=== PATIENT | female | born 1935 | race Caucasian/White ===

== ENCOUNTER → 2016-05-03 | Outpatient (CLI) | payer OTHER ==
[~2016-05-03] MED LIST: ACET-1138 PO; ACET-1256 PO; ALBU18002 INH; ALBU1AER9 INH; ANSHCCR/ TOP; ASPEC325 PO; ATV5 PO; ATV5X PO; BISA1TAB15 PO; BXN500 PO; CHOL1TAB2 PO; CLC100 PO; CLON0.1T12 PO; CLS1 PO; CYAN3INJ IM; CYCL0.052 OPB; CYNI1000 INJ; DLC5 PO; DOCU100C31 PO; FLUT0.15 NAE; FRRG PO; HYDR-5688 PO; HYDR12.56 PO; LEVO-217 PO; LEVO50TA6 PO; LIDO2SOL19 TOP; LISI10TA PO; LISI20TA3 PO; LOSA1TAB PO; LOSA50TA6 PO; LPR25 PO; LSX20 PO; METO25TA56 PO; MOML PO; MULT-190 PO; MULTCAP7 PO; NITR1CAP32 PO; OXYC-643 PO; PANT40TA PO; POLY335019 PO; POTA-327 PO; POTA-74 PO; POTA10CA28 PO; TELM40TA11 PO; TRAM-10 PO; TRIA0.1C20 TOP; TRMCR130WC TOP; VTMD1000 PO
[2016-05-03 17:24] LABS: AST/SGOT 16 U/L (15-37); BLOOD UREA NITROGEN 14 mg/dl (7-18); BUN/CREATININE RATIO 10.9 (10-20); CALCIUM 9.7 mg/dl (8.5-10.1); CARBON DIOXIDE 20 mmol/L (21-32); CHLORIDE 112 mmol/L (98-107); GLUCOSE 143 mg/dl (70-99); POTASSIUM 3.5 mmol/L (3.5-5.1); SODIUM 144 mmol/L (136-145)
[2016-05-03 17:45] LABS: ALB/GLOB RATIO 1.1 (0.9-2); ALKALINE PHOSPHATASE 88 U/L (45-117); ALT/SGPT 19 U/L (12-78)
--- NOTE | 2016-05-08 13:20 | CODING QUERY MEDICAL NECESSITY ---
SUPPORTING DIAGNOSIS NEEDED A supporting diagnosis is required for the test/procedure performed on this patient in order for us to be reimbursed by the patient's insurance. Please provide a supporting diagnosis for the following test/procedure listed below next to the test name along with your signature. *If there is no additional diagnosis for this patient that would support the following test/procedure please document that below next to the test/procedure. Test(s)/Procedure(s) that require a supporting diagnosis: * VIT D 25 DIHYDROXY DIAGNOSIS: * DOS: 05/03/16 Provider Signature: Date: Thank you Rita [facility] Information Management Once completed, please kindly fax back to [phone] For questions please call [phone]
== END | disposition home or self-care (01) ==
LOC: C.LABBFT 10:49
PROVIDERS: ATTEND Internal Medicine
DX: G47.62 Sleep related leg cramps (principal); E55.9 Vitamin D deficiency, unspecified

== ENCOUNTER → 2016-05-09 | Outpatient (CLI) | payer OTHER ==
[2016-05-09 12:37] LABS: CHOLESTEROL/HDL RATIO 3.3
== END | disposition home or self-care (01) ==
LOC: C.LABBFT 09:16
PROVIDERS: ATTEND Internal Medicine
DX: R73.01 Impaired fasting glucose (principal); E78.1 Pure hyperglyceridemia

== ENCOUNTER → 2016-05-14 | Outpatient (CLI) | payer OTHER ==
[2016-05-14 12:32] LABS: BLOOD UREA NITROGEN 15 mg/dl (7-18); BUN/CREATININE RATIO 12.7 (10-20); CALCIUM 9.5 mg/dl (8.5-10.1); CARBON DIOXIDE 22 mmol/L (21-32); CHLORIDE 111 mmol/L (98-107); GLUCOSE 115 mg/dl (70-99); POTASSIUM 3.8 mmol/L (3.5-5.1); SODIUM 143 mmol/L (136-145)
== END | disposition home or self-care (01) ==
LOC: C.LABBFT 10:48
PROVIDERS: ATTEND Internal Medicine
DX: N13.30 Unspecified hydronephrosis (principal)

== ENCOUNTER → 2016-06-20 | Outpatient (CLI) | payer OTHER ==
[2016-06-20 12:41] LABS: URINE APPEARANCE CLEAR (CLEAR); URINE BILIRUBIN NEG (NEG); URINE COLOR YELLOW; URINE NITRITE NEG (NEG); URINE SPECIFIC GRAVITY 1.005 (1.000-1.030); UROBILINOGEN NEG (NEG)
[2016-06-20 12:46] LABS: MANUAL MICROSCOPIC REQUIRED? NO; REVIEW REQ? NO
== END | disposition home or self-care (01) ==
LOC: C.LABBFT 10:21
PROVIDERS: ATTEND Internal Medicine
DX: R30.0 Dysuria (principal)

== ENCOUNTER 2016-06-27 10:52 | Emergency (ER) | payer OTHER ==
[~2016-06-27] VITALS: Ht 154.9 cm; Wt 48.0 kg
[~2016-06-27 10:52] MED LIST changes: -ACET-1138 PO; -ACET-1256 PO; -ALBU18002 INH; -ANSHCCR/ TOP; -ASPEC325 PO; -ATV5X PO; -BISA1TAB15 PO; -BXN500 PO; -CLC100 PO; -CYCL0.052 OPB; -CYNI1000 INJ; -DLC5 PO; -DOCU100C31 PO; -FRRG PO; -LEVO50TA6 PO; -LIDO2SOL19 TOP; -LOSA1TAB PO; -LOSA50TA6 PO; -LPR25 PO; -LSX20 PO; -MOML PO; -MULT-190 PO; -NITR1CAP32 PO; -OXYC-643 PO; -POLY335019 PO; -POTA-74 PO; -POTA10CA28 PO; -TELM40TA11 PO; -TRAM-10 PO; -TRMCR130WC TOP; -VTMD1000 PO
[2016-06-27 10:58] VITALS: TEMP 36.3; Ht 154.9 cm; Wt 48.0 kg
[2016-06-27] MEDS ORDERED: MULT-190 PO (11:16)
[2016-06-27] MEDS ORDERED: LSX20 PO (11:16)
[2016-06-27] MEDS ORDERED: LEVO50TA6 PO (11:16)
[2016-06-27] MEDS ORDERED: TELM40TA11 PO ×2 (11:16)
[2016-06-27] MEDS ORDERED: POTA-74 PO (11:16)
[2016-06-27] MEDS ORDERED: LPR25 PO (11:16)
[2016-06-27] MEDS ORDERED: ATV5X PO (11:18)
[2016-06-27] MEDS ORDERED: BXN500 PO (11:18)
[2016-06-27] MEDS ORDERED: FLUT0.15 NAE (11:55)
[2016-06-27] MEDS ORDERED: TRMCR130WC TOP (11:55)
[2016-06-27] MEDS ORDERED: CHOL1TAB2 PO (11:55)
[2016-06-27] MEDS ORDERED: ALBU18002 INH (11:56)
[2016-06-27] MEDS ORDERED: CYCL0.052 OPB (11:56)
[2016-06-27] MEDS ORDERED: CYNI1000 INJ (11:56)
[2016-06-27 12:01] VITALS: BP 119/66; PULSE 60; O2SAT 97
[2016-06-27] MEDS ORDERED: TRAM-10 PO (12:16)
--- NOTE | 2016-06-27 12:17 | EMERGENCY ROOM VISIT NOTE ---
ED Visit Note First contact with patient: 11:24 CHIEF COMPLAINT: Bilateral ear pain since last night HPI: Patient is a 80-year-old white female who has been sick with upper respiratory symptoms for about a month, who presents to emergency department complaining of worsening ear pain. She states the pain woke her up last evening. She had upper respiratory symptoms that developed into a sinus infection and an ear infection. She was seen at her primary care providers office last week. She was placed on clarithromycin 500 mg twice a day, but she was only able to take 250 mg twice a day due to side effects. She states that her symptoms were not improving after being on the antibiotic for a couple of days so she went to a [facility] walk-in clinic where she was prescribed prednisone, but she did not take it because it causes her blood pressure to become elevated. She has been taking Tylenol and ibuprofen and has been using a nasal steroid and a netti teapot. She denies any fevers, no posterior neck pain or stiffness. She is not diabetic. She does have an appointment scheduled with ENT next week. REVIEW OF SYSTEMS:Review of systems as per HPI. All other systems reviewed were negative. At least 6 systems reviewed. PMH: Electronic medical records are reviewed and summarized as above/below. See Problem List.. SOCIAL HISTORY: Patient lives at home with her . Retired. Nonsmoker. PHYSICAL EXAM: Vital Signs: Reviewed Nurse's notes. MENTAL STATUS: Alert and cooperative. Nontoxic appearing. HEAD: Atraumatic, without temporal or scalp tenderness. EYES: PERRL, EOMI, no discharge or injection. EARS: Tympanic membranes intact with clear effusion is noted bilaterally. No erythema or bulging of the TMs. External canals clear. No pain, erythema or swelling over the mastoids. NOSE: Nares patent, turbinates dry without rhinorrhea. MOUTH: Mucous membranes moist, no lesions, tongue and gums appear normal. THROAT: No pharyngeal injection, exudates, or tonsillar hypertrophy. Airway is patent. NECK: Supple, nontender, no lymphadenopathy. HEART: Regular rate and rhythm without murmurs, ectopy, gallops, or rubs. LUNGS: Clear to auscultation and breath sounds equal, no wheezes, rales, or rhonchi. SKIN: Normal. NEUROLOGICAL: Sensory and motor functions grossly intact. Normal gait. ED course: The patient was seen and evaluated as above. She is presently being treated for a sinusitis/suspected otitis media with clarithromycin. She has been unable to tolerate the full dosage due to side effects. On exam however her TMs are intact, there is no erythema, purulent effusion or bulging. I suspect the patient's symptoms are likely related to her eustachian tube dysfunction. She was prescribed prednisone, but has been unwilling to take it as she states that it causes her blood pressure to become elevated. She also reports that she does not tolerate antibiotics well due to her Crohn's disease. She is already on a nasal steroid spray. She also is reluctant to use any decongestants due to her hypertension. She has appointment with ENT next week. I recommended continued supportive care with her as she is already on appropriate medications or has are deep prescribed additional medications which she is unwilling to use. She was agreeable to something for pain and was given a small prescription for Ultram. She was otherwise advised to continue all of her regular medications and keep her appointment with ENT as she has scheduled next week. Differential diagnoses included sinusitis, otitis media, otitis externa, TM perforation, mastoiditis, among others. Problem List Medical Problems: (1) Abdominal pain Status: Resolved (2) Chest pain Status: Resolved (3) Chronic Obstructive Pulmonary Disease, Unspecified Status: Chronic (4) COPD exacerbation Status: Resolved (5) COPD exacerbation Status: Resolved (6) COPD exacerbation Status: Resolved (7) Crohn disease Status: Chronic (8) Headache Status: Resolved (9) Headache Status: Resolved (10) Hip fracture Status: Resolved (11) HYPERTENSION NOS Status: Chronic (12) Hypothyroidism Status: Chronic (13) Hypoxia Status: Resolved (14) Hypoxia Status: Resolved (15) Left Femoral Neck Fracture Status: Resolved (16) PURE HYPERGLYCERIDEMIA Status: Chronic (17) Reflux Esophagitis Status: Chronic (18) Sinusitis Status: Resolved (19) Small bowel obstruction Status: Resolved Current/Historical Medications Scheduled Cholecalciferol (Vitamin D-3), 1,000 UNITS PO QAM Clarithromycin (Clarithromycin), 250 MG PO BID Colestipol HCl (Colestid), 2 GM PO BID Cyanocobalamin (Cyanocobalamin), 1,000 MCG INJ MONTHLY Cyclosporine (Ophth) (Restasis), 1 DROP OPB BID Furosemide (Furosemide), 10 MG PO QAM Levothyroxine Sodium (Levothyroxine Sodium), 50 MCG PO QAM Lorazepam (Lorazepam), 0.5 MG PO BID Metoprolol Tartrate (Lopressor), 25 MG PO BID Ocuvite Preservision (Ocuvite Preservision), 2 TAB PO BID Pantoprazole (Protonix), 40 MG PO BID Potassium Chloride (Potassium Chloride Er), 30 MEQ PO QAM Telmisartan (Micardis), 40 MG PO HS Telmisartan (Micardis), 20 MG PO QAM Triamcinolone Acet (Aristocort 0.1%), 1 APPLN TOP BID Scheduled PRN Albuterol Sulfate (Proair Respiclick), 2 PUFFS INH Q4 PRN for SOB/Wheezing Clonidine Hcl (Catapres), 0.1 MG PO DAILY PRN for pressure over 180/114 Fluticasone Propionate (Nasal) (Flonase Allergy Relief), 50 MCG YANA DAILY PRN for PRN Tramadol (Ultram), 1-2 TAB PO Q4H PRN for Pain Allergies Coded Allergies: Ciprofloxacin (Verified Allergy, Intermediate, RASH, ITCHING, 06/27/16) Latex (Verified Allergy, Unknown, REDNESS, 06/27/16) Shellfish (Verified Allergy, Unknown, HIVES, 06/27/16) Sulfa Drugs (Verified Allergy, Unknown, RASH, 06/27/16) ITCHING Levofloxacin (Verified Adverse Reaction, Severe, DIZZINESS, MYALGIA, ) Doxycycline (Verified Adverse Reaction, Unknown, HEADACHE, 06/27/16) Vital Signs Date Time Temp Pulse Resp B/P Pulse Ox O2 Delivery O2 Flow Rate FiO2 06/27/16 12:01 60 16 119/66 97 Room Air 06/27/16 10:58 36.3 60 16 141/71 98 Departure Information Impression Primary Impression: Eustachian tube dysfunction Additional Impression: Acute serous otitis media of both ears without rupture Prescriptions Tramadol (Ultram) 50 Mg Tab 1-2 TAB PO Q4H Y for Pain, #20 TAB For Initial Treatment Prov: Rochelle Velasco PA 06/27/16 Referrals Yolande Kingsley M.D. (PCP) Patient Instructions [facility] Additional Instructions Finish clarithromycin as previously prescribed. Continue nasal spray. Ibuprofen(Motrin, Advil) may be used for fever or pain. Use 600mg every six hours as needed. Take with food. Avoid using more than 2400mg in a 24 hour period. Do not use 2400mg per day for more than three consecutive days without physician direction. Prolonged inappropriate use can lead to stomach upset or ulcers. (AND/OR) Acetaminophen(Tylenol) may be used for fever or pain. Use 1000mg every six hours as needed. Avoid using more than 3000mg in a 24 hour period. Tramadol (Ultram) 50mg: Take 1-2 pills every four hours for breakthrough pain. Avoid alcohol, operating machinery or dangerous equipment, working on ladders or roofs, DRIVING, or situations where being under the influence may be dangerous. It is recommended to use an [id number] stool softener such as Colace, 100mg twice daily while taking this medication to avoid constipation. Continue current medications. Follow-up with your primary care physician this week and ENT surgery as you have scheduled next week for further care and management of your symptoms. Problem Qualifiers Primary Impression: Eustachian tube dysfunction Laterality: bilateral Qualified Codes: H69.83 - Other specified disorders of eustachian tube, bilateral
[2016-09-26] MEDS ORDERED: CHOL1TAB2 PO (12:17)
[2016-09-26] MEDS ORDERED: CLC100 PO (12:17)
[2016-09-26] MEDS ORDERED: ASPEC325 PO (12:17)
[2016-09-26] MEDS ORDERED: DLC5 PO (12:17)
[2016-09-26] MEDS ORDERED: POTA-74 PO (12:17)
[2016-09-26] MEDS ORDERED: FRRG PO (12:17)
== END 2016-06-27 12:28 | disposition home or self-care (01) ==
LOC: C.EDB 10:53 → C.EDD 12:28
DX: H69.93 Unspecified Eustachian tube disorder, bilateral (principal); H66.93 Otitis media, unspecified, bilateral; I10 Essential (primary) hypertension; E03.9 Hypothyroidism, unspecified; E78.1 Pure hyperglyceridemia; J44.9 Chronic obstructive pulmonary disease, unspecified; K50.90 Crohn's disease, unspecified, without complications; K21.0 Gastro-esophageal reflux disease with esophagitis; K58.9 Irritable bowel syndrome, unspecified; Z87.81 Personal history of (healed) traumatic fracture; Z79.899 Other long term (current) drug therapy; Z88.2 Allergy status to sulfonamides; Z88.8 Allergy status to other drugs, medicaments and biological substances; Z91.018 Allergy to other foods; Z91.040 Latex allergy status; C34.90 Malignant neoplasm of unspecified part of unspecified bronchus or lung; R91.8 Other nonspecific abnormal finding of lung field; J43.9 Emphysema, unspecified

== ENCOUNTER → 2016-06-27 | Outpatient (CLI) | payer OTHER ==
--- NOTE | 2016-06-27 10:56 | DIAGNOSTIC IMAGING REPORT ---
CHEST CT WITHOUT CONTRAST CT DOSE: 194.27 mGycm HISTORY: Follow-up MULTIPLE LUNG NODULES TECHNIQUE: Multiaxial CT images of the chest were performed without contrast. COMPARISON: Chest CT 06/22/2015. Chest CT 04/29/2013. FINDINGS: There are postoperative changes consistent with a left lower lobectomy. Otherwise, the central airways are patent. There is emphysema. No pleural effusions. No pneumothorax. There again noted multiple subcentimeter bilateral pulmonary nodules. The largest within the right lung is seen on image 184 and measures 6 mm. These remain stable compared to the prior studies. No new focal lung consolidations. No pleural effusions or pneumothorax. Left rib deformities are consistent with post thoracotomy changes. This remains unchanged. No mediastinal or hilar lymphadenopathy. Mild calcified plaque within the normal caliber thoracic aorta. The heart is normal in size. Trace pericardial effusion, unchanged. Limited views of the upper abdomen demonstrate a normal liver and spleen. There is an atrophic left kidney. Stable left adrenal gland thickening. IMPRESSION: 1. Overall, no significant change compared to the prior study. 2. Multiple stable bilateral subcentimeter pulmonary nodules compared to the 04/29/2013 CT scan. Therefore, these are likely benign. 3. Emphysema. 4. Post surgical changes consistent with a left lower lobectomy. Electronically signed by: David Nielson M.D. 06/27/2016 10:55 AM Dictated Date/Time: 06/27/2016 10:48 AM
== END | disposition home or self-care (01) ==
LOC: C.CTS 10:32
PROVIDERS: ATTEND Internal Medicine Pulmonary Disease
DX: C34.90 Malignant neoplasm of unspecified part of unspecified bronchus or lung (principal); R91.8 Other nonspecific abnormal finding of lung field; J43.9 Emphysema, unspecified

== ENCOUNTER → 2016-09-12 | Outpatient (CLI) | payer OTHER ==
[~2016-09-12] MED LIST changes: +ACET-1138 PO; +ACET-1256 PO; +ALBU18002 INH; -ALBU1AER9 INH; +ANSHCCR/ TOP; +ASPEC325 PO; -ATV5 PO; +ATV5X PO; +BISA1TAB15 PO; +BXN500 PO; +CLC100 PO; -CYAN3INJ IM; +CYCL0.052 OPB; +CYNI1000 INJ; +DLC5 PO; +DOCU100C31 PO; +FRRG PO; -HYDR-5688 PO; -HYDR12.56 PO; -LEVO-217 PO; +LEVO50TA6 PO; +LIDO2SOL19 TOP; -LISI10TA PO; -LISI20TA3 PO; +LOSA1TAB PO; +LOSA50TA6 PO; +LPR25 PO; +LSX20 PO; +MOML PO; +MULT-190 PO; -MULTCAP7 PO; +NITR1CAP32 PO; +OXYC-643 PO; +POLY335019 PO; -POTA-327 PO; +POTA-74 PO; +POTA10CA28 PO; +TELM40TA11 PO; +TRAM-10 PO; -TRIA0.1C20 TOP; +TRMCR130WC TOP; +VTMD1000 PO
[2016-09-12 17:43] LABS: BASO % 0.4 %; BASO ABS # 0.02 K/uL (0-0.2); COMPLETE YES; EOS % 1.4 %; IG% 0.2 %; LYMPH ABS # 0.95 K/uL (1.2-3.4); MEAN CORPUSCULAR HGB CONC 32.6 g/dl (32-36); MEAN PLATELET VOLUME 9.9 fL (7.4-10.4); MONO % 6.2 %; NEUT % 72.8 %; PLATELET COUNT 172 K/uL (130-400); WHITE BLOOD COUNT 4.99 K/uL (4.8-10.8)
[2016-09-12 18:04] LABS: ALKALINE PHOSPHATASE 85 U/L (45-117); ALT/SGPT 19 U/L (12-78); AST/SGOT 15 U/L (15-37); BLOOD UREA NITROGEN 15 mg/dl (7-18); BUN/CREATININE RATIO 13.4 (10-20); CALCIUM 9.7 mg/dl (8.5-10.1); CARBON DIOXIDE 26 mmol/L (21-32); CHLORIDE 111 mmol/L (98-107); GLUCOSE 85 mg/dl (70-99); POTASSIUM 4.1 mmol/L (3.5-5.1); SODIUM 143 mmol/L (136-145)
[2016-09-13 06:05] LABS: ESTIMATED AVERAGE GLUCOSE 105 mg/dl; HA1C FLAG Normal (Normal)
== END | disposition home or self-care (01) ==
LOC: C.LABBFT 11:26
PROVIDERS: ATTEND Internal Medicine
DX: E03.9 Hypothyroidism, unspecified (principal); J44.9 Chronic obstructive pulmonary disease, unspecified; I10 Essential (primary) hypertension; D64.9 Anemia, unspecified; R73.01 Impaired fasting glucose; E83.52 Hypercalcemia

== ENCOUNTER 2016-09-23 00:43 | Inpatient (IN) | payer OTHER ==
[~2016-09-23] VITALS: Ht 157.5 cm; Wt 50.0 kg
[~2016-09-23 00:43] MED LIST changes: -ACET-1138 PO; -ACET-1256 PO; -ANSHCCR/ TOP; -ASPEC325 PO; -BISA1TAB15 PO; -CLC100 PO; -DLC5 PO; -DOCU100C31 PO; -FRRG PO; -LIDO2SOL19 TOP; -LOSA1TAB PO; -LOSA50TA6 PO; -METO25TA56 PO; -MOML PO; -NITR1CAP32 PO; -OXYC-643 PO; -POLY335019 PO; -POTA10CA28 PO; -VTMD1000 PO
[2016-09-23] MEDS ORDERED: ONDANSETRON INJ 2 MG/ML 2 ML VIAL IV STA (01:03)
[2016-09-23] MEDS ORDERED: MoRPHine SULFATE 4 MG/ML 1 ML CARP\\VIAL IV ONE (01:15)
[2016-09-23 01:52] LABS: BUN/CREATININE RATIO 15.3 (10-20); CALCIUM 8.8 mg/dl (8.5-10.1); CREATININE 1.2 mg/dl (0.60-1.20); POTASSIUM 3.6 mmol/L (3.5-5.1)
[2016-09-23 01:54] LABS: PARTIAL THROMBOPLASTIN RATIO 0.9; PROTHROMBIN TIME (PATIENT) 10.4 SECONDS (9.0-12.0)
[2016-09-23 01:59] LABS: BASO % 0.2 %; BASO ABS # 0.02 K/uL (0-0.2); COMPLETE YES; EOS % 0.5 %; HEMATOCRIT 34.9 % (37-47); IG% 0.3 %; LYMPH % 8.8 %; LYMPH ABS # 0.96 K/uL (1.2-3.4); MEAN CELL VOLUME 94.1 fL (80-100); MEAN CORPUSCULAR HEMOGLOBIN 32.1 pg (25-34); MEAN CORPUSCULAR HGB CONC 34.1 g/dl (32-36); MEAN PLATELET VOLUME 9.4 fL (7.4-10.4); MONO % 4.1 %; NEUT % 86.1 %; PLATELET COUNT 171 K/uL (130-400); RED BLOOD COUNT 3.71 M/uL (4.2-5.4); WHITE BLOOD COUNT 10.93 K/uL (4.8-10.8)
[2016-09-23] MEDS ORDERED: MoRPHine SULFATE 4 MG/ML 1 ML CARP\\VIAL IV PRN (03:00)
[2016-09-23] MEDS ORDERED: ALBUT/IPRATROP 3MG/0.5MG NEB 3 ML VIAL INH PRN (03:45)
[2016-09-23] MEDS ORDERED: ONDANSETRON INJ 2 MG/ML 2 ML VIAL IV PRN (03:45)
[2016-09-23] MEDS ORDERED: FLUTICASONE PROPIONATE NA SPR 16 GM BTL NAE PRN (03:45)
--- NOTE | 2016-09-23 04:12 | History and Physical ---
History & Physical Date & Time of Service: Sep 23, 2016 at 03:58 Chief Complaint: Fall, Left Leg And Elbow Injury Primary Care Physician: Yolande Kingsley M.D. History of Present Illness Source: patient The patient reports that about 10:00 this evening, she was standing on her bed to adjust a curtain on the window, she then fell and developed immediate pain in her left lower leg. EMS was called, and she was given an injection on-site for pain relief, and she was brought to the emergency department for assessment. Patient denies injury to any other areas. This was a purely mechanical fall. She denies any preceding symptoms such as headaches, lightheadedness, dizziness, palpitations, shortness of breath. She does have a history of previous left hip ORIF. Past Medical/Surgical History Medical Problems: (1) Abdominal pain Status: Resolved (2) Chest pain Status: Resolved (3) Chronic Obstructive Pulmonary Disease, Unspecified Status: Chronic (4) COPD exacerbation Status: Resolved (5) COPD exacerbation Status: Resolved (6) COPD exacerbation Status: Resolved (7) Crohn disease Status: Chronic (8) Headache Status: Resolved (9) Headache Status: Resolved (10) Hip fracture Status: Resolved (11) HYPERTENSION NOS Status: Chronic (12) Hypothyroidism Status: Chronic (13) Hypoxia Status: Resolved (14) Hypoxia Status: Resolved (15) Left Femoral Neck Fracture Status: Resolved (16) PURE HYPERGLYCERIDEMIA Status: Chronic (17) Reflux Esophagitis Status: Chronic (18) Sinusitis Status: Resolved (19) Small bowel obstruction Status: Resolved Family History Other cardiovascular diseases Social History Smoking Status: Former Smoker Smokeless Tobacco Use: No Alcohol Use: none Drug Use: none Marital Status: Housing status: lives with family Occupational Status: retired Immunizations History of Influenza Vaccine: Unknown History of Tetanus Vaccine?: Unknown Tetanus Immunization Date: Oct 10, 2006 History of Pneumococcal: Unknown Pneumococcal Date: Oct 10, 2006 History of Hepatitis B Vaccine: Unknown Multi-Drug Resistant Organisms History of MDRO: No Allergies Coded Allergies: Ciprofloxacin (Verified Allergy, Intermediate, RASH, ITCHING, 09/23/16) Latex (Verified Allergy, Unknown, REDNESS, 09/23/16) Shellfish (Verified Allergy, Unknown, HIVES, 09/23/16) Sulfa Drugs (Verified Allergy, Unknown, RASH, 09/23/16) ITCHING Levofloxacin (Verified Adverse Reaction, Severe, DIZZINESS, MYALGIA, ) Doxycycline (Verified Adverse Reaction, Unknown, HEADACHE, 09/23/16) Home Medications Scheduled Cholecalciferol (Vitamin D-3), 1,000 UNITS PO QAM Colestipol HCl (Colestid), 2 GM PO BID Cyanocobalamin (Cyanocobalamin), 1,000 MCG INJ MONTHLY Cyclosporine (Ophth) (Restasis), 1 DROP OPB BID Furosemide (Furosemide), 10 MG PO QAM Levothyroxine Sodium (Levothyroxine Sodium), 50 MCG PO QAM Lorazepam (Lorazepam), 0.5 MG PO BID Metoprolol Tartrate (Lopressor), 25 MG PO BID Ocuvite Preservision (Ocuvite Preservision), 2 TAB PO BID Pantoprazole (Protonix), 40 MG PO BID Potassium Chloride (Potassium Chloride Er), 30 MEQ PO QAM Telmisartan (Micardis), 40 MG PO HS Telmisartan (Micardis), 20 MG PO QAM Triamcinolone Acet (Aristocort 0.1%), 1 APPLN TOP BID Scheduled PRN Albuterol Sulfate (Proair Respiclick), 2 PUFFS INH Q4 PRN for SOB/Wheezing Clonidine Hcl (Catapres), 0.1 MG PO DAILY PRN for pressure over 180/114 Fluticasone Propionate (Nasal) (Flonase Allergy Relief), 50 MCG YANA DAILY PRN for PRN Review of Systems The patient denies chest pain, palpitations, shortness of breath, cough, vision change, hearing change, sore throat, fevers, chills, sweats, weight change, fatigue, nausea, vomiting, abdominal pain, pelvic pain, blood in urine or stool, dysuria, urinary frequency or urgency, lightheadedness, dizziness, headache, memory loss, rash, abnormal bruising or bleeding, generalized weakness , numbness or tingling in arms, generalized arthralgias or myalgias, back or neck pain, night sweats, or allergy symptoms. The review of systems is otherwise negative other than for that already noted above, and at least 10 systems have been reviewed. Physical Exam Vital Signs Date Time Temp Pulse Resp B/P (MAP) Pulse Ox O2 Delivery O2 Flow Rate FiO2 09/23/16 02:23 76 16 166/80 97 Room Air 09/23/16 00:53 66 09/23/16 00:51 36.6 63 16 166/80 96 Room Air The patient is awake, well-developed and adequately nourished, alert and oriented 3, normocephalic and atraumatic, lying in bed and in mild distress secondary to left leg pain. HEENT--PERRL, EOMI, mucous membranes and oropharynx dry. Neck--supple, no JVD or bruits, thyroid normal, trachea midline, no adenopathy. Heart--normal S1 and S2, no extra beats, no murmurs, rubs or gallops. Lungs--clear bilaterally with good air movement, no respiratory distress, no accessory muscle use. Abdomen--normal bowel sounds and soft, nontender and nondistended, no hernias or masses, no organomegaly. Extremities--no cyanosis, clubbing or edema. There are good distal pulses b/l. Dermatologic--normal skin turgor, normal color, warm and dry, no abnormal lymph nodes, no rash. Neurologic--cranial nerves II through XII grossly intact. Rheumatologic--pain and palpable abnormality over left tibial plateau and fibula head area. Psychiatric--normal affect. Diagnostics Laboratory Results Results Past 24 Hours Test 09/23/16 01:00 09/23/16 01:10 Range/Units Prothrombin Time 10.4 9.0-12.0 SECONDS Prothromb Time International Ratio 1.0 0.9-1.1 Activated Partial Thromboplast Time 22.9 21.0-31.0 SECONDS Partial Thromboplastin Ratio 0.9 White Blood Count 10.93 4.8-10.8 K/uL Red Blood Count 3.71 4.2-5.4 M/uL Hemoglobin 11.9 12.0-16.0 g/dL Hematocrit 34.9 37-47 % Mean Corpuscular Volume 94.1 80-100 fL Mean Corpuscular Hemoglobin 32.1 25-34 pg Mean Corpuscular Hemoglobin Concent 34.1 32-36 g/dl Platelet Count 171 130-400 K/uL Mean Platelet Volume 9.4 7.4-10.4 fL Neutrophils (%) (Auto) 86.1 % Lymphocytes (%) (Auto) 8.8 % Monocytes (%) (Auto) 4.1 % Eosinophils (%) (Auto) 0.5 % Basophils (%) (Auto) 0.2 % Neutrophils # (Auto) 9.41 1.4-6.5 K/uL Lymphocytes # (Auto) 0.96 1.2-3.4 K/uL Monocytes # (Auto) 0.45 0.11-0.59 K/uL Eosinophils # (Auto) 0.06 0-0.5 K/uL Basophils # (Auto) 0.02 0-0.2 K/uL RDW Standard Deviation 46.1 36.4-46.3 fL RDW Coefficient of Variation 13.3 11.5-14.5 % Immature Granulocyte % (Auto) 0.3 % Immature Granulocyte # (Auto) 0.03 0.00-0.02 K/uL Sodium Level 144 136-145 mmol/L Potassium Level 3.6 3.5-5.1 mmol/L Chloride Level 111 98-107 mmol/L Carbon Dioxide Level 26 21-32 mmol/L Anion Gap 7.0 3-11 mmol/L Blood Urea Nitrogen 18 7-18 mg/dl Creatinine 1.20 0.60-1.20 mg/dl Est Creatinine Clear Calc Drug Dose 29.5 ml/min Estimated GFR () 49.4 Estimated GFR (Non- 42.7 BUN/Creatinine Ratio 15.3 10-20 Random Glucose 150 70-99 mg/dl Calcium Level 8.8 8.5-10.1 mg/dl Total Bilirubin 0.3 0.2-1 mg/dl Aspartate Amino Transf (AST/SGOT) 17 15-37 U/L Alanine Aminotransferase (ALT/SGPT) 19 12-78 U/L Alkaline Phosphatase 92 45-117 U/L Total Protein 6.3 6.4-8.2 gm/dl Albumin 3.1 3.4-5.0 gm/dl Globulin 3.2 2.5-4.0 gm/dl Albumin/Globulin Ratio 1.0 0.9-2 Chemistry Specimen Hemolysis Impression Assessment and Plan Left tib-fib fracture--patient will be admitted to the medical surgical floor, with consult to Dr. Roni Doyle, her orthopedic surgeon for her left hip. She' ll be placed on morphine sulfate 2-4 mg IV every 2 hours when necessary, Zofran 4 mg IV every 6 hours when necessary, and NS with KCl 20 mEq at 100 mils per hour. We'll order an EKG and chest x-ray to further assess preoperative risk. Hypertension--continue metoprolol tartrate 25 mg by mouth twice a day, telmisartan 20 mg by mouth every morning and 40 mg by mouth at bedtime. Hold furosemide 10 mg by mouth every morning and potassium chloride 30 mEq by mouth every morning. GERD--continue pantoprazole 40 mg by mouth twice a day. Hypothyroidism--continue levothyroxine sodium 50 g by mouth every morning. Seasonal allergy--continue Flonase nasal spray 1 spray each nostril daily when necessary. Anxiety--continue lorazepam 0.5 mg by mouth twice a day. Dry eye--continue Restasis 1 drop OPB twice a day. Level of Care Med/Surg Advanced Directives Existing Advance Directive: No Existing Living Will: No Existing Power of Pipe And Test Supervisor: No Resuscitation Status FULL RESUSCITATION VTE Prophylaxis VTE Risk Assessment Done? Y/N: Yes Risk Level: Moderate Given or contraindicated: SCD's
--- NOTE | 2016-09-23 04:31 | EMERGENCY ROOM VISIT NOTE ---
History First contact with patient: 00:52 Chief Complaint: FALL Stated Complaint: FALL, LEFT LEG AND ELBOW INJURY History of Present Illness The patient is a 80 year old female who presents to the Emergency Room with complaints of fall from her bed with subsequent injury to her left elbow and left leg. The injury occurred approximately 2-3 hours ago, the patient reports that she landed onto a rug. She was not able to stand or ambulate after the injury. She has a history of left hip replacement by Dr. Doyle several years ago. She did not strike her head or lose consciousness. No lightheadedness, dizziness, or palpitations before or after the event. The patient is not on blood thinners. She did contact EMS and has been given fentanyl prehospital which seems to have improved her symptoms. The patient does not have other complaints. No bleeding. She rates her current pain a 4/10. Review of Systems More than 10 systems were reviewed and otherwise negative with the exception of history of present illness. Past Medical/Surgical History Medical Problems: (1) Abdominal pain (2) Chest pain (3) Chronic Obstructive Pulmonary Disease, Unspecified (4) COPD exacerbation (5) COPD exacerbation (6) COPD exacerbation (7) Crohn disease (8) Headache (9) Headache (10) Hip fracture (11) HYPERTENSION NOS (12) Hypothyroidism (13) Hypoxia (14) Hypoxia (15) Left Femoral Neck Fracture (16) PURE HYPERGLYCERIDEMIA (17) Reflux Esophagitis (18) Sinusitis (19) Small bowel obstruction Family History Other cardiovascular diseases Social History Smoking Status: Former Smoker Smokeless Tobacco Use: No Alcohol Use: none Drug Use: none Marital Status: Housing Status: lives with significant other Occupation Status: retired Current/Historical Medications Scheduled Cholecalciferol (Vitamin D-3), 1,000 UNITS PO QAM Colestipol HCl (Colestid), 2 GM PO BID Cyanocobalamin (Cyanocobalamin), 1,000 MCG INJ MONTHLY Cyclosporine (Ophth) (Restasis), 1 DROP OPB BID Furosemide (Furosemide), 10 MG PO QAM Levothyroxine Sodium (Levothyroxine Sodium), 50 MCG PO QAM Lorazepam (Lorazepam), 0.5 MG PO BID Metoprolol Tartrate (Lopressor), 25 MG PO BID Ocuvite Preservision (Ocuvite Preservision), 2 TAB PO BID Pantoprazole (Protonix), 40 MG PO BID Potassium Chloride (Potassium Chloride Er), 30 MEQ PO QAM Telmisartan (Micardis), 40 MG PO HS Telmisartan (Micardis), 20 MG PO QAM Triamcinolone Acet (Aristocort 0.1%), 1 APPLN TOP BID Scheduled PRN Albuterol Sulfate (Proair Respiclick), 2 PUFFS INH Q4 PRN for SOB/Wheezing Clonidine Hcl (Catapres), 0.1 MG PO DAILY PRN for pressure over 180/114 Fluticasone Propionate (Nasal) (Flonase Allergy Relief), 50 MCG YANA DAILY PRN for PRN Allergies Coded Allergies: Ciprofloxacin (Verified Allergy, Intermediate, RASH, ITCHING, 09/23/16) Latex (Verified Allergy, Unknown, REDNESS, 09/23/16) Shellfish (Verified Allergy, Unknown, HIVES, 09/23/16) Sulfa Drugs (Verified Allergy, Unknown, RASH, 09/23/16) ITCHING Levofloxacin (Verified Adverse Reaction, Severe, DIZZINESS, MYALGIA, ) Doxycycline (Verified Adverse Reaction, Unknown, HEADACHE, 09/23/16) Physical Exam Vital Signs Date Time Temp Pulse Resp B/P (MAP) Pulse Ox O2 Delivery O2 Flow Rate FiO2 09/23/16 04:13 67 09/23/16 02:23 76 16 166/80 97 Room Air 09/23/16 00:53 66 09/23/16 00:51 36.6 63 16 166/80 96 Room Air Pain Rating (0-10): 4.0 Physical Exam VITALS: Vitals are noted on the nurse's note and reviewed by myself. Vital signs stable. GENERAL: Well-developed, well-nourished, elderly female who is mildly uncomfortable but very pleasant. HEAD: Normocephalic atraumatic. EARS: External ear normal. External auditory canals clear, tympanic membranes pearly macdonald without erythema or effusion bilaterally. EYES: Pupils equal round and reactive to light and accommodation. Conjunctivae without injection, sclerae without icterus. Extraocular movements intact. NOSE: Patent, turbinates without inflammation or discharge. MOUTH: Mucous membranes moist. Tonsils are not enlarged. Pharynx without erythema, blood, or exudate. Uvula midline. Airway patent. NECK: Supple without nuchal rigidity. No lymphadenopathy. No thyromegaly. Cervical spine is nontender. HEART: Regular rate and rhythm without murmurs gallops or rubs. LUNGS: Clear to auscultation bilaterally without wheezes, rales or rhonchi. No retractions or accessory muscle use. ABDOMEN: Positive normal bowel sounds x 4. Soft, nontender, without masses or organomegaly. No guarding or rebound tenderness. No tenderness with pelvic rock MUSCULOSKELETAL: Mild tenderness appreciated over the olecranon of the left elbow. The patient is able to flex and extend without difficulty. The left leg is tender primarily over the distal femur and proximal tibia. Neurovascular status is intact. There is no rotation or shortening.. NEURO: Patient was alert and oriented to person place and time. CN II through XII grossly intact. Medical Decision & Procedures Laboratory Results 09/23/16 01:10 Red Blood Count 3.71, Mean Corpuscular Volume 94.1, Mean Corpuscular Hemoglobin 32.1, Mean Corpuscular Hemoglobin Concent 34.1, Mean Platelet Volume 9.4, Neutrophils (%) (Auto) 86.1, Lymphocytes (%) (Auto) 8.8, Monocytes (%) (Auto) 4.1, Eosinophils (%) (Auto) 0.5, Basophils (%) (Auto) 0.2, Neutrophils # (Auto) 9.41, Lymphocytes # (Auto) 0.96, Monocytes # (Auto) 0.45, Eosinophils # (Auto) 0.06, Basophils # (Auto) 0.02 09/23/16 01:10 Test 09/23/16 01:00 09/23/16 01:10 Prothrombin Time 10.4 SECONDS (9.0-12.0) Prothromb Time International Ratio 1.0 (0.9-1.1) Activated Partial Thromboplast Time 22.9 SECONDS (21.0-31.0) Partial Thromboplastin Ratio 0.9 White Blood Count 10.93 K/uL (4.8-10.8) Red Blood Count 3.71 M/uL (4.2-5.4) Hemoglobin 11.9 g/dL (12.0-16.0) Hematocrit 34.9 % (37-47) Mean Corpuscular Volume 94.1 fL (80-100) Mean Corpuscular Hemoglobin 32.1 pg (25-34) Mean Corpuscular Hemoglobin Concent 34.1 g/dl (32-36) Platelet Count 171 K/uL (130-400) Mean Platelet Volume 9.4 fL (7.4-10.4) Neutrophils (%) (Auto) 86.1 % Lymphocytes (%) (Auto) 8.8 % Monocytes (%) (Auto) 4.1 % Eosinophils (%) (Auto) 0.5 % Basophils (%) (Auto) 0.2 % Neutrophils # (Auto) 9.41 K/uL (1.4-6.5) Lymphocytes # (Auto) 0.96 K/uL (1.2-3.4) Monocytes # (Auto) 0.45 K/uL (0.11-0.59) Eosinophils # (Auto) 0.06 K/uL (0-0.5) Basophils # (Auto) 0.02 K/uL (0-0.2) RDW Standard Deviation 46.1 fL (36.4-46.3) RDW Coefficient of Variation 13.3 % (11.5-14.5) Immature Granulocyte % (Auto) 0.3 % Immature Granulocyte # (Auto) 0.03 K/uL (0.00-0.02) Anion Gap 7.0 mmol/L (3-11) Est Creatinine Clear Calc Drug Dose 29.5 ml/min Estimated GFR () 49.4 Estimated GFR (Non- 42.7 BUN/Creatinine Ratio 15.3 (10-20) Calcium Level 8.8 mg/dl (8.5-10.1) Total Bilirubin 0.3 mg/dl (0.2-1) Aspartate Amino Transf (AST/SGOT) 17 U/L (15-37) Alanine Aminotransferase (ALT/SGPT) 19 U/L (12-78) Alkaline Phosphatase 92 U/L (45-117) Total Protein 6.3 gm/dl (6.4-8.2) Albumin 3.1 gm/dl (3.4-5.0) Globulin 3.2 gm/dl (2.5-4.0) Albumin/Globulin Ratio 1.0 (0.9-2) Chemistry Specimen Hemolysis Medications Administered Medications (Trade) Dose Ordered Sig/Arnie Route Start Time Stop Time Status Last Admin Dose Admin Morphine Sulfate (MoRPHine SULFATE INJ) 4 mg NOW ONCE IV 09/23/16 01:15 09/23/16 01:16 DC 09/23/16 01:19 4 MG Ondansetron HCl (Zofran Inj) 4 mg NOW STAT IV 09/23/16 01:03 09/23/16 01:05 DC 09/23/16 01:19 4 MG Morphine Sulfate (MoRPHine SULFATE INJ) 4 mg Q1H PRN IV 09/23/16 03:00 10/07/16 02:59 09/23/16 03:24 4 MG ED Course Physical exam and history were performed. Nursing notes and EMR were reviewed. Patient appears to have fallen and suffered injury to her left elbow and left leg. IV access was established and labs were obtained. The patient was hydrated gently and given IV morphine for comfort. X-rays were performed. The patient's blood work is as above and was reviewed. She does not have a significantly elevated white blood cell count or gross anemia. Her x-rays were reviewed by myself and my attending physician, and or concerning for a minimum of a left tib-fib fracture proximally. Official radiology report is pending at the time of this dictation. The patient did require additional doses of pain medication here in the department. She has followed with Dr. Doyle in the past. She does not appear able to ambulate secondary to her age and injury. The patient case was discussed with the on-call hospitalist who agreed to evaluate the patient here in the emergency department. Please see their dictation for further patient course, plan, disposition. The chart was completed utilizing [employer] Speech Voice Recognition Software. Grammatical errors, random word insertions, pronoun errors, and incomplete sentences are an occasional consequence of this system due to software limitations, ambient noise, and hardware issues. Any formal questions or concerns about the content, text, or information contained within the body of this dictation should be directly addressed to the provider for clarification. . Medical Decision Differential diagnosis includes, but is not limited to: Sprain, strain, fracture , dislocation, subluxation, contusion, and others Impression Primary Impression: Fall Additional Impression: Leg fracture, left Departure Information Referrals Yolande Kingsley M.D. (PCP) Patient Instructions My [facility] Problem Qualifiers
--- NOTE | 2016-09-23 04:41 | EMERGENCY ROOM VISIT NOTE ---
ED Visit Note First contact with patient: 00:52 I saw this patient in conjunction with Roni Garcia PA-C. I agree with his decision-making and treatment plan.
[2016-09-23 04:45] VITALS: Ht 157.5 cm; Wt 50.0 kg
[2016-09-23 04:59] VITALS: BP 168/84; PULSE 72; TEMP 36.5; O2SAT 97
[2016-09-23] MEDS: NSS + 20MEQ KCL 1000ML 1,000 ML IV SCH ×3 (05:04→23:17)
[2016-09-23] MEDS: LEVOTHYROXINE 50 MCG TAB PO SCH (05:31)
[2016-09-23] MEDS: MoRPHine SULFATE 4 MG/ML 1 ML CARP\\VIAL IV PRN ×2 (05:42→22:43)
[2016-09-23 07:13] VITALS: BP 117/73; PULSE 73; TEMP 36.5; O2SAT 95
--- NOTE | 2016-09-23 07:25 | DIAGNOSTIC IMAGING REPORT ---
LEFT ELBOW 3 VIEWS CLINICAL HISTORY: Fall with left elbow injury. FINDINGS: 3 views of the left elbow are obtained. No prior studies are available for comparison at the time of dictation. The skeletal structures are osteopenic. There is cortical irregularity with lucency seen involving the lateral aspect of the supracondylar humerus. Mild overlying soft tissue edema is suggested and a nondistracted fracture is on excluded. No additional findings concerning for acute fracture. No joint effusion is seen. There is no elbow dislocation. Atherosclerotic calcification is noted in the arteries of the forearm. Mild spurring is seen along the medial joint space. IMPRESSION: 1. There is cortical irregularity with indeterminate lucency seen involving the lateral aspect of the supracondylar humerus. Mild overlying soft tissue edema is suggested and a nondistracted fracture is not excluded. Correlate for point tenderness at this site. 2. No additional findings are concerning for fracture. 3. No elbow joint effusion is seen. Electronically signed by: Roly Storey M.D. 09/23/2016 7:23 AM Dictated Date/Time: 09/23/2016 7:20 AM
--- NOTE | 2016-09-23 07:26 | DIAGNOSTIC IMAGING REPORT ---
SINGLE VIEW PELVIS CLINICAL HISTORY: Fall with left leg pain. FINDINGS: An AP pelvic radiograph is compared to study dated 03/22/2015. The skeletal structures are osteopenic. No acute fracture is seen in the hips or bony pelvis. There is chronic posttraumatic deformity and postoperative change in the left femur with 2 intertrochanteric lag screws in place. Moderate arthritic change is present in the hips. The overlying soft tissues are within normal limits. There is atherosclerotic calcification of the femoral arteries. A nonobstructed abdominal bowel gas pattern is observed. IMPRESSION: 1. There is no radiographic evidence of fracture in the hips or bony pelvis. 2. Osteopenia with chronic posttraumatic deformity and postoperative change in the left femur as above. Electronically signed by: Roly Storey M.D. 09/23/2016 7:25 AM Dictated Date/Time: 09/23/2016 7:23 AM
--- NOTE | 2016-09-23 07:29 | DIAGNOSTIC IMAGING REPORT ---
LEFT TIBIA AND FIBULA 2 VIEWS CLINICAL HISTORY: Fall with left leg pain. FINDINGS: AP and crosstable lateral views of the left tibia and fibula are obtained. No prior studies are available for comparison at the time of dictation. The skeletal structures are osteopenic. There is a comminuted fracture of the fibular head with minimally distracted fragments. There is also a comminuted fracture of the proximal tibial metaphysis with a depressed fracture of the lateral tibial plateau. This is depressed by at least 5 mm as seen on the lateral view. Significant overlying soft tissue edema is observed. The distal tibia and fibula appear intact. There is advanced atherosclerotic calcification of the regional arteries. The distal femur is intact as visualized. IMPRESSION: 1. There is a comminuted fracture of the proximal tibial metaphysis as well as a depressed fracture of the lateral tibial plateau. 2. There is a comminuted fracture of the fibular head. 3. Overlying soft tissue edema is noted and there is advanced atherosclerotic calcification of the regional arteries. Electronically signed by: Roly Storey M.D. 09/23/2016 7:28 AM Dictated Date/Time: 09/23/2016 7:25 AM
--- NOTE | 2016-09-23 07:32 | DIAGNOSTIC IMAGING REPORT ---
LEFT FEMUR 3 VIEWS CLINICAL HISTORY: Fall with left leg pain. FINDINGS: AP and crosstable lateral views of the left femur are correlated with pelvic and left hip radiographs dated 03/22/2015. The skeletal structures are osteopenic. No acute left femoral fracture is seen. The visualized left hemipelvis appears intact. There is chronic posttraumatic deformity in the left humeral neck with 3 intertrochanteric lag screws in place. The orthopedic hardware appears intact. Comminuted fractures of the proximal tibia and fibula are partially visualized with overlying soft tissue edema. Lipohemarthrosis is suggested at the knee. There is advanced atherosclerotic calcification of the left femoral artery. IMPRESSION: 1. There is no radiographic evidence of acute left femoral fracture. 2. There are acute comminuted fractures of the proximal tibia and fibula which are partially visualized. 3. Chronic posttraumatic deformity and postoperative change is identified in the left proximal femur. This is similar to previous. Electronically signed by: Roly Storey M.D. 09/23/2016 7:31 AM Dictated Date/Time: 09/23/2016 7:28 AM
[2016-09-23] MEDS: RESTASIS~ORDER AWAITING ACTION SCH ×3 (07:59→23:42)
--- NOTE | 2016-09-23 08:13 | DIAGNOSTIC IMAGING REPORT ---
SINGLE VIEW CHEST CLINICAL HISTORY: Preoperative examination. FINDINGS: An AP, portable, upright chest radiograph is compared to study dated 10/21/2015 and correlated with chest CT dated 06/27/2016. The examination is degraded by portable technique and patient rotation. The heart is mildly enlarged and there is atherosclerotic calcification of the thoracic aorta. Enlargement of the main pulmonary arteries suggests pulmonary artery hypertension. There is no radiographic evidence of congestive failure. Emphysema and chronic interstitial thickening are similar to previous. No airspace consolidation is seen typical for pneumonia and there is no pleural effusion. Blunting of the left costophrenic sulcus is similar to prior studies and consistent with subpleural fat/scarring. No pneumothorax is seen. The skeletal structures are osteopenic. There are healed left-sided rib fractures. IMPRESSION: Cardiomegaly and mild emphysema. No acute cardiopulmonary abnormality is seen. Electronically signed by: Roly Storey M.D. 09/23/2016 8:12 AM Dictated Date/Time: 09/23/2016 8:10 AM
[2016-09-23] MEDS: ACETAMINOPHEN 325 MG TAB PO PRN ×2 (08:29→21:28)
--- NOTE | 2016-09-23 08:36 | ORTHOPEDIC CONSULTATION ---
DATE OF CONSULTATION: 09/23/2016 CHIEF COMPLAINT: 1. Left leg pain. 2. Left elbow pain. HISTORY OF PRESENT ILLNESS: The patient is an 80-year-old female, fairly independent ambulator who sustained a fall last evening. She was apparently standing on her bed to adjust the curtain when she fell. She was brought to the Emergency Room. X-rays revealed a left tibial plateau fracture and a questionable left elbow fracture. She was admitted by the medicine service and we were consulted this morning. Describes the left knee pain primarily. Some elbow pain and that?s it. No head injury, no loss of consciousness, no neck pain. PAST MEDICAL HISTORY: 1. Significant for COPD. 2. History of a left hip fracture, fixated with cannulated screws back in 2013. 3. Hypertension. 4. Hypothyroidism. 5. Hypoxia. 6. Elevated cholesterol. 7. Elevated blood glucose. 8. Chronic esophagitis. 9. History of small-bowel obstruction. The remainder of the past medical history is per the admission H&P. PHYSICAL EXAMINATION: GENERAL: Very thin elderly female who lies in bed. She looks reasonably comfortable. MUSCULOSKELETAL: Exam reveals painless range of motion of her cervical, thoracic and lumbar spines. She has got painless motion of her right upper extremity and right lower extremity. Examination of her upper extremity reveals some bruising on the lateral elbow. She has got pain with any type of motion. She can flex and extend her fingers appropriately. No pain with shoulder or hand motion. Examination of the left knee reveals slight valgus deformity to the knee. She has got a fairly large knee joint effusion. There are no significant abrasions. She can dorsiflex and plantarflex her foot appropriately. Compartments are relatively supple. X-RAYS: X-rays of the left tib-fib reveal a displaced bicondylar tibial plateau fracture. It is in some slight valgus. X-rays of the pelvis and femur reveal healed valgus impacted femoral neck fracture with [address] X-rays of the elbow reveal a nondisplaced lateral condyle fracture. ASSESSMENT: An 80-year-old female with pretty significant osteoporosis with 1. Left displaced bicondylar tibial plateau fracture. 2. Left nondisplaced lateral condyle fracture of the elbow. PLAN: We are going to put her in a posterior splint on her elbow and get her on a sling. I do not think this needs surgical intervention. With respect to the knee, we are going to get imaging studies directed at the knee itself including just some plain x-rays and a CT scan to assess displacement and stability. Definitive treatment plans will be based on that. In the meantime, we will continue DVT prophylaxis including thigh-high TEDs, SCDs. Hold on any anticoagulation until the decision of surgery. She is non-weightbearing. Any orthopedic questions can be directed to me at [phone].
--- NOTE | 2016-09-23 09:34 | DIAGNOSTIC IMAGING REPORT ---
CT SCAN OF THE LEFT KNEE WITHOUT IV CONTRAST CLINICAL HISTORY: Tibial plateau fracture. COMPARISON STUDY: Radiographs of the left tibia and fibula dated 09/23/2016. TECHNIQUE: CT scan of the left knee is performed from the distal femur to the proximal tibia and fibula. Images are reviewed in the axial, sagittal, coronal planes. IV contrast was not administered for this examination. 3-D reformats are created and assessed. CT DOSE: 200.52 mGy.cm Findings: The skeletal structures are osteopenic. There is a comminuted fracture of the fibular head with minimally distracted fragments. There is offset of the largest fragments by approximately 8 mm. There is an impacted and comminuted fracture of the proximal tibial metaphysis with numerous small fragments. There is a depressed lateral tibial plateau fracture which extends from the intercondylar notch to the lateral cortex. There is lateral distraction of the largest fragments by approximately 7 mm. There is depression of the posterior tibial plateau by approximately 6 mm. The distal femur and patella are intact. There is lipohemarthrosis. There is a small volume of hemorrhage identified in the popliteal fossa and around the tibial plateau fracture. No large/organized hematoma is seen. Advanced atherosclerotic calcification is noted in the popliteal artery. Soft tissue edema is present around the knee. IMPRESSION: 1. There is an impacted and comminuted fracture of the proximal tibial metaphysis with a depressed lateral tibial plateau fracture as above. 2. There is a comminuted fracture of the fibular head with distracted fragments. 3. Lipohemarthrosis. 4. There is hemorrhage around the tibial plateau fracture and in the popliteal fossa as well as overlying soft tissue edema. Electronically signed by: Roly Storey M.D. 09/23/2016 9:32 AM Dictated Date/Time: 09/23/2016 9:26 AM
--- NOTE | 2016-09-23 09:46 | DIAGNOSTIC IMAGING REPORT ---
LEFT KNEE 2 VIEWS CLINICAL HISTORY: Knee fractures. FINDINGS: AP and crosstable lateral views of the left knee are compared to CT scan of left knee performed the same day 09/23/2016 and correlated with radiograph of the left tibia and fibula performed the same day. The skeletal structures are osteopenic. Again seen is a comminuted fracture of the fibular head with distracted fragments. There is unchanged appearance of a comminuted fracture of the proximal tibial metaphysis with a depressed fracture of the lateral tibial plateau. This is depressed by at least 5 mm. There is approximately 8 mm lateral distraction of the largest tibial plateau fragments. There is likely hemarthrosis. Overlying soft tissue edema is observed. The distal femur and the patella appear intact. There is advanced atherosclerotic calcification of the popliteal artery. IMPRESSION: 1. Unchanged appearance of comminuted fractures of the proximal tibia and fibula as compared to today's earlier studies. 2. Lipohemarthrosis. 3. The distal femur and the patella appear intact. Electronically signed by: Roly Storey M.D. 09/23/2016 9:44 AM Dictated Date/Time: 09/23/2016 9:42 AM
[2016-09-23] MEDS ORDERED: PROMETHAZINE HCL INJ 12.5 MG in SODIUM CHLORIDE 0.9% 50ML 50 ML IV PRN (10:15)
--- NOTE | 2016-09-23 10:30 | Anesthesiology Progress Note ---
Anesthesia Progress Note Date of Service Sep 23, 2016. Progress Notes Pt is scheduled for L tibial plateau ORIF on 09/24/16. Pt is 80F h/o COPD, HTN, GERD, h/o bowel obstruction, arthritis, hypothyroid, lung ca, former smoker, anxiety, dry eyes. Pt presents s/p fall with L elbow and LLE pain. Pt had good functional status prior to her fall. Pt's labwork and studies were reviewed. Consent was obtained from the patient. Pt is an acceptable candidate for general vs. spinal anesthesia.
[2016-09-23] MEDS: ONDANSETRON INJ 2 MG/ML 2 ML VIAL IV PRN ×2 (10:38→19:58)
[2016-09-23 10:41] VITALS: BP 109/70; PULSE 76
[2016-09-23] MEDS: METOPROLOL TARTRATE 25 MG TAB PO SCH ×2 (10:43→20:05)
[2016-09-23] MEDS: PANTOprazole SOD 40 MG TAB PO SCH ×2 (10:44→20:06)
[2016-09-23] MEDS: LORAZEPAM 0.5 MG TAB PO SCH ×2 (10:48→19:58)
[2016-09-23] MEDS: TELMISARTAN 40 MG TAB PO SCH ×2 (10:48→20:05)
--- NOTE | 2016-09-23 11:29 | Orthopedic Progress Note ---
Orthopedic Progress Note Date of Service Sep 23, 2016. Subjective Post OP Day: HD #1 Additional Notes: Asked to splint Left elbow by Dr. Doyle. Mild Left elbow pain. Objective N/V intact LUE: Sensation to light touch intact. BCR less than 2 sec. Motor to M/U/R/AIN/ PIN intact. mild discomfort with ROM of elbow. ++ bruising lateral aspect of elbow & TTP in that location. Date Time Temp Pulse Resp B/P (MAP) Pulse Ox O2 Delivery O2 Flow Rate FiO2 09/23/16 10:41 76 109/70 (83) 09/23/16 07:13 36.5 73 17 117/73 (88) 95 Room Air 09/23/16 05:36 Room Air 09/23/16 04:59 36.5 72 16 168/84 (112) 97 Room Air 09/23/16 04:45 Room Air 09/23/16 04:13 67 09/23/16 02:23 76 16 166/80 97 Room Air 09/23/16 00:53 66 09/23/16 00:51 36.6 63 16 166/80 96 Room Air Laboratory Results 24 Hours: Test 09/23/16 01:00 09/23/16 01:10 Prothromb Time International Ratio 1.0 Prothrombin Time 10.4 SECONDS White Blood Count 10.93 K/uL Red Blood Count 3.71 M/uL Hemoglobin 11.9 g/dL Hematocrit 34.9 % Mean Corpuscular Volume 94.1 fL Mean Corpuscular Hemoglobin 32.1 pg Mean Corpuscular Hemoglobin Concent 34.1 g/dl Platelet Count 171 K/uL Mean Platelet Volume 9.4 fL Neutrophils (%) (Auto) 86.1 % Lymphocytes (%) (Auto) 8.8 % Monocytes (%) (Auto) 4.1 % Eosinophils (%) (Auto) 0.5 % Basophils (%) (Auto) 0.2 % Neutrophils # (Auto) 9.41 K/uL Lymphocytes # (Auto) 0.96 K/uL Monocytes # (Auto) 0.45 K/uL Eosinophils # (Auto) 0.06 K/uL Basophils # (Auto) 0.02 K/uL Assessment & Plan Assessment: Left lateral condyle fracture humerus, non-displaced. Plan: Ice, elevation, sling when oob. Placed in posterior splint. Continue pain control. Resume care per Dr. Doyle.
--- NOTE | 2016-09-23 14:17 | Progress Note ---
Subjective Date of Service: Sep 23, 2016. Subjective Pt evaluation today including: conversation w/ patient, physical exam, lab review, review of studies, conversation w/ employee relations consultant, review of inpatient medication list Pain: controlled PO Intake: nausea, narcotics induced Voiding: barger catheter in place patient's pain controlled but c/o nausea, dry heaves will increase frequency of Zofran, add low dose Phenergan no other complaints, on board for surgery tomorrow Problem List Medical Problems: (1) Acute serous otitis media of both ears without rupture Status: Acute (2) Chronic Obstructive Pulmonary Disease, Unspecified Status: Chronic (3) Crohn disease Status: Chronic (4) Eustachian tube dysfunction Status: Acute (5) Fall Status: Acute (6) HYPERTENSION NOS Status: Chronic (7) Hypothyroidism Status: Chronic (8) Leg fracture, left Status: Acute (9) PURE HYPERGLYCERIDEMIA Status: Chronic (10) Reflux Esophagitis Status: Chronic Review of Systems Abdomen: + nausea, + vomiting Musculoskeletal: + joint pain (left elbow and left knee/patten) All Other Systems: Reviewed and Negative Medications Current Inpatient Medications Medications (Trade) Dose Ordered Sig/Arnie Route Start Time Stop Time Status Last Admin Dose Admin Acetaminophen (Tylenol Tab) 650 mg Q4H PRN PO 09/23/16 03:45 10/23/16 03:44 09/23/16 08:29 650 MG Potassium Chloride/Sodium Chloride 1,000 ml @ 100 mls/hr Q10H IV 09/23/16 05:00 10/23/16 04:59 09/23/16 05:04 100 MLS/HR Morphine Sulfate (MoRPHine SULFATE INJ) 2 mg Q2H PRN IV 09/23/16 03:45 10/07/16 03:44 Morphine Sulfate (MoRPHine SULFATE INJ) 4 mg Q2H PRN IV 09/23/16 03:45 10/07/16 03:44 09/23/16 05:42 4 MG Albuterol/ Ipratropium (Duoneb) 3 ml Q4 PRN INH 09/23/16 03:45 10/23/16 03:44 Fluticasone Propionate (Flonase Nasal [place]) 1 sprays DAILY PRN YANA 09/23/16 03:45 10/23/16 03:44 Levothyroxine Sodium (Synthroid Tab) 50 mcg DAILYBB PO 09/23/16 06:00 7/4/17 05:59 09/23/16 05:31 50 MCG Lorazepam (Ativan Tab) 0.5 mg BID PO 09/23/16 09:00 10/23/16 08:59 09/23/16 10:48 0.5 MG Metoprolol Tartrate (Lopressor Tab) 25 mg BID PO 09/23/16 09:00 10/23/16 08:59 Pantoprazole Sodium (Protonix Tab) 40 mg BID PO 09/23/16 09:00 10/23/16 08:59 09/23/16 10:44 40 MG Telmisartan (Micardis Tab) 20 mg QAM PO 09/23/16 09:00 10/23/16 08:59 09/23/16 10:48 20 MG Telmisartan (Micardis Tab) 40 mg HS PO 09/23/16 21:00 10/23/16 20:59 Miscellaneous Information (Order Awaiting Action) 1 ea QS N/A 09/23/16 08:00 10/23/16 07:59 Ondansetron HCl (Zofran Inj) 4 mg Q4H PRN IV 09/23/16 10:15 10/23/16 03:44 09/23/16 10:38 4 MG Promethazine HCl 12.5 mg/Sodium Chloride 50.5 ml @ 204 mls/hr Q6H PRN IV 09/23/16 10:15 10/23/16 10:14 09/23/16 13:34 204 MLS/HR Objective Vital Signs Date Time Temp Pulse Resp B/P (MAP) Pulse Ox O2 Delivery O2 Flow Rate FiO2 09/23/16 10:41 76 109/70 (83) 09/23/16 07:45 Room Air 09/23/16 07:13 36.5 73 17 117/73 (88) 95 Room Air 09/23/16 05:36 Room Air 09/23/16 04:59 36.5 72 16 168/84 (112) 97 Room Air 09/23/16 04:45 Room Air 09/23/16 04:13 67 09/23/16 02:23 76 16 166/80 97 Room Air 09/23/16 00:53 66 09/23/16 00:51 36.6 63 16 166/80 96 Room Air Physical Exam General Appearance: WD/WN, no apparent distress Eyes: normal inspection, EOMI, sclerae normal ENT: normal ENT inspection, hearing grossly normal, pharynx normal Neck: supple, no adenopathy, no JVD, trachea midline Respiratory/Chest: chest non-tender, lungs clear, normal breath sounds, no respiratory distress, no accessory muscle use Cardiovascular: regular rate, rhythm, no edema, no gallop, no JVD, no murmur Abdomen: normal bowel sounds, non tender, soft, no organomegaly Extremities: no pedal edema, no calf tenderness, normal capillary refill, pelvis stable, + pertinent finding (left elbow in sling, left knee wrapped) Neurologic/Psychiatric: performance improvement specialist II-XII nml as tested, no motor/sensory deficits, alert, normal mood/affect, oriented x 3 Skin: normal color, warm/dry, no rash Laboratory Results Last 24 Hours Test 09/23/16 01:00 09/23/16 01:10 Prothrombin Time 10.4 SECONDS Prothromb Time International Ratio 1.0 Activated Partial Thromboplast Time 22.9 SECONDS Partial Thromboplastin Ratio 0.9 White Blood Count 10.93 K/uL Red Blood Count 3.71 M/uL Hemoglobin 11.9 g/dL Hematocrit 34.9 % Mean Corpuscular Volume 94.1 fL Mean Corpuscular Hemoglobin 32.1 pg Mean Corpuscular Hemoglobin Concent 34.1 g/dl Platelet Count 171 K/uL Mean Platelet Volume 9.4 fL Neutrophils (%) (Auto) 86.1 % Lymphocytes (%) (Auto) 8.8 % Monocytes (%) (Auto) 4.1 % Eosinophils (%) (Auto) 0.5 % Basophils (%) (Auto) 0.2 % Neutrophils # (Auto) 9.41 K/uL Lymphocytes # (Auto) 0.96 K/uL Monocytes # (Auto) 0.45 K/uL Eosinophils # (Auto) 0.06 K/uL Basophils # (Auto) 0.02 K/uL RDW Standard Deviation 46.1 fL RDW Coefficient of Variation 13.3 % Immature Granulocyte % (Auto) 0.3 % Immature Granulocyte # (Auto) 0.03 K/uL Sodium Level 144 mmol/L Potassium Level 3.6 mmol/L Chloride Level 111 mmol/L Carbon Dioxide Level 26 mmol/L Anion Gap 7.0 mmol/L Blood Urea Nitrogen 18 mg/dl Creatinine 1.20 mg/dl Est Creatinine Clear Calc Drug Dose 29.5 ml/min Estimated GFR () 49.4 Estimated GFR (Non- 42.7 BUN/Creatinine Ratio 15.3 Random Glucose 150 mg/dl Calcium Level 8.8 mg/dl Total Bilirubin 0.3 mg/dl Aspartate Amino Transf (AST/SGOT) 17 U/L Alanine Aminotransferase (ALT/SGPT) 19 U/L Alkaline Phosphatase 92 U/L Total Protein 6.3 gm/dl Albumin 3.1 gm/dl Globulin 3.2 gm/dl Albumin/Globulin Ratio 1.0 Chemistry Specimen Hemolysis Assessment and Plan 80 yo female with h/o HTN, GERD, hypothyroidism who fell at home, suffered left tib/fib fracture and left olecranon fracture Left tib-fib fracture and left olecranon fracture evaluated by ortho, left olecranon with non-operative management plan for ORIF left tib/fib tomorrow, medically optimized for OR, cleared by anesthesiology issues with nausea due to narcotics, Zofran and Phenergan PRN anticipated needing rehab once medically stable continue IV fluids Hypertension--continue metoprolol tartrate 25 mg by mouth twice a day, telmisartan 20 mg by mouth every morning and 40 mg by mouth at bedtime BP stable GERD--continue pantoprazole 40 mg by mouth twice a day. Hypothyroidism--continue levothyroxine sodium 50 g by mouth every morning. Seasonal allergy--continue Flonase nasal spray 1 spray each nostril daily when necessary. Anxiety--continue lorazepam 0.5 mg by mouth twice a day. Dry eye--continue Restasis 1 drop OPB twice a day.
[2016-09-23 15:00] VITALS: BP 105/65; PULSE 79; TEMP 36.6; O2SAT 95
[2016-09-23] MEDS: MoRPHine SULFATE 2 MG/ML CARP IV PRN ×2 (18:55→19:58)
[2016-09-23 20:08] VITALS: BP 142/81; PULSE 92
[2016-09-23] MEDS ORDERED: NURSING VERBAL MED ORDER ONE ×2 (21:15→22:30)
[2016-09-23] MEDS ORDERED: MoRPHine SULFATE 2 MG/ML CARP IV STA (21:22)
[2016-09-23] MEDS ORDERED: MoRPHine SULFATE 4 MG/ML 1 ML CARP\\VIAL IV SCH (22:40)
[2016-09-23 23:05] VITALS: BP 121/74; PULSE 90; TEMP 37; O2SAT 93
[2016-09-24] VITALS (10 sets, daily range): BP systolic 114–143; BP diastolic 69–80; PULSE 19–96; TEMP 36.5–37.1; O2SAT 79–100
[2016-09-24] MEDS: LEVOTHYROXINE 50 MCG TAB PO SCH (05:31)
[2016-09-24 05:57] LABS: HEMATOCRIT 30.4 % (37-47); MEAN CELL VOLUME 93.5 fL (80-100); MEAN CORPUSCULAR HEMOGLOBIN 31.1 pg (25-34); MEAN CORPUSCULAR HGB CONC 33.2 g/dl (32-36); PLATELET COUNT 120 K/uL (130-400); RED BLOOD COUNT 3.25 M/uL (4.2-5.4); WHITE BLOOD COUNT 9.49 K/uL (4.8-10.8)
[2016-09-24 06:04] LABS: BASO % 0.2 %; BASO ABS # 0.02 K/uL (0-0.2); COMPLETE YES; EOS % 0.4 %; IG% 0.4 %; LYMPH % 10.9 %; LYMPH ABS # 1.05 K/uL (1.2-3.4); NEUT % 80.1 %
[2016-09-24 06:11] LABS: BUN/CREATININE RATIO 15.1 (10-20); CALCIUM 8.3 mg/dl (8.5-10.1); CREATININE 0.98 mg/dl (0.60-1.20); MAGNESIUM 1.6 mg/dl (1.8-2.4); POTASSIUM 4.3 mmol/L (3.5-5.1)
[2016-09-24] MEDS: MoRPHine SULFATE 4 MG/ML 1 ML CARP\\VIAL IV PRN ×2 (07:13→09:43)
[2016-09-24] MEDS: RESTASIS~ORDER AWAITING ACTION SCH ×3 (07:47→23:54)
--- NOTE | 2016-09-24 07:50 | PROGRESS NOTE ---
DATE: 09/24/2016 SUBJECTIVE: An 80-year-old female admitted with a left bicondylar tibial plateau fracture and left lateral condyle fracture of the elbow. She is doing okay. Elbow is now on a splint and pain is controlled. Knee is pretty sore. No new complaints. No chest pain or shortness of breath. OBJECTIVE: VITAL SIGNS: Temperature is 36.9. Vital signs stable. GENERAL: Reveals a pleasant elderly female. She is sitting up in bed and looks reasonably comfortable. She is awake, alert and oriented. EXTREMITIES: Examination of the left elbow reveals the posterior splint to be in place. Some mild finger swelling. She can flex and extend the fingers appropriately. Examination of the left leg reveals valgus alignment to her knee. She has got pain with any type of motion. She has got a moderate sized knee effusion. Some moderate swelling. Compartments are swollen but not tense. She can dorsiflex and plantarflex her foot appropriately. She is neurologically intact. LABORATORY DATA: Hemoglobin 10.1. Hematocrit 30.4. Electrolytes are stable. IMAGING DATA: I did review her knee x-rays as well as her CT scan of her left knee. She has got a bicondylar comminuted tibial plateau fracture with significant displacement. I do not think this is going to do very well with conservative care and I think it is going to be extremely painful. PLAN: We talked about treatment. We are going to plan to take her to the operating room and do ORIF of left bicondylar tibial plateau fracture today. I think we can treat her elbow nonoperatively. The risks of the procedure were explained to the patient in depth. she understands and desires to proceed and informed consent was obtained. Risks include but not limited to DVT, PE, , infection, neurological injury, vascular injury, bleeding problem, pain, limited range of motion, nonunion, malunion, persistent pain, etc. The patient understands and desires to proceed. Informed consent was obtained. IRMA
[2016-09-24] MEDS ORDERED: MAGNESIUM SULFATE 1GM / D5W 1 GM in PREMIXED IN D5W 100 ML IV ONE (08:30)
[2016-09-24] MEDS: PANTOprazole SOD 40 MG TAB PO SCH ×2 (08:34→21:15)
[2016-09-24] MEDS: TELMISARTAN 40 MG TAB PO SCH ×2 (08:34→21:16)
[2016-09-24] MEDS: METOPROLOL TARTRATE 25 MG TAB PO SCH ×2 (08:35→21:16)
[2016-09-24] MEDS: LORAZEPAM 0.5 MG TAB PO SCH ×2 (08:37→19:50)
[2016-09-24] MEDS: NSS + 20MEQ KCL 1000ML 1,000 ML IV SCH ×2 (09:06→21:24)
[2016-09-24] MEDS ORDERED: MIDAZOLAM HCL 1 MG/ML 2ML VIAL ONE ×2 (13:08→13:09)
[2016-09-24] MEDS ORDERED: PROPOFOL IV EMULSION 10 MG/ML 20 ML VIAL IV ONE ×2 (13:08→16:40)
[2016-09-24] MEDS ORDERED: LIDOCAINE HCL 2% 2 ML VIAL (20MG/ML) ONE (13:08)
[2016-09-24] MEDS ORDERED: FENTANYL CITRATE INJ 50 MCG/1 ML 2 ML VIAL ONE (13:09)
[2016-09-24] MEDS ORDERED: FENTANYL CITRATE INJ 50 MCG/1 ML 2 ML VIAL IV PRN (13:30)
[2016-09-24] MEDS ORDERED: EpHEDrine SULFATE INJ 50 MG/ML AMP IV PRN (13:30)
[2016-09-24] MEDS ORDERED: ONDANSETRON INJ 2 MG/ML 2 ML VIAL IV PRN ×2 (13:30→17:15)
[2016-09-24] MEDS ORDERED: ATROPINE SULFATE 0.1 MG/ML 5ML SYR IV PRN (13:30)
[2016-09-24] MEDS ORDERED: HYDROmorphone INJ 1 MG/ML SYR IV PRN (13:30)
[2016-09-24] MEDS ORDERED: BUPIVACAINE 0.5 % 5 MG/1 ML PF 10ML VIAL ONE (13:48)
[2016-09-24] MEDS ORDERED: CEFAZOLIN SOD 1000MG/55 ML D5W IV ONE (13:48)
[2016-09-24] MEDS ORDERED: BISACODYL 10 MG SUPP PR PRN ×2 (14:00→17:15)
[2016-09-24] MEDS ORDERED: NURSING VERBAL MED ORDER ONE (14:00)
--- NOTE | 2016-09-24 14:11 | Hospitalist Progress Note ---
Hospitalist Progress Note Date of Service Sep 24, 2016. (Camila Ansari PA-C) Subjective Pt evaluation today including: conversation w/ patient, physical exam, chart review, lab review, review of studies Pain: 7/10 left hip PO Intake: NPO Voiding: barger catheter in place The patient was seen and examined in [facility]-2 prior to planned surgical fixation of the left hip by Dr. Doyle. When asked how she's doing she replies "Lets get it over with!" in a humorous manner. She reports feeling nauseous but that it has improved since getting antiemetic, she denies any abdominal pain or feeling distended. Her pain is moderate in the left leg, rated 7/10, and seems to be constant. She denies any numbness or tingling into her feet and that she can feel the blanket over her feet. Her left shoulder is wrapped in PRIYA and is mildly painful compared to the leg. Additional Comments: Constitutional: No fever, chills, sweats, fatigue or weakness Eyes: No diplopia, no changes in vision ENT: No sore throat, tinnitus, or trouble swallowing Respiratory: No shortness of breath, No dyspnea at rest or on exertion, no cough or sputum Cardiovascular: No chest pain, palpitations, or flutter Abdomen: No pain, No constipation, No diarrhea, + nausea, No vomiting Musculoskeletal: See HPI, no calf pain or swelling Genitourinary : No dysuria or urinary frequency, No hematuria Neurologic: No numbness/tingling, no sensory or motor deficits Psychiatric: No depression or anxiety symptoms Endocrine: No fatigue, No weight changes Integumentary: No itch, No rash (Camila Ansari PA-C) Objective Vital Signs Date Time Temp Pulse Resp B/P (MAP) Pulse Ox O2 Delivery O2 Flow Rate FiO2 09/24/16 08:33 89 124/75 (91) 09/24/16 07:11 36.9 87 16 139/79 (99) 98 Nasal Cannula 3.0 09/24/16 07:10 Nasal Cannula 3.0 09/24/16 05:51 92 Nasal Cannula 3.0 09/24/16 05:50 79 Room Air 09/23/16 23:15 Nasal Cannula 2.0 09/23/16 23:05 37.0 90 16 121/74 (90) 93 Nasal Cannula 2.0 09/23/16 20:08 92 142/81 (101) 09/23/16 15:45 Room Air 09/23/16 15:00 36.6 79 16 105/65 (78) 95 Room Air (Camila Ansari PA-C) Physical Exam Notes: General: awake, alert, no apparent distress Head: Normocephalic, atraumatic ENT: PERRL, EOMI, no pharyngeal exudate, mucous membranes moist Chest: Clear to auscultation, on room air, no adventitious breath sounds Cardiac: Regular rate and rhythm, no murmur, no JVD, normal peripheral pulses, good capillary refill Abdominal: Tympanic bowel sound in the right upper and lower quadrant, slightly distended, soft, nontender to palpation, no rebound, guarding or tenderness Extremities: Left leg is shortened and internally rotated, ice packs applied, in a immobilizer, no peripheral edema or erythema, right calf nontender to palpation, left not assessed due to being in an immobilizer Psych: Normal mood and affect Neuro: AAO x 3, speech is clear, no peripheral sensory deficits (Camila Ansari, TIERAC) Laboratory Results Last 24 Hours Test 09/24/16 05:23 White Blood Count 9.49 K/uL Red Blood Count 3.25 M/uL Hemoglobin 10.1 g/dL Hematocrit 30.4 % Mean Corpuscular Volume 93.5 fL Mean Corpuscular Hemoglobin 31.1 pg Mean Corpuscular Hemoglobin Concent 33.2 g/dl Platelet Count 120 K/uL Mean Platelet Volume 10.0 fL Neutrophils (%) (Auto) 80.1 % Lymphocytes (%) (Auto) 10.9 % Monocytes (%) (Auto) 8.0 % Eosinophils (%) (Auto) 0.4 % Basophils (%) (Auto) 0.2 % Neutrophils # (Auto) 7.70 K/uL Lymphocytes # (Auto) 1.05 K/uL Monocytes # (Auto) 0.77 K/uL Eosinophils # (Auto) 0.04 K/uL Basophils # (Auto) 0.02 K/uL RDW Standard Deviation 46.6 fL RDW Coefficient of Variation 13.6 % Immature Granulocyte % (Auto) 0.4 % Immature Granulocyte # (Auto) 0.04 K/uL Sodium Level 143 mmol/L Potassium Level 4.3 mmol/L Chloride Level 113 mmol/L Carbon Dioxide Level 22 mmol/L Anion Gap 8.0 mmol/L Blood Urea Nitrogen 15 mg/dl Creatinine 0.98 mg/dl Est Creatinine Clear Calc Drug Dose 36.1 ml/min Estimated GFR () 63.1 Estimated GFR (Non- 54.5 BUN/Creatinine Ratio 15.1 Random Glucose 124 mg/dl Calcium Level 8.3 mg/dl Magnesium Level 1.6 mg/dl Chemistry Specimen Hemolysis (Camila Ansari, BIRGIT) Assessment and Plan 80 yo female with h/o HTN, GERD, hypothyroidism who fell at home, suffered left tib/fib fracture and left olecranon fracture Left tib-fib fracture and left olecranon fracture - evaluated by ortho, left olecranon with non-operative management - plan for ORIF left tib/fib today by Dr. Doyle, medically optimized for OR, cleared by anesthesiology - issues with nausea due to narcotics--> Zofran and Phenergan PRN - Tinkling bowel sounds on exam today; monitor for bowel obstruction, last BM was 09/22, Bowel regimen ordered with dulcolax tabs 5 mg BID and miralax daily, dulcolax supp prn for after surgery. Pain regimen with morphine, dilaudid and tylenol on board for pain. - Will check vit D level with am labs, start Vit D 2000 U daily in meantime - Pt will need a dexa bone scan within 6 months - PT/OT consulted, will need rehab once medically stable, is previously from home, and lives with her . - continue IV fluids while NPO, will order diet postsurgically Hypertension - continue metoprolol tartrate 25 mg PO BID, telmisartan 20 mg PO QAM and 40 mg PO QHS - BP stable GERD -continue pantoprazole 40 mg PO BID Hypothyroidism -continue levothyroxine 50 g PO QAM - Last TSH was 09/12 = 1.120 Seasonal allergy - continue Flonase nasal spray 1 spray each nostril daily prn Anxiety - continue lorazepam 0.5 mg by PO BID Dry eye - continue Restasis 1 drop OPB twice a day. CODE STATUS: Full code Disposition: Patient from home, will need rehabilitation upon discharge, plan for OR today. (Camila Ansari, BIRGIT) Reviewed: Pt Seen/Exam by Me (Rachele Oliva MD) History Physician Shipping Specialist Supervision Note: I interviewed and examined the patient. Discussed with ADAMS Ansari and agree with findings and plan as documented in the note. Any exceptions or clarifications are listed here: Pt feeling a little "confused" after anesthesia, but is completely oriented. States her abdomen is chronically distended and she is not constipated, has no abd pain. Vitals reviewed NAD, AAOx3 RRR no mgr CTBA no wcr Abd +high pitched BS, softly distended, large midline scar and RUQ open rachel scars present, nontender no HSM Ext no edema, left leg in immobilizer not removed, right calf no tenderness or edema 80 yo female with mechanical fall with fractures of left tib/fib and left lateral condyle fracture elbow which are likely secondary to osteoporosis as had fall from standing height. Also with h/o Crohn's and 2 bowel perforations requiring bowel excision, HTN. hypothryoidism, and other issues as above. -continue pain control -decrease bisacodyl to 5mg once daily, has daily Miralax, docusate bid as well -could dc to home or rehab tomorrow if hgb and property assistant are ok ASA bid for DVT prophylaxis Documented By: Rachele Oliva (Rachele Oliva MD)
[2016-09-24] MEDS ORDERED: BUPIVACAINE/EPINEPHRINE 0.5% MPF 1:200,000 30 ML VIAL ONE (14:29)
--- NOTE | 2016-09-24 16:21 | DIAGNOSTIC IMAGING REPORT ---
LEFT TIBIA/FIBULA 2 VIEWS ROUTINE CLINICAL HISTORY: ORIF LT TIBIAL PLATEAU FX fracture COMPARISON: Same date DISCUSSION: Findings consistent with open reduction internal fixation of the comminuted fracture of the proximal tibia. Alignment is improved. Pre-existing fracture proximal fibula unchanged. There is no evidence for soft tissue swelling. IMPRESSION: Open reduction internal fixation of the fracture of the proximal tibia. Electronically signed by: Ruben Quiroz M.D. 09/24/2016 4:19 PM Dictated Date/Time: 09/24/2016 4:18 PM
--- NOTE | 2016-09-24 17:02 | [facility] Post Operative Brief Note ---
Immediate Operative Summary Operative Date Sep 24, 2016. Pre-Operative Diagnosis Left Bicondylar Tibial Plateau Fracture Post-Operative Diagnosis same as preop Procedure(s) Performed Left Tibial Open Reduction Internal Fixation Surgeon Dr. Roni Doyle Daytime Babysitter Surgeon(s) Martell Harrison PA-C Estimated Blood Loss 0mL Findings Bicondylar tibial plateau fracture Fluids (cc crystalloids) 1600 cc Specimens none, Per Surgeon Drains None Anesthesia Spinal Complication(s) None Disposition Recovery Room / PACU
[2016-09-24] MEDS ORDERED: ALUMINUM/MAGNESIUM/SIMETH (MAALOX MAX) 30 ML UDC PO PRN (17:15)
[2016-09-24] MEDS ORDERED: ZOLPIDEM TARTRATE 5 MG TAB PO PRN (17:15)
[2016-09-24] MEDS ORDERED: METOCLOPRAMIDE HCL INJ 5 MG/ML 2 ML VIAL IV PRN (17:15)
[2016-09-24] MEDS ORDERED: MAGNESIUM HYDROXIDE SUSP 30 ML UDC PO PRN (17:15)
--- NOTE | 2016-09-24 17:48 | Anesthesiology Progress Note ---
Anesthesia Post Op Note Date & Time Sep 24, 2016 at 17:46 Vital Signs Pain Intensity: 0 Vital Signs Past 12 Hours Date Time Temp Pulse Resp B/P (MAP) Pulse Ox O2 Delivery O2 Flow Rate FiO2 09/24/16 17:30 36.5 89 16 131/72 97 Nasal Cannula 3 09/24/16 17:20 93 16 148/63 97 Nasal Cannula 3 09/24/16 17:10 91 16 118/65 95 Nasal Cannula 3 09/24/16 17:02 36.5 91 16 94/57 97 Nasal Cannula 3 09/24/16 08:33 89 124/75 (91) 09/24/16 07:11 36.9 87 16 139/79 (99) 98 Nasal Cannula 3.0 09/24/16 07:10 Nasal Cannula 3.0 09/24/16 05:51 92 Nasal Cannula 3.0 09/24/16 05:50 79 Room Air Notes Mental Status: alert / awake / arousable, participated in evaluation Pt Amnestic to Procedure: Yes Nausea / Vomiting: adequately controlled Pain: adequately controlled Airway Patency, RR, SpO2: stable & adequate BP & HR: stable & adequate Hydration State: stable & adequate Anesthetic Complications: no major complications apparent Patient calm and conversant. She is oriented to person and place but was confused as to what surgery she had done today. Vitals are stable and her pain is adequately controlled. Mild confusion likely 2/2 versed and fentanyl given for sedation when SAB was done in OR (patient very uncomfortable when transitioned to her side for the spinal). Otherwise she is doing well with and is ok for transfer back to the floor. An anesthesia store team leader should round on her tomorrow for continued follow up.
[2016-09-24] MEDS ORDERED: D5W AND 1/2NSS + 20MEQ KCL 1,000 ML IV SCH (18:15)
[2016-09-24] MEDS: KETOROLAC TROMETHAMINE 15 MG/ML VIAL IV. SCH ×2 (19:47→23:55)
[2016-09-24] MEDS ORDERED: BISACODYL 5 MG TABEC PO SCH (21:00)
[2016-09-24] MEDS: ACETAMINOPHEN 500 MG TAB PO SCH (21:13)
[2016-09-24] MEDS: DOCUSATE SODIUM 100 MG CAP PO SCH (21:14)
[2016-09-24] MEDS: ASPIRIN 325 MG ECTAB PO SCH (21:17)
[2016-09-24] MEDS: CEFAZOLIN IV 1,000 MG in DEXTROSE 5% 50ML 50 ML IV SCH (21:25)
--- NOTE | 2016-09-24 23:01 | OPERATIVE REPORT ---
DATE OF OPERATION: 09/23/2016 SURGEON: Roni Doyle MD QUALITY CONTROL HEAD: ADAMS Frausto PREOPERATIVE DIAGNOSIS: Right displaced bicondylar tibial plateau fracture. POSTOPERATIVE DIAGNOSIS: Same. PROCEDURE: Open reduction and internal fixation of right bicondylar tibial plateau fracture. COMPLICATIONS: None. ESTIMATED BLOOD LOSS: 20 mL. FLUID REPLACEMENT: 1600 mL crystalloid fluid replacement. TOURNIQUET TIME: 91 minutes at 300 mmHg. ANESTHESIA: Spinal. DRAINS: None. SPECIMENS: None. OPERATIVE INDICATIONS: The patient is an 80-year-old female who sustained a fall over the weekend. She was trying to work on some curtains, when she is standing up on a bed, lost her balance and fell. She had a markedly displaced, comminuted bicondylar tibial plateau fracture. She also had the left lateral condyle nondisplaced condyle fracture of her elbow. Treatment options were discussed. She had a markedly unstable fracture with quite a bit of pain. The patient is indicated for surgical fixation/stabilization of her tibial plateau fracture. Of note, the patient was very osteopenic and osteoporotic. OPERATIVE IMPLANTS: Medial side implants consisted of, 1. A Synthes 3.5-mm 2-hole posteromedial proximal tibial plateau locking plate. 2. A 3.5-mm fully threaded cortical screws x3. 3. A 3.5 cortical locking screw x1. Lateral side implants consisted of: 1. A Synthes 3.5 left lateral proximal tibial 6-hole locking plate. 2. A 4.0 fully threaded cancellous screw x3. 3. A 3.5 cortical screws x4. 4. A 3.5 locking screw x1. OPERATIVE PROCEDURE: The patient was taken to the operating room, identified and placed on the operating table in the supine position. All contact areas were appropriately padded. IV antibiotics were provided by anesthesia team. A spinal anesthetic had been implemented in the holding area. A bump was placed underneath the right hip. A left thigh tourniquet was then placed. The left leg was scrubbed with Hibiclens and then prepped with ChloraPrep. Left leg was then prepped and draped in the usual sterile fashion. Left leg was elevated and exsanguinated with an Esmarch and tourniquet was placed at 300 mmHg. A posterior medial approach to the proximal tibia was then performed through a curvilinear incision. This was performed about 2 cm posterior to the posteromedial border of the tibia. Sharp dissection was carried through the subcutaneous tissue down to the fascia. The fascia was incised longitudinally. I did transect the hamstring tendons to allow better visualization. The popliteus and soleus muscles were stripped off the posterior medial aspect of the tibia. I did leave the semimembranosus intact. I then elevated the proximal piece and then placed a Synthes 3.5 posteromedial locking plate to the posterior aspect of the tibia. It was fixed distally with three 3.5 fully threaded cortical screws and then a single 3.5 locking screw. This was essentially a buttress plate. I did not place any proximal screws. I did not think it was necessary and would only hinder placement of screws from the lateral side. Attention was then drawn laterally. An anterolateral approach to the proximal tibia was then performed through a longitudinal incision about 2 cm lateral to the anterior crest of the tibia. This was extended over the lateral border just lateral to the patella and straight superior in case she was in need of a knee replacement in the future. Sharp dissection was carried out through the subcutaneous tissues down to the fascia. The anterior compartment fascia was incised just off the anterior crest of the tibia. The anterior compartment musculature was then stripped off the lateral crest of the tibia. I then reduced the proximal tibial plateau fragment. I did not open the joint. My main goal was to stabilize her knee and provide a reasonable surface to articulate. I took a 6-hole Synthes plate. I used large reduction clamps to compress the fracture and then fixed it distally with three 3.5 cortical screws. I then fixed it proximally with a single 3.5 cortical screw and three 4.0 cancellous screws. We did not place locking screws as I want to really compress this as much as possible. I did place 1 additional 3.5 locking screw at the end to provide with some additional support and stability. X-ray was brought in. There was still slight articular step off laterally, but I felt it was acceptable. The knee joint and the tibia stability was nicely restored. Some final x-rays were obtained. Attention was then drawn toward closing. The wound was irrigated with copious amounts of normal saline. I injected locally with 30 mL of 0.5% Marcaine with epinephrine. I did make a small arthrotomy laterally to decompress the knee joint of blood and washed it out. The tourniquet was then let down for a tourniquet time 91 minutes. The posterior compartment fascia was closed with 0 Vicryl suture in a [id number] fashion. The subcutaneous tissues were then closed with 2-0 Dexon suture in a buried interrupted fashion. Skin was closed with 3-0 nylon suture in a horizontal mattress fashion. The anterior wound was also irrigated. The anterior compartment fascia was closed loosely with #1 Vicryl suture in a [id number] fashion. Subcutaneous tissues were then closed with a 2-0 Dexon suture in a buried interrupted fashion. Skin was closed with 3-0 nylon suture in a simple fashion. Leg was then cleaned and dried and a sterile dressing with Xeroform, 4 x 4, sterile cast padding, cold pack and knee immobilizer were applied. The patient was then transferred to the recovery room in stable condition. The patient tolerated the procedure well with no complications. All needle and sponge counts were correct at the end of the operation. I attest to the content of the Intraoperative Record and any orders documented therein. Any exceptions are noted below. IRMA
[2016-09-24] MEDS: D5W AND 1/2NSS + 20MEQ KCL 1,000 ML IV SCH (23:02)
[2016-09-25] VITALS (8 sets, daily range): BP systolic 113–156; BP diastolic 68–86; PULSE 76–91; TEMP 36.4–37; O2SAT 97–100
[2016-09-25] MEDS: MoRPHine SULFATE 4 MG/ML 1 ML CARP\\VIAL IV PRN ×2 (04:01→05:52)
[2016-09-25] MEDS: CEFAZOLIN IV 1,000 MG in DEXTROSE 5% 50ML 50 ML IV SCH (05:52)
[2016-09-25] MEDS: KETOROLAC TROMETHAMINE 15 MG/ML VIAL IV. SCH ×3 (05:57→17:56)
[2016-09-25] MEDS: ACETAMINOPHEN 500 MG TAB PO SCH ×3 (05:58→22:42)
[2016-09-25] MEDS: LEVOTHYROXINE 50 MCG TAB PO SCH (05:59)
[2016-09-25 07:35] LABS: HEMATOCRIT 26.5 % (37-47); MEAN CORPUSCULAR HEMOGLOBIN 31.9 pg (25-34); MEAN CORPUSCULAR HGB CONC 33.2 g/dl (32-36); MEAN PLATELET VOLUME 9.3 fL (7.4-10.4); PLATELET COUNT 119 K/uL (130-400); RED BLOOD COUNT 2.76 M/uL (4.2-5.4); WHITE BLOOD COUNT 9.25 K/uL (4.8-10.8)
--- NOTE | 2016-09-25 07:42 | Hospitalist Progress Note ---
Hospitalist Progress Note Date of Service Sep 25, 2016. (Camila Ansari PA-C) Subjective Pt evaluation today including: conversation w/ patient, physical exam, chart review, lab review, review of studies Pain: Mild left leg pain PO Intake: Good Voiding: no voiding problems The patient was seen and examined this morning. Pt reports doing well today. She lives seen by physical therapy but reported that she was unable to work with him and she has tired and didn't feel like it. Patient ate lunch today. She is having bowel movements and passing gas. Denies any acute pain. She has feeling in her low left lower extremity and is able to move the foot or ankle without much difficulty. She denies any fevers, sweats or chills. She denies any lightheadedness or dizziness. Additional Comments: Constitutional: No fever, sweats or chills Eyes: No diplopia, no worsening or blurred vision ENT: normal hearing, no trouble swallowing Respiratory: No cough, sputum, dyspnea at rest or on exertion Cardiovascular: No chest pain, tightness or palpitations Abdomen: No pain, nausea, vomiting, diarrhea or constipation Musculoskeletal: See history of present illness Neurologic: No weakness, numbness/tingling, or balance problems Psychiatric: No anxiety or depression Skin: No rash or itch (Camila Ansari PA-C) Objective Vital Signs Date Time Temp Pulse Resp B/P (MAP) Pulse Ox O2 Delivery O2 Flow Rate FiO2 09/25/16 03:30 36.8 87 16 151/86 (107) 98 Nasal Cannula 3.0 09/24/16 23:45 Nasal Cannula 3.0 09/24/16 22:47 37.0 72 16 114/69 (84) 100 Nasal Cannula 3.0 09/24/16 21:05 37.1 91 19 136/74 (94) 100 Nasal Cannula 3.0 09/24/16 20:05 36.8 91 19 116/75 (89) 99 Nasal Cannula 3.0 09/24/16 19:05 36.8 91 21 116/75 (89) 99 Room Air 3.0 09/24/16 18:35 36.5 90 19 143/80 (101) 99 Nasal Cannula 3.0 09/24/16 18:24 Nasal Cannula 2.0 09/24/16 18:05 36.8 96 14 137/79 (98) 93 Nasal Cannula 2.0 09/24/16 18:05 93 Nasal Cannula 2.0 09/24/16 17:45 36.5 81 16 121/57 97 Nasal Cannula 3 09/24/16 17:30 36.5 89 16 131/72 97 Nasal Cannula 3 09/24/16 17:20 93 16 148/63 97 Nasal Cannula 3 09/24/16 17:10 91 16 118/65 95 Nasal Cannula 3 09/24/16 17:02 36.5 91 16 94/57 97 Nasal Cannula 3 09/24/16 08:33 89 124/75 (91) (Camila Ansari PA-C) Physical Exam General Appearance: WD/WN, no apparent distress Eyes: PERRL, EOMI ENT: hearing grossly normal, pharynx normal Neck: supple, no JVD Respiratory/Chest: chest non-tender, lungs clear, no respiratory distress, no accessory muscle use Cardiovascular: regular rate, rhythm, + systolic murmur (holosystolic murmur, grade II/ ) Abdomen: normal bowel sounds, non tender, soft Extremities: + pertinent finding (left leg in an immobilizer, left elbow wrapped with Elías and elevated with sling) Neurologic/Psychiatric: alert, normal mood/affect, oriented x 3 Skin: normal color, warm/dry (Camila Ansari, ADAMS-C) Laboratory Results Last 24 Hours Test 09/25/16 04:44 09/25/16 06:57 09/25/16 06:59 (Camila Ansari PA-C) Assessment and Plan 80 yo female with h/o HTN, GERD, hypothyroidism who fell at home, suffered left tib/fib fracture and left olecranon fracture Left tib-fib fracture and left olecranon fracture POD #1 - s/p ORIF left tib/fib on 09/[address] Doyle - Hgb dropped to 8.8, BP is stable, will trend h&h with am labs, no transfusion until <7. - Left olecranon with non-operative management - issues with nausea due to narcotics--> Zofran and Phenergan PRN - Bowel sounds are improved today, last bowel movement this morning, Will back off bowel regimen to prn with dulcolax 5 mg BID and miralax daily, dulcolax supp prn for after surgery. Pain regimen with morphine, dilaudid and tylenol on board for pain. - vit D was low, continue Vit D 2000 U daily - Pt will need a dexa bone scan within 6 months - PT/OT consulted, will need rehab once medically stable, is previously from home, and lives with her . Hypertension - continue metoprolol tartrate 25 mg PO BID, telmisartan 20 mg PO QAM and 40 mg PO QHS - BP stable GERD -continue pantoprazole 40 mg PO BID Hypothyroidism -continue levothyroxine 50 g PO QAM - Last TSH was 09/12 = 1.120 Seasonal allergy - continue Flonase nasal spray 1 spray each nostril daily prn Anxiety - continue lorazepam 0.5 mg by PO BID Dry eye - continue Restasis 1 drop OPB twice a day. CODE STATUS: Full code Disposition: Patient from home, will need rehabilitation upon discharge, accepted to [facility], d/c likely tomorrow (Camila Ansari, BIRGIT) Reviewed: Pt Seen/Exam by Me (Rachele Oliva MD) History Physician Entrepreneur Supervision Note: I interviewed and examined the patient. Discussed with ADAMS Ansari and agree with findings and plan as documented in the note. Any exceptions or clarifications are listed here: DOing much better today. Fatigue is improving as was able to sleep for a couple of hours today. Vitals reviewed NAD, AAOx3 RRR no mgr CTBA no wcr Abd +BS, ND, large midline scar and RUQ open rachel scars present, nontender no HSM Ext no edema, left leg in immobilizer not removed, right calf no tenderness or edema 80 yo female with mechanical fall with fractures of left tib/fib and left lateral condyle fracture elbow which are likely secondary to osteoporosis as had fall from standing height. Also with h/o Crohn's and 2 bowel perforations requiring bowel excision, HTN. hypothryoidism, and other issues as above. -continue pain control -bowel regimen -could dc to rehab tomorrow if hgb ok ASA bid for DVT prophylaxis Documented By: Rachele Oliva (Rachele Oliva MD)
[2016-09-25] MEDS: RESTASIS~ORDER AWAITING ACTION SCH ×3 (07:57→23:21)
[2016-09-25 08:06] LABS: BUN/CREATININE RATIO 9.7 (10-20); CREATININE 1.1 mg/dl (0.60-1.20); MAGNESIUM 1.8 mg/dl (1.8-2.4); POTASSIUM 3.8 mmol/L (3.5-5.1)
[2016-09-25 08:20] LABS: CALCIUM 8.4 mg/dl (8.5-10.1)
--- NOTE | 2016-09-25 08:32 | Clinical Documentation Query ---
ANDRÉS Pickett : CLINICAL DOCUMENTATION QUERY Operative record noted a preoperative diagnosis of "Right displaced bicondylar tibial plateau fracture" and a procedure of "Open reduction and internal fixation of right bicondylar tibial plateau fracture." This is assumed by the reader to be an accidental misdocumentation of laterality as the record in all other locations defines the fractures/procedures performed to have been on the left. Consider amendment of notes to represent the intended sites. Thank you. In your clinical opinion is this patient being managed for: ( ) Left tibial ORIF ( ) Other explanation of clinical findings (Please Explain) ( ) Unable to determine (Please Define) ( ) Need to Discuss ( ) Not Agree The medical record reflects the following clinical findings, treatment, and risk factors. Please clarify and document your clinical opinion in the progress notes and discharge summary. Terms such as "probable", "suspected", "likely", "questionable", "possible", or "still to be ruled out" are acceptable. IF IN AGREEMENT, YOU MUST DOCUMENT ABOVE DIAGNOSTIC STATEMENT IN DAILY PROGRESS NOTES AND DISCHARGE SUMMARY. This document is not part of the patient's record. Thank You, David Fox, NNAMDI [phone]
[2016-09-25] MEDS: D5W AND 1/2NSS + 20MEQ KCL 1,000 ML IV SCH ×2 (08:47→17:56)
[2016-09-25] MEDS: LORAZEPAM 0.5 MG TAB PO SCH ×2 (08:48→21:06)
[2016-09-25] MEDS: MULTIVITAMIN TAB PO SCH (08:48)
[2016-09-25] MEDS: METOPROLOL TARTRATE 25 MG TAB PO SCH ×2 (08:49→21:04)
[2016-09-25] MEDS: FERROUS GLUCONATE 324 MG TAB PO SCH ×3 (08:49→17:56)
[2016-09-25] MEDS: CHOLECALCIFEROL 1000 INTER.UNIT TAB PO SCH (08:52)
[2016-09-25] MEDS: DOCUSATE SODIUM 100 MG CAP PO SCH ×2 (08:52→21:00)
[2016-09-25] MEDS: ASPIRIN 325 MG ECTAB PO SCH ×2 (08:53→21:04)
[2016-09-25] MEDS: TELMISARTAN 40 MG TAB PO SCH ×2 (08:53→21:05)
[2016-09-25] MEDS: PANTOprazole SOD 40 MG TAB PO SCH ×2 (08:54→21:05)
[2016-09-25] MEDS ORDERED: PANTOprazole SOD 40 MG TAB PO SCH (09:00)
[2016-09-25] MEDS ORDERED: POLYETHYLENE (MIRALAX) 17 GM PACK PO SCH (09:00)
[2016-09-25 09:27] LABS: BASO % 0.2 %; BASO ABS # 0.02 K/uL (0-0.2); COMPLETE YES; EOS % 0.9 %; IG% 0.3 %; LYMPH % 7.6 %; MONO % 7.4 %; NEUT % 83.6 %
--- NOTE | 2016-09-25 09:36 | Anesthesiology Progress Note ---
Anesthesia Post Op Note Date & Time Sep 25, 2016 at 09:36 Vital Signs Pain Intensity: 8.0 Vital Signs Past 12 Hours Date Time Temp Pulse Resp B/P (MAP) Pulse Ox O2 Delivery O2 Flow Rate FiO2 09/25/16 08:13 100 Nasal Cannula 3.0 09/25/16 07:38 36.6 78 18 124/68 (86) 100 Nasal Cannula 3.0 09/25/16 03:30 36.8 87 16 151/86 (107) 98 Nasal Cannula 3.0 09/24/16 23:45 Nasal Cannula 3.0 09/24/16 22:47 37.0 72 16 114/69 (84) 100 Nasal Cannula 3.0 Notes Mental Status: alert / awake / arousable, participated in evaluation Pt Amnestic to Procedure: Yes Nausea / Vomiting: adequately controlled Pain: adequately controlled Airway Patency, RR, SpO2: stable & adequate BP & HR: stable & adequate Hydration State: stable & adequate Neuraxial Anesthesia: sensory block resolved Anesthetic Complications: no major complications apparent
--- NOTE | 2016-09-25 16:13 | PROGRESS NOTE ---
DATE: 09/25/2016 DATE: 09/25/2016. SUBJECTIVE: An 80-year-old female postop day 1 from ORIF left bicondylar tibial plateau fracture. She is doing pretty well. Pain seems to be manageable and improved. Denies any chest pain or shortness of breath. No new complaints. OBJECTIVE: VITAL SIGNS: Temperature is 37.0. Vital signs stable. PHYSICAL EXAMINATION: GENERAL: A pleasant elderly female. She is sitting up in bed, looks pretty comfortable. EXTREMITIES: Examination of left arm reveals posterior splint to be in place. Some mild finger swelling. She can flex and extend her fingers appropriately. She is neurologically intact. Examination of the left leg reveals the immobilizer and dressing to be in place. Some mild toe swelling. She can dorsiflex and plantarflex her foot and toes appropriately. She is neurologically intact. Dressing is clean, dry and in place. LABORATORY DATA: Hemoglobin is 8.8. Hematocrit 26.5. Electrolytes are stable. ASSESSMENT: An 80-year-old white female postop day 1 from ORIF of left bicondylar tibial plateau fracture and conservative care of a left nondisplaced lateral condyle fracture of the elbow. She is doing pretty well. Pain seems to be manageable. She is neurologically intact. PLAN: 1. DVT prophylaxis including thigh-high TEDs, SCDs, and aspirin twice a day. 2. PT/OT. She is strictly nonweightbearing on the left leg. We are just going to let the wound heal for the first 2 weeks and then start therapy. She is nonweightbearing on this side and in a knee immobilizer. 3. Left elbow fracture. We are going to convert her to a long arm cast. It is acceptable for him to weightbear on this with a platform crutch. 4. Medical management as per the medicine service. 5. Disposition. I think she would benefit from a rehab stay. She is interested in going to [facility].
[2016-09-25] MEDS ORDERED: BISACODYL 5 MG TABEC PO SCH (21:00)
[2016-09-26] MEDS: KETOROLAC TROMETHAMINE 15 MG/ML VIAL IV. SCH ×3 (00:14→12:19)
[2016-09-26] MEDS: D5W AND 1/2NSS + 20MEQ KCL 1,000 ML IV SCH ×2 (03:53→13:09)
[2016-09-26] MEDS: ACETAMINOPHEN 500 MG TAB PO SCH ×2 (05:01→13:11)
[2016-09-26] MEDS: LEVOTHYROXINE 50 MCG TAB PO SCH (05:01)
[2016-09-26] MEDS: RESTASIS~ORDER AWAITING ACTION SCH (07:08)
[2016-09-26 07:38] VITALS: BP 128/76; PULSE 82; TEMP 36.5; O2SAT 95
[2016-09-26 08:20] VITALS: O2SAT 95
[2016-09-26] MEDS ORDERED: POLYETHYLENE (MIRALAX) 17 GM PACK PO PRN (09:00)
[2016-09-26] MEDS: TELMISARTAN 40 MG TAB PO SCH (09:19)
[2016-09-26] MEDS: CHOLECALCIFEROL 1000 INTER.UNIT TAB PO SCH (09:19)
[2016-09-26] MEDS: METOPROLOL TARTRATE 25 MG TAB PO SCH (09:20)
[2016-09-26] MEDS: ASPIRIN 325 MG ECTAB PO SCH (09:20)
[2016-09-26] MEDS: FERROUS GLUCONATE 324 MG TAB PO SCH ×2 (09:20→12:19)
[2016-09-26] MEDS: MULTIVITAMIN TAB PO SCH (09:20)
[2016-09-26] MEDS: DOCUSATE SODIUM 100 MG CAP PO SCH (09:20)
[2016-09-26] MEDS: PANTOprazole SOD 40 MG TAB PO SCH (09:20)
[2016-09-26] MEDS: LORAZEPAM 0.5 MG TAB PO SCH (09:23)
[2016-09-26] MEDS ORDERED: ACET-1138 PO (09:43)
--- NOTE | 2016-09-26 10:00 | Discharge Instructions ---
Discharge Instructions Date of Service Sep 26, 2016. Admission Reason for Admission: Left Tib / Fib Fracture Discharge Discharge Diagnosis / Problem: Left tib/fib fracture; left olecranon fracture Discharge Goals Goal(s): Decrease discomfort, Improve function, Increase independence, Diagnostic testing, Therapeutic intervention Activity Recommendations Activity Level: Assistance Required Therapies: Physical Therapy, Weight Bearing Status (Per orthopedic recommendations ), Occupational Therapy Weightbearing Status: Left non-weightbearing (left leg ) . Additional Information Patient informed of condition: Yes Advance Directives: Yes DNR: No Level of Care: Acute Rehab Communicable Disease: No Prognosis: Improving Lu Catheter: No Instructions / Follow-Up Instructions / Follow-Up Left tib-fib fracture and left olecranon fracture, s/p ORIF left tib/fib on 09/[address] Doyle: - H&H followed- STABLE - Left olecranon with non-operative management - Issues with nausea due to narcotics--> Zofran and Phenergan PRN - Bowel sounds are improved today, last bowel movement this morning, Will back off bowel regimen to prn with dulcolax 5 mg BID and miralax daily, dulcolax supp prn for after surgery. - Pain regimen with Morphine, Dilaudid, Toradol, and Tylenol PRN for pain -- Pain well controlled w/ Tylenol 1000 q8 hr PRN and NSAIDs PRN - Vit D was low- continue Vit D 2000 U daily - Recommend Dexa bone scan within 6 months - PT/OT consulted- recommended rehab- from home and lives with her Hypertension- STABLE: Metoprolol tartrate 25 mg PO BID, Telmisartan 20 mg PO QAM and 40 mg PO QHS GERD: Pantoprazole 40 mg PO BID Hypothyroidism: Levothyroxine 50 g PO QAM - Last TSH was 09/12 = 1.120 Seasonal allergy: Continue Flonase nasal spray 1 spray each nostril daily PRN Anxiety: Continue Lorazepam 0.5 mg by PO BID Dry eye: Continue Restasis 1 drop OPB BID CODE STATUS: LEVEL I, FULL Please follow-up with [facility] provider within 24-48 hrs Follow-up with PCP within 5-7 days after discharge from [facility] Orthopedics f/u per their recommendations Please follow-up/keep all of your subspecialty appointments Current Hospital Diet Patient's current hospital diet: Regular Diet Discharge Diet Recommended Diet: Regular Diet Procedures Procedures Performed: Left Tibial Open Reduction Internal Fixation Pending Studies Studies pending at discharge: no Physician Orders On Transfer Special Precautions: Fall precautions Dressing Changes: LEFT HEEL AND ELBOW COVERED WITH SPLINT DRESSING. SACRAL DRESSING IN PLACE WITH BLANCHABLE REDNESS- ON OFF LOADING PRESSURE. IV Therapy: None Vital Signs: Routine Additional Orders: Labs: Recommend checking H&H on 09/27 Laboratory Results Test 09/23/16 01:00 09/23/16 01:10 09/24/16 05:23 09/25/16 06:57 Range/Units Prothrombin Time 10.4 9.0-12.0 SECONDS Prothromb Time International Ratio 1.0 0.9-1.1 Activated Partial Thromboplast Time 22.9 21.0-31.0 SECONDS Partial Thromboplastin Ratio 0.9 Total Bilirubin 0.3 0.2-1 mg/dl Aspartate Amino Transf (AST/SGOT) 17 15-37 U/L Alanine Aminotransferase (ALT/SGPT) 19 12-78 U/L Alkaline Phosphatase 92 45-117 U/L Total Protein 6.3 6.4-8.2 gm/dl Albumin 3.1 3.4-5.0 gm/dl Globulin 3.2 2.5-4.0 gm/dl Albumin/Globulin Ratio 1.0 0.9-2 Chemistry Specimen Hemolysis White Blood Count 9.25 4.8-10.8 K/uL Red Blood Count 2.76 4.2-5.4 M/uL Hemoglobin 8.8 12.0-16.0 g/dL Hematocrit 26.5 37-47 % Mean Corpuscular Volume 96.0 80-100 fL Mean Corpuscular Hemoglobin 31.9 25-34 pg Mean Corpuscular Hemoglobin Concent 33.2 32-36 g/dl Platelet Count 119 130-400 K/uL Mean Platelet Volume 9.3 7.4-10.4 fL Neutrophils (%) (Auto) 83.6 % Lymphocytes (%) (Auto) 7.6 % Monocytes (%) (Auto) 7.4 % Eosinophils (%) (Auto) 0.9 % Basophils (%) (Auto) 0.2 % Neutrophils # (Auto) 7.74 1.4-6.5 K/uL Lymphocytes # (Auto) 0.70 1.2-3.4 K/uL Monocytes # (Auto) 0.68 0.11-0.59 K/uL Eosinophils # (Auto) 0.08 0-0.5 K/uL Basophils # (Auto) 0.02 0-0.2 K/uL RDW Standard Deviation 47.9 36.4-46.3 fL RDW Coefficient of Variation 13.8 11.5-14.5 % Immature Granulocyte % (Auto) 0.3 % Immature Granulocyte # (Auto) 0.03 0.00-0.02 K/uL Red Blood Cell Morphology Unremarkable 25-Hydroxy Vitamin D Total 26.9 30-100 ng/ml Test 09/25/16 06:59 Range/Units Sodium Level 144 136-145 mmol/L Potassium Level 3.8 3.5-5.1 mmol/L Chloride Level 112 98-107 mmol/L Carbon Dioxide Level 20 21-32 mmol/L Anion Gap 12.0 3-11 mmol/L Blood Urea Nitrogen 11 7-18 mg/dl Creatinine 1.10 0.60-1.20 mg/dl Est Creatinine Clear Calc Drug Dose 32.2 ml/min Estimated GFR () 54.9 Estimated GFR (Non- 47.4 BUN/Creatinine Ratio 9.7 10-20 Random Glucose 158 70-99 mg/dl Calcium Level 8.4 8.5-10.1 mg/dl Magnesium Level 1.8 1.8-2.4 mg/dl Hemoglobin A1c Test 09/12/16 11:31 Range/Units Estimated Average Glucose 105 mg/dl Hemoglobin A1c 5.3 4.5-5.6 % Medical Emergencies . Who to Call and When: Medical Emergencies: If at any time you feel your situation is an emergency, please call 911 immediately. . Non-Emergent Contact Non-Emergency issues call your: Primary Care Provider . . "Provider Documentation" section prepared by Medina Mena. . Precision Layout Worker Recommendations Precision Layout Worker Recommendations: Orthopedics: 2. PT/OT. She is strictly nonweightbearing on the left leg. We are just going to let the wound heal for the first 2 weeks and then start therapy. She is nonweightbearing on this side and in a knee immobilizer. 3. Left elbow fracture. We are going to convert her to a long arm cast. It is acceptable for her to weightbear on this with a platform crutch. Core Measure Problem Core Measures: None
--- NOTE | 2016-09-26 10:13 | Discharge Summary ---
Discharge Summary Date of Service Sep 26, 2016. (Medina Mena, BIRGIT) Discharge Summary Admission Date: Sep 23, 2016 at 04:48 Discharge Date: Sep 26, 2016 Discharge Disposition: Rehab Principal Diagnosis: Left tib-fib fracture and left olecranon fracture Problems/Secondary Diagnoses: Left tib-fib fracture and left olecranon fracture, s/p ORIF left tib/fib on 09/[address] Doyle Hypertension GERD Hypothyroidism Seasonal allergy Anxiety Dry eye Immunizations: Have You Had Influenza Vaccine: Unknown History of Tetanus Vaccine?: Unknown Tetanus Immunization Date: Oct 10, 2006 History of Pneumococcal: Unknown Pneumococcal Date: Oct 10, 2006 History of Hepatitis B Vaccine: Unknown Procedures: LEFT TIBIA AND FIBULA 2 VIEWS CLINICAL HISTORY: Fall with left leg pain. FINDINGS: AP and crosstable lateral views of the left tibia and fibula are obtained. No prior studies are available for comparison at the time of dictation. The skeletal structures are osteopenic. There is a comminuted fracture of the fibular head with minimally distracted fragments. There is also a comminuted fracture of the proximal tibial metaphysis with a depressed fracture of the lateral tibial plateau. This is depressed by at least 5 mm as seen on the lateral view. Significant overlying soft tissue edema is observed. The distal tibia and fibula appear intact. There is advanced atherosclerotic calcification of the regional arteries. The distal femur is intact as visualized. IMPRESSION: 1. There is a comminuted fracture of the proximal tibial metaphysis as well as a depressed fracture of the lateral tibial plateau. 2. There is a comminuted fracture of the fibular head. 3. Overlying soft tissue edema is noted and there is advanced atherosclerotic calcification of the regional arteries. Electronically signed by: Roly Storey M.D. 09/23/2016 7:28 AM Dictated Date/Time: 09/23/2016 7:25 AM The status of this report is Signed. Draft = Not yet reviewed or approved by Radiologist. Signed = Reviewed and approved by Radiologist. SINGLE VIEW PELVIS CLINICAL HISTORY: Fall with left leg pain. FINDINGS: An AP pelvic radiograph is compared to study dated 03/22/2015. The skeletal structures are osteopenic. No acute fracture is seen in the hips or bony pelvis. There is chronic posttraumatic deformity and postoperative change in the left femur with 2 intertrochanteric lag screws in place. Moderate arthritic change is present in the hips. The overlying soft tissues are within normal limits. There is atherosclerotic calcification of the femoral arteries. A nonobstructed abdominal bowel gas pattern is observed. IMPRESSION: 1. There is no radiographic evidence of fracture in the hips or bony pelvis. 2. Osteopenia with chronic posttraumatic deformity and postoperative change in the left femur as above. Electronically signed by: Roly Storey M.D. 09/23/2016 7:25 AM Dictated Date/Time: 09/23/2016 7:23 AM The status of this report is Signed. Draft = Not yet reviewed or approved by Radiologist. Signed = Reviewed and approved by Radiologist. LEFT FEMUR 3 VIEWS CLINICAL HISTORY: Fall with left leg pain. FINDINGS: AP and crosstable lateral views of the left femur are correlated with pelvic and left hip radiographs dated 03/22/2015. The skeletal structures are osteopenic. No acute left femoral fracture is seen. The visualized left hemipelvis appears intact. There is chronic posttraumatic deformity in the left humeral neck with 3 intertrochanteric lag screws in place. The orthopedic hardware appears intact. Comminuted fractures of the proximal tibia and fibula are partially visualized with overlying soft tissue edema. Lipohemarthrosis is suggested at the knee. There is advanced atherosclerotic calcification of the left femoral artery. IMPRESSION: 1. There is no radiographic evidence of acute left femoral fracture. 2. There are acute comminuted fractures of the proximal tibia and fibula which are partially visualized. 3. Chronic posttraumatic deformity and postoperative change is identified in the left proximal femur. This is similar to previous. Electronically signed by: Roly Storey M.D. 09/23/2016 7:31 AM Dictated Date/Time: 09/23/2016 7:28 AM The status of this report is Signed. Draft = Not yet reviewed or approved by Radiologist. Signed = Reviewed and approved by Radiologist. LEFT ELBOW 3 VIEWS CLINICAL HISTORY: Fall with left elbow injury. FINDINGS: 3 views of the left elbow are obtained. No prior studies are available for comparison at the time of dictation. The skeletal structures are osteopenic. There is cortical irregularity with lucency seen involving the lateral aspect of the supracondylar humerus. Mild overlying soft tissue edema is suggested and a nondistracted fracture is on excluded. No additional findings concerning for acute fracture. No joint effusion is seen. There is no elbow dislocation. Atherosclerotic calcification is noted in the arteries of the forearm. Mild spurring is seen along the medial joint space. IMPRESSION: 1. There is cortical irregularity with indeterminate lucency seen involving the lateral aspect of the supracondylar humerus. Mild overlying soft tissue edema is suggested and a nondistracted fracture is not excluded. Correlate for point tenderness at this site. 2. No additional findings are concerning for fracture. 3. No elbow joint effusion is seen. Electronically signed by: Roly Storey M.D. 09/23/2016 7:23 AM Dictated Date/Time: 09/23/2016 7:20 AM The status of this report is Signed. Draft = Not yet reviewed or approved by Radiologist. Signed = Reviewed and approved by Radiologist. SINGLE VIEW CHEST CLINICAL HISTORY: Preoperative examination. FINDINGS: An AP, portable, upright chest radiograph is compared to study dated 10/21/2015 and correlated with chest CT dated 06/27/2016. The examination is degraded by portable technique and patient rotation. The heart is mildly enlarged and there is atherosclerotic calcification of the thoracic aorta. Enlargement of the main pulmonary arteries suggests pulmonary artery hypertension. There is no radiographic evidence of congestive failure. Emphysema and chronic interstitial thickening are similar to previous. No airspace consolidation is seen typical for pneumonia and there is no pleural effusion. Blunting of the left costophrenic sulcus is similar to prior studies and consistent with subpleural fat/scarring. No pneumothorax is seen. The skeletal structures are osteopenic. There are healed left-sided rib fractures. IMPRESSION: Cardiomegaly and mild emphysema. No acute cardiopulmonary abnormality is seen. Electronically signed by: Roly Storey M.D. 09/23/2016 8:12 AM Dictated Date/Time: 09/23/2016 8:10 AM The status of this report is Signed. Draft = Not yet reviewed or approved by Radiologist. Signed = Reviewed and approved by Radiologist. <AttendingPhy>Crow Carrasco M.D.</AttendingPhy> <FamilyPhy>Yolande Kingsley M.D.</FamilyPhy> <PrimaryPhy>Yolande Kingsley M.D.</PrimaryPhy > <UnitNumber>[id number]</UnitNumber LEFT KNEE 2 VIEWS CLINICAL HISTORY: Knee fractures. FINDINGS: AP and crosstable lateral views of the left knee are compared to CT scan of left knee performed the same day 09/23/2016 and correlated with radiograph of the left tibia and fibula performed the same day. The skeletal structures are osteopenic. Again seen is a comminuted fracture of the fibular head with distracted fragments. There is unchanged appearance of a comminuted fracture of the proximal tibial metaphysis with a depressed fracture of the lateral tibial plateau. This is depressed by at least 5 mm. There is approximately 8 mm lateral distraction of the largest tibial plateau fragments. There is likely hemarthrosis. Overlying soft tissue edema is observed. The distal femur and the patella appear intact. There is advanced atherosclerotic calcification of the popliteal artery. IMPRESSION: 1. Unchanged appearance of comminuted fractures of the proximal tibia and fibula as compared to today's earlier studies. 2. Lipohemarthrosis. 3. The distal femur and the patella appear intact. Electronically signed by: Roly Storey M.D. 09/23/2016 9:44 AM Dictated Date/Time: 09/23/2016 9:42 AM The status of this report is Signed. Draft = Not yet reviewed or approved by Radiologist. Signed = Reviewed and approved by Radiologist. CT SCAN OF THE LEFT KNEE WITHOUT IV CONTRAST CLINICAL HISTORY: Tibial plateau fracture. COMPARISON STUDY: Radiographs of the left tibia and fibula dated 09/23/2016. TECHNIQUE: CT scan of the left knee is performed from the distal femur to the proximal tibia and fibula. Images are reviewed in the axial, sagittal, coronal planes. IV contrast was not administered for this examination. 3-D reformats are created and assessed. CT DOSE: 200.52 mGy.cm Findings: The skeletal structures are osteopenic. There is a comminuted fracture of the fibular head with minimally distracted fragments. There is offset of the largest fragments by approximately 8 mm. There is an impacted and comminuted fracture of the proximal tibial metaphysis with numerous small fragments. There is a depressed lateral tibial plateau fracture which extends from the intercondylar notch to the lateral cortex. There is lateral distraction of the largest fragments by approximately 7 mm. There is depression of the posterior tibial plateau by approximately 6 mm. The distal femur and patella are intact. There is lipohemarthrosis. There is a small volume of hemorrhage identified in the popliteal fossa and around the tibial plateau fracture. No large/organized hematoma is seen. Advanced atherosclerotic calcification is noted in the popliteal artery. Soft tissue edema is present around the knee. IMPRESSION: 1. There is an impacted and comminuted fracture of the proximal tibial metaphysis with a depressed lateral tibial plateau fracture as above. 2. There is a comminuted fracture of the fibular head with distracted fragments. 3. Lipohemarthrosis. 4. There is hemorrhage around the tibial plateau fracture and in the popliteal fossa as well as overlying soft tissue edema. Electronically signed by: Roly Storey M.D. 09/23/2016 9:32 AM Dictated Date/Time: 09/23/2016 9:26 AM The status of this report is Signed. Draft = Not yet reviewed or approved by Radiologist. Signed = Reviewed and approved by Radiologist. LEFT TIBIA/FIBULA 2 VIEWS ROUTINE CLINICAL HISTORY: ORIF LT TIBIAL PLATEAU FX fracture COMPARISON: Same date DISCUSSION: Findings consistent with open reduction internal fixation of the comminuted fracture of the proximal tibia. Alignment is improved. Pre-existing fracture proximal fibula unchanged. There is no evidence for soft tissue swelling. IMPRESSION: Open reduction internal fixation of the fracture of the proximal tibia. Electronically signed by: Ruben Quiroz M.D. 09/24/2016 4:19 PM Dictated Date/Time: 09/24/2016 4:18 PM The status of this report is Signed. Draft = Not yet reviewed or approved by Radiologist. Signed = Reviewed and approved by Radiologist. DICTATED BY: Roni Doyle M.D. DATE OF OPERATION: 09/23/2016 SURGEON: Roni Doyle MD BULKING MACHINE OPERATOR: ADAMS Frausto PREOPERATIVE DIAGNOSIS: Right displaced bicondylar tibial plateau fracture. POSTOPERATIVE DIAGNOSIS: Same. PROCEDURE: Open reduction and internal fixation of right bicondylar tibial plateau fracture. COMPLICATIONS: None. ESTIMATED BLOOD LOSS: 20 mL. FLUID REPLACEMENT: 1600 mL crystalloid fluid replacement. TOURNIQUET TIME: 91 minutes at 300 mmHg. ANESTHESIA: Spinal. DRAINS: None. SPECIMENS: None. Consultations: Orthopedics (Medina Mena, TIERAC) Medication Reconciliation New Medications: Acetaminophen (Tylenol Extra Strength) 500 Mg Tab 1000 MG PO Q8 for 30 Days, #180 TAB Continued Medications: Albuterol Sulfate (Proair Respiclick) 108 Mcg/Act Aer 2 PUFFS INH Q4 PRN for SOB/Wheezing Cholecalciferol (Vitamin D-3) 1,000 Unit Tab 1000 UNITS PO QAM Clonidine Hcl (Catapres) 0.1 Mg Tab 0.1 MG PO DAILY PRN for pressure over 180/114 for 90 Days, #90 TAB 1 Refill Colestipol HCl (Colestid) 1 Gm Tab 2 GM PO BID Cyanocobalamin (Cyanocobalamin) 1,000 Mcg/Ml Inj 1000 MCG INJ MONTHLY Cyclosporine (Ophth) (Restasis) 0.05 % Emu 1 DROP OPB BID, #60 Fluticasone Propionate (Nasal) (Flonase Allergy Relief) 50 Mcg/Act Spr 50 MCG YANA DAILY PRN for PRN Furosemide (Furosemide) 20 Mg Tab 10 MG PO QAM, #30 Levothyroxine Sodium (Levothyroxine Sodium) 50 Mcg Tab 50 MCG PO QAM, #30 Lorazepam (Lorazepam) 0.5 Mg Tab 0.5 MG PO BID, #60 Metoprolol Tartrate (Lopressor) 25 Mg Tab 25 MG PO BID, #60 MAY TAKE UPTO 3 TIMES A DAY -PATIENT Ocuvite Preservision (Ocuvite Preservision) 1 Tab Tab 2 TAB PO BID, TAB Pantoprazole (Protonix) 40 Mg Tab 40 MG PO BID, #30 TAB Potassium Chloride (Potassium Chloride Er) 10 Meq Tab 30 MEQ PO QAM, #90 Telmisartan (Micardis) 40 Mg Tab 40 MG PO HS, TAB Telmisartan (Micardis) 40 Mg Tab 20 MG PO QAM, TAB Triamcinolone Acet (Aristocort 0.1%) 90 Appln/30 Gm Cr 1 APPLN TOP BID Discharge Exam Review of Systems: Constitutional: No fever, No chills, No sweats, No weakness, No fatigue Respiratory: No cough, No shortness of breath, No hemoptysis Cardiovascular: No chest pain, No edema Abdomen: No pain, No nausea, No vomiting, No diarrhea, No constipation Musculoskeletal: + joint pain, + muscle pain, No swelling, No calf pain Genitourinary - Female: No dysuria, No hematuria Neurologic: No weakness, No numbness/tingling Psychiatric: No depression symptoms, No anxiety Hematologic / Lymphatic: No abnormal bleeding/bruising Integumentary: No rash, No itch, No new/changing skin lesions Physical Exam: General Appearance: no apparent distress Eyes: normal inspection, PERRL ENT: hearing grossly normal Neck: supple Respiratory/Chest: lungs clear, no respiratory distress, no accessory muscle use Cardiovascular: regular rate, rhythm Abdomen / GI: normal bowel sounds, non tender, soft Extremities: no calf tenderness, no pedal edema, + pertinent finding (left leg in an immobilizer, left elbow long arm case) Neurologic/Psychiatric: alert, normal mood/affect, oriented x 3 Skin: normal color, warm/dry, no rash (Medina Mena, PA-C) Hospital Course HPI on admission: The patient reports that about 10:00 this evening, she was standing on her bed to adjust a curtain on the window, she then fell and developed immediate pain in her left lower leg. EMS was called, and she was given an injection on-site for pain relief, and she was brought to the emergency department for assessment. Patient denies injury to any other areas. This was a purely mechanical fall. She denies any preceding symptoms such as headaches, lightheadedness, dizziness, palpitations, shortness of breath. She does have a history of previous left hip ORIF. Left tib-fib fracture and left olecranon fracture, s/p ORIF left tib/fib on 09/[address] Doyle: - H&H followed- STABLE - Left olecranon with non-operative management - Issues with nausea due to narcotics--> Zofran and Phenergan PRN - Bowel sounds are improved today, last bowel movement this morning, Will back off bowel regimen to prn with dulcolax 5 mg BID and miralax daily, dulcolax supp prn for after surgery. - Pain regimen with Morphine, Dilaudid, Toradol, and Tylenol PRN for pain -- Pain well controlled w/ Tylenol 1000 q8 hr PRN and NSAIDs PRN - Vit D was low- continue Vit D 2000 U daily - Recommend Dexa bone scan within 6 months - PT/OT consulted- recommended rehab- from home and lives with her Hypertension- STABLE: Metoprolol tartrate 25 mg PO BID, Telmisartan 20 mg PO QAM and 40 mg PO QHS GERD: Pantoprazole 40 mg PO BID Hypothyroidism: Levothyroxine 50 g PO QAM - Last TSH was 09/12 = 1.120 Seasonal allergy: Continue Flonase nasal spray 1 spray each nostril daily PRN Anxiety: Continue Lorazepam 0.5 mg by PO BID Dry eye: Continue Restasis 1 drop OPB BID GI Prophylaxis: Maalox PRN, IV Zofran PRN, Colace and/or Milk of Mag PRN DVT prophylaxis: ASA CODE STATUS: LEVEL I, FULL Dispo: Discharge to [facility] Total Time Spent: Greater than 30 minutes This includes examination of the patient, discharge planning, medication reconciliation, and communication with other providers. (Medina Mena PA-C) Discharge Instructions Please refer to the electronic Patient Visit Report (Discharge Instructions) for additional information. (Medina Mena PA-C) Follow-Up Follow-up w/ [facility] provider within 24-48 hrs Follow-up with PCP 5-7 days after discharge from [facility] Follow-up w/ orthopedics per their recommendations Please follow-up/keep all of your subspecialty appointments (Medina Mena PA-C) [facility] Reviewed: Pt Seen/Exam by Me (Rachele Oliva MD) History Physician Vp Hr Diversity Supervision Note: I interviewed and examined the patient. Discussed with ADAMS Mena and agree with findings and plan as documented in the note. Any exceptions or clarifications are listed here: Pain controlled, feeling "down" due to her circumstances. Is stable for discharge to home. No CP or SOB Vitals reviewed NAD, AAOx3 RRR no mgr CTBA no wcr Abd +BS, ND, large midline scar and RUQ open rachel scars present, nontender no HSM Ext no edema, left knee with 2 large incisional scars with sutures in place without surrounding erythema, able to dorsiflex and plantarflex left foot 80 yo female with mechanical fall with fractures of left tib/fib and left lateral condyle fracture elbow which are likely secondary to osteoporosis as had fall from standing height. Also with h/o Crohn's and 2 bowel perforations requiring bowel excision, HTN. hypothryoidism, and other issues as above. -continue pain control -bowel regimen -dc to rehab ASA bid for DVT prophylaxis Documented By: Rachele Oliva (Rachele Oliva MD)
[2016-09-26] MEDS ORDERED: CHOL1TAB2 PO (12:17)
[2016-09-26] MEDS ORDERED: CLC100 PO (12:17)
[2016-09-26] MEDS ORDERED: ASPEC325 PO (12:17)
[2016-09-26] MEDS ORDERED: FRRG PO (12:17)
[2016-09-26] MEDS ORDERED: POTA-74 PO (12:17)
[2016-09-26] MEDS ORDERED: DLC5 PO (12:17)
--- NOTE | 2016-09-26 12:21 | Discharge Instructions ---
Discharge Instructions Date of Service Sep 26, 2016. Admission Reason for Admission: Left Tib / Fib Fracture Discharge Discharge Diagnosis / Problem: Left Tibia and Fibula Fracture and Left Elbow Fracture Discharge Goals Goal(s): Decrease discomfort, Improve function, Improve disease control, Therapeutic intervention Activity Recommendations Activity Level: Assistance Required Therapies: Physical Therapy, Occupational Therapy Weightbearing Status: Left non-weightbearing No WEight-bearing Left Leg No Knee ROM for 2 weeks May do quad sets and Straight leg raised to get quad functioning. Knee Immobilizer when ambulating . Additional Information Patient informed of condition: Yes Advance Directives: Yes DNR: No Level of Care: Acute Rehab Communicable Disease: No Prognosis: Improving Instructions / Follow-Up Instructions / Follow-Up Follow-up with Orthopedics in 2 weeks. Current Hospital Diet Patient's current hospital diet: Regular Diet Discharge Diet Recommended Diet: Regular Diet Procedures Procedures Performed: Left Tibial Open Reduction Internal Fixation Pending Studies Studies pending at discharge: no Laboratory Results Hemoglobin A1c Test 09/12/16 11:31 Range/Units Estimated Average Glucose 105 mg/dl Hemoglobin A1c 5.3 4.5-5.6 % Medical Emergencies . Who to Call and When: Medical Emergencies: If at any time you feel your situation is an emergency, please call 911 immediately. . Non-Emergent Contact Non-Emergency issues call your: Surgeon . . "Provider Documentation" section prepared by Roni Doyle. . Negative Developer Recommendations Negative Developer Recommendations: Orthopedics: 2. PT/OT. She is strictly nonweightbearing on the left leg. We are just going to let the wound heal for the first 2 weeks and then start therapy. She is nonweightbearing on this side and in a knee immobilizer. 3. Left elbow fracture. We are going to convert her to a long arm cast. It is acceptable for her to weightbear on this with a platform crutch. Core Measure Problem Core Measures: None
--- NOTE | 2016-09-26 12:34 | PROGRESS NOTE ---
DATE: 09/26/2016 DATE: 09/26/2016. SUBJECTIVE: An 80-year-old white female postop day 2 from ORIF of left bicondylar tibial plateau fracture. She is doing pretty well. Pain is controlled. She did apparently have a stumble earlier today. Not sure of the severity of that but does not seem more painful. OBJECTIVE: VITAL SIGNS: Temperature 36.5. Vital signs stable. PHYSICAL EXAMINATION: GENERAL: Reveals a pleasant elderly female. She is sitting up in a wheelchair, looks pretty comfortable. EXTREMITIES: Examination of left arm reveals a long arm cast to be in place. Some mild finger swelling. She can flex and extend her fingers appropriately. She is neurologically intact. Examination of the left knee with the dressing removed reveals it to be well aligned. Incisions are well approximated. There is a bit of bloody drainage. Some moderate swelling. She can dorsiflex and plantarflex her foot appropriately. No particular pain with foot motion. LABORATORY DATA: No new labs. ASSESSMENT: An 80-year-old white female postop day 2 from ORIF of left bicondylar tibial plateau fracture and conservative care of left lateral condyle fracture of the elbow. She is doing pretty well. Pain is controlled. PLAN: 1. DVT prophylaxis including thigh-high TEDs, SCDs, and aspirin twice a day. 2. PT/OT. She is strictly nonweightbearing on the left leg. Knee immobilizer at all times. She can do quad sets and straight leg raises, but no knee motion at this time. 3. Medical management as per the medicine service. 4. Disposition. She is orthopedically stable and acceptable for discharge. I need to see her back in 2 weeks. Any orthopedic questions can be directed to me at [phone].
[2016-09-26 12:38] VITALS: BP 128/76; PULSE 82; TEMP 36.5; O2SAT 95
== END 2016-09-26 14:42 | DRG 493 ==
LOC: EDBD 00:43 → C.EDB 00:46 → ENRESERV 04:13 → C.3E 04:48
PROVIDERS: ADMIT Hospitalist; ATTEND Family Medicine
PROC: 0QSG04Z Reposition Right Tibia with Internal Fixation Device, Open Approach (ICD-10-PCS; principal; 2016-09-24 07:15)
DX: S82.201A Unspecified fracture of shaft of right tibia, initial encounter for closed fracture (principal); K50.90 Crohn's disease, unspecified, without complications; S82.402A Unspecified fracture of shaft of left fibula, initial encounter for closed fracture; S52.022A Displaced fracture of olecranon process without intraarticular extension of left ulna, initial encounter for closed fracture; W06.XXXA Fall from bed, initial encounter; J44.9 Chronic obstructive pulmonary disease, unspecified; I10 Essential (primary) hypertension; J30.2 Other seasonal allergic rhinitis; E78.00 Pure hypercholesterolemia, unspecified; K21.9 Gastro-esophageal reflux disease without esophagitis; E03.9 Hypothyroidism, unspecified; Z79.899 Other long term (current) drug therapy; Z87.891 Personal history of nicotine dependence; Z82.49 Family history of ischemic heart disease and other diseases of the circulatory system; Z88.1 Allergy status to other antibiotic agents; Z91.040 Latex allergy status; Z88.2 Allergy status to sulfonamides; Z91.013 Allergy to seafood; Z88.3 Allergy status to other anti-infective agents

== ENCOUNTER 2016-10-05 18:58 | Emergency (ER) | payer OTHER ==
[~2016-10-05] VITALS: Ht 157.5 cm; Wt 51.9 kg
[~2016-10-05 18:58] MED LIST changes: +ACET-1138 PO; +ASPEC325 PO; -BXN500 PO; +CLC100 PO; +DLC5 PO; +FRRG PO; -TRAM-10 PO
[2016-10-05 19:05] VITALS: TEMP 36.9; Ht 157.5 cm; Wt 51.9 kg
[2016-10-05] MEDS ORDERED: LOSA1TAB PO (19:56)
[2016-10-05] MEDS ORDERED: MOML PO (19:56)
[2016-10-05] MEDS ORDERED: ANSHCCR/ TOP (19:56)
[2016-10-05] MEDS ORDERED: LOSA50TA6 PO (19:56)
[2016-10-05] MEDS ORDERED: OXYC-643 PO (19:56)
[2016-10-05] MEDS ORDERED: BISA1TAB15 PO (19:56)
[2016-10-05] MEDS ORDERED: NITR1CAP32 PO (19:56)
[2016-10-05] MEDS ORDERED: LIDO2SOL19 TOP (19:56)
[2016-10-05] MEDS ORDERED: METO25TA56 PO (19:56)
[2016-10-05] MEDS ORDERED: POLY335019 PO (19:56)
[2016-10-05] MEDS ORDERED: VTMD1000 PO (19:56)
[2016-10-05] MEDS ORDERED: ACET-1256 PO (19:56)
[2016-10-05] MEDS ORDERED: DOCU100C31 PO (19:56)
[2016-10-05] MEDS ORDERED: POTA10CA28 PO (19:56)
[2016-10-05 20:02] VITALS: BP 170/98; PULSE 91; O2SAT 97
--- NOTE | 2016-10-05 20:22 | EMERGENCY ROOM VISIT NOTE ---
History Report prepared by Vinicio: Yolis Ordoñez Under the Supervision of: Dr. Lucien Romero D.O. First contact with patient: 19:02 Chief Complaint: OTHER COMPLAINT Stated Complaint: ARM CAST /TOO TIGHT/ [facility] History of Present Illness The patient is an 80 year old female who presents to the Emergency Room with complaints of left arm cast tightness. The patient comes from [facility] where she is currently undergoing rehab. She fell when she was standing on her bed closing her curtains and she lost her balance. She had surgery on her left leg and left arm was placed in a cast about 1 week ago. The cast felt tight when it was first placed, but is has gotten worse since the weather has warmed up. She denies any arm numbness, chest pain, or SOB. Rehab is going well for her. She is not having any problems with her leg. She has an appointment with her orthopedic doctor in 3 days. Source of History: patient Onset: 1 week ago Position: arm (left) Quality: other (cast too tight) Timing: worsening Associated Symptoms: No chest pain, No SOB, No numbness Review of Systems See HPI for pertinent positives & negatives. A total of 6 systems reviewed and were otherwise negative. 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 (18) Reflux Esophagitis (19) Sinusitis (20) Small bowel obstruction Family History Other cardiovascular diseases Social History Smoking Status: Never Smoker Alcohol Use: none Drug Use: none Marital Status: Housing Status: lives with significant other Occupation Status: retired Current/Historical Medications Scheduled Acetaminophen (Tylenol), 500 MG PO Q8 Cholecalciferol (Vitamin D3), 1,000 UNITS PO QAM Colestipol HCl (Colestid), 2 GM PO BID Cyanocobalamin (Cyanocobalamin), 1,000 MCG INJ MONTHLY Cyclosporine (Ophth) (Restasis), 1 DROP OPB BID Docusate Sodium (Docusate Sodium), 1 CAP PO BID Furosemide (Furosemide), 10 MG PO QAM Levothyroxine Sodium (Levothyroxine Sodium), 50 MCG PO QAM Lorazepam (Lorazepam), 0.5 MG PO BID Losartan Potassium (Cozaar), 25 MG PO QAM Losartan Potassium (Cozaar), 50 MG PO QPM Metoprolol Tartrate (Lopressor), 25 MG PO BID Nitrofurantoin Macrocrystals (Macrodantin), 100 MG PO Q12 Ocuvite Preservision (Ocuvite Preservision), 2 TAB PO BID Pantoprazole (Protonix), 40 MG PO BID Potassium Chloride (Micro-K Ext Rel), 10 MEQ PO DAILY Scheduled PRN Albuterol Sulfate (Proair Respiclick), 2 PUFFS INH Q4 PRN for SOB/Wheezing Bisacodyl (Bisacodyl), 5 MG PO HS PRN for Constipation Clonidine Hcl (Catapres), 0.1 MG PO DAILY PRN for pressure over 180/114 Fluticasone Propionate (Nasal) (Flonase Allergy Relief), 50 MCG YANA DAILY PRN for PRN Hydrocortisone (Hydrocortisone 2.5%), 1 APPLN TOP DIRECTED PRN for RECTAL AREA AFTER BM'S Lidocaine Hcl (Mouth-Throat) (Lidocaine Viscous), 2 % TOP DIRECTED PRN for CATHER INSERT ONLY Magnesium Hydroxide (Milk Of Magnesia), 30 ML PO DAILY PRN for Constipation Metoprolol Tartrate (Lopressor) (Lopressor), 12.5 MG PO DAILY PRN for PALPITATIONS Oxycodone/Acetaminophen 5MG/325MG (Oxycodone/Acetaminophen 5MG/325MG), 1 TABLET PO Q4H PRN for Pain Polyethylene Glycol 3350 (Miralax), 17 GM PO DAILY PRN for Constipation Allergies Coded Allergies: Ciprofloxacin (Verified Allergy, Intermediate, RASH, ITCHING, 10/05/16) Latex (Verified Allergy, Unknown, REDNESS, 10/05/16) Shellfish (Verified Allergy, Unknown, HIVES, 10/05/16) Sulfa Drugs (Verified Allergy, Unknown, RASH, 10/05/16) ITCHING Levofloxacin (Verified Adverse Reaction, Severe, DIZZINESS, MYALGIA, ) Doxycycline (Verified Adverse Reaction, Unknown, HEADACHE, 10/05/16) Physical Exam Vital Signs Date Time Temp Pulse Resp B/P (MAP) Pulse Ox O2 Delivery O2 Flow Rate FiO2 10/05/16 20:02 91 19 170/98 97 10/05/16 19:05 36.9 95 18 154/97 96 Room Air Physical Exam GENERAL: Patient is awake, alert, and in no acute distress. Patient is resting comfortably and showing no signs of anxiety EYES: The conjunctivae are clear. The pupils are round and reactive. EARS, NOSE, MOUTH AND THROAT: The nose is without any evidence of any deformity. Mucous membranes are moist tongue is midline NECK: The neck is nontender and supple. RESPIRATORY: Normal respiratory effort is noted there is no evidence of wheezing rhonchi or rales CARDIOVASCULAR: Regular rate and rhythm noted there no murmurs rubs or gallops normal S1 normal S2 GASTROINTESTINAL: The abdomen is soft. Bowel sounds are present in all quadrants. Abdomen is nontender MUSCULOSKELETAL/EXTREMITIES: Left lower extremity was held in knee immobilizer, left upper extremity was in a long arm cast. Patient was able to wiggle fingers in left hand, capillary refill was symmetric, no swelling in the left hand compared to the right. SKIN: There is no obvious evidence of any rash. There are no petechiae, pallor or cyanosis noted. Pulses symmetric on both lower extremities. NEUROLOGIC: Patient is awake alert and oriented x3 Medical Decision & Procedures ED Course 1904: The patient was evaluated in room A11B. A complete history and physical examination were performed. 1914: I discussed the patient's case with Vivek Contreras and [facility] - orthopedic surgery. He requests that nothing be done to the cast. 1924: Upon reevaluation, the patient is resting comfortably. I discussed the results and treatment plan with her. She verbalized agreement of the treatment plan. She was discharged home. Medical Decision Prior records reviewed and summarized above. Triage Nursing notes reviewed and agree them. Differential diagnosis: Etiologies such as fracture, dislocation, neurovascular compromise, compartment syndrome, soft tissue injury, as well as others were entertained. Medication Reconciliation: I attest that I have personally reviewed the patient' s current medications list. Patient was found to have a slightly elevated blood pressure due to circumstances. I do not believe that the patient requires hypertension monitoring. The patient is an 80-year-old female who presented to the emergency department from inpatient rehabilitation for left upper extremity pain. The patient had a recent fall to beginning of the month and was treated for a fracture of her left elbow as well as a fracture of her left tibia. The patient was complaining about her cast hurting on the inside of her upper arm. The patient had room in the upper extremity where the cast was on the upper arm as well as around her hand. Capillary refill is symmetric. She had no numbness and did not wish to have any pain medicine at this time. She states that she did not wish to come to the hospital at this time but the nursing staff at rehabilitation encouraged her to come to the emergency department. I discussed her presentation with the on-call orthopedic physician who did her surgery. At this time the patient does have a follow-up appointment on Saturday. She was encouraged to keep this appointment. She was also encouraged to keep the arm elevated and use a sling. She was also encouraged to return to the emergency department immediately if symptoms change worsen or the need arises. I also encouraged them to call the orthopedic physician through the weekend if the symptoms worsen prior to sending the patient back to the emergency department in case they do not wish the cast to be bivalved. Consults Time Called: 1909 Consulting Physician: Vivek Contreras and [facility] - orthopedic surgery Returned Call: 1914 I discussed the patient's case with him. He requests that nothing be done to the cast. Impression Primary Impression: Cast discomfort Scribe Attestation The scribe's documentation has been prepared under my direction and personally reviewed by me in its entirety. I confirm that the note above accurately reflects all work, treatment, procedures, and medical decision making performed by me. Departure Information Dispostion Home / Self-Care Referrals Yolande Kingsley M.D. (PCP) Forms HOME CARE DOCUMENTATION FORM, IMPORTANT VISIT INFORMATION, WORK / SCHOOL INSTRUCTIONS Patient Instructions My [facility] Additional Instructions Follow-up with the orthopedic physician Saturday as scheduled. Call the orthopedic physician this weekend if symptoms worsen or if need arises. Return to emergency department immediately if any other worrisome symptoms develop.
== END 2016-10-05 20:02 | disposition home or self-care (01) ==
LOC: EDBD 18:58 → C.EDA 19:01
DX: Z46.89 Encounter for fitting and adjustment of other specified devices (principal); J44.9 Chronic obstructive pulmonary disease, unspecified; K50.90 Crohn's disease, unspecified, without complications; I10 Essential (primary) hypertension; E03.9 Hypothyroidism, unspecified; R09.02 Hypoxemia; E78.1 Pure hyperglyceridemia

== ENCOUNTER → 2016-10-15 | Outpatient (CLI) | payer OTHER ==
[~2016-10-15] MED LIST changes: -ACET-1138 PO; +ACET-1256 PO; +ANSHCCR/ TOP; -ASPEC325 PO; +BISA1TAB15 PO; -CHOL1TAB2 PO; -CLC100 PO; -DLC5 PO; +DOCU100C31 PO; -FRRG PO; +LIDO2SOL19 TOP; +LOSA1TAB PO; +LOSA50TA6 PO; +METO25TA56 PO; +MOML PO; +NITR1CAP32 PO; +OXYC-643 PO; +POLY335019 PO; -POTA-74 PO; +POTA10CA28 PO; -TELM40TA11 PO; -TRMCR130WC TOP; +VTMD1000 PO
[2016-10-15 17:32] LABS: URINE APPEARANCE CLOUDY (CLEAR); URINE BILIRUBIN NEG (NEG); URINE COLOR YELLOW; URINE EPITHELIAL CELL AUTO 20-30 /lpf (0-5); URINE NITRITE POS (NEG); URINE SPECIFIC GRAVITY 1.015 (1.000-1.030); UROBILINOGEN NEG (NEG)
[2016-10-15 17:37] LABS: MANUAL MICROSCOPIC REQUIRED? NO; REVIEW REQ? NO
== END | disposition home or self-care (01) ==
LOC: C.LABBFT 11:59
PROVIDERS: ATTEND Physician Assistant Medical
DX: R39.9 Unspecified symptoms and signs involving the genitourinary system (principal)

== ENCOUNTER 2016-10-28 07:11 | Emergency (ER) | payer OTHER ==
[~2016-10-28] VITALS: Ht 157.5 cm; Wt 50.0 kg
[2016-10-28 07:16] VITALS: TEMP 36.6; Ht 157.5 cm; Wt 50.0 kg
--- NOTE | 2016-10-28 08:20 | EMERGENCY ROOM VISIT NOTE ---
History Report prepared by Vinicio: Yasmine Santacruz Under the Supervision of: Dr. Jeff Mix D.O. First contact with patient: 08:07 Chief Complaint: IRREGULAR HEARTBEAT Stated Complaint: IRREGULAR HEARTBEAT Nursing Triage Summary: pt reports hx of irreg heart rate , states last night " I could feel it , it felt heavy" pt reports taking an extra metoprolol 25mg last night . Normal dose is 25mg BID . reports increased sob with exertion denies cp , or NV History of Present Illness The patient is a 80 year old female who presents to the Emergency Room with complaints of persistent palpitations that started last night. She states that her heart is "fluttering." The patient has a history of an irregular heartbeat. She states that last night she could feel her heart rate become abnormal. She states that "it felt heavy." The patient reports that she took an extra 25 mg of Metoprolol on top of the 25 mg that she normally takes BID. The patient is also experiencing increased shortness of breath with exertion. She denies nausea and vomiting. The patient states that she was in the ED 2 weeks ago for a broken leg and broken arm then she was at [facility] for 2 weeks where they did blood work and monitored her. She states that because of that she does not want any tests done other than an EKG. Source of History: patient Onset: last night Position: chest Quality: other (fluttering) Timing: other (persistent) Associated Symptoms: + SOB, No nausea, No vomiting Review of Systems See HPI for pertinent positives & negatives. A total of 10 systems reviewed and were otherwise negative. 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 (18) Reflux Esophagitis (19) Sinusitis (20) Small bowel obstruction Family History Other cardiovascular diseases Social History Smoking Status: Former Smoker Alcohol Use: none Drug Use: none Marital Status: Housing Status: lives with significant other Occupation Status: retired Current/Historical Medications Scheduled Acetaminophen (Tylenol), 500 MG PO Q8 Cholecalciferol (Vitamin D3), 1,000 UNITS PO QAM Colestipol HCl (Colestid), 2 GM PO BID Cyanocobalamin (Cyanocobalamin), 1,000 MCG INJ MONTHLY Cyclosporine (Ophth) (Restasis), 1 DROP OPB BID Docusate Sodium (Docusate Sodium), 1 CAP PO BID Furosemide (Furosemide), 10 MG PO QAM Levothyroxine Sodium (Levothyroxine Sodium), 50 MCG PO QAM Lorazepam (Lorazepam), 0.5 MG PO BID Losartan Potassium (Cozaar), 25 MG PO QAM Losartan Potassium (Cozaar), 50 MG PO QPM Metoprolol Tartrate (Lopressor), 25 MG PO BID Potassium Chloride (Micro-K Ext Rel), 10 MEQ PO DAILY Scheduled PRN Albuterol Sulfate (Proair Respiclick), 2 PUFFS INH Q4 PRN for SOB/Wheezing Bisacodyl (Bisacodyl), 5 MG PO HS PRN for Constipation Clonidine Hcl (Catapres), 0.1 MG PO DAILY PRN for pressure over 180/114 Fluticasone Propionate (Nasal) (Flonase Allergy Relief), 2 SPRAYS YANA DAILY PRN for PRN Hydrocortisone (Hydrocortisone 2.5%), 1 APPLN TOP DIRECTED PRN for RECTAL AREA AFTER BM'S Metoprolol Tartrate (Lopressor) (Lopressor), 12.5 MG PO DAILY PRN for PALPITATIONS Polyethylene Glycol 3350 (Miralax), 17 GM PO DAILY PRN for Constipation Allergies Coded Allergies: Ciprofloxacin (Verified Allergy, Intermediate, RASH, ITCHING, 10/28/16) Latex (Verified Allergy, Unknown, REDNESS, 10/28/16) Shellfish (Verified Allergy, Unknown, HIVES, 10/28/16) Sulfa Drugs (Verified Allergy, Unknown, RASH, 10/28/16) ITCHING Levofloxacin (Verified Adverse Reaction, Severe, DIZZINESS, MYALGIA, ) Doxycycline (Verified Adverse Reaction, Unknown, HEADACHE, 10/28/16) Physical Exam Vital Signs Date Time Temp Pulse Resp B/P (MAP) Pulse Ox O2 Delivery O2 Flow Rate FiO2 10/28/16 08:24 88 18 100/74 98 10/28/16 07:34 82 10/28/16 07:30 Room Air 10/28/16 07:16 36.6 76 20 126/69 95 Room Air Physical Exam CONSTITUTIONAL/VITAL SIGNS: Reviewed / noted above. GENERAL: Non-toxic in appearance. INTEGUMENTARY: Warm, dry, and [place]. HEAD: Normocephalic. EYES: without scleral icterus or trauma. ENT/OROPHARYNX: clear and moist. LYMPHADENOPATHY/NECK: Is supple without lymphadenopathy or meningismus. RESPIRATORY: Lungs clear and equal. CARDIOVASCULAR: Regular rate and rhythm. GI/ABDOMEN: Soft and nontender. No organomegaly or pulsatile mass. No rebound or guarding. Normal bowel sounds. EXTREMITIES: Warm and well perfused. BACK: No CVA tenderness. NEUROLOGICAL: Intact without focal deficits. PSYCHIATRIC: normal affect. MUSCULOSKELETAL: Normally developed with good muscle tone. Medical Decision & Procedures Laboratory Results Test 10/28/16 08:08 Creatine Kinase MB Ratio (0-3.0) ECG Indication: palpitations Rate (beats per minute): 85 Rhythm: normal sinus Findings: no acute ischemic change, no ectopy ED Course 0810: Previous medical records were reviewed. The patient was evaluated in room A10. A complete history and physical examination was performed. 0815: After examination and talking to the patient, she expressed that she only wants to have an EKG done and nothing else because she was recently at [facility] where blood work was done and she was monitored. I reviewed the patient's EKG with her. She verbalized agreement of the treatment plan. The patient was discharged home. Medical Decision Differentials considered include acute myocardial infarction, acute coronary syndrome, myocarditis, pericarditis, pericardial effusions /tamponade, esophageal perforation, thoracic aortic dissection, pulmonary embolism, pneumonia, pneumothorax, pancreatitis, shingles, acute cholecystitis, and perforated abdominal viscus. Medication Reconciliation: I attest that I have personally reviewed the patient' s current medication list. Blood pressure Screening: Patient was found to have normal blood pressure on screening and does not require follow-up. This is an 80-year-old female who presents to the ED with a chief complaint of palpitations. The patient states that she came into the hospital just to make sure that her heart was beating correctly. Twelve-lead EKG was performed prior to me seeing the patient. This shows a normal sinus rhythm. The patient's exam was unremarkable. She states that she did not want any further workup at this time. She just wanted to make sure that her heart was beating normally. There is no ischemic changes on her EKG. She is in no distress and is otherwise comfortable. She is felt to be stable for discharge. Impression Primary Impression: Heart palpitations Scribe Attestation The scribe's documentation has been prepared under my direction and personally reviewed by me in its entirety. I confirm that the note above accurately reflects all work, treatment, procedures, and medical decision making performed by me. Departure Information Dispostion Home / Self-Care Referrals Yolande Kingsley M.D. (PCP) Forms HOME CARE DOCUMENTATION FORM, IMPORTANT VISIT INFORMATION Patient Instructions My [facility] Additional Instructions Follow-up with your doctor for further care and evaluation in 1-2 days as needed. Return to the emergency department for worsening or new symptoms or any concerns. You have been examined and treated today on an emergency basis only. This is not a substitute for, or an effort to provide, complete comprehensive medical care. It is impossible to recognize and treat all injuries or illnesses in a single emergency department visit. It is therefore important that you follow up closely with your doctor. Call as soon as possible for an appointment.
[2016-10-28 08:24] VITALS: BP 100/74; PULSE 88; O2SAT 98
== END 2016-10-28 08:25 | disposition home or self-care (01) ==
LOC: C.EDB 07:13 → C.EDA 08:25
DX: R00.2 Palpitations (principal); J44.9 Chronic obstructive pulmonary disease, unspecified; K50.90 Crohn's disease, unspecified, without complications; I10 Essential (primary) hypertension; E03.9 Hypothyroidism, unspecified; K21.0 Gastro-esophageal reflux disease with esophagitis; Z87.891 Personal history of nicotine dependence; Z79.899 Other long term (current) drug therapy

== ENCOUNTER → 2016-10-31 | Outpatient (CLI) | payer OTHER ==
[~2016-10-31] MED LIST changes: -LIDO2SOL19 TOP; -MOML PO; -MULT-190 PO; -NITR1CAP32 PO; -OXYC-643 PO; -PANT40TA PO
== END | disposition home or self-care (01) ==
LOC: C.LABBFT 10:54
PROVIDERS: ATTEND Internal Medicine
DX: R39.9 Unspecified symptoms and signs involving the genitourinary system (principal)

== ENCOUNTER → 2016-11-30 | Outpatient (CLI) | payer OTHER ==
[2016-11-30 12:55] LABS: BLOOD UREA NITROGEN 17 mg/dl (7-18); BUN/CREATININE RATIO 15.8 (10-20); CALCIUM 10.3 mg/dl (8.5-10.1); CARBON DIOXIDE 24 mmol/L (21-32); CHLORIDE 110 mmol/L (98-107); GLUCOSE 102 mg/dl (70-99); SODIUM 141 mmol/L (136-145)
== END | disposition home or self-care (01) ==
LOC: C.LABBFT 11:08
PROVIDERS: ATTEND Internal Medicine
DX: I10 Essential (primary) hypertension (principal); E87.6 Hypokalemia

== ENCOUNTER → 2016-12-26 | Outpatient (CLI) | payer OTHER ==
[2016-12-26 12:55] LABS: URINE APPEARANCE CLOUDY (CLEAR); URINE BILIRUBIN NEG (NEG); URINE COLOR YELLOW; URINE NITRITE NEG (NEG); URINE PH 5.5 (4.5-7.5); URINE SPECIFIC GRAVITY 1.019 (1.000-1.030); UROBILINOGEN NEG (NEG)
[2016-12-26 12:58] LABS: MANUAL MICROSCOPIC REQUIRED? NO; REVIEW REQ? NO
== END | disposition home or self-care (01) ==
LOC: C.LABSPEC 08:53
PROVIDERS: ATTEND Internal Medicine
DX: R39.9 Unspecified symptoms and signs involving the genitourinary system (principal)

== ENCOUNTER → 2017-02-01 | Outpatient (CLI) | payer OTHER ==
[2017-02-01 12:27] LABS: URINE APPEARANCE CLEAR (CLEAR); URINE BILIRUBIN NEG (NEG); URINE COLOR YELLOW; URINE NITRITE NEG (NEG); URINE PH 5.5 (4.5-7.5); URINE SPECIFIC GRAVITY 1.017 (1.000-1.030); UROBILINOGEN NEG (NEG)
[2017-02-01 12:32] LABS: MANUAL MICROSCOPIC REQUIRED? NO; REVIEW REQ? NO
== END | disposition home or self-care (01) ==
LOC: C.LABBFT 10:03
PROVIDERS: ATTEND Internal Medicine
DX: R39.9 Unspecified symptoms and signs involving the genitourinary system (principal)

== ENCOUNTER → 2017-04-18 | Outpatient (CLI) | payer OTHER ==
[~2017-04-18] MED LIST changes: +GABA-112 PO; -LSX20 PO; +OXYC-57 PO; -POLY335019 PO
[2017-04-18 17:55] LABS: URINE APPEARANCE CLEAR (CLEAR); URINE BILIRUBIN NEG (NEG); URINE COLOR YELLOW; URINE NITRITE NEG (NEG); URINE SPECIFIC GRAVITY 1.019 (1.000-1.030); UROBILINOGEN NEG (NEG)
[2017-04-18 17:58] LABS: MANUAL MICROSCOPIC REQUIRED? NO; REVIEW REQ? NO
== END | disposition home or self-care (01) ==
LOC: C.LABSPEC 11:36
PROVIDERS: ATTEND Internal Medicine
DX: R39.9 Unspecified symptoms and signs involving the genitourinary system (principal)

== ENCOUNTER → 2017-08-08 | Outpatient (CLI) | payer OTHER ==
--- NOTE | 2017-08-08 12:48 | DIAGNOSTIC IMAGING REPORT ---
CHEST 2 VIEWS ROUTINE CLINICAL HISTORY: R05 Cough COMPARISON STUDY: 09/23/2016 FINDINGS: The heart is normal in size. There is no failure. There is no focal pulmonary consolidation. There are old left-sided rib deformities. There is chronic blunting of the left lateral costophrenic angle.[ IMPRESSION: No change from the preceding study. No acute findings. Electronically signed by: Jimmie Jason M.D. 08/08/2017 12:47 PM Dictated Date/Time: 08/08/2017 12:46 PM
== END | disposition home or self-care (01) ==
LOC: C.RAD 12:10
PROVIDERS: ATTEND Physician Assistant Medical
DX: R05 Cough (principal)

== ENCOUNTER 2017-09-03 06:50 | Emergency (ER) | payer OTHER ==
[2017-09-03 06:52] VITALS: TEMP 36.6; Ht 152.4 cm
--- NOTE | 2017-09-03 07:10 | EMERGENCY ROOM VISIT NOTE ---
History Report prepared by Vinicio: Jagdeep Mg Under the Supervision of: Dr. Jeff Licona M.D. First contact with patient: 06:56 Chief Complaint: ANKLE PAIN Stated Complaint: SPRAIN-SORE LEFT ANKLE History of Present Illness The patient is an 81 year old female who presents to the Emergency Room with complaints of intermittent pain in the left ankle that began roughly 1 week ago. The patient states that she injured her ankle in the yard about a week ago , when she was attempting to take down a bird feeder. She notes that the ankle did not start to swell until yesterday. She currently has pain that is worsened with walking, but is pain-free when at rest. Source of History: patient, parent Onset: 1 week ago Position: ankle (left) Timing: intermittent Modifying Factors (Worsening): other (walking) Modifying Factors (Relieving): rest Review of Systems See HPI for pertinent positives & negatives. A total of 10 systems reviewed and were otherwise negative. 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 (18) Reflux Esophagitis (19) Sinusitis (20) Small bowel obstruction Family History Other cardiovascular diseases Social History Smoking Status: Never Smoker Alcohol Use: none Drug Use: none Marital Status: Housing Status: lives with significant other Occupation Status: retired Current/Historical Medications Scheduled Acetaminophen (Tylenol), 500 MG PO Q8 Cholecalciferol (Vitamin D3), 1,000 UNITS PO QAM Colestipol HCl (Colestid), 2 GM PO BID Cyanocobalamin (Cyanocobalamin), 1,000 MCG INJ MONTHLY Cyclosporine (Ophth) (Restasis), 1 DROP OPB BID Gabapentin (Neurontin), 100 MG PO HS Levothyroxine Sodium (Levothyroxine Sodium), 50 MCG PO QAM Lorazepam (Lorazepam), 0.5 MG PO BID Losartan Potassium (Cozaar), 25 MG PO QAM Losartan Potassium (Cozaar), 50 MG PO QPM Metoprolol Tartrate (Lopressor), 25 MG PO BID Potassium Chloride (Micro-K Ext Rel), 10 MEQ PO DAILY Scheduled PRN Albuterol Sulfate (Proair Respiclick), 2 PUFFS INH Q4 PRN for SOB/Wheezing Bisacodyl (Bisacodyl), 5 MG PO HS PRN for Constipation Clonidine Hcl (Catapres), 0.1 MG PO DAILY PRN for pressure over 180/114 Metoprolol Tartrate (Lopressor) (Lopressor), 12.5 MG PO DAILY PRN for PALPITATIONS Oxycodone/Acetaminophen 5MG/325MG (Percocet 5MG/325MG), 1 TAB PO TID PRN for prn Allergies Coded Allergies: Ciprofloxacin (Verified Allergy, Intermediate, RASH, ITCHING, 09/03/17) Latex (Verified Allergy, Unknown, REDNESS, 09/03/17) Shellfish (Verified Allergy, Unknown, HIVES, 09/03/17) Sulfa Drugs (Verified Allergy, Unknown, RASH, 09/03/17) ITCHING Levofloxacin (Verified Adverse Reaction, Severe, DIZZINESS, MYALGIA, ) Doxycycline (Verified Adverse Reaction, Unknown, HEADACHE, 09/03/17) Physical Exam Vital Signs Date Time Temp Pulse Resp B/P (MAP) Pulse Ox O2 Delivery O2 Flow Rate FiO2 09/03/17 08:26 54 20 112/55 96 09/03/17 06:52 36.6 66 20 182/91 95 Room Air Physical Exam GENERAL: Awake, alert, well-appearing, in no acute distress HENT: Normocephalic, atraumatic. Oropharynx unremarkable. EYES: Normal conjunctiva. Sclera non-icteric. NECK: Supple. No nuchal rigidity. FROM. No JVD. RESPIRATORY: Clear to auscultation. CARDIAC: Regular rate, normal rhythm. Extremities warm and well perfused. Pulses equal. ABDOMEN: Soft, non-distended. No tenderness to palpation. No rebound or guarding. No masses. RECTAL: Deferred. MUSCULOSKELETAL: Chest examination reveals no tenderness. The back is symmetrical on inspection without obvious abnormality. There is no CVA tenderness to palpation. No joint edema. LOWER EXTREMITIES: Calves are equal size bilaterally and non-tender. There is bruising to the left foot and the distal metatarsals of the left foot. NEURO: Normal sensorium. No sensory or motor deficits noted. SKIN: No rash or jaundice noted. Medical Decision & Procedures ER Provider Diagnostic Interpretation: Radiology results as stated below per my review and radiologist interpretation: L TIBIA/FIBULA 2 VIEWS ROUTINE CLINICAL HISTORY: Left lower leg pain. Trauma. COMPARISON: 09/23/2016 DISCUSSION: There is an internally fixated proximal tibial fracture. There is an old proximal fibular fracture. The bones are osteopenic. No acute fractures are visualized. Note is made of vascular calcifications. IMPRESSION: Old postsurgical and posttraumatic change. No acute fractures Electronically signed by: Jimmie Jason M.D. 09/03/2017 7:36 AM Dictated Date/Time: 09/03/2017 7:34 AM LEFT FOOT 3 VIEWS CLINICAL HISTORY: Left foot pain. FINDINGS: 3 views of the left foot are obtained. No prior studies are available for comparison at the time of dictation. The skeletal structures are osteopenic. There is mild contour deformity and sclerotic change involving the third and fourth metatarsal necks suggesting subacute/healing fractures. A nondistracted fracture is also seen through the proximal shaft of the second proximal phalanx. There is age indeterminant posttraumatic deformity involving the distal fourth proximal phalanx. Moderate arthritic change is seen at the first metatarsophalangeal joint. There is a tiny plantar calcaneal enthesophyte. Soft tissue edema is noted in the forefoot. There is atherosclerotic calcification of the regional arteries. IMPRESSION: 1. Suspect subacute/healing fractures involving the neck of the third and fourth metatarsals. 2. There is a nondistracted fracture through the base of the second proximal phalanx. 3. There is age indeterminant posttraumatic deformity involving the distal fourth proximal phalanx. 4. Soft tissue edema is noted in the forefoot. Electronically signed by: Roly Storey M.D. 09/03/2017 7:40 AM Dictated Date/Time: 09/03/2017 7:35 AM ED Course 0705: Past medical records reviewed. The patient was evaluated in room B9. A complete history and physical examination was performed. 0805: Upon reexamination the patient is seated in her wheelchair . I discussed results and treatment plan with the patient. She verbalizes agreement and understanding. The patient is ready for discharge. Medical Decision Triage Nursing noes, as well as ancillary records, past medical history, and medication list were reviewed. Differential diagnosis: Etiologies such as fracture, dislocation, neurovascular compromise, compartment syndrome, soft tissue injury, as well as others were entertained. This is an 81-year-old female who presents the emergency department unsure of what she did to her foot approximately 1 week ago when she was changing a bird feeder. The patient has been walking on the foot ever since and is complaining of pain. She was sent for x-rays of her foot as well as her tibia. She appears to have broken multiple metatarsals in her foot. The patient was placed in a walking boot here in the emergency department. I strongly recommended the use of a walker to the patient as well as close follow-up with orthopedics. Case management was contacted to get the patient a appointment with her orthopedic surgeon. Patient and were in agreement with the treatment plan. Medication Reconcilliation Current Medication List: was personally reviewed by me Blood Pressure Screening Patient's blood pressure: Elevated blood pressure Impression Primary Impression: Metatarsal bone fracture Scribe Attestation The scribe's documentation has been prepared under my direction and personally reviewed by me in its entirety. I confirm that the note above accurately reflects all work, treatment, procedures, and medical decision making performed by me. Departure Information Dispostion Home / Self-Care Referrals Yolande Kingsley M.D. (PCP) Forms HOME CARE DOCUMENTATION FORM, IMPORTANT VISIT INFORMATION Patient Instructions My [facility] Additional Instructions Need follow up with DR Doyle's office You have been examined and treated today on an emergency basis only. This is not a substitute for, or an effort to provide, complete comprehensive medical care. It is impossible to recognize and treat all injuries or illnesses in a single emergency department visit. It is therefore important that you follow up closely with Dr Kingsley. Call as soon as possible for an appointment. Thank you for your time and consideration. I look forward to speaking with you again soon. Please don't hesitate to call us if you have any questions. Problem Qualifiers Primary Impression: Metatarsal bone fracture Encounter type: initial encounter Metatarsal bone: unspecified metatarsal Fracture type: closed Fracture alignment: nondisplaced Laterality: left Qualified Codes: S92.302A - Fracture of unspecified metatarsal bone(s), left foot, initial encounter for closed fracture
--- NOTE | 2017-09-03 07:37 | DIAGNOSTIC IMAGING REPORT ---
L TIBIA/FIBULA 2 VIEWS ROUTINE CLINICAL HISTORY: Left lower leg pain. Trauma. COMPARISON: 09/23/2016 DISCUSSION: There is an internally fixated proximal tibial fracture. There is an old proximal fibular fracture. The bones are osteopenic. No acute fractures are visualized. Note is made of vascular calcifications. IMPRESSION: Old postsurgical and posttraumatic change. No acute fractures Electronically signed by: Jimmie Jason M.D. 09/03/2017 7:36 AM Dictated Date/Time: 09/03/2017 7:34 AM
--- NOTE | 2017-09-03 07:41 | DIAGNOSTIC IMAGING REPORT ---
LEFT FOOT 3 VIEWS CLINICAL HISTORY: Left foot pain. FINDINGS: 3 views of the left foot are obtained. No prior studies are available for comparison at the time of dictation. The skeletal structures are osteopenic. There is mild contour deformity and sclerotic change involving the third and fourth metatarsal necks suggesting subacute/healing fractures. A nondistracted fracture is also seen through the proximal shaft of the second proximal phalanx. There is age indeterminant posttraumatic deformity involving the distal fourth proximal phalanx. Moderate arthritic change is seen at the first metatarsophalangeal joint. There is a tiny plantar calcaneal enthesophyte. Soft tissue edema is noted in the forefoot. There is atherosclerotic calcification of the regional arteries. IMPRESSION: 1. Suspect subacute/healing fractures involving the neck of the third and fourth metatarsals. 2. There is a nondistracted fracture through the base of the second proximal phalanx. 3. There is age indeterminant posttraumatic deformity involving the distal fourth proximal phalanx. 4. Soft tissue edema is noted in the forefoot. Electronically signed by: Roly Storey M.D. 09/03/2017 7:40 AM Dictated Date/Time: 09/03/2017 7:35 AM
[2017-09-03 08:26] VITALS: BP 112/55; PULSE 54; O2SAT 96
== END 2017-09-03 08:27 | disposition home or self-care (01) ==
LOC: C.EDB 06:51
DX: S92.322A Displaced fracture of second metatarsal bone, left foot, initial encounter for closed fracture (principal); X58.XXXA Exposure to other specified factors, initial encounter; Y93.89 Activity, other specified; J44.9 Chronic obstructive pulmonary disease, unspecified; K50.90 Crohn's disease, unspecified, without complications; I10 Essential (primary) hypertension; E03.9 Hypothyroidism, unspecified; K21.9 Gastro-esophageal reflux disease without esophagitis; Z79.899 Other long term (current) drug therapy; Z88.1 Allergy status to other antibiotic agents; Z88.2 Allergy status to sulfonamides; Z91.040 Latex allergy status; Z91.013 Allergy to seafood

== ENCOUNTER → 2017-12-02 | Outpatient (CLI) | payer OTHER ==
[~2017-12-02] MED LIST changes: -ANSHCCR/ TOP; -DOCU100C31 PO; -FLUT0.15 NAE
[2017-12-02 17:44] LABS: ALBUMIN 3.4 gm/dl (3.4-5.0); ALKALINE PHOSPHATASE 92 U/L (45-117); ALT/SGPT 20 U/L (12-78); AST/SGOT 17 U/L (15-37); BLOOD UREA NITROGEN 20 mg/dl (7-18); CALCIUM 9.6 mg/dl (8.5-10.1); CARBON DIOXIDE 23 mmol/L (21-32); CREATININE 1.29 mg/dl (0.60-1.20); GLUCOSE 132 mg/dl (70-99); POTASSIUM 4.1 mmol/L (3.5-5.1); SODIUM 142 mmol/L (136-145); TOTAL PROTEIN 6.7 gm/dl (6.4-8.2)
[2017-12-02 18:22] LABS: BASO % 0.4 %; BASO ABS # 0.02 K/uL (0-0.2); EOS % 1.5 %; EOS ABS # 0.08 K/uL (0-0.5); HEMATOCRIT 39.1 % (37-47); HEMOGLOBIN 12.9 g/dL (12.0-16.0); IG# 0.01 K/uL (0.00-0.02); LYMPH % 24.5 %; MEAN CELL VOLUME 90.9 fL (80-100); MEAN PLATELET VOLUME 10.1 fL (7.4-10.4); MONO % 6.6 %; MONO ABS # 0.35 K/uL (0.11-0.59); NEUT % 66.8 %; NEUT ABS # 3.55 K/uL (1.4-6.5); PLATELET COUNT 152 K/uL (130-400); WHITE BLOOD COUNT 5.31 K/uL (4.8-10.8)
== END | disposition home or self-care (01) ==
LOC: C.LABBFT 14:24
PROVIDERS: ATTEND Registered Nurse
DX: R19.7 Diarrhea, unspecified (principal)

== ENCOUNTER → 2017-12-03 | Outpatient (CLI) | payer OTHER | END | disposition home or self-care (01) | LOC: C.LABBFT 09:16 | PROVIDERS: ATTEND Registered Nurse | DX: R19.7 Diarrhea, unspecified (principal) ==

== ENCOUNTER 2018-04-16 11:08 | Inpatient (IN) ==
[2018-04-16] MEDS ORDERED: SODIUM CHLORIDE 0.9% 1000ML 1,000 ML IV SCH (12:15)
[2018-04-16 12:19] LABS: Basophils # (auto) 0.02 K/uL (0-0.2); Basophils % (auto) 0.2 %; Eosinophils # (auto) 0.05 K/uL (0-0.5); Eosinophils % (auto) 0.6 %; Hematocrit (blood only) 42.5 % (37-47); Hemoglobin 14.4 g/dL (12.0-16.0); Immature Granulocytes # (auto) 0.02 K/uL (0.00-0.02); Immature Granulocytes % (auto) 0.2 %; Lymphocytes # (auto) 1.07 K/uL (1.2-3.4); Lymphocytes % (auto) 12.3 %; Mean Corpuscular Hgb Conc 33.9 g/dL (32-36); Mean Corpuscular Volume 88.5 fL (80-100); Monocytes # (auto) 0.57 K/uL (0.11-0.59); Monocytes % (auto) 6.6 %; Neutrophils # (auto) 6.95 K/uL (1.4-6.5); Neutrophils % (auto) 80.1 %; Platelet Count 139 K/uL (130-400); RDW Coefficient of Variation 13.9 % (11.5-14.5); RDW Standard Deviation 45.5 fL (36.4-46.3); White Blood Count 8.68 K/uL (4.8-10.8)
[2018-04-16 12:26] LABS: Albumin Level 3.6 gm/dl (3.4-5.0); BUN Creatinine Ratio 20.5 (10-20); Calcium 9.5 mg/dl (8.5-10.1); Creatinine Clr Calc Pharmacy 24.3 ml/min; Est GFR (African American) 45.1; Est GFR (Non-African American) 38.9; Potassium 3.4 mmol/L (3.5-5.1)
[2018-04-16 12:32] LABS: Bilirubin,Total 0.9 mg/dl (0.1-1); Globulin 3.7 gm/dl (2.5-4.0); Total Protein 7.3 gm/dl (6.4-8.2)
[2018-04-16 13:29] LABS: Appearance Urine Cloudy (Clear); Bacteria Urine Automated Negative (Negative); Bilirubin Urine Negative (Negative); Color Urine Yellow; Epithelial Cell Urine Auto >30 /lpf (0-5); Glucose Urine UA Negative (Negative); Ketones Urine Negative (Negative); Leukocyte Esterase Urine Trace (Negative); Nitrite Urine Negative (Negative); Protein Urine Trace (Negative); Specific Gravity Urine 1.015 (1.000-1.030); Urobilinogen Urine Negative (Negative); pH Urine 5.5 (4.5-7.5)
[2018-04-16] MEDS ORDERED: IOVERSOL 100ml IV PRN (13:32)
--- NOTE | 2018-04-16 13:48 | CT Scan Report ---
ABDOMEN AND PELVIS CT WITH IV CONTRAST CT DOSE: 223.68 mGy.cm HISTORY: Acute generalized abdominal pain with vomiting and diarrhea. 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 abd pain, vomiting/diarrhea TECHNIQUE: Multiaxial CT images of the abdomen and pelvis were performed following the use of intrave nous contrast. A dose lowering technique was utilized adhering to the principles of ALARA. COMPARISON STUDY: CT abdomen and pelvis 12/26/2017 FINDINGS: The lung bases are generally clear. Study is mildly motion degraded. No pneumatosis or pneu moperitoneum identified. Imaged inferior cardiac chambers are mildly enlarged. Coronary arterial calc ifications are noted. Trace pericardial effusion. Prior cholecystectomy. Mild intrahepatic and extrahepatic biliary ductal dilation is likely on a post surgical basis. Liver is otherwise unremarkable. Patency of the hepatic and portal veins. Spleen and right adrenal gland are unremarkable. Mild thickening of the left adrenal gland. Mild generalized enriquez creatic atrophy. Mild stranding about the pancreatic head, uncinate process and pancreaticoduodenal g roove. Severe atrophy with cortical thinning and scarring about the left kidney. Right kidney is unremarkabl e. Exophytic cyst of the inferior pole right kidney, 1.5 cm. Urinary bladder, uterus and adnexa are u nremarkable. Thrombus formation noted about the left gonadal vein, (for example see images 222 throug h 247 of series 3) which expands the lumen. Indeterminate 1.4 x 0.9 cm cystic structure of the left a dnexum and 1.3 x 1.1 cm cystic structure of the left adnexum. Extensive mixed plaque formation of the abdominal aorta with tortuosity. 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 Mild ectasia of the infrarenal abdominal aorta, 2.4 cm. IVC appears unremarkable. Mildly prominent pericaval and periportal lymph nodes, likel y physiologic. Trace free pelvic fluid. No bowel obstruction. Air-fluid levels noted throughout the l arge bowel. Postoperative changes about the right hemicolon suggest prior ileocecectomy with enteroco lic anastomosis. Stool-filled loops of small bowel noted about the lower abdomen and pelvis. Mild wal l thickening noted within portions of the sigmoid colon. Soft tissues are within normal limits. Bones appear to be intact. Demineralized appearance of the bon es. There are 3 generated screws noted about the left femoral neck. Anterolisthesis L3 on L4 and L4 o n L5, likely secondary to long-standing advanced facet arthropathy. Remote appearing compression defo rmity of the L1 vertebral body without retropulsion, unchanged from comparison. IMPRESSION: 1. Mild edema about the pancreatic head, uncinate process and pancreaticoduodenal groove is suspiciou s for mild acute pancreatitis. Correlate with lipase level. 2. Multiple air-fluid levels throughout the large bowel suggest diarrheal illness. Additionally, wall thickening noted within the distribution of the mid sigmoid colon suggests sequela of partial disten tion with a mild nonspecific colitis thought to be less likely. 3. Thrombus of the left gonadal vein. 4. No small bowel obstruction. 5. Additional findings as above. Electronically signed by: Andrea Jim M.D. 04/16/2018 1:47 PM
--- NOTE | 2018-04-16 14:59 | Emergency Department Note ---
ED Provider Note CHIEF COMPLAINT: Abdominal pain, dehydration HISTORY OF PRESENTING ILLNESS: This is an 82-year-old female who presents to the emergency department by private vehicle with her with complaints of stomach pain and dizziness today. Patient states that she had an illness with nausea, vomiting, and diarrhea 3 days ago, states that this has resolved. She saw her PCP today and they felt that she was dehydrated, sent her here for further evaluation. She states that she has had decreased urine output today, but denies any dysuria, urinary frequency, hematuria or dark urine. She states that her abdominal pain is across the top of the abdomen, feels sharp and comes and goes, currently rates this as 5/10. She has been taking Tylenol for her symptoms, her last dose was last night, she states this does help. She denies any symptoms of headaches, vision changes, neck pain or stiffness, chest pain, shortness of breath, palpitations, syncope, back pain, bloody or black stools, or unusual rash. REVIEW OF SYSTEMS: A complete 10 point review of systems was reviewed with the patient with pertinent positives and negatives as per history of present illness. All else were negative. PAST MEDICAL HISTORY: COPD, hypertension, Crohn's, cholecystectomy SOCIAL HISTORY: Lives at home with her , denies tobacco use ALLERGIES: Reviewed in the chart PHYSICAL EXAM: CONSTITUTIONAL: Pleasant and cooperative. Nontoxic appearing and in no acute distress. Moderately dehydrated, but otherwise well appearing and well nourished. HEENT: Normocephalic, atraumatic. PERRL, EOMI. TMs normal. Pharynx normal. Dry mucous membranes. NECK: Supple, full active range of motion without discomfort. RESPIRATORY: Clear to auscultation bilaterally with no wheezing, crackles, rhonchi or stridor. Equal expansion bilaterally. CARDIOVASCULAR: Regular rate and rhythm with no murmurs, rubs or gallops. Normal peripheral perfusion. No edema. GASTROINTESTINAL: Soft, mild tender in the epigastric and left upper quadrant, no rebound tenderness or guarding, nondistended. No palpable masses or HSM. Bowel sounds present in all quadrants. No CVA tenderness bilaterally. MUSCULOSKELETAL: Full range of motion of all joints without discomfort. INTEGUMENTARY: No rash or other significant dermatologic conditions noted. NEUROLOGIC: Alert and oriented X 4 with normal affect. Normal strength and sensation in all 4 extremities. Normal speech. Normal gait observed. ED COURSE AND MEDICAL DECISION MAKING: CC: Patient presenting with complaint of abdominal pain, dehydration DIFFERENTIAL DIAGNOSIS: Includes, but not limited to dehydration, electrolyte abnormality, gastroenteritis, gastritis, peptic ulcer disease, choledocholithiasis, pancreatitis, colitis, diverticulitis, Crohn's disease, among others. INTERPRETATION OF LABS: No leukocytosis, no anemia, normal platelets, mild hyperkalemia, no other significant electrolyte abnormalities, slightly elevated BUN and creatinine consistent with dehydration, normal liver enzymes, significantly elevated lipase. UA negative. IMAGING: ABDOMEN AND PELVIS CT WITH IV CONTRAST CT DOSE: 223.68 mGy.cm HISTORY: Acute generalized abdominal pain with vomiting and diarrhea. History of reported inflammatory bowel disease and adenocarcinoma of the lung. abd pain , vomiting/diarrhea TECHNIQUE: Multiaxial CT images of the abdomen and pelvis were performed following the use of intravenous contrast. A dose lowering technique was utilized adhering to the principles of ALARA. COMPARISON STUDY: CT abdomen and pelvis 12/26/2017 FINDINGS: The lung bases are generally clear. Study is mildly motion degraded. No pneumatosis or pneumoperitoneum identified. Imaged inferior cardiac chambers are mildly enlarged. Coronary arterial calcifications are noted. Trace pericardial effusion. Prior cholecystectomy. Mild intrahepatic and extrahepatic biliary ductal dilation is likely on a postsurgical basis. Liver is otherwise unremarkable. Patency of the hepatic and portal veins. Spleen and right adrenal gland are unremarkable. Mild thickening of the left adrenal gland. Mild generalized pancreatic atrophy. Mild stranding about the pancreatic head, uncinate process and pancreaticoduodenal groove. Severe atrophy with cortical thinning and scarring about the left kidney. Right kidney is unremarkable. Exophytic cyst of the inferior pole right kidney, 1.5 cm. Urinary bladder, uterus and adnexa are unremarkable. Thrombus formation noted about the left gonadal vein, (for example see images 222 through 247 of series 3) which expands the lumen. Indeterminate 1.4 x 0.9 cm cystic structure of the left adnexum and 1.3 x 1.1 cm cystic structure of the left adnexum. Extensive mixed plaque formation of the abdominal aorta with tortuosity. 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 Mild ectasia of the infrarenal abdominal aorta, 2.4 cm. IVC appears unremarkable. Mildly prominent pericaval and periportal lymph nodes, likely physiologic. Trace free pelvic fluid. No bowel obstruction. Air-fluid levels noted throughout the large bowel. Postoperative changes about the right hemicolon suggest prior ileocecectomy with enterocolic anastomosis. Stool- filled loops of small bowel noted about the lower abdomen and pelvis. Mild wall thickening noted within portions of the sigmoid colon. Soft tissues are within normal limits. Bones appear to be intact. Demineralized appearance of the bones. There are 3 generated screws noted about the left femoral neck. Anterolisthesis L3 on L4 and L4 on L5, likely secondary to long- standing advanced facet arthropathy. Remote appearing compression deformity of the L1 vertebral body without retropulsion, unchanged from comparison. IMPRESSION: 1. Mild edema about the pancreatic head, uncinate process and pancreaticoduodenal groove is suspicious for mild acute pancreatitis. Correlate with lipase level. 2. Multiple air-fluid levels throughout the large bowel suggest diarrheal illness. Additionally, wall thickening noted within the distribution of the mid sigmoid colon suggests sequela of partial distention with a mild nonspecific colitis thought to be less likely. 3. Thrombus of the left gonadal vein. 4. No small bowel obstruction. 5. Additional findings as above. EKG: Shows sinus bradycardia with a rate of 53 bpm, normal axis, normal intervals, left ventricular hypertrophy with repolarization abnormality, no acute ST or T wave changes, appears improved when compared to previous EKG from 12/16/2017 by my interpretation. MEDICATION RECONCILIATION: I attest that I have personally reviewed the patient 's current medication list. INITIAL VITAL SIGNS REVIEW: I reviewed the patient's initial vital signs and interpret them as follows: T: Afebrile; BP: Normotensive; HR: Tachycardic; RR : Within normal limits; Pulse Ox: Within normal limits on room air. Blood pressure screening: The patient was found to have normal blood pressure on screening and does not require follow-up for repeat blood pressure check. MDM SUMMARY: Patient was evaluated at bedside, history and physical exam performed. Patient is alert and oriented, no acute distress, resting calmly in stretcher. There is mild tenderness of the upper abdomen to palpation, but no acute abdomen. The patient does appear moderately dehydrated and mildly tachycardic. EKG reviewed at bedside, sinus bradycardia with no acute ischemic changes. Orders were placed at bedside for labs, UA, IV fluid bolus for hydration, CT abdomen/pelvis to evaluate for abdominal pain. Patient discussed with Dr. Krishna, who agrees with my assessment, plan, and disposition. Labs and imaging reviewed as above, findings consistent with acute pancreatitis. Mild hypokalemia also noted, this was replaced with [address] also shows air-fluid levels throughout the large bowel suggestive of a diarrheal illness and possible colitis. There is note made of a thrombus in the left gonadal vein of unknown chronicity. Patient reassessed multiple times throughout ED stay, she has remained hemodynamically stable, tachycardia is downtrending with IV fluids, and her pain is currently well controlled. She does still appear moderately dehydrated, and given the acute pancreatitis and her age, I feel that she would benefit from inpatient management. I spoke with Dr. Oliva, [facility] Hospitalist, who agrees to evaluate the patient for admission. Will defer decision regarding anticoagulation treatment for the gonadal vein thrombus to the medicine team. The patient was updated on all results and plan for admission, she verbalized understanding and was agreeable to this plan. The patient was stable at time of admission. The chart was completed utilizing [employer] Speech voice recognition software. Grammatical errors, random word insertions, pronoun errors, and incomplete sentences are an occasional consequence of this system due to software limitations, ambient noise, and hardware issues. Any formal questions or concerns about the content, text, or information contained within the body of this dictation should be directly addressed to the nurse practitioner for clarification. Impression & Plan Acute pancreatitis, Thrombosis of ovarian vein Past Med/Surg History Social History Current Living Situation: Spouse Other Information That Helps Us Care for You: No Feels Safe at Home: Yes Smoking Status: Former smoker Do You Dip or Chew Tobacco: No Second Hand Exposure: No Tobacco Cessation Education Requested by Patient: No Hx Alcohol Use: No Hx Substance Use: No Beliefs That Will Affect Care: None Preferred Language: Thai Communication Ability Comment: pt has bilateral hearing aids does not have them with her Administrative Executive Required: No Results & Data Vital Signs Vital Signs - 24 hr 04/16/18 11:11 04/16/18 13:37 04/16/18 14:07 Temperature 36.4 C L Temperature Source Oral Sepsis Recent Fever Within 48 Hours No Sepsis Action Taken by Nursing No Action Required Pulse Rate 104 H Pulse Rate [Right Finger] 64 61 Pulse Rhythm [Right Finger] Regular Pulse Strength [Right Finger] Normal Respiratory Rate 20 18 20 Respiratory Effort / Characteristics Non-Labored Spontaneous Non-Labored Spontaneous Respiratory Depth Normal Normal Respiratory Pattern Regular Regular Blood Pressure 121/66 Blood Pressure [Right Arm] 153/73 H 165/81 H Blood Pressure Mean 84 Blood Pressure Mean [Right Arm] 99 109 Blood Pressure Position [Right Arm] Lying Pulse Oximetry 98 98 98 Oxygen Delivery Method Room Air Room Air Room Air 04/16/18 15:20 04/16/18 16:54 04/16/18 17:52 Temperature Temperature Source Sepsis Recent Fever Within 48 Hours Sepsis Action Taken by Nursing Pulse Rate 61 Pulse Rate [Right Finger] 60 64 Pulse Rhythm [Right Finger] Pulse Strength [Right Finger] Respiratory Rate 28 H 23 22 Respiratory Effort / Characteristics Respiratory Depth Respiratory Pattern Blood Pressure 157/104 H Blood Pressure [Right Arm] 150/90 H 195/94 H Blood Pressure Mean Blood Pressure Mean [Right Arm] 110 127 Blood Pressure Position [Right Arm] Pulse Oximetry 99 98 100 Oxygen Delivery Method Room Air Room Air Room Air 04/16/18 18:15 04/16/18 20:33 Temperature 36.7 C Temperature Source Oral Sepsis Recent Fever Within 48 Hours Sepsis Action Taken by Nursing Pulse Rate Pulse Rate [Right Finger] 71 73 Pulse Rhythm [Right Finger] Pulse Strength [Right Finger] Respiratory Rate 18 Respiratory Effort / Characteristics Non-Labored Respiratory Depth Normal Respiratory Pattern Blood Pressure Blood Pressure [Right Arm] 194/96 H 183/99 H Blood Pressure Mean Blood Pressure Mean [Right Arm] 128 127 Blood Pressure Position [Right Arm] Sitting Pulse Oximetry 96 Oxygen Delivery Method Room Air Laboratory Data Result diagrams: 04/16/18 11:55 04/16/18 11:55 Lab Results 04/16/18 04/16/18 04/16/18 Range/Units 11:55 11:55 12:31 WBC 8.68 (4.8-10.8) K/uL RBC 4.80 (4.2-5.4) M/uL Hgb 14.4 (12.0-16.0) g/dL Hct 42.5 (37-47) % MCV 88.5 (80-100) fL MCH 30.0 (25-34) pg MCHC 33.9 (32-36) g/dL RDW Std Deviation 45.5 (36.4-46.3) fL RDW Coeff of Martine 13.9 (11.5-14.5) % Plt Count 139 (130-400) K/uL MPV 10.0 (7.4-10.4) fL Immature Gran % (Auto) 0.2 % Neut % (Auto) 80.1 % Lymph % (Auto) 12.3 % Chaves % (Auto) 6.6 % Eos % (Auto) 0.6 % Baso % (Auto) 0.2 % Immature Gran # (Auto) 0.02 (0.00-0.02) K/uL Neut # (Auto) 6.95 H (1.4-6.5) K/uL Lymph # (Auto) 1.07 L (1.2-3.4) K/uL Chaves # (Auto) 0.57 (0.11-0.59) K/uL Eos # (Auto) 0.05 (0-0.5) K/uL Baso # (Auto) 0.02 (0-0.2) K/uL PT (9.0-12.0) Seconds INR (0.9-1.1) APTT (21.0-31.0) Seconds PTT Ratio Sodium 141 (136-145) mmol/L Potassium 3.4 L (3.5-5.1) mmol/L Chloride 110 H (98-107) mmol/L Carbon Dioxide 24 (21-32) mmol/L Anion Gap 7.0 (3-11) BUN 26 H (7-18) mg/dl Creatinine 1.28 H (0.6-1.2) mg/dl Est Cr Clr Drug Dosing 24.3 ml/min Est GFR ( Amer) 45.1 Est GFR (Non-Af Amer) 38.9 BUN/Creatinine Ratio 20.5 H (10-20) Glucose 117 H (70-99) mg/dl POC Glucose 104 H (70-99) Calcium 9.5 (8.5-10.1) mg/dl Total Bilirubin 0.9 (0.1-1) mg/dl AST 14 L (15-37) U/L ALT 22 (12-78) U/L Alkaline Phosphatase 108 (45-117) U/L Total Protein 7.3 (6.4-8.2) gm/dl Albumin 3.6 (3.4-5.0) gm/dl Globulin 3.7 (2.5-4.0) gm/dl Albumin/Globulin Ratio 1.0 (0.9-2) Lipase 1042 H (73-393) U/L Urine Color Urine Appearance (Clear) Urine pH (4.5-7.5) Ur Specific Mcgraw (1.000-1.030) Urine Protein (Negative) Urine Glucose (UA) (Negative) Urine Ketones (Negative) Urine Blood (Negative) Urine Nitrite (Negative) Urine Bilirubin (Negative) Urine Urobilinogen (Negative) Ur Leukocyte Esterase (Negative) Urine WBC (Auto) (0-5) /hpf Urine RBC (Auto) (0-4) /hpf U Hyaline Cast (Auto) (0-5) /lpf U Epithel Cells (Auto) (0-5) /lpf Urine Bacteria (Auto) (Negative) 04/16/18 04/16/18 Range/Units 13:18 20:57 WBC (4.8-10.8) K/uL RBC (4.2-5.4) M/uL Hgb (12.0-16.0) g/dL Hct (37-47) % MCV (80-100) fL MCH (25-34) pg MCHC (32-36) g/dL RDW Std Deviation (36.4-46.3) fL RDW Coeff of Martine (11.5-14.5) % Plt Count (130-400) K/uL MPV (7.4-10.4) fL Immature Gran % (Auto) % Neut % (Auto) % Lymph % (Auto) % Chaves % (Auto) % Eos % (Auto) % Baso % (Auto) % Immature Gran # (Auto) (0.00-0.02) K/uL Neut # (Auto) (1.4-6.5) K/uL Lymph # (Auto) (1.2-3.4) K/uL Chaves # (Auto) (0.11-0.59) K/uL Eos # (Auto) (0-0.5) K/uL Baso # (Auto) (0-0.2) K/uL PT 11.3 (9.0-12.0) Seconds INR 1.1 (0.9-1.1) APTT 26.6 (21.0-31.0) Seconds PTT Ratio 1.0 Sodium (136-145) mmol/L Potassium (3.5-5.1) mmol/L Chloride (98-107) mmol/L Carbon Dioxide (21-32) mmol/L Anion Gap (3-11) BUN (7-18) mg/dl Creatinine (0.6-1.2) mg/dl Est Cr Clr Drug Dosing ml/min Est GFR ( Amer) Est GFR (Non-Af Amer) BUN/Creatinine Ratio (10-20) Glucose (70-99) mg/dl POC Glucose (70-99) Calcium (8.5-10.1) mg/dl Total Bilirubin (0.1-1) mg/dl AST (15-37) U/L ALT (12-78) U/L Alkaline Phosphatase (45-117) U/L Total Protein (6.4-8.2) gm/dl Albumin (3.4-5.0) gm/dl Globulin (2.5-4.0) gm/dl Albumin/Globulin Ratio (0.9-2) Lipase (73-393) U/L Urine Color Yellow Urine Appearance Cloudy H (Clear) Urine pH 5.5 (4.5-7.5) Ur Specific Mcgraw 1.015 (1.000-1.030) Urine Protein Trace H (Negative) Urine Glucose (UA) Negative (Negative) Urine Ketones Negative (Negative) Urine Blood Negative (Negative) Urine Nitrite Negative (Negative) Urine Bilirubin Negative (Negative) Urine Urobilinogen Negative (Negative) Ur Leukocyte Esterase Trace H (Negative) Urine WBC (Auto) 1-5 (0-5) /hpf Urine RBC (Auto) 0-4 (0-4) /hpf U Hyaline Cast (Auto) 1-5 (0-5) /lpf U Epithel Cells (Auto) >30 H (0-5) /lpf Urine Bacteria (Auto) Negative (Negative) Administered Medications Acetaminophen (Tylenol) 650 mg PO Q4H PRN PRN Reason: pain/fever Stop: 05/16/18 18:16 Last Admin: 04/16/18 21:15 Dose: 650 mg Clonidine HCl (Catapres) 0.4 mg PO QPM [facility] Stop: 05/16/18 20:59 Last Admin: 04/16/18 21:57 Dose: 0.4 mg Enoxaparin Sodium (Lovenox) 30 mg SQ Q24H [facility] Stop: 05/16/18 21:59 Last Admin: 04/16/18 21:57 Dose: 30 mg Gabapentin (Neurontin) 200 mg PO TID [facility] Stop: 05/16/18 20:59 Last Admin: 04/16/18 20:32 Dose: 200 mg Potassium Chloride/Sodium Chloride (Normal Saline W/20 Meq Kcl) 20 meq in 1, 000 mls @ 100 mls/hr IV .Q10H [facility] Stop: 05/16/18 18:16 Last Admin: 04/16/18 20:27 Dose: 100 mls/hr Metoprolol Tartrate (Lopressor) 25 mg PO BID [facility] Stop: 05/16/18 20:59 Last Admin: 04/16/18 20:40 Dose: 25 mg Pantoprazole Sodium (Protonix) 40 mg PO BID [facility] Stop: 05/16/18 20:59 Last Admin: 04/16/18 20:31 Dose: 40 mg Discontinued Medications Sodium Chloride (Nss 1000ml) 1,000 mls @ 999 mls/hr IV .Q1H1M [facility] Stop: 04/16/18 13:15 Last Infusion: 04/16/18 13:33 Dose: 0 mls/hr Admin: 04/16/18 12:32 Dose: 999 mls/hr Sodium Chloride (Nss 1000ml) 1,000 mls @ 999 mls/hr IV .Q1H1M ONE Stop: 04/16/18 16:03 Last Infusion: 04/16/18 17:10 Dose: 0 mls/hr Admin: 04/16/18 15:11 Dose: 999 mls/hr Potassium Chloride (K Alonzo / Wtr) 10 meq in 100 mls @ 100 mls/hr IV Q1H [facility] Stop: 04/16/18 17:14 Last Admin: 04/16/18 17:40 Dose: Not Given Infusion: 04/16/18 17:18 Dose: 0 mls/hr Admin: 04/16/18 16:10 Dose: 100 mls/hr Ioversol (Optiray 320 100ml) 94 ml IV ONCE PRN PRN Reason: Interaction Checking Stop: 04/20/18 13:31 Last Admin: 04/16/18 13:33 Dose: 94 ml Discharge Plan Visit Data *Final* Discharge Date/Time: 04/16/18 17:52 Chief Complaint: Illness Stated Complaint: NAUSEA, CRAMPS, DIARRHEA, VOMITING ED Provider: Gin Krishna ED Midlevel Provider: Kina Win Discharge Problem: Acute pancreatitis, Thrombosis of ovarian vein Patient Disposition: Admitted As Inpatient Condition: Good Discharge Instructions Interventions: ED Discharge Assessment Last Done: 04/16/18 17:52
[2018-04-16] MEDS ORDERED: SODIUM CHLORIDE 0.9% 1000ML 1,000 ML IV ONE (15:03)
[2018-04-16] MEDS: POTASSIUM CHLORIDE / WTR 10 MEQ/100 ML PLCT IV SCH ×2 (16:10→17:40)
--- NOTE | 2018-04-16 16:49 | History & Physical Report ---
Date of Service April 16, 2018 Assessment & Plan (1) Acute pancreatitis: Admit to nonmonitored bed. NSS + KCl 20 mEq at 100 mils per hour. Initial lipase 1042, will follow serial lipase. Full liquid diet. Zofran 4 mg IV every 6 hours as needed. Pantoprazole 40 mg IV daily. Acetaminophen 1000 mg IV every 8 hours as needed mild pain or temperature. Continue oxycodone 5 mg p.o. every 6 hours as needed moderate pain. Present on Admission?: Yes (2) Thrombosis of ovarian vein: We will consult hematology to determine risk/ benefits of anticoagulation. Present on Admission?: Yes (3) Chronic obstructive pulmonary disease: Duo nebs available to use as needed. Present on Admission?: Yes (4) Hypertension: Continue metoprolol tartrate. Continue a.m. clonidine, and decrease dosing to p.m. clonidine. Hold telmisartan. Present on Admission?: Yes (5) Peripheral neuropathy: Continue gabapentin Present on Admission?: Yes (6) Anxiety: Continue as needed Ativan Present on Admission?: Yes History of Present Illness Chief Complaint: The patient presents to the emergency department with 3 days of nausea, vomiting and diarrhea, with persistent stomach pain and development of dizziness today. Primary Care Provider: Yolande Kingsley The patient is an 82-year-old female with a past medical history including Crohn 's status post colon resection, who developed the acute onset of the above symptoms. She has not had any recent travels or sick exposures. She has not had any questionable dietary intake. She saw her PCP earlier in the day today, who felt that she was dehydrated, and referred her to the emergency department for assessment. She also reports decreased urine output today. Allergies Allergy/AdvReac Type Severity Reaction Status Date / Time aspirin Allergy Severe Gastrointestinal Verified 04/16/18 13:46 Upset Cipro Allergy Intermediate RASH, Verified 09/03/17 07:28 ITCHING ciprofloxacin Allergy Intermediate RASH, Verified 04/16/18 13:46 ITCHING latex Allergy Unknown REDNESS Verified 04/16/18 13:46 shellfish derived Allergy Unknown HIVES Verified 04/16/18 13:46 Sulfa (Sulfonamide Allergy Unknown RASH Verified 04/16/18 13:46 Antibiotics) levofloxacin AdvReac Severe DIZZINESS, Verified 04/16/18 13:46 MYALGIA doxycycline AdvReac Unknown HEADACHE Verified 04/16/18 13:46 Home Medications Home Medications Medication Instructions Recorded Confirmed Type albuterol sulfate 2 puff INHALATION Q6H PRN 12/24/17 04/16/18 History alendronate [Fosamax] 1 tab PO WK 12/24/17 04/16/18 History clonidine HCl 0.2 mg PO QAM 12/24/17 04/16/18 History cyanocobalamin (vitamin B-12) 1,000 mcg IM MONTHLY 12/24/17 04/16/18 History gabapentin 2 tab PO TID 12/24/17 04/16/18 History levothyroxine 50 mcg PO QAM 12/24/17 04/16/18 History lorazepam 0.5 mg PO TID PRN 12/24/17 04/16/18 History metoprolol tartrate 25 mg PO BID 12/24/17 04/16/18 History pantoprazole 40 mg PO BID 12/24/17 04/16/18 History potassium chloride 20 meq PO DAILY 12/24/17 04/16/18 History telmisartan 40 mg PO BID 12/24/17 04/16/18 History clonidine HCl 0.6 mg PO QPM 04/16/18 04/16/18 History metoprolol tartrate 25 mg PO DIRECTED PRN 04/16/18 04/16/18 History oxycodone 5 mg PO BID PRN 04/16/18 04/16/18 History Past Med/Surg History Social History Current Living Situation: Spouse Other Information That Helps Us Care for You: No Feels Safe at Home: Yes Smoking Status: Former smoker Do You Dip or Chew Tobacco: No Second Hand Exposure: No Tobacco Cessation Education Requested by Patient: No Hx Alcohol Use: No Hx Substance Use: No Beliefs That Will Affect Care: None Preferred Language: [place] Leonean Communication Ability Comment: pt has bilateral hearing aids 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 The review of systems is otherwise negative other than for that already noted above, and at least 10 systems have been reviewed. Physical Exam 2 Vital Signs (Past 24 Hours): Last Vital Signs Temp 36.4 C L 04/16/18 11:11 Pulse 60 04/16/18 15:20 Resp 28 H 04/16/18 15:20 BP 150/90 H 04/16/18 15:20 Pulse Ox 99 04/16/18 15:20 Physical Exam: The patient is awake, alert and oriented 3, looks dry, normocephalic and atraumatic, lying in bed and in no acute distress. HEENT--PERRL, EOMI, mucous membranes and oropharynx dry. Neck--supple. No JVD. No bruits. Thyroid normal, trachea midline, no adenopathy. Heart--normal S1 and S2. No murmurs, rubs or gallops. Lungs--clear bilaterally, no respiratory distress, no accessory muscle use. Abdomen--normal bowel sounds and soft. Nontender. Nondistended, no hernias or masses, no organomegaly. Extremities--no cyanosis or clubbing. No edema. There are good distal pulses b/ l. Dermatologic--normal skin turgor, normal color, no abnormal lymph nodes, no rash. Neurologic--cranial nerves II through XII grossly intact. Rheumatologic--normal range of motion. Psychiatric--normal affect. Results & Data Laboratory Results Laboratory Results WBC 8.68 K/uL (4.8-10.8) 04/16/18 11:55 RBC 4.80 M/uL (4.2-5.4) 04/16/18 11:55 Hgb 14.4 g/dL (12.0-16.0) 04/16/18 11:55 Hct 42.5 % (37-47) 04/16/18 11:55 MCV 88.5 fL (80-100) 04/16/18 11:55 MCH 30.0 pg (25-34) 04/16/18 11:55 MCHC 33.9 g/dL (32-36) 04/16/18 11:55 RDW Std Deviation 45.5 fL (36.4-46.3) 04/16/18 11:55 RDW Coeff of Martine 13.9 % (11.5-14.5) 04/16/18 11:55 Plt Count 139 K/uL (130-400) 04/16/18 11:55 MPV 10.0 fL (7.4-10.4) 04/16/18 11:55 Immature Gran % (Auto) 0.2 % 04/16/18 11:55 Neut % (Auto) 80.1 % 04/16/18 11:55 Lymph % (Auto) 12.3 % 04/16/18 11:55 [place] % (Auto) 6.6 % 04/16/18 11:55 Eos % (Auto) 0.6 % 04/16/18 11:55 Baso % (Auto) 0.2 % 04/16/18 11:55 Immature Gran # (Auto) 0.02 K/uL (0.00-0.02) 04/16/18 11:55 Neut # (Auto) 6.95 K/uL (1.4-6.5) H 04/16/18 11:55 Lymph # (Auto) 1.07 K/uL (1.2-3.4) L 04/16/18 11:55 [place] # (Auto) 0.57 K/uL (0.11-0.59) 04/16/18 11:55 Eos # (Auto) 0.05 K/uL (0-0.5) 04/16/18 11:55 Baso # (Auto) 0.02 K/uL (0-0.2) 04/16/18 11:55 PT 11.3 Seconds (9.0-12.0) 04/16/18 20:57 INR 1.1 (0.9-1.1) 04/16/18 20:57 APTT 26.6 Seconds (21.0-31.0) 04/16/18 20:57 PTT Ratio 1.0 04/16/18 20:57 Sodium 141 mmol/L (136-145) 04/16/18 11:55 Potassium 3.4 mmol/L (3.5-5.1) L 04/16/18 11:55 Chloride 110 mmol/L (98-107) H 04/16/18 11:55 Carbon Dioxide 24 mmol/L (21-32) 04/16/18 11:55 Anion Gap 7.0 (3-11) 04/16/18 11:55 BUN 26 mg/dl (7-18) H 04/16/18 11:55 Creatinine 1.28 mg/dl (0.6-1.2) H 04/16/18 11:55 Est Cr Clr Drug Dosing 24.3 ml/min 04/16/18 11:55 Est GFR ( Amer) 45.1 04/16/18 11:55 Est GFR (Non-Af Amer) 38.9 04/16/18 11:55 BUN/Creatinine Ratio 20.5 (10-20) H 04/16/18 11:55 Glucose 117 mg/dl (70-99) H 04/16/18 11:55 POC Glucose 104 (70-99) H 04/16/18 12:31 Calcium 9.5 mg/dl (8.5-10.1) 04/16/18 11:55 Total Bilirubin 0.9 mg/dl (0.1-1) 04/16/18 11:55 AST 14 U/L (15-37) L 04/16/18 11:55 ALT 22 U/L (12-78) 04/16/18 11:55 Alkaline Phosphatase 108 U/L (45-117) 04/16/18 11:55 Total Protein 7.3 gm/dl (6.4-8.2) 04/16/18 11:55 Albumin 3.6 gm/dl (3.4-5.0) 04/16/18 11:55 Globulin 3.7 gm/dl (2.5-4.0) 04/16/18 11:55 Albumin/Globulin Ratio 1.0 (0.9-2) 04/16/18 11:55 Lipase 1042 U/L (73-393) H 04/16/18 11:55 Urine Color Yellow 04/16/18 13:18 Urine Appearance Cloudy (Clear) H 04/16/18 13:18 Urine pH 5.5 (4.5-7.5) 04/16/18 13:18 Ur Specific [place] 1.015 (1.000-1.030) 04/16/18 13:18 Urine Protein Trace (Negative) H 04/16/18 13:18 Urine Glucose (UA) Negative (Negative) 04/16/18 13:18 Urine Ketones Negative (Negative) 04/16/18 13:18 Urine Blood Negative (Negative) 04/16/18 13:18 Urine Nitrite Negative (Negative) 04/16/18 13:18 Urine Bilirubin Negative (Negative) 04/16/18 13:18 Urine Urobilinogen Negative (Negative) 04/16/18 13:18 Ur Leukocyte Esterase Trace (Negative) H 04/16/18 13:18 Urine WBC (Auto) 1-5 /hpf (0-5) 04/16/18 13:18 Urine RBC (Auto) 0-4 /hpf (0-4) 04/16/18 13:18 U Hyaline Cast (Auto) 1-5 /lpf (0-5) 04/16/18 13:18 U Epithel Cells (Auto) >30 /lpf (0-5) H 04/16/18 13:18 Urine Bacteria (Auto) Negative (Negative) 04/16/18 13:18 Diagnostic Findings [place], [place] [phone] CT Scan Report Patient: YUE MONTE Date: 04/16/18 MR#: [id number]: [address] [place] Acct ID:[id number]: Date: 1935[facility] Zip: [place] [address] Age: 82Location: ED Sex: F Room/Bed: Att Phy: Diagnosis: NAUSEA, CRAMPS, DIARRHEA, VOMITING Julissa Phy: Yolande Kingsley MDService Date: 04/16/18 Fam Phy: Interpreting Phy: Jaun Jim Admit Phy: Ordering Phy: Kina Win CRNP cc: ~ ABDOMEN AND PELVIS CT WITH IV CONTRAST CT DOSE: 223.68 mGy.cm HISTORY: Acute generalized abdominal pain with vomiting and diarrhea. History of reported inflammatory bowel disease and adenocarcinoma of the lung. abd pain , vomiting/diarrhea TECHNIQUE: Multiaxial CT images of the abdomen and pelvis were performed following the use of intravenous contrast. A dose lowering technique was utilized adhering to the principles of ALARA. COMPARISON STUDY: CT abdomen and pelvis 12/26/2017 FINDINGS: The lung bases are generally clear. Study is mildly motion degraded. No pneumatosis or pneumoperitoneum identified. Imaged inferior cardiac chambers are mildly enlarged. Coronary arterial calcifications are noted. Trace pericardial effusion. Prior cholecystectomy. Mild intrahepatic and extrahepatic biliary ductal dilation is likely on a postsurgical basis. Liver is otherwise unremarkable. Patency of the hepatic and portal veins. Spleen and right adrenal gland are unremarkable. Mild thickening of the left adrenal gland. Mild generalized pancreatic atrophy. Mild stranding about the pancreatic head, uncinate process and pancreaticoduodenal groove. Severe atrophy with cortical thinning and scarring about the left kidney. Right kidney is unremarkable. Exophytic cyst of the inferior pole right kidney, 1.5 cm. Urinary bladder, uterus and adnexa are unremarkable. Thrombus formation noted about the left gonadal vein, (for example see images 222 through 247 of series 3) which expands the lumen. Indeterminate 1.4 x 0.9 cm cystic structure of the left adnexum and 1.3 x 1.1 cm cystic structure of the left adnexum. Extensive mixed plaque formation of the abdominal aorta with tortuosity. 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 Mild ectasia of the infrarenal abdominal aorta, 2.4 cm. IVC appears unremarkable. Mildly prominent pericaval and periportal lymph nodes, likely physiologic. Trace free pelvic fluid. No bowel obstruction. Air-fluid levels noted throughout the large bowel. Postoperative changes about the right hemicolon suggest prior ileocecectomy with enterocolic anastomosis. Stool- filled loops of small bowel noted about the lower abdomen and pelvis. Mild wall thickening noted within portions of the sigmoid colon. Soft tissues are within normal limits. Bones appear to be intact. Demineralized appearance of the bones. There are 3 generated screws noted about the left femoral neck. Anterolisthesis L3 on L4 and L4 on L5, likely secondary to long- standing advanced facet arthropathy. Remote appearing compression deformity of the L1 vertebral body without retropulsion, unchanged from comparison. IMPRESSION: 1. Mild edema about the pancreatic head, uncinate process and pancreaticoduodenal groove is suspicious for mild acute pancreatitis. Correlate with lipase level. 2. Multiple air-fluid levels throughout the large bowel suggest diarrheal illness. Additionally, wall thickening noted within the distribution of the mid sigmoid colon suggests sequela of partial distention with a mild nonspecific colitis thought to be less likely. 3. Thrombus of the left gonadal vein. 4. No small bowel obstruction. 5. Additional findings as above. Electronically signed by: Andrea Jim M.D. 04/16/2018 1:47 PM Dictated: 04/16/18 1333 Transcribed: 04/16/18 1333 Code Status & VTE Plan Code Status Full code VTE Prophylaxis Plan VTE Prophylaxis will be ordered: Yes _ (1) Acute pancreatitis Acute pancreatitis complication: unspecified Pancreatitis type: unspecified pancreatitis type Qualified Code(s): K85.90 - Acute pancreatitis without necrosis or infection, unspecified
[2018-04-16] MEDS ORDERED: LORazepam 0.5 MG TAB PO PRN (18:17)
[2018-04-16] MEDS ORDERED: OXYCODONE HCL IR 5 MG TAB (IMMEDIATE RELEASE) PO PRN (18:17)
[2018-04-16] MEDS ORDERED: ACETAMINOPHEN 1000 MG/100 ML IV IV PRN (18:17)
[2018-04-16] MEDS ORDERED: ONDANSETRON INJ 2 MG/ML 2 ML VIAL IV PRN (18:17)
[2018-04-16] MEDS ORDERED: ALBUTEROL HFA 8 GM INHALER INH PRN (18:17)
[2018-04-16] MEDS ORDERED: ACETAMINOPHEN 325 MG TAB PO PRN (18:17)
[2018-04-16] MEDS: NSS + 20MEQ KCL 20 MEQ/1,000 ML BAG IV SCH (20:27)
[2018-04-16] MEDS: PANTOprazole 40 MG TAB PO SCH (20:31)
[2018-04-16] MEDS: GABAPENTIN 100 MG CAP PO SCH (20:32)
[2018-04-16] MEDS: cloNIDine HCl 0.1 MG TAB PO SCH (20:40)
[2018-04-16] MEDS: METOPROLOL TARTRATE 25 MG TAB PO SCH (20:40)
[2018-04-16] MEDS ORDERED: INFLUENZA ADMINISTRATION CHARGE ONE (21:00)
[2018-04-16] MEDS ORDERED: cloNIDine HCl 0.1 MG TAB PO SCH (21:00)
[2018-04-16] MEDS ORDERED: INFLUENZA VACCINE HIGH DOSE 65+ 0.5 ML SYR IM ONE (21:00)
[2018-04-16 21:25] LABS: INR 1.1 (0.9-1.1); Partial Thromboplastin Time 26.6 Seconds (21.0-31.0); Prothrombin Time 11.3 Seconds (9.0-12.0)
[2018-04-16] MEDS ORDERED: ENOXAPARIN INJ 30 MG/0.3 ML SYR SQ SCH (22:00)
[2018-04-17] MEDS: NSS + 20MEQ KCL 20 MEQ/1,000 ML BAG IV SCH (05:43)
[2018-04-17 05:55] LABS: Basophils # (auto) 0.01 K/uL (0-0.2); Basophils % (auto) 0.2 %; Eosinophils # (auto) 0.09 K/uL (0-0.5); Eosinophils % (auto) 1.7 %; Hematocrit (blood only) 35.7 % (37-47); Hemoglobin 12.1 g/dL (12.0-16.0); Immature Granulocytes # (auto) 0.01 K/uL (0.00-0.02); Immature Granulocytes % (auto) 0.2 %; Lymphocytes # (auto) 1.26 K/uL (1.2-3.4); Lymphocytes % (auto) 23.7 %; Mean Corpuscular Hgb Conc 33.9 g/dL (32-36); Mean Platelet Volume 9.7 fL (7.4-10.4); Monocytes # (auto) 0.44 K/uL (0.11-0.59); Monocytes % (auto) 8.3 %; Neutrophils # (auto) 3.51 K/uL (1.4-6.5); Neutrophils % (auto) 65.9 %; Platelet Count 102 K/uL (130-400); RDW Coefficient of Variation 14.1 % (11.5-14.5); RDW Standard Deviation 46.5 fL (36.4-46.3); Red Blood Count 4.01 M/uL (4.2-5.4); White Blood Count 5.32 K/uL (4.8-10.8)
[2018-04-17] MEDS ORDERED: LEVOTHYROXINE SODIUM 50 MCG TABLET PO SCH (06:30)
[2018-04-17 06:37] LABS: Albumin Globulin Ratio 1.1 (0.9-2); Albumin Level 2.8 gm/dl (3.4-5.0); BUN Creatinine Ratio 17.2 (10-20); Bilirubin,Total 0.7 mg/dl (0.1-1); Calcium 8.2 mg/dl (8.5-10.1); Creatinine Clr Calc Pharmacy 35.4 ml/min; Est GFR (African American) 70.9; Est GFR (Non-African American) 61.2; Globulin 2.6 gm/dl (2.5-4.0); Potassium 3.7 mmol/L (3.5-5.1); Total Protein 5.4 gm/dl (6.4-8.2)
[2018-04-17 07:30] LABS: INR 1.2 (0.9-1.1); Partial Thromboplastin Ratio 1.2; Partial Thromboplastin Time 31.3 Seconds (21.0-31.0)
[2018-04-17] MEDS: cloNIDine HCl 0.1 MG TAB PO SCH (08:11)
[2018-04-17] MEDS: GABAPENTIN 100 MG CAP PO SCH ×2 (08:11→13:10)
[2018-04-17] MEDS: PANTOprazole 40 MG TAB PO SCH (08:11)
[2018-04-17] MEDS: METOPROLOL TARTRATE 25 MG TAB PO SCH (08:52)
--- NOTE | 2018-04-17 10:13 | Consultation Report ---
DATE OF CONSULTATION: 04/17/2018 HEMATOLOGIC CONSULTATION REASON FOR CONSULTATION: An 82-year-old female patient with incidentally discovered left gonadal vein thrombosis. HISTORY OF PRESENT ILLNESS: Dana is a very pleasant 82-year-old female patient who was admitted to [facility] on 04/16 with subacute onset nausea, vomiting and diarrhea and persistent epigastric abdominal pain. The patient has past medical history of Crohn's disease status post resection, developed subacute onset of symptoms as above. She apparently had seen her PCP earlier in the day, felt she was dehydrated and referred her to the Emergency Department for assessment. The patient was worked up by laboratory and radiographically. CT scan of the abdomen and pelvis revealed mild edema about the pancreatic head, uncinate process, and pancreaticoduodenal groove suspicious for mild acute pancreatitis. Multiple air fluid levels throughout the large bowel suggest an underlying diarrheal illness additionally and incidentally, a thrombus of the left gonadal vein was noted. From a laboratory standpoint, the patient has markedly elevated amylase and lipase consistent with pancreatitis diagnosis. The hospitalist service is asking me to render opinion regarding appropriateness of anticoagulation for this incidentally discovered thrombus. Dana actually suffered a lung cancer she estimates 10 years ago and underwent a tumor resection. She did not receive any radiation therapy or adjuvant chemotherapy and never actually followed with oncology moving forward. In regards to thrombotic history, Dana denies previous DVT or pulmonary embolism nor does she possess family history of thrombotic disease. PAST MEDICAL HISTORY: Significant for Crohn's disease, osteoporosis, hypothyroidism, and hypertension. No history of coronary artery disease or pulmonary disease, prior history of lung cancer. HOME MEDICATIONS: Include albuterol 2 puffs inhalation q. 6 hours p.r.n., Fosamax 1 tablet p.o. q. week probably 70 mg, clonidine 0.2 mg p.o. daily, cyanocobalamin 1000 mcg IM monthly, gabapentin 2 tablets p.o. t.i.d., levothyroxine 50 mcg p.o. q.a.m., lorazepam 0.5 mg p.o. t.i.d., metoprolol tartrate 25 mg p.o. t.i.d., Protonix 40 mg p.o. b.i.d., potassium chloride 20 mEq p.o. daily, telmisartan 40 mg p.o. b.i.d., clonidine 0.6 mg p.o. q.p.m., metoprolol tartrate 25 mg p.o. as directed p.r.n., oxycodone 5 mg p.o. b.i.d. p.r.n. ALLERGIES: INCLUDE ASPIRIN, CIPROFLOXACIN, LATEX, SHELLFISH, SULFA, LEVOFLOXACIN AND DOXYCYCLINE. SOCIAL HISTORY: The patient is , retired and lives with her spouse. Negative for smoking or alcohol. FAMILY HISTORY: Again, no family history of thrombophilia. REVIEW OF SYSTEMS: As per HPI, most notably for abdominal pain associated with nausea and vomiting and diarrhea. No fevers, chills or sweats. She is not anorexic or losing weight. SKIN: No rashes or lesions. No history of dermatoses. HEENT: Negative for headaches, lightheadedness or dizziness. No acute visual or hearing deficit. She wears corrective lenses. No sinus symptoms, sore throat or dysphagia. LYMPH: No history of lymphoproliferative disease. CARDIAC: Negative for coronary artery disease, no angina or palpitations. PULMONARY: Positive for COPD. She is not acutely short of breath or dyspneic on exertion. No cough or hemoptysis reported. GASTROINTESTINAL: Positive history of GERD, Crohn's disease and probable pancreatitis. Positive for abdominal pain. Positive for nausea and vomiting. Positive for diarrhea. She reports no hematochezia, melena or marcos rectal bleeding presently. GENITOURINARY: No hematuria, dysuria, urinary incontinence. PSYCHIATRIC: Negative for anxiety, depression or psychoses. ENDOCRINE: Positive for hypothyroidism. Negative for diabetes mellitus. MUSCULOSKELETAL: No arthralgias or myalgias. No muscle weakness. NEUROLOGIC: Negative for seizure, stroke, or migraine headache. HEMATOLOGIC: Negative for anemia, thrombophilia or bleeding diathesis by history. PHYSICAL EXAMINATION: GENERAL: A very pleasant 82-year-old female patient in no acute distress. VITAL SIGNS: Temperature 36.5, pulse 63, respiratory rate 16, blood pressure 172/84. SKIN: Warm, dry, noncyanotic without petechiae, rash or ecchymosis. HEENT: Head: Atraumatic, normocephalic. Eyes: PERRLA, EOMI. Sclerae nonicteric. Nares patent without rhinorrhea or discharge. Throat clear. Tongue midline. Mucous membranes are moist. NECK: Supple, trachea midline. No palpable lymphadenopathy. HEART: Regular rate and rhythm. No clicks, rubs, murmurs or gallops. LUNGS: Clear to auscultation bilaterally. ABDOMEN: Again, soft, nontender, nondistended. No rigidity or guarding. Bowel sounds are active. No palpable hepatosplenomegaly. EXTREMITIES: Musculoskeletal strength and pulses are equal in all 4 extremities. No clubbing, cyanosis or edema otherwise. NEUROLOGICALLY: She is awake, alert and oriented x3. Cranial nerves II-XII are intact. LABORATORY DATA: WBC count 5320, hemoglobin 12.1, platelet count 102,000. PT 12, PTT 31, sodium 145, potassium 3.7, chloride 116, carbon dioxide 21, creatinine 0.88, BUN 15, albumin decreased 2.8, lipase 1042. UA otherwise is remarkable only for trace leukocyte esterase. IMPRESSION: 1. Left gonadal vein thrombosis. 2. Acute pancreatitis. 3. Chronic obstructive pulmonary disease. 4. Hypertension. 5. Peripheral neuropathy. 6. Anxiety. PLAN: Dana is a very pleasant 82-year-old female patient with a remote history of lung cancer and actively suffers from Crohn's disease, presented with acute abdominal pain, radiographic and laboratory findings consistent with an acute pancreatitis. During the patient's initial workup, a CT scan of the abdomen and pelvis was performed incidentally revealing a left gonadal vein thrombosis. I would classify this particular blood clot as an unusual anatomic site and standard of care is to proceed with oral direct thrombin inhibition anticoagulation. I would also be curious if she has an underlying acquired thrombophilia, I have asked the hospitalist service to check a lupus anticoagulant, antiphospholipid and anticardiolipin antibodies. I would not bother with factor V Leiden or prothrombin gene as these are less likely to be positive. 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 I informally discussed my plan with the managing hospitalist. Again, I will ensure the patient is scheduled for followup post-hospitalization. Thank you very much for allowing me to participate in her care. If you have any questions or concerns, feel free to contact me at any time. IRMA
[2018-04-17] MEDS ORDERED: APIXABAN 5 MG TABLET PO STA (12:20)
--- NOTE | 2018-04-17 15:58 | Discharge Summary ---
Date of Service April 17, 2018 Admission HPI Per Admitting Provider The patient is an 82-year-old female with a past medical history including Crohn 's status post colon resection, who developed the acute onset of the above symptoms. She has not had any recent travels or sick exposures. She has not had any questionable dietary intake. She saw her PCP earlier in the day today, who felt that she was dehydrated, and referred her to the emergency department for assessment. She also reports decreased urine output today. Principal Diagnosis Pancreatitis Thrombus of gonadal vein Discharge Exam Constitutional WD/WN, vitals as above Eyes EOM intact bilaterally; no conjunctival abnormality ENMT external ear and nose normal, oropharynx normal Neck trachea midline, no thyromegaly normal visual inspection Respiratory normal respiratory effort, lungs clear to auscultation no respiratory distress Cardiovascular RRR, no murmur, no edema Gastrointestinal (Abdomen) Inspection/Auscultation: abdomen normal to inspection; abdomen not distended Musculoskeletal no cyanosis or clubbing, extremities motor strength 5/5 Skin no rashes, warm and dry Neurologic moves all extremities and awake Psychiatric Orientation: alert, oriented to person and cooperative Discharge Data Allergies Allergy/AdvReac Type Severity Reaction Status Date / Time aspirin Allergy Severe Gastrointestinal Verified 04/16/18 13:46 Upset Cipro Allergy Intermediate RASH, Verified 09/03/17 07:28 ITCHING ciprofloxacin Allergy Intermediate RASH, Verified 04/16/18 13:46 ITCHING latex Allergy Unknown REDNESS Verified 04/16/18 13:46 shellfish derived Allergy Unknown HIVES Verified 04/16/18 13:46 Sulfa (Sulfonamide Allergy Unknown RASH Verified 04/16/18 13:46 Antibiotics) levofloxacin AdvReac Severe DIZZINESS, Verified 04/16/18 13:46 MYALGIA doxycycline AdvReac Unknown HEADACHE Verified 04/16/18 13:46 Consultations 04/16/18 14:59 ED Decision to Admit Stat 04/16/18 18:17 Consult Case Management - Discharge Planning Routine Consult Hematology Routine Ordered Studies 04/16/18 12:09 CT abd pelvis IV con only Stat Hospital Course (1) Acute pancreatitis: Mild pancreatitis seen on CT a/p on admission with a lipase of 1000. The next day, her pain had resolved, and she tolerated a regular diet without any problem and requested to go home. Lipase was down to 750. Unclear cause as she reports mild alcohol intake. Unclear etiology as no dilation of the common bile duct was noted and she has had a prior cholecystectomy, no alcohol intake, and no other major causes noted. Will need to follow up with PCP. 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 Seen by Dr. Bianchi who felt that anticoagulation was in the patient's best interest given the risk of propogation. Hypercoagulable labs were drawn and will be followed up by Dr. Bianchi. He will see him in the next month to be sure she can continue to take the apixiban (from a cost perspective and a bleeding perspective). I discussed this at [facility] with the pharmacist and she does not need a dose adjustment at present, but she should have an apixaban factor Xa level checked after being on the maintenance dose to be sure it is not over-treating her and increasing her bleeding risk. (3) Chronic obstructive pulmonary disease: Duo nebs available to use as needed. (4) Hypertension: Continued metoprolol tartrate and clonidine, and decrease dosing to p.m. clonidine. Held telmisartan. (5) Peripheral neuropathy: Continued gabapentin (6) Anxiety: Continue as needed Ativan Total Time Total Time Spent Total Time Spent (In Minutes): 40 Total Time Includes: Examination of the Patient, Discharge Planning, Medication Reconciliation and Communication With Other Providers Discharge Plan Discharge Items Patient Disposition: Home - Self-Care Reason For Visit: PANCREATITIS,COLITIS,THROMBOSIS OF GONADAL VEIN Discharge Diagnosis: Pancreatitis, thrombosis of gonadal vein Condition: Good Discharge Goals: Improve function Activity: Resume your previous activity Non-emergency contact: Primary Care Provider and Oncologist Call non-emergency contact if: you have any medication questions Follow-up/Referrals: Roni Bianchi DO [Physician] - (Please see Dr. Bianchi in 4-6 weeks.) Yolande Kingsley MD [Primary Care Provider] - 04/29/18 2:00 pm (Please, see Dr. Kingsley on SaturdayApril 29 at 2:00 pm. *If you need to change this appointment, call her office at [phone].) Diet: Regular Addtl Provider Instructions: Mrs. Treviño, You were admitted to the hospital with a diagnosis of pancreatitis. You saw your PCP's office yesterday, and they were worried about your intake and how you were feeling, as you'd had some stomach pain and diarrhea for a few days. We did some lab testing and found that you had a mild inflammation of your pancreas. We treated you with fluids and had you take a liquid diet, and by today (the next day), you were feeling better and reported no abdominal pain. Your lipase (a measure of pancreas inflammation) was elevated to 1000 on admission, but was coming down by today. We found a blood clot in your gonadal vein in your abdomen on our CT scan. Dr. Bianchi saw you and would like to start anticoagulation to prevent the clot from getting bigger. We serena some labs to see if you have a reason for your blood clot. Dr. Bianchi will work with you on this. Please see Dr. Kingsley in the next week or so to be sure the anticoagulation is going well and that you're not having any bleeding. You will need to start taking apiaban (Eliquis) today. For the first 7 days, you will need to take 10 mg two times per day. Then start taking 5 mg two times per day. You will need to have your blood drawn again with Dr. Kingsley or Dr. Bianchi while on the medication. Please return to the hospital with any shortness of breath, any lightheadedness or dizziness, any bleeding, or any other issues. Prescriptions: New apixaban 5 mg tablet See Label Instructions .ROUTE .COMPLEX Qty: 74 RF: 0 Continue potassium chloride 10 mEq Capsule, Extended Release 20 meq PO DAILY RF: 0 clonidine HCl 0.1 mg Tablet 0.2 mg PO QAM RF: 0 alendronate [Fosamax] 70 mg Tablet 1 tab PO WK RF: 0 lorazepam 0.5 mg Tablet 0.5 mg PO TID PRN (Reason: Anxiety) RF: 0 pantoprazole 40 mg Tablet,Delayed Release (Dr/Ec) 40 mg PO BID RF: 0 cyanocobalamin (vitamin B-12) 1,000 mcg/mL Solution 1,000 mcg IM MONTHLY RF: 0 gabapentin 100 mg Capsule 2 tab PO TID RF: 0 albuterol sulfate 90 mcg/actuation Hfa Aerosol Inhaler 2 puff INHALATION Q6H PRN (Reason: Shortness Of Breath) RF: 0 levothyroxine 50 mcg Tablet 50 mcg PO QAM RF: 0 telmisartan 40 mg Tablet 40 mg PO BID RF: 0 metoprolol tartrate 25 mg Tablet 25 mg PO BID RF: 0 clonidine HCl 0.2 mg Tablet 0.6 mg PO QPM RF: 0 oxycodone 5 mg Tablet 5 mg PO BID PRN (Reason: Pain) RF: 0 metoprolol tartrate 25 mg Tablet 25 mg PO DIRECTED PRN (Reason: Palpitations) RF: 0 Visit Report Forms: [facility] Stand-Alone Forms: [facility] Discharge Orders: Discharge Order (Routine); Ordered 04/17/18 Ordered By: Buster Valles Admission Data Admit Date/Time: 04/16/18 16:48 Attending Provider: Buster Valles Admit Provider: Crow Carrasco Primary Care Provider: Yolande Kingsley Other Providers: Roni Bianchi V ; Buster Valles Service: Medical Other Interventions: Discharge Summary Assessment (RN) Last Done: 04/17/18 12:56 DC Date/Time DO NOT enter until pt leaves facility: 04/17/18 13:45
[2018-04-19 01:31] LABS: Anti Cardiolipin Ab IgG <14 GPL (< = 14); Anti Cardiolipin Ab IgM <12 MPL (< = 12)
[2018-04-19 05:32] LABS: B2 Glycoprotein IgA <9 SAU (<=20); B2 Glycoprotein IgG <9 SGU (<=20); B2 Glycoprotein IgM <9 SMU (<=20); Lupus Anticoagulant Negative (Negative); Phosphatidylserine IgG <10 U/mL (<10); Phosphatidylserine IgM 29 U/mL (<25)
== END 2018-04-17 13:45 | disposition home or self-care (01) | DRG 439 ==
LOC: ED 11:08 → 4E 16:48 → SUATTDRO 16:48 → 4E 17:52

== ENCOUNTER 2018-04-19 21:33 | Inpatient (IN) ==
[2018-04-19] MEDS ORDERED: SODIUM CHLORIDE 0.9% 500 ML IV ONE (21:52)
[2018-04-19] MEDS ORDERED: ONDANSETRON INJ 2 MG/ML 2 ML VIAL IV STA (21:53)
[2018-04-19] MEDS ORDERED: MoRPHine SULFATE 2 MG/ML CARP IV STA (21:53)
[2018-04-19 22:00] LABS: Basophils # (auto) 0.01 K/uL (0-0.2); Basophils % (auto) 0.1 %; Eosinophils # (auto) 0.03 K/uL (0-0.5); Eosinophils % (auto) 0.3 %; Hematocrit (blood only) 40.5 % (37-47); Hemoglobin 13.7 g/dL (12.0-16.0); Immature Granulocytes # (auto) 0.01 K/uL (0.00-0.02); Immature Granulocytes % (auto) 0.1 %; Lymphocytes # (auto) 1.06 K/uL (1.2-3.4); Lymphocytes % (auto) 11.8 %; Mean Corpuscular Hgb Conc 33.8 g/dL (32-36); Mean Platelet Volume 9.8 fL (7.4-10.4); Monocytes # (auto) 0.33 K/uL (0.11-0.59); Monocytes % (auto) 3.7 %; Neutrophils # (auto) 7.55 K/uL (1.4-6.5); Platelet Count 150 K/uL (130-400); RDW Coefficient of Variation 14.1 % (11.5-14.5); RDW Standard Deviation 45.6 fL (36.4-46.3); White Blood Count 8.99 K/uL (4.8-10.8)
[2018-04-19 22:14] LABS: INR 1.1 (0.9-1.1); Partial Thromboplastin Ratio 1.1; Partial Thromboplastin Time 28.9 Seconds (21.0-31.0); Prothrombin Time 11.4 Seconds (9.0-12.0)
[2018-04-19 22:23] LABS: Alanine Aminotransferase 21 U/L (12-78); Albumin Level 3.5 gm/dl (3.4-5.0); Aspartate Aminotransferase 17 U/L (15-37); BUN Creatinine Ratio 13.2 (10-20); Blood Urea Nitrogen 16 mg/dl (7-18); Calcium 9.5 mg/dl (8.5-10.1); Carbon Dioxide 24 mmol/L (21-32); Chloride 107 mmol/L (98-107); Creatinine Clr Calc Pharmacy 26.6 ml/min; Est GFR (African American) 50.3; Est GFR (Non-African American) 43.4; Glucose 140 mg/dl (70-99); Magnesium 1.1 mg/dl (1.8-2.4); Potassium 3.3 mmol/L (3.5-5.1); Sodium 140 mmol/L (136-145)
[2018-04-19 22:35] LABS: Albumin Globulin Ratio 0.9 (0.9-2); Alkaline Phosphatase 108 U/L (45-117); Bilirubin,Total 0.9 mg/dl (0.1-1); Globulin 3.8 gm/dl (2.5-4.0); Total Protein 7.3 gm/dl (6.4-8.2); Troponin I 0.028 ng/ml (0-0.045)
--- NOTE | 2018-04-19 22:58 | XRay Report ---
XR chest 2V routine HISTORY: epigastric abd pains COMPARISON: Chest 09/23/2016. FINDINGS: No pneumothorax. Stable blunting of the left lateral costophrenic sulcus. Old, healed left- sided rib fractures. There are old, healed right rib fractures. The heart remains top normal in size. The lungs are clear. The lungs remain hyperexpanded with apical predominant emphysematous changes. A few mildly and plate compression deformities within the mid thoracic and upper lumbar spine are like ly chronic. IMPRESSION: No significant change compared to the prior study. No acute process. Electronically signed by: David Nielson M.D. 04/19/2018 10:56 PM
--- NOTE | 2018-04-19 22:59 | XRay Report ---
KUB HISTORY: Epigastric abd pains COMPARISON: Abdomen and pelvis CT 04/16/2018. FINDINGS: Postoperative changes within the left hip are noted. Mildly dilated gas-filled loops of lar ge and small bowel seen throughout the abdomen. Findings favor a mild ileus. No evidence for bowel ob struction. No renal calculi. No ureteral calculi. No pneumoperitoneum or pneumatosis. IMPRESSION: Mildly dilated gas-filled loops of large and small bowel suggestive of an ileus. No evidence for bee l obstruction. Electronically signed by: David Nielson M.D. 04/19/2018 10:57 PM
[2018-04-19] MEDS ORDERED: OPTIRAY 320 125ml IV PRN (23:02)
[2018-04-19] MEDS ORDERED: MoRPHine SULFATE 4 MG/ML 1 ML CARP\\VIAL IV STA (23:09)
--- NOTE | 2018-04-19 23:17 | Emergency Department Note ---
History of Present Illness General Chief complaint: Abdominal Pain Stated complaint: ABD PAIN,NAUSEA Time Seen by Provider: 04/19/18 21:44 History of Present Illness Maximum Pain Intensity: 5 This is an 82-year-old female presenting to the emergency department for evaluation of epigastric abdominal pain that began around 9 hours ago at 12 noon. The patient was recently admitted to this facility for acute pancreatitis and discharged a few days ago. The patient states that she had been doing well at home until this afternoon. The patient is nauseated without vomiting. She believes that she had one episode of loose stool but no gross diarrhea. She has not had fevers or chills. No chest pain, chest tightness, or shortness of breath. Her pain feels similar to earlier this week when she had the pancreatitis. She does not report significant alcohol use. She rates her discomfort a sharp 9/10 that does not radiate. She states that she began blood thinners yesterday for a clot that was found on previous imaging. Home Medications Home Medications Medication Instructions Recorded Confirmed Type albuterol sulfate 2 puff INHALATION Q6H PRN 12/24/17 04/19/18 History alendronate [Fosamax] 1 tab PO WK 12/24/17 04/19/18 History clonidine HCl 0.2 mg PO QAM 12/24/17 04/19/18 History cyanocobalamin (vitamin B-12) 1,000 mcg IM MONTHLY 12/24/17 04/19/18 History gabapentin 2 tab PO TID 12/24/17 04/19/18 History levothyroxine 50 mcg PO QAM 12/24/17 04/19/18 History lorazepam 0.5 mg PO TID PRN 12/24/17 04/19/18 History metoprolol tartrate 25 mg PO BID 12/24/17 04/19/18 History pantoprazole 40 mg PO BID 12/24/17 04/19/18 History potassium chloride 20 meq PO DAILY 12/24/17 04/19/18 History telmisartan 40 mg PO BID 12/24/17 04/19/18 History clonidine HCl 0.6 mg PO QPM 04/16/18 04/19/18 History metoprolol tartrate 25 mg PO DIRECTED PRN 04/16/18 04/19/18 History oxycodone 5 mg PO BID PRN 04/16/18 04/19/18 History apixaban See Label Instructions .ROUTE 04/17/18 04/19/18 Rx .COMPLEX #74 tab Allergies Allergy/AdvReac Type Severity Reaction Status Date / Time aspirin Allergy Severe Gastrointestinal Verified 04/16/18 13:46 Upset Cipro Allergy Intermediate RASH, Verified 09/03/17 07:28 ITCHING ciprofloxacin Allergy Intermediate RASH, Verified 04/16/18 13:46 ITCHING latex Allergy Unknown REDNESS Verified 04/16/18 13:46 shellfish derived Allergy Unknown HIVES Verified 04/16/18 13:46 Sulfa (Sulfonamide Allergy Unknown RASH Verified 04/16/18 13:46 Antibiotics) levofloxacin AdvReac Severe DIZZINESS, Verified 04/16/18 13:46 MYALGIA doxycycline AdvReac Unknown HEADACHE Verified 04/16/18 13:46 Past Med/Surg History Medical History Chronic obstructive pulmonary disease Hypertension Hyperlipidemia Arrhythmia UNSURE OF TYPE Peripheral neuropathy Anxiety Hearing deficit Anemia Cancer LUNG CANCER Crohns disease GERD (gastroesophageal reflux disease) Hypothyroidism Nausea and vomiting after administration of anesthetic agent Osteoarthritis Social History Current Living Situation: Spouse Feels Safe at Home: Yes Smoking Status: Former smoker Second Hand Exposure: No Hx Alcohol Use: No Hx Substance Use: No Beliefs That Will Affect Care: None Communication Ability: Effective Review of Systems A total of 10 systems reviewed and were otherwise negative Physical Exam Vital Signs Vital Signs - 24 hr 04/19/18 21:35 04/19/18 21:45 04/19/18 22:03 Temperature 36.7 C Temperature Source Oral Sepsis Recent Fever Within 48 Hours No Sepsis Action Taken by Nursing No Action Required Pulse Rate 80 Pulse Rate [Right Finger] 74 Pulse Rhythm [Right Finger] Regular Pulse Strength [Right Finger] Normal Respiratory Rate 18 16 Respiratory Effort / Characteristics Non-Labored Non-Labored Spontaneous Respiratory Depth Normal Normal Respiratory Pattern Regular Blood Pressure 190/80 H Blood Pressure [Right Arm] Blood Pressure Mean 116 Blood Pressure Mean [Right Arm] Pulse Oximetry 95 96 92 Oxygen Delivery Method Room Air Room Air Room Air 04/19/18 22:32 04/20/18 01:35 Temperature Temperature Source Sepsis Recent Fever Within 48 Hours Sepsis Action Taken by Nursing Pulse Rate Pulse Rate [Right Finger] 64 73 Pulse Rhythm [Right Finger] Regular Pulse Strength [Right Finger] Normal Respiratory Rate 16 18 Respiratory Effort / Characteristics Non-Labored Spontaneous Non-Labored Spontaneous Respiratory Depth Normal Normal Respiratory Pattern Regular Blood Pressure Blood Pressure [Right Arm] 114/60 175/88 H Blood Pressure Mean Blood Pressure Mean [Right Arm] 78 117 Pulse Oximetry 93 95 Oxygen Delivery Method Room Air Room Air VITALS: Vitals are noted on the nurse's note and reviewed by myself. Vital signs stable. GENERAL: Well-developed, well-nourished, white female, who is mildly uncomfortable on examination. HEAD: Normocephalic atraumatic. EYES: Pupils equal round and reactive to light and accommodation. Conjunctivae without injection, sclerae without icterus. Extraocular movements intact. NECK: Supple without nuchal rigidity. No lymphadenopathy. No thyromegaly. Cervical spine is nontender. HEART: Regular rate and rhythm without murmurs gallops or rubs. LUNGS: Clear to auscultation bilaterally without wheezes, rales or rhonchi. No retractions or accessory muscle use. ABDOMEN: Positive normal bowel sounds x 4. Soft with epigastric abdominal tenderness. No lower abdominal tenderness. No CVA tenderness. MUSCULOSKELETAL: No muscle atrophy, erythema, or edema noted. Full range of motion in all extremities. NEURO: Patient was alert and oriented to person place and time. CN II through XII grossly intact SKIN: The skin was without rashes, erythema, edema, or bruising. Capillary refill less than 2 seconds. Course Administered Medications Magnesium Sulfate/Dextrose (Magnesium Sulfate / D5w) 1 gm in 100 mls @ 100 mls/ hr IV Q1H STA Stop: 04/20/18 02:04 Last Admin: 04/20/18 01:17 Dose: 100 mls/hr Ioversol (Optiray 320 125ml) 119 ml IV ONCE PRN PRN Reason: Interaction Checking Stop: 04/23/18 23:01 Last Admin: 04/19/18 23:03 Dose: 119 ml Discontinued Medications Sodium Chloride (Nss) 500 mls @ 999 mls/hr IV .Q31M ONE Stop: 04/19/18 22:22 Last Infusion: 04/19/18 22:30 Dose: 0 mls/hr Admin: 04/19/18 21:59 Dose: 999 mls/hr Morphine Sulfate (Morphine Sulfate) 2 mg IV NOW STA Stop: 04/19/18 21:54 Last Admin: 12/29/18 21:58 Dose: 2 mg Morphine Sulfate (Morphine Sulfate) 4 mg IV NOW STA Stop: 04/19/18 23:10 Last Admin: 04/19/18 23:43 Dose: 4 mg Ondansetron HCl (Zofran) 4 mg IV NOW STA Stop: 04/19/18 21:54 Last Admin: 04/19/18 21:58 Dose: 4 mg Medical Decision Making Differential Diagnosis Differential diagnosis: Etiologies such as biliary colic, cholecystitis, hepatitis, pancreatitis, cardiac disease, pancreatitis, gastritis, peptic ulcer disease, appendicitis, cystitis, diverticulitis, mesenteric ischemia, inflammatory bowel disease, ileus , bowel obstruction, testicular/adnexal torsion, aortic pathology, shingles, as well as others were considered Laboratory Data Result diagrams: 04/19/18 21:50 04/19/18 21:50 Lab Results 04/19/18 04/19/18 04/19/18 Range/Units 21:50 21:50 21:50 WBC 8.99 (4.8-10.8) K/uL RBC 4.60 (4.2-5.4) M/uL Hgb 13.7 (12.0-16.0) g/dL Hct 40.5 (37-47) % MCV 88.0 (80-100) fL MCH 29.8 (25-34) pg MCHC 33.8 (32-36) g/dL RDW Std Deviation 45.6 (36.4-46.3) fL RDW Coeff of Martine 14.1 (11.5-14.5) % Plt Count 150 (130-400) K/uL MPV 9.8 (7.4-10.4) fL Immature Gran % (Auto) 0.1 % Neut % (Auto) 84.0 % Lymph % (Auto) 11.8 % [place] % (Auto) 3.7 % Eos % (Auto) 0.3 % Baso % (Auto) 0.1 % Immature Gran # (Auto) 0.01 (0.00-0.02) K/uL Neut # (Auto) 7.55 H (1.4-6.5) K/uL Lymph # (Auto) 1.06 L (1.2-3.4) K/uL [place] # (Auto) 0.33 (0.11-0.59) K/uL Eos # (Auto) 0.03 (0-0.5) K/uL Baso # (Auto) 0.01 (0-0.2) K/uL PT 11.4 (9.0-12.0) Seconds INR 1.1 (0.9-1.1) APTT 28.9 (21.0-31.0) Seconds PTT Ratio 1.1 Sodium 140 (136-145) mmol/L Potassium 3.3 L (3.5-5.1) mmol/L Chloride 107 (98-107) mmol/L Carbon Dioxide 24 (21-32) mmol/L Anion Gap 9.0 (3-11) BUN 16 (7-18) mg/dl Creatinine 1.17 (0.6-1.2) mg/dl Est Cr Clr Drug Dosing 26.6 ml/min Est GFR ( Amer) 50.3 Est GFR (Non-Af Amer) 43.4 BUN/Creatinine Ratio 13.2 (10-20) Glucose 140 H (70-99) mg/dl POC Lactic Acid Neil (0.90-1.70) mmol/L Calcium 9.5 (8.5-10.1) mg/dl Magnesium 1.1 L (1.8-2.4) mg/dl Total Bilirubin 0.9 (0.1-1) mg/dl AST 17 (15-37) U/L ALT 21 (12-78) U/L Alkaline Phosphatase 108 (45-117) U/L Troponin I 0.028 (0-0.045) ng/ml Total Protein 7.3 (6.4-8.2) gm/dl Albumin 3.5 (3.4-5.0) gm/dl Globulin 3.8 (2.5-4.0) gm/dl Albumin/Globulin Ratio 0.9 (0.9-2) Amylase (25-115) U/L Lipase > 55839 H (73-393) U/L TSH 0.481 (0.300-4.500) uIu/ml 04/19/18 04/19/18 Range/Units 21:50 21:54 WBC (4.8-10.8) K/uL RBC (4.2-5.4) M/uL Hgb (12.0-16.0) g/dL Hct (37-47) % MCV (80-100) fL MCH (25-34) pg MCHC (32-36) g/dL RDW Std Deviation (36.4-46.3) fL RDW Coeff of Martine (11.5-14.5) % Plt Count (130-400) K/uL MPV (7.4-10.4) fL Immature Gran % (Auto) % Neut % (Auto) % Lymph % (Auto) % [place] % (Auto) % Eos % (Auto) % Baso % (Auto) % Immature Gran # (Auto) (0.00-0.02) K/uL Neut # (Auto) (1.4-6.5) K/uL Lymph # (Auto) (1.2-3.4) K/uL [place] # (Auto) (0.11-0.59) K/uL Eos # (Auto) (0-0.5) K/uL Baso # (Auto) (0-0.2) K/uL PT (9.0-12.0) Seconds INR (0.9-1.1) APTT (21.0-31.0) Seconds PTT Ratio Sodium (136-145) mmol/L Potassium (3.5-5.1) mmol/L Chloride (98-107) mmol/L Carbon Dioxide (21-32) mmol/L Anion Gap (3-11) BUN (7-18) mg/dl Creatinine (0.6-1.2) mg/dl Est Cr Clr Drug Dosing ml/min Est GFR ( Amer) Est GFR (Non-Af Amer) BUN/Creatinine Ratio (10-20) Glucose (70-99) mg/dl POC Lactic Acid Neil 1.35 (0.90-1.70) mmol/L Calcium (8.5-10.1) mg/dl Magnesium (1.8-2.4) mg/dl Total Bilirubin (0.1-1) mg/dl AST (15-37) U/L ALT (12-78) U/L Alkaline Phosphatase (45-117) U/L Troponin I (0-0.045) ng/ml Total Protein (6.4-8.2) gm/dl Albumin (3.4-5.0) gm/dl Globulin (2.5-4.0) gm/dl Albumin/Globulin Ratio (0.9-2) Amylase 2791 H (25-115) U/L Lipase (73-393) U/L TSH (0.300-4.500) uIu/ml Imaging Data Radiologist's Impression: Preliminary Findings Only � See Final Report For Complete Findings CT ABDOMEN & PELVIS With Contrast: COMPARISON: 04/16/18 FINDINGS: The lung bases are clear. The liver and spleen unchanged compared to prior study. There is persistent intrahepatic ductal dilatation with marked dilatation of the common bile duct that is increased compared to prior study, duct measures 12 mm. Previously this measured around 8 mm. There is mild dilatation of pancreatic duct. No filling defects are noted in the common duct. There appears to be some thickening of the kerr the duodenum which may represent some duodenal inflammatory change. There is some small amount of fluid noted around the tail the pancreas adjacent to the spleen this is increased from the prior study. There is persistent fluid density in the charlie hepatis and around the head of the pancreas. There is increase in gaseous distention of the colon with some persistent air- fluid levels. There is formation of semisolid stool noted in small bowel. Again noted is a grouping of small bowel along the lower anterior abdominal wall. No definite small bowel obstruction is identified, however there are loops of bowel which are more distended with decompressed interval loops of small bowel. The potential for incomplete or intermittent small bowel obstruction is not excluded. The adrenal glands and kidneys are unchanged in prior study. No interval development of hydronephrosis or renal calculi. IMPRESSION: Worsening intrahepatic and common duct dilatation. Persistent prominence of pancreatic duct. Interval development of some fluid around the tail the pancreas adjacent to the spleen. No filling defects are noted in the common duct. There appears to be some thickening of the kerr the duodenum which may represent response to inflammatory changes. Again noted to be a collection of loops of small bowel anteriorly in the lower abdominal wall. There are collection of dilated loops with nondilated loops. There is no definite evidence for small bowel obstruction however the possibility of intermittent or incomplete small bowel obstruction cannot be excluded. Interval worsening of gaseous distention of the colon without evidence of colonic obstruction. MDM Narrative Physical exam and history were performed. Nursing notes, EMR, and Medication List were personally reviewed. Patient appears to have abdominal pain bring her to the emergency department this evening. The patient was recently seen and evaluated at this facility for acute pancreatitis. Her symptoms feel similar to her previous admission. On examination the patient does have some epigastric abdominal tenderness on palpation. IV access was established and labs were obtained. The patient was made n.p.o. and given 2 mg IV morphine and 4 mg IV Zofran. She was gently hydrated with 500 mL of normal saline. The patient's blood work is as above and was reviewed. She does not have a significantly elevated white blood cell count, gross anemia, bandemia, or significant electrolyte imbalance. The patient's lipase is markedly elevated at greater than 30,000. Additionally she has an elevated amylase of nearly 2800. On reevaluation the patient continues with epigastric discomfort. I did offer her additional pain medication, and she was given 4 mg IV morphine, which did significantly help her pain. Out of concern for her acute pancreatitis CT scan of the abdomen and pelvis was performed with IV contrast. CT scan is as above and was reviewed. Overall the patient does not appear well for discharge home. She seems to have a waxing and waning pancreatitis. The case was discussed with the on-call hospitalist who agreed to evaluate the patient. Please see their dictation for further patient course, plan, and disposition. The chart was completed utilizing [employer] Voice Recognition Software. Grammatical errors, random word insertions, pronoun errors, and incomplete sentences are an occasional consequence of this system due to software limitations, ambient noise, and hardware issues. Any formal questions or concerns about the content, text, or information contained within the body of this dictation should be directly addressed to the provider for clarification. . Impression & Plan Acute pancreatitis Discharge Plan Visit Data Chief Complaint: Abdominal Pain Stated Complaint: ABD PAIN,NAUSEA ED Provider: [facility] ED Midlevel Provider: Roni Garcia Discharge Problem: Acute pancreatitis Forms Stand Alone Forms: My [facility] Prescriptions Prescriptions: No Action potassium chloride 10 mEq Capsule, Extended Release 20 meq PO DAILY RF: 0 clonidine HCl 0.1 mg Tablet 0.2 mg PO QAM RF: 0 alendronate [Fosamax] 70 mg Tablet 1 tab PO WK RF: 0 lorazepam 0.5 mg Tablet 0.5 mg PO TID PRN (Reason: Anxiety) RF: 0 pantoprazole 40 mg Tablet,Delayed Release (Dr/Ec) 40 mg PO BID RF: 0 cyanocobalamin (vitamin B-12) 1,000 mcg/mL Solution 1,000 mcg IM MONTHLY RF: 0 gabapentin 100 mg Capsule 2 tab PO TID RF: 0 albuterol sulfate 90 mcg/actuation Hfa Aerosol Inhaler 2 puff INHALATION Q6H PRN (Reason: Shortness Of Breath) RF: 0 levothyroxine 50 mcg Tablet 50 mcg PO QAM RF: 0 telmisartan 40 mg Tablet 40 mg PO BID RF: 0 metoprolol tartrate 25 mg Tablet 25 mg PO BID RF: 0 clonidine HCl 0.2 mg Tablet 0.6 mg PO QPM RF: 0 oxycodone 5 mg Tablet 5 mg PO BID PRN (Reason: Pain) RF: 0 metoprolol tartrate 25 mg Tablet 25 mg PO DIRECTED PRN (Reason: Palpitations) RF: 0 apixaban 5 mg tablet See Label Instructions .ROUTE .COMPLEX Qty: 74 RF: 0 Referrals Referrals: Yolande Kingsley MD [Primary Care Provider] -
--- NOTE | 2018-04-20 01:04 | History & Physical Report ---
Date of Service April 20, 2018 Assessment & Plan (1) Recurrent acute pancreatitis: CT of abdomen and pelvis shows dilated common bile duct up to [address] does not show changes in the pancreas itself. NPO. NSS + KCl 20 mEq at 80 mils per hour. Zofran 4 mg IV every 6 hours as needed. Pantoprazole 40 mg IV twice daily. Zosyn 3.375 mg IV every 8 hours. Acetaminophen 1000 mg IV every 8 hours as needed mild pain or temperature. Morphine sulfate 2 mg IV every 2 hours as needed moderate to severe pain. Patient is too claustrophobic to perform an MRI, so MRCP not ordered tonight. Order ultrasound right upper quadrant of abdomen Consult gastroenterology. 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 Start heparin infusion low-dose without bolus per protocol. Present on Admission?: Yes (4) Hypertension: Hold outpatient regimen of metoprolol, clonidine and telmisartan. Placed on hydralazine 10 mg IV every 4 hours as needed systolic blood pressure > 160. Present on Admission?: Yes (5) Chronic obstructive pulmonary disease: Continue albuterol HFA. Duonebs every 2 hours when necessary. Present on Admission?: Yes History of Present Illness Chief Complaint: The patient presents to the emergency department with the return of increasing abdominal pain. Primary Care Provider: Yolande Kingsley The patient is an 82-year-old female most recently admitted to [facility] from April 16 - April 17 for pancreatitis and canal of vein thrombosis. She reports that she had no pain when discharged, and did well until this morning, when she began to develop recurrent abdominal pain, now worse than previous admission, and came to the emergency department for assessment. She does have intermittent nausea, but denies vomiting. She was able to eat toast this morning for breakfast, but has eaten a little since discharge. She is also had significantly decreased oral intake of liquids as well. She has not had any recent travels or sick exposures. Allergies Allergy/AdvReac Type Severity Reaction Status Date / Time aspirin Allergy Severe Gastrointestinal Verified 04/16/18 13:46 Upset Cipro Allergy Intermediate RASH, Verified 09/03/17 07:28 ITCHING ciprofloxacin Allergy Intermediate RASH, Verified 04/16/18 13:46 ITCHING latex Allergy Unknown REDNESS Verified 04/16/18 13:46 shellfish derived Allergy Unknown HIVES Verified 04/16/18 13:46 Sulfa (Sulfonamide Allergy Unknown RASH Verified 04/16/18 13:46 Antibiotics) levofloxacin AdvReac Severe DIZZINESS, Verified 04/16/18 13:46 MYALGIA doxycycline AdvReac Unknown HEADACHE Verified 04/16/18 13:46 Home Medications Home Medications Medication Instructions Recorded Confirmed Type albuterol sulfate 2 puff INHALATION Q6H PRN 12/24/17 04/19/18 History alendronate [Fosamax] 1 tab PO WK 12/24/17 04/19/18 History clonidine HCl 0.2 mg PO QAM 12/24/17 04/19/18 History cyanocobalamin (vitamin B-12) 1,000 mcg IM MONTHLY 12/24/17 04/19/18 History gabapentin 2 tab PO TID 12/24/17 04/19/18 History levothyroxine 50 mcg PO QAM 12/24/17 04/19/18 History lorazepam 0.5 mg PO TID PRN 12/24/17 04/19/18 History metoprolol tartrate 25 mg PO BID 12/24/17 04/19/18 History pantoprazole 40 mg PO BID 12/24/17 04/19/18 History potassium chloride 20 meq PO DAILY 12/24/17 04/19/18 History telmisartan 40 mg PO BID 12/24/17 04/19/18 History clonidine HCl 0.6 mg PO QPM 04/16/18 04/19/18 History metoprolol tartrate 25 mg PO DIRECTED PRN 04/16/18 04/19/18 History oxycodone 5 mg PO BID PRN 04/16/18 04/19/18 History apixaban See Label Instructions .ROUTE 04/17/18 04/19/18 Rx .COMPLEX #74 tab Past Med/Surg History Medical History Chronic obstructive pulmonary disease Hypertension Hyperlipidemia Arrhythmia UNSURE OF TYPE Peripheral neuropathy Anxiety Hearing deficit Anemia Cancer LUNG CANCER Crohns disease GERD (gastroesophageal reflux disease) Hypothyroidism Nausea and vomiting after administration of anesthetic agent Osteoarthritis Social History Current Living Situation: Spouse Feels Safe at Home: Yes Smoking Status: Former smoker Second Hand Exposure: No Hx Alcohol Use: No Hx Substance Use: No Beliefs That Will Affect Care: None Communication Ability: Effective Review of Systems The patient denies chest pain, palpitations, shortness of breath, dyspnea on exertion, cough, lower extremity swelling, sore throat, fevers, chills, sweats, vomiting, diarrhea , constipation, blood in urine or stool, dysuria, urinary frequency or urgency, lightheadedness, dizziness, headache, memory loss, loss of consciousness, rash, abnormal bruising or bleeding, imbalance, focal or generalized weakness, numbness or tingling in arms or legs, generalized arthralgias or myalgias, back or neck pain, or night sweats. The review of systems is otherwise negative other than for that already noted above, and at least 10 systems have been reviewed. Physical Exam 2 Vital Signs (Past 24 Hours): Last Vital Signs Temp 36.7 C 04/19/18 21:35 Pulse 64 04/19/18 22:32 Resp 16 04/19/18 22:32 BP 114/60 04/19/18 22:32 Pulse Ox 93 04/19/18 22:32 Physical Exam: The patient is awake, alert and oriented �3, well developed and well nourished, normocephalic and atraumatic, lying in bed and in no acute distress. HEENT--PERRL, EOMI, mucous membranes and oropharynx dry. Neck--supple. No JVD. No bruits. Thyroid normal, trachea midline, no adenopathy. Heart--normal S1 and S2. No murmurs, rubs or gallops. Lungs--clear bilaterally, no respiratory distress, no accessory muscle use. Abdomen--decreased bowel sounds and soft. Generalized abdominal discomfort. Mildly distended and tympanitic. Extremities--no cyanosis or clubbing. No edema. There are good distal pulses b/ l. Dermatologic--normal skin turgor, normal color, no abnormal lymph nodes, no rash. Neurologic--cranial nerves II through XII grossly intact. Rheumatologic--normal range of motion. Psychiatric--normal affect. Results & Data Laboratory Results Laboratory Results WBC 8.99 K/uL (4.8-10.8) 04/19/18 21:50 RBC 4.60 M/uL (4.2-5.4) 04/19/18 21:50 Hgb 13.7 g/dL (12.0-16.0) 04/19/18 21:50 Hct 40.5 % (37-47) 04/19/18 21:50 MCV 88.0 fL (80-100) 04/19/18 21:50 MCH 29.8 pg (25-34) 04/19/18 21:50 MCHC 33.8 g/dL (32-36) 04/19/18 21:50 RDW Std Deviation 45.6 fL (36.4-46.3) 04/19/18 21:50 RDW Coeff of Martine 14.1 % (11.5-14.5) 04/19/18 21:50 Plt Count 150 K/uL (130-400) 04/19/18 21:50 MPV 9.8 fL (7.4-10.4) 04/19/18 21:50 Immature Gran % (Auto) 0.1 % 04/19/18 21:50 Neut % (Auto) 84.0 % 04/19/18 21:50 Lymph % (Auto) 11.8 % 04/19/18 21:50 Scott % (Auto) 3.7 % 04/19/18 21:50 Eos % (Auto) 0.3 % 04/19/18 21:50 Baso % (Auto) 0.1 % 04/19/18 21:50 Immature Gran # (Auto) 0.01 K/uL (0.00-0.02) 04/19/18 21:50 Neut # (Auto) 7.55 K/uL (1.4-6.5) H 04/19/18 21:50 Lymph # (Auto) 1.06 K/uL (1.2-3.4) L 04/19/18 21:50 Scott # (Auto) 0.33 K/uL (0.11-0.59) 04/19/18 21:50 Eos # (Auto) 0.03 K/uL (0-0.5) 04/19/18 21:50 Baso # (Auto) 0.01 K/uL (0-0.2) 04/19/18 21:50 PT 11.4 Seconds (9.0-12.0) 04/19/18 21:50 INR 1.1 (0.9-1.1) 04/19/18 21:50 APTT 28.9 Seconds (21.0-31.0) 04/19/18 21:50 PTT Ratio 1.1 04/19/18 21:50 Sodium 140 mmol/L (136-145) 04/19/18 21:50 Potassium 3.3 mmol/L (3.5-5.1) L 04/19/18 21:50 Chloride 107 mmol/L (98-107) 04/19/18 21:50 Carbon Dioxide 24 mmol/L (21-32) 04/19/18 21:50 Anion Gap 9.0 (3-11) 04/19/18 21:50 BUN 16 mg/dl (7-18) 04/19/18 21:50 Creatinine 1.17 mg/dl (0.6-1.2) 04/19/18 21:50 Est Cr Clr Drug Dosing 26.6 ml/min 04/19/18 21:50 Est GFR ( Amer) 50.3 04/19/18 21:50 Est GFR (Non-Af Amer) 43.4 04/19/18 21:50 BUN/Creatinine Ratio 13.2 (10-20) 04/19/18 21:50 Glucose 140 mg/dl (70-99) H 04/19/18 21:50 POC Lactic Acid Neil 1.35 mmol/L (0.90-1.70) 04/19/18 21:54 Calcium 9.5 mg/dl (8.5-10.1) 04/19/18 21:50 Magnesium 1.1 mg/dl (1.8-2.4) L 04/19/18 21:50 Total Bilirubin 0.9 mg/dl (0.1-1) 04/19/18 21:50 AST 17 U/L (15-37) 04/19/18 21:50 ALT 21 U/L (12-78) 04/19/18 21:50 Alkaline Phosphatase 108 U/L (45-117) 04/19/18 21:50 Troponin I 0.028 ng/ml (0-0.045) 04/19/18 21:50 Total Protein 7.3 gm/dl (6.4-8.2) 04/19/18 21:50 Albumin 3.5 gm/dl (3.4-5.0) 04/19/18 21:50 Globulin 3.8 gm/dl (2.5-4.0) 04/19/18 21:50 Albumin/Globulin Ratio 0.9 (0.9-2) 04/19/18 21:50 Amylase 2791 U/L (25-115) H 04/19/18 21:50 Lipase > 88542 U/L (73-393) H 04/19/18 21:50 TSH 0.481 uIu/ml (0.300-4.500) 04/19/18 21:50 Code Status & VTE Plan Code Status Full code VTE Prophylaxis Plan VTE Prophylaxis will be ordered: Yes
[2018-04-20] MEDS ORDERED: MAGNESIUM SULFATE / D5W 1 GM/100 ML BAG IV STA (01:05)
[2018-04-20] MEDS ORDERED: ALBUTEROL HFA 8 GM INHALER INH PRN (02:21)
[2018-04-20] MEDS ORDERED: ALBUT/IPRATROP 3MG/0.5MG NEB 3 ML VIAL NEB PRN (02:21)
[2018-04-20] MEDS ORDERED: PIPERACILL/TAZOBAC CONSULT ACTIVE PRN (02:21)
[2018-04-20] MEDS: NSS + 20MEQ KCL 20 MEQ/1,000 ML BAG IV SCH (02:59)
[2018-04-20] MEDS: PANTOprazole 40 MG in SYRINGE 0 ML IV SCH ×3 (03:00→21:55)
[2018-04-20] MEDS ORDERED: PIPERACILLIN/TAZOBACTAM 3.375 GM in DEXTROSE 5% 100 ML IV SCH (03:00)
[2018-04-20] MEDS: HydrALAZINE HCL 20 MG/ML VIAL IV PRN ×2 (03:01→16:41)
[2018-04-20] MEDS: MoRPHine SULFATE 2 MG/ML CARP IV PRN ×2 (03:57→06:04)
--- NOTE | 2018-04-20 06:48 | Ultrasound Report ---
US abdomen limited HISTORY: 82 years-old Female dilated CBD, recurrent pancreatitis acute right upper quadrant abdomina l pain COMPARISON: CT abdomen and pelvis 04/19/2018 TECHNIQUE: Multiple real-time sonographic images of the abdominal right upper quadrant were obtained assessing grayscale appearance and color flow FINDINGS: Visualized pancreas is unremarkable. Pancreatic duct measures 2 mm. Common bile duct is dilated measu ring up to 1.5 cm. Moderate intrahepatic biliary ductal dilation is also noted. No focal hepatic mass lesions. No obstructing biliary stone or lesion identified. Prior cholecystectomy. Imaged right kidney is unremarkable without hydronephrosis. IMPRESSION: 1. Dilated common bile duct with moderate intrahepatic biliary ductal dilation, progressed from angus rison CT 04/16/2018 concerning for obstructing biliary lesion. Correlation with ERCP recommended. 2. Prior cholecystectomy. The above report was generated using voice recognition software. It may contain grammatical, syntax o r spelling errors. Electronically signed by: Andrea Jim M.D. 04/20/2018 6:47 AM
[2018-04-20 07:44] LABS: Basophils # (auto) 0.01 K/uL (0-0.2); Basophils % (auto) 0.1 %; Eosinophils # (auto) 0.02 K/uL (0-0.5); Eosinophils % (auto) 0.2 %; Hematocrit (blood only) 40.8 % (37-47); Hemoglobin 13.8 g/dL (12.0-16.0); Immature Granulocytes # (auto) 0.01 K/uL (0.00-0.02); Immature Granulocytes % (auto) 0.1 %; Lymphocytes # (auto) 1.02 K/uL (1.2-3.4); Lymphocytes % (auto) 10.5 %; Mean Corpuscular Hgb Conc 33.8 g/dL (32-36); Mean Corpuscular Volume 87.7 fL (80-100); Mean Platelet Volume 9.8 fL (7.4-10.4); Monocytes # (auto) 0.67 K/uL (0.11-0.59); Monocytes % (auto) 6.9 %; Neutrophils # (auto) 7.97 K/uL (1.4-6.5); Neutrophils % (auto) 82.2 %; Platelet Count 139 K/uL (130-400); RDW Coefficient of Variation 14.2 % (11.5-14.5); RDW Standard Deviation 45.6 fL (36.4-46.3); Red Blood Count 4.65 M/uL (4.2-5.4)
[2018-04-20 07:50] LABS: INR 1.1 (0.9-1.1); Partial Thromboplastin Ratio 1.1; Prothrombin Time 10.9 Seconds (9.0-12.0)
[2018-04-20] MEDS: ACETAMINOPHEN 1000 MG/100 ML IV IV PRN ×2 (07:57→17:04)
[2018-04-20 08:15] LABS: Albumin Level 3.4 gm/dl (3.4-5.0); Calcium 9.4 mg/dl (8.5-10.1); Creatinine Clr Calc Pharmacy 29.4 ml/min; Est GFR (African American) 56.6; Est GFR (Non-African American) 48.9
[2018-04-20 08:23] LABS: Globulin 3.5 gm/dl (2.5-4.0); Total Protein 6.9 gm/dl (6.4-8.2)
--- NOTE | 2018-04-20 08:55 | CT Scan Report ---
ABDOMEN AND PELVIS CT WITH IV CONTRAST CT DOSE: 328.22 mGy.cm HISTORY: Follow-up study in a patient with acute pancreatitis. Acute generalized abdominal pain Panc reatitis protocol TECHNIQUE: Multiaxial CT images of the abdomen and pelvis were performed following the use of intrave nous contrast. A dose lowering technique was utilized adhering to the principles of ALARA. COMPARISON STUDY: CT abdomen and pelvis 04/16/2018, abdominal ultrasound 04/20/2018. FINDINGS: The lung bases are generally clear. Study is mildly motion degraded. No pneumatosis or pneumoperitone um identified. Imaged inferior cardiac chambers are mildly enlarged. Coronary arterial calcifications are noted. Trace pericardial effusion. Prior cholecystectomy. Progressively worsened intrahepatic and extrahepatic biliary ductal dilation. The common bile duct now measures up to 15 mm transversely, previously approximately 11 mm. Additiona lly, there is an ill-defined area of hyperattenuation noted within the region of the duodenal ampulla , 10 x 7 mm on image 108 series 3. Prominence of the pancreatic duct measures up to 2 mm in diameter. Patency of the hepatic and portal veins. Spleen and right adrenal gland are unremarkable. Mild thick ening of the left adrenal gland. Mild generalized pancreatic atrophy. Progressive mild interstitial a nd peripancreatic inflammation with trace free fluid about the pancreas and proximal duodenum. Trace free fluid is also seen tracking along the paracolic gutters. Severe atrophy with cortical thinning and scarring about the left kidney. Right kidney is unremarkabl e. Exophytic cyst of the inferior pole right kidney, 1.5 cm. Urinary bladder, uterus and adnexa are u nremarkable. Thrombus formation noted about the left gonadal vein redemonstrated. Indeterminate 1.4 x 0.9 cm cystic structure of the left adnexum and 1.3 x 1.1 cm cystic structure of the left adnexum. Extensive mixed plaque formation of the abdominal aorta with tortuosity. High-grade narrowing at the origin of the celiac trunk. 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 Mild ectasia of the infrarenal abdominal aorta, 2.4 cm. IVC appears unremarkable. Mild ly prominent pericaval and periportal lymph nodes, likely physiologic. Trace free pelvic fluid. Mild wall thickening of the duodenum, likely reactive. Scattered air-fluid levels noted within small bowel . Gaseous distention of the colon with scattered colonic air-fluid levels. Postoperative changes abou t the right hemicolon suggest prior ileocecectomy with enterocolic anastomosis. Stool-filled loops of small bowel noted about the lower abdomen and pelvis. Mild wall thickening noted within portions of the sigmoid colon. Soft tissues are within normal limits. Bones appear to be intact. Demineralized appearance of the bon es. There are 3 generated screws noted about the left femoral neck. Anterolisthesis L3 on L4 and L4 o n L5, likely secondary to long-standing advanced facet arthropathy. Remote appearing compression defo rmity of the L1 vertebral body without retropulsion, unchanged from comparison. IMPRESSION: 1. Mild interstitial edematous pancreatitis has progressively worsened from comparison. No evidence o f acute peripancreatic fluid collection or pancreatic necrosis. 2. Intrahepatic and extrahepatic biliary ductal dilation has also progressed from 04/16/2018 with equ ivocal choledocholithiasis. Correlation with ERCP recommended. 3. Prior cholecystectomy. 4. No bowel obstruction. 5. Additional findings as above. Electronically signed by: Andrea Jim M.D. 04/20/2018 8:53 AM
[2018-04-20] MEDS: PIPERACILLIN/TAZOBACTAM 3.375 GM in DEXTROSE 5% 100 ML IV SCH ×2 (10:34→18:07)
[2018-04-20] MEDS ORDERED: IBUPROFEN 200 MG TAB PO STA (13:45)
[2018-04-20] MEDS ORDERED: Heparin IV Low Dose *NO* Bolus SCH (13:52)
--- NOTE | 2018-04-20 13:52 | History & Physical Bridge Note ---
Date of Service April 20, 2018 History & Physical Bridge Note Patient seen and examined today. Abdominal pain improving already on NPO. Now with CBD dilation. Discussed with GI who will see her tomorrow probably. Recommend continue NPO and will attempt MRCP if she is willing.
[2018-04-20] MEDS: POTASSIUM CHLORIDE 40 MEQ in SODIUM CHLORIDE 0.9% 1000ML 1,000 ML IV SCH (14:03)
[2018-04-20] MEDS: HEPARIN LOW DOSE DEXTROSE 25,000 UNITS/500 ML IV SCH (14:35)
[2018-04-20] MEDS: ONDANSETRON INJ 2 MG/ML 2 ML VIAL IV PRN (17:03)
[2018-04-20] MEDS ORDERED: ONDANSETRON INJ 2 MG/ML 2 ML VIAL IV STA (17:39)
[2018-04-20 21:02] LABS: Partial Thromboplastin Ratio 1.3; Partial Thromboplastin Time 34.3 Seconds (21.0-31.0)
[2018-04-20] MEDS ORDERED: Nursing to Pharmacy Communication ONE (21:29)
[2018-04-20] MEDS ORDERED: HEPARIN IV BOLUS 3,000 UNITS in SYRINGE 0 ML IV ONE (21:48)
[2018-04-21] MEDS: HydrALAZINE HCL 20 MG/ML VIAL IV PRN ×2 (00:09→17:00)
[2018-04-21] MEDS: PIPERACILLIN/TAZOBACTAM 3.375 GM in DEXTROSE 5% 100 ML IV SCH ×3 (01:17→17:39)
[2018-04-21] MEDS: POTASSIUM CHLORIDE 40 MEQ in SODIUM CHLORIDE 0.9% 1000ML 1,000 ML IV SCH (03:50)
[2018-04-21] MEDS: ONDANSETRON INJ 2 MG/ML 2 ML VIAL IV PRN (03:54)
[2018-04-21 04:17] LABS: Basophils # (auto) 0.01 K/uL (0-0.2); Basophils % (auto) 0.1 %; Hemoglobin 14.2 g/dL (12.0-16.0); Immature Granulocytes # (auto) 0.03 K/uL (0.00-0.02); Immature Granulocytes % (auto) 0.2 %; Lymphocytes # (auto) 0.45 K/uL (1.2-3.4); Lymphocytes % (auto) 3.4 %; Mean Corpuscular Hgb Conc 33.8 g/dL (32-36); Mean Corpuscular Volume 88.8 fL (80-100); Mean Platelet Volume 9.5 fL (7.4-10.4); Monocytes # (auto) 0.52 K/uL (0.11-0.59); Neutrophils # (auto) 12.14 K/uL (1.4-6.5); Neutrophils % (auto) 92.3 %; Platelet Count 165 K/uL (130-400); RDW Coefficient of Variation 14.4 % (11.5-14.5); RDW Standard Deviation 46.9 fL (36.4-46.3); Red Blood Count 4.73 M/uL (4.2-5.4); White Blood Count 13.15 K/uL (4.8-10.8)
[2018-04-21 04:36] LABS: INR 1.2 (0.9-1.1); Partial Thromboplastin Ratio 2.5; Prothrombin Time 11.9 Seconds (9.0-12.0)
[2018-04-21 04:37] LABS: Partial Thromboplastin Time 65.9 Seconds (21.0-31.0)
[2018-04-21 04:39] LABS: Albumin Level 3.2 gm/dl (3.4-5.0); BUN Creatinine Ratio 9.9 (10-20); Creatinine Clr Calc Pharmacy 28.1 ml/min; Est GFR (African American) 53.6; Est GFR (Non-African American) 46.2; Potassium 3.6 mmol/L (3.5-5.1)
[2018-04-21 04:42] LABS: Albumin Globulin Ratio 0.8 (0.9-2); Bilirubin,Total 0.8 mg/dl (0.2-1); Globulin 3.9 gm/dl (2.5-4.0); Total Protein 7.1 gm/dl (6.4-8.2)
[2018-04-21] MEDS: PANTOprazole 40 MG in SYRINGE 0 ML IV SCH ×2 (08:46→21:08)
[2018-04-21] MEDS: LACTATED RINGER'S 1,000 ML IV SCH ×2 (09:00→19:14)
--- NOTE | 2018-04-21 10:04 | Gastrointestinal Consultation ---
Date of Consultation April 21, 2018 Assessment & Plan (1) Recurrent acute pancreatitis: Pt is a 82 y/o female re-admitted for pancreatitis. Unclear etiology: she is s/p cholecystectomy, denies ETOH, tobacco uses. TG 300s. Repeat imaging w u/ s and CT abd/pelvis w contrast showed progressive dilation of CBD and ill defined area on ampulla area, and prominence of pancreatic duct - Ok for sips of clear liquid, ice chips - Changed IVF to LR @ 100ml/hr - Repeat fasting lipid panel in AM - Symptomatic management w antiemetics and analgesics prn - I discussed further imaging w MRCP but pt very claustrophobic and refused even w anti anxiety premed. Would recommend EUS/ERCP in 2-3 week's time in outpt setting. Present on Admission?: Yes (2) Dilation of common bile duct: Present on Admission?: Yes Supervising Physician Co-Signing Physician Notes I have seen and examined the patient with MAI Moser. 82 yo fm here for pancreatitis. Imaging suggestive of ? ampullary mass with dilated cbd and pancreatic duct. She is denying any current pain, remains on sips of liquids and receiving IV LR with improvement in pain. LFT's remain normal and she is s/p prior cholecystectomy in the past. No use of outpatient narcotics for source for dilated cbd. Would continue with IV Fluids and sips of liquids today for pancreatitis. Outpatient EUS/ERCP will be arranged in 4-6 weeks for further evaluation of abnormal imaging with dilated cbd/pd and ?ampullary mass (currently with normal lft's and non febrile though slightly elevated wbc count). History of Present Illness Reason for Consultation: Pancreatitis Requesting Physician: Kenneth Hernández MD, PhD, [facility] Attending Physician: Dr. Fariha Mayers History of Present Illness Pt is a 82 y/o female w PMHx of COPD, HTN, hyperlipidemia, peripheral neuropathy , anxiety, anemia, lung ca, Crohn's disease, GERD, hypothyroidism, OA who was brought back to hospital by family for worsening abd pain symptoms. she was just admitted 04/16- for pancreatitis. 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 Unclear etiology of her pancreatitis. She doesn't drink ETOH, no tobacco uses. She is s/p cholecystectomy. TG 300s (last checked ). Upon eval, labs showed mild leukocytosis WBC 13K, H/H stable. BUN/Cr 11.1.1. LFTs are normal. Lipase >30K, now down to 8K. She had repeat abd imaging w u/s and CT abd/pelvis w contrast which showed compared to her last admission, there' s a progressive dilation of her CBD now 15 mm vs 11mm. Jacey is an ill-defined area of hyperattenuation noted within the region of the duodenal ampulla, 10 x 7 mm. Pancreatic duct 2mm. Of note she did undergo ERCP in 2010 for choledocholithiasis removal. On exam pt reports still having some nausea and abd pain. She doens't appear jaundiced. Abd soft, non tender on palpation, BS present. Allergies Allergy/AdvReac Type Severity Reaction Status Date / Time Cipro Allergy Intermediate RASH, Verified 09/03/17 07:28 ITCHING ciprofloxacin Allergy Intermediate RASH, Verified 04/16/18 13:46 ITCHING latex Allergy Unknown REDNESS Verified 04/16/18 13:46 shellfish derived Allergy Unknown HIVES Verified 04/16/18 13:46 Sulfa (Sulfonamide Allergy Unknown RASH Verified 04/16/18 13:46 Antibiotics) aspirin AdvReac Severe Gastrointestinal Verified 04/21/18 08:23 Upset levofloxacin AdvReac Severe DIZZINESS, Verified 04/16/18 13:46 MYALGIA doxycycline AdvReac Unknown HEADACHE Verified 04/16/18 13:46 Home Medications Home Medications Medication Instructions Recorded Confirmed Type albuterol sulfate 2 puff INHALATION Q6H PRN 12/24/17 04/19/18 History alendronate [Fosamax] 1 tab PO WK 12/24/17 04/19/18 History clonidine HCl 0.2 mg PO QAM 12/24/17 04/19/18 History cyanocobalamin (vitamin B-12) 1,000 mcg IM MONTHLY 12/24/17 04/19/18 History gabapentin 2 tab PO TID 12/24/17 04/19/18 History levothyroxine 50 mcg PO QAM 12/24/17 04/19/18 History lorazepam 0.5 mg PO TID PRN 12/24/17 04/19/18 History metoprolol tartrate 25 mg PO BID 12/24/17 04/19/18 History pantoprazole 40 mg PO BID 12/24/17 04/19/18 History potassium chloride 20 meq PO DAILY 12/24/17 04/19/18 History telmisartan 40 mg PO BID 12/24/17 04/19/18 History clonidine HCl 0.6 mg PO QPM 04/16/18 04/19/18 History metoprolol tartrate 25 mg PO DIRECTED PRN 04/16/18 04/19/18 History oxycodone 5 mg PO BID PRN 04/16/18 04/19/18 History apixaban See Label Instructions .ROUTE 04/17/18 04/19/18 Rx .COMPLEX #74 tab Patient History Medical History Chronic obstructive pulmonary disease Hypertension Hyperlipidemia Arrhythmia UNSURE OF TYPE Peripheral neuropathy Anxiety Hearing deficit Anemia Cancer LUNG CANCER Crohns disease GERD (gastroesophageal reflux disease) Hypothyroidism Nausea and vomiting after administration of anesthetic agent Osteoarthritis Surgical History History of lobectomy of lung LUNG CANCER-RT SIDE History of adenoidectomy History of tonsillectomy History of bowel resection History of cataract surgery History of cholecystectomy History of colonoscopy History of esophagogastroduodenoscopy (EGD) History of open reduction and internal fixation (ORIF) procedure LEFT TIBIA History of tooth extraction Family History Other No known health problems Social History marital status: Current Living Situation: Spouse Feels Safe at Home: Yes Safety Concerns: Feels Safe At This Time Smoking Status: Former smoker Second Hand Exposure: No Hx Alcohol Use: No Hx Substance Use: No Beliefs That Will Affect Care: None Communication Ability: Effective Review of Systems Constitutional: no fever and no chills Respiratory: no cough and no dyspnea Cardiovascular: no chest pain Gastrointestinal: as per Subjective / HPI Pt mostly oriented to self and place only. Per she does have some confusion at baseline though worse within last 10 days Physical Exam 2 Vital Signs (Past 24 Hours): Last Vital Signs Temp 36.8 C 04/21/18 07:44 Pulse 105 H 04/21/18 07:44 Resp 18 04/21/18 07:44 BP 167/82 H 04/21/18 07:44 Pulse Ox 97 04/21/18 07:44 Constitutional: WD/WN, vitals as above well groomed, cooperative and comfortable Eyes: PERRL, conjunctivae normal, anicteric sclerae ENMT: external ear and nose normal, oropharynx normal Respiratory: normal respiratory effort, lungs clear to auscultation Cardiovascular: RRR, no murmur, no edema Gastrointestinal (Abdomen): normal bowel sounds, soft, nontender, no hepatosplenomegaly Skin: no rashes, warm and dry no jaundice Neurologic: Motor/Sensory: no asterixis Psychiatric: Orientation: alert, oriented to person, oriented to place and cooperative Apperance: appropriately groomed Eye Contact: good eye contact Motor Behavior: steady gait and station Affect: euthymic affect Lymphatic: no lymphedema Results & Data Laboratory Results Laboratory Results - last 48 hr 04/19/18 04/19/18 04/19/18 21:50 21:50 21:50 WBC 8.99 RBC 4.60 Hgb 13.7 Hct 40.5 MCV 88.0 MCH 29.8 MCHC 33.8 RDW Std Deviation 45.6 RDW Coeff of Martine 14.1 Plt Count 150 MPV 9.8 Immature Gran % (Auto) 0.1 Neut % (Auto) 84.0 Lymph % (Auto) 11.8 [place] % (Auto) 3.7 Eos % (Auto) 0.3 Baso % (Auto) 0.1 Immature Gran # (Auto) 0.01 Neut # (Auto) 7.55 H Lymph # (Auto) 1.06 L Jerome # (Auto) 0.33 Eos # (Auto) 0.03 Baso # (Auto) 0.01 PT 11.4 INR 1.1 APTT 28.9 PTT Ratio 1.1 Sodium 140 Potassium 3.3 L Chloride 107 Carbon Dioxide 24 Anion Gap 9.0 BUN 16 Creatinine 1.17 Est Cr Clr Drug Dosing 26.6 Est GFR ( Amer) 50.3 Est GFR (Non-Af Amer) 43.4 BUN/Creatinine Ratio 13.2 Glucose 140 H POC Lactic Acid Neil Calcium 9.5 Magnesium 1.1 L Total Bilirubin 0.9 AST 17 ALT 21 Alkaline Phosphatase 108 Troponin I 0.028 Total Protein 7.3 Albumin 3.5 Globulin 3.8 Albumin/Globulin Ratio 0.9 Amylase Lipase > 49099 H TSH 0.481 04/19/18 04/19/18 04/20/18 21:50 21:54 07:10 WBC 9.70 RBC 4.65 Hgb 13.8 Hct 40.8 MCV 87.7 MCH 29.7 MCHC 33.8 RDW Std Deviation 45.6 RDW Coeff of Martine 14.2 Plt Count 139 MPV 9.8 Immature Gran % (Auto) 0.1 Neut % (Auto) 82.2 Lymph % (Auto) 10.5 Jerome % (Auto) 6.9 Eos % (Auto) 0.2 Baso % (Auto) 0.1 Immature Gran # (Auto) 0.01 Neut # (Auto) 7.97 H Lymph # (Auto) 1.02 L Jerome # (Auto) 0.67 H Eos # (Auto) 0.02 Baso # (Auto) 0.01 PT INR APTT PTT Ratio Sodium Potassium Chloride Carbon Dioxide Anion Gap BUN Creatinine Est Cr Clr Drug Dosing Est GFR ( Amer) Est GFR (Non-Af Amer) BUN/Creatinine Ratio Glucose POC Lactic Acid Neil 1.35 Calcium Magnesium Total Bilirubin AST ALT Alkaline Phosphatase Troponin I Total Protein Albumin Globulin Albumin/Globulin Ratio Amylase 2791 H Lipase TSH 04/20/18 04/20/18 04/20/18 07:10 07:10 20:36 WBC RBC Hgb Hct MCV MCH MCHC RDW Std Deviation RDW Coeff of Martine Plt Count MPV Immature Gran % (Auto) Neut % (Auto) Lymph % (Auto) [place] % (Auto) Eos % (Auto) Baso % (Auto) Immature Gran # (Auto) Neut # (Auto) Lymph # (Auto) Jerome # (Auto) Eos # (Auto) Baso # (Auto) PT 10.9 INR 1.1 APTT 28.0 34.3 H PTT Ratio 1.1 1.3 Sodium 141 Potassium 3.0 L Chloride 108 H Carbon Dioxide 24 Anion Gap 9.0 BUN 13 Creatinine 1.06 Est Cr Clr Drug Dosing 29.4 Est GFR ( Amer) 56.6 Est GFR (Non-Af Amer) 48.9 BUN/Creatinine Ratio 12.0 Glucose 110 H POC Lactic Acid Neil Calcium 9.4 Magnesium Total Bilirubin 1.0 AST 18 ALT 20 Alkaline Phosphatase 103 Troponin I Total Protein 6.9 Albumin 3.4 Globulin 3.5 Albumin/Globulin Ratio 1.0 Amylase Lipase 04291 H TSH 12/31/18 12/31/18 12/31/18 04:01 04:01 04:01 WBC 13.15 H RBC 4.73 Hgb 14.2 Hct 42.0 MCV 88.8 MCH 30.0 MCHC 33.8 RDW Std Deviation 46.9 H RDW Coeff of Martine 14.4 Plt Count 165 MPV 9.5 Immature Gran % (Auto) 0.2 Neut % (Auto) 92.3 Lymph % (Auto) 3.4 Jerome % (Auto) 4.0 Eos % (Auto) 0.0 Baso % (Auto) 0.1 Immature Gran # (Auto) 0.03 H Neut # (Auto) 12.14 H Lymph # (Auto) 0.45 L Jerome # (Auto) 0.52 Eos # (Auto) 0.00 Baso # (Auto) 0.01 PT 11.9 INR 1.2 H APTT 65.9 H* PTT Ratio 2.5 Sodium 141 Potassium 3.6 D Chloride 110 H Carbon Dioxide 22 Anion Gap 9.0 BUN 11 Creatinine 1.11 Est Cr Clr Drug Dosing 28.1 Est GFR ( Amer) 53.6 Est GFR (Non-Af Amer) 46.2 BUN/Creatinine Ratio 9.9 L Glucose 147 H POC Lactic Acid Neil Calcium 9.0 Magnesium Total Bilirubin 0.8 AST 18 ALT 18 Alkaline Phosphatase 98 Troponin I Total Protein 7.1 Albumin 3.2 L Globulin 3.9 Albumin/Globulin Ratio 0.8 L Amylase Lipase 8674 H TSH Diagnostic Findings U/S: 1. Dilated common bile duct with moderate intrahepatic biliary ductal dilation, progressed from comparison CT 04/16/2018 concerning for obstructing biliary lesion. Correlation with ERCP recommended. 2. Prior cholecystectomy CT abd/pelvis w contrast: 1. Mild interstitial edematous pancreatitis has progressively worsened from comparison. No evidence of acute peripancreatic fluid collection or pancreatic necrosis. 2. Intrahepatic and extrahepatic biliary ductal dilation has also progressed from 04/16/2018 with equivocal choledocholithiasis. Correlation with ERCP recommended. 3. Prior cholecystectomy. 4. No bowel obstruction.
--- NOTE | 2018-04-21 10:08 | Hospitalist Progress Note ---
Date of Service April 21, 2018 Assessment & Plan (1) Recurrent acute pancreatitis: (2) Dilation of common bile duct: (3) Thrombosis of ovarian vein: (4) Hypertension: (5) Chronic obstructive pulmonary disease: 82-year-old female admitted on April 20, 2018 because of recurrent pancreatitis , her most recently admitted to [facility] from April 16 - April 17 for pancreatitis and canal of vein thrombosis. Recurrent acute pancreatitis: hx of Prior cholecystectomy denies ETOH, tobacco uses. TG 300s. Stable, has been on n.p.o., GI on the case, recommend continue n.p.o., change IV fluid to LR, continue supportive care, continue PPI, and antibiotic, no ERCP now, possible need to be done in 2-[address] of abdomen and pelvis shows dilated common bile duct up to 12 mm. US reviewed: 1. Dilated common bile duct with moderate intrahepatic biliary ductal dilation, progressed from comparison CT 04/16/2018 concerning for obstructing biliary lesion. Correlation with ERCP recommended. Thrombosis of ovarian vein: Hold apixaban. cont heparin infusion low-dose without bolus per protocol. Hypertension, COPD, stable continue current care, GI DVT prophylaxis covered, Physical Exam 2 Vital Signs (Past 24 Hours): Last Vital Signs Temp 36.8 C 04/21/18 07:44 Pulse 105 H 04/21/18 07:44 Resp 18 04/21/18 07:44 BP 167/82 H 04/21/18 07:44 Pulse Ox 97 04/21/18 07:44
[2018-04-21] MEDS ORDERED: METOPROLOL TARTRATE 25 MG TAB PO ONE (13:45)
[2018-04-21] MEDS: HEPARIN LOW DOSE DEXTROSE 25,000 UNITS/500 ML IV SCH (18:06)
[2018-04-21] MEDS: METOPROLOL TARTRATE 25 MG TAB PO SCH (21:09)
[2018-04-22] MEDS: PIPERACILLIN/TAZOBACTAM 3.375 GM in DEXTROSE 5% 100 ML IV SCH ×3 (01:57→17:59)
[2018-04-22] MEDS: LACTATED RINGER'S 1,000 ML IV SCH ×2 (05:10→16:02)
[2018-04-22 05:19] LABS: Basophils # (auto) 0.01 K/uL (0-0.2); Basophils % (auto) 0.1 %; Eosinophils # (auto) 0.01 K/uL (0-0.5); Eosinophils % (auto) 0.1 %; Hematocrit (blood only) 37.9 % (37-47); Hemoglobin 12.8 g/dL (12.0-16.0); Immature Granulocytes # (auto) 0.01 K/uL (0.00-0.02); Immature Granulocytes % (auto) 0.1 %; Lymphocytes # (auto) 0.69 K/uL (1.2-3.4); Lymphocytes % (auto) 7.8 %; Mean Corpuscular Hgb Conc 33.8 g/dL (32-36); Mean Corpuscular Volume 88.1 fL (80-100); Mean Platelet Volume 9.9 fL (7.4-10.4); Monocytes % (auto) 5.7 %; Neutrophils # (auto) 7.62 K/uL (1.4-6.5); Neutrophils % (auto) 86.2 %; Platelet Count 158 K/uL (130-400); RDW Coefficient of Variation 14.7 % (11.5-14.5); RDW Standard Deviation 47.1 fL (36.4-46.3); White Blood Count 8.84 K/uL (4.8-10.8)
[2018-04-22 05:32] LABS: Partial Thromboplastin Ratio 1.7; Partial Thromboplastin Time 44.4 Seconds (21.0-31.0)
[2018-04-22 05:33] LABS: INR 1.2 (0.9-1.1); Prothrombin Time 11.6 Seconds (9.0-12.0)
[2018-04-22] MEDS ORDERED: HEPARIN IV BOLUS 2,000 UNITS in SYRINGE 0 ML IV ONE (06:30)
[2018-04-22 06:36] LABS: Albumin Globulin Ratio 0.9 (0.9-2); Albumin Level 3.1 gm/dl (3.4-5.0); BUN Creatinine Ratio 9.5 (10-20); Bilirubin Direct 0.2 mg/dl (0-0.2); Bilirubin,Total 0.6 mg/dl (0.2-1); Calcium 9.2 mg/dl (8.5-10.1); Creatinine Clr Calc Pharmacy 36.2 ml/min; Est GFR (African American) 72.9; Est GFR (Non-African American) 62.9; Globulin 3.5 gm/dl (2.5-4.0); Magnesium 1.3 mg/dl (1.8-2.4); Potassium 2.7 mmol/L (3.5-5.1); Total Protein 6.6 gm/dl (6.4-8.2)
[2018-04-22] MEDS: METOPROLOL TARTRATE 25 MG TAB PO SCH ×2 (07:40→20:08)
--- NOTE | 2018-04-22 08:55 | Hospitalist Progress Note ---
Date of Service April 22, 2018 Assessment & Plan (1) Recurrent acute pancreatitis: (2) Dilation of common bile duct: (3) Thrombosis of ovarian vein: (4) Hypertension: (5) Chronic obstructive pulmonary disease: 82-year-old female admitted on April 20, 2018 because of recurrent pancreatitis , her most recently admitted to [facility] from April 16 - April 17 for pancreatitis and canal of vein thrombosis. Recurrent acute pancreatitis: Stable improving hx of Prior cholecystectomy denies ETOH, tobacco uses. TG 300s trends down to normal range Lipase continue to drop today's 5900 Stable, has been on n.p.o., GI on the case, recommend continue n.p.o., change IV fluid to LR, continue supportive care, continue PPI, and antibiotic, no ERCP now, possible need to be done in 2-3 weeks Will discuss with GI, possible start clear liquid diet advance as tolerated, Hypomagnesemia magnesium 1.3 and replaced Hypokalemia K 2.[address] of abdomen and pelvis shows dilated common bile duct up to 12 mm. US reviewed: 1. Dilated common bile duct with moderate intrahepatic biliary ductal dilation, progressed from comparison CT 04/16/2018 concerning for obstructing biliary lesion. Correlation with ERCP recommended. Thrombosis of ovarian vein: Continue to hold apixaban. cont heparin infusion low -dose without bolus per protocol. Will restart Eliquis if no planning of procedure Hypertension, COPD, stable continue current care, GI DVT prophylaxis covered, Increase activity PTOT Subjective Pleasant, conversational, only mild pain, and abdomen, Feeling hungry, will like to try something of soup Review of Systems Constitutional: Positive weakness, or fatigue Respiratory: no cough, sputum, wheezing, or dyspnea on exertion Cardiac: No chest pain, No orthopnea, No PND, No claudication, No palpitations , Abdomen: Mild pain, No nausea, No vomiting, No diarrhea, Musculoskeletal: No joint pain, No muscle pain, No swelling, No calf pain, No problem reported : No dysuria, No urinary frequency, No incontinence, No hematuria Neurologic: No paralysis, No weakness, No numbness/tingling, No vertigo, No balance problems Psychiatric: No depression symptoms, No anhedonism, No anxiety, No insomnia, No substance abuse Heme: No abnormal bleeding/bruising, No clotting problems, No swollen lymph nodes, No night sweats Skin: No rash, No itch, No new/changing skin lesions, No color change, No bleeding Physical Exam 2 Vital Signs (Past 24 Hours): Last Vital Signs Temp 37.3 C 04/22/18 08:03 Pulse 90 04/22/18 08:03 Resp 18 04/22/18 08:03 BP 174/95 H 04/22/18 08:03 Pulse Ox 94 04/22/18 08:03 Physical Exam: General Appearance: Pleasant, conversational, generally looks better than yesterday WD/WN, no apparent distress, Eyes: normal inspection, PERRL, EOMI, sclerae normal ENT: normal ENT inspection, hearing grossly normal, pharynx normal Neck: supple, no adenopathy, thyroid normal, no JVD, no carotid bruits, trachea midline Respiratory/Chest: chest non-tender, normal breath sounds, no respiratory distress, no accessory muscle use, breath sounds, rales, wheezing Cardiovascular: regular rate, rhythm, no JVD, no murmur Abdomen: normal bowel sounds, non tender, soft, no organomegaly, Extremities: normal range of motion, non-tender, normal inspection, trace pedal edema, no calf tenderness, normal capillary refill, pelvis stable, Neurologic/Psychiatric: brewmaster II-XII nml as tested, no motor/sensory deficits, alert, normal mood/affect, oriented x 3 Skin: normal color, warm/dry, no rash Lymphatic: no adenopathy Results & Data Laboratory Results Laboratory Results - last 24 hr 04/22/18 04/22/18 04/22/18 05:08 05:08 05:08 WBC 8.84 RBC 4.30 Hgb 12.8 Hct 37.9 MCV 88.1 MCH 29.8 MCHC 33.8 RDW Std Deviation 47.1 H RDW Coeff of Martine 14.7 H Plt Count 158 MPV 9.9 Immature Gran % (Auto) 0.1 Neut % (Auto) 86.2 Lymph % (Auto) 7.8 [place] % (Auto) 5.7 Eos % (Auto) 0.1 Baso % (Auto) 0.1 Immature Gran # (Auto) 0.01 Neut # (Auto) 7.62 H Lymph # (Auto) 0.69 L [place] # (Auto) 0.50 Eos # (Auto) 0.01 Baso # (Auto) 0.01 PT 11.6 INR 1.2 H APTT PTT Ratio Sodium 140 Potassium 2.7 L D Chloride 107 Carbon Dioxide 28 Anion Gap 5.0 BUN 8 Creatinine 0.86 Est Cr Clr Drug Dosing 36.2 Est GFR ( Amer) 72.9 Est GFR (Non-Af Amer) 62.9 BUN/Creatinine Ratio 9.5 L Glucose 121 H Calcium 9.2 Magnesium 1.3 L Total Bilirubin 0.6 Direct Bilirubin 0.2 AST 18 ALT 16 Alkaline Phosphatase 83 Total Protein 6.6 Albumin 3.1 L Globulin 3.5 Albumin/Globulin Ratio 0.9 Triglycerides 125 Cholesterol 106 LDL Cholesterol, Calc 40 VLDL Cholesterol, Calc 25 HDL Cholesterol 41 Cholesterol/HDL Ratio 3 Lipase 5917 H 04/22/18 05:08 WBC RBC Hgb Hct MCV MCH MCHC RDW Std Deviation RDW Coeff of Martine Plt Count MPV Immature Gran % (Auto) Neut % (Auto) Lymph % (Auto) [place] % (Auto) Eos % (Auto) Baso % (Auto) Immature Gran # (Auto) Neut # (Auto) Lymph # (Auto) [place] # (Auto) Eos # (Auto) Baso # (Auto) PT INR APTT 44.4 H PTT Ratio 1.7 Sodium Potassium Chloride Carbon Dioxide Anion Gap BUN Creatinine Est Cr Clr Drug Dosing Est GFR ( Amer) Est GFR (Non-Af Amer) BUN/Creatinine Ratio Glucose Calcium Magnesium Total Bilirubin Direct Bilirubin AST ALT Alkaline Phosphatase Total Protein Albumin Globulin Albumin/Globulin Ratio Triglycerides Cholesterol LDL Cholesterol, Calc VLDL Cholesterol, Calc HDL Cholesterol Cholesterol/HDL Ratio Lipase
[2018-04-22] MEDS: ACETAMINOPHEN 1000 MG/100 ML IV IV PRN ×2 (09:04→17:28)
[2018-04-22] MEDS: PANTOprazole 40 MG in SYRINGE 0 ML IV SCH ×2 (09:04→20:08)
[2018-04-22] MEDS ORDERED: MAGNESIUM SULFATE / D5W 1 GM/100 ML BAG IV ONE (09:30)
[2018-04-22] MEDS: POTASSIUM CHLORIDE 20 MEQ TABCR PO SCH ×2 (10:07→20:03)
[2018-04-22] MEDS: MAGNESIUM OXIDE 400 MG TAB PO SCH ×2 (10:07→21:01)
[2018-04-22] MEDS: POTASSIUM CHLORIDE / WTR 10 MEQ/100 ML PLCT IV SCH ×2 (11:12→12:14)
[2018-04-22] MEDS: HydrALAZINE HCL 20 MG/ML VIAL IV PRN (13:04)
[2018-04-22 15:09] LABS: Partial Thromboplastin Ratio 2.1
[2018-04-22 15:36] LABS: Partial Thromboplastin Time 55.5 Seconds (21.0-31.0)
[2018-04-22] MEDS: HEPARIN LOW DOSE DEXTROSE 25,000 UNITS/500 ML IV SCH (19:28)
[2018-04-22] MEDS: ONDANSETRON INJ 2 MG/ML 2 ML VIAL IV PRN (20:01)
[2018-04-22] MEDS: MoRPHine SULFATE 2 MG/ML CARP IV PRN (23:46)
[2018-04-23] MEDS: LACTATED RINGER'S 1,000 ML IV SCH ×2 (02:43→13:24)
[2018-04-23] MEDS: PIPERACILLIN/TAZOBACTAM 3.375 GM in DEXTROSE 5% 100 ML IV SCH ×3 (03:02→19:16)
[2018-04-23] MEDS: HEPARIN LOW DOSE DEXTROSE 25,000 UNITS/500 ML IV SCH (03:03)
[2018-04-23 06:02] LABS: Partial Thromboplastin Ratio 1.9
[2018-04-23 06:10] LABS: Partial Thromboplastin Time 48.1 Seconds (21.0-31.0)
[2018-04-23 06:13] LABS: BUN Creatinine Ratio 7.6 (10-20); Creatinine Clr Calc Pharmacy 36.7 ml/min; Est GFR (Non-African American) 63.8; Magnesium 1.7 mg/dl (1.8-2.4); Potassium 2.6 mmol/L (3.5-5.1)
[2018-04-23] MEDS ORDERED: POTASSIUM CHLORIDE 20 MEQ TABCR PO STA (08:31)
[2018-04-23] MEDS: METOPROLOL TARTRATE 25 MG TAB PO SCH ×2 (08:35→21:23)
[2018-04-23] MEDS: POTASSIUM CHLORIDE 20 MEQ TABCR PO SCH ×2 (08:35→21:24)
[2018-04-23] MEDS: MAGNESIUM OXIDE 400 MG TAB PO SCH ×2 (08:36→21:25)
[2018-04-23] MEDS: PANTOprazole 40 MG in SYRINGE 0 ML IV SCH (08:36)
[2018-04-23] MEDS ORDERED: MAGNESIUM OXIDE 400 MG TAB PO SCH (09:00)
[2018-04-23] MEDS ORDERED: MAGNESIUM SULFATE / D5W 1 GM/100 ML BAG IV ONE (09:30)
--- NOTE | 2018-04-23 09:36 | Hospitalist Progress Note ---
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 Start heparin infusion low-dose without bolus per protocol. (4) Hypertension: Hold outpatient regimen of metoprolol, clonidine and telmisartan. Placed on hydralazine 10 mg IV every 4 hours as needed systolic blood pressure > 160. (5) Chronic obstructive pulmonary disease: 82-year-old female admitted on April 20, 2018 because of recurrent pancreatitis , her most recently admitted to [facility] from April 16 - April 17 for pancreatitis and canal of vein thrombosis. Recurrent acute pancreatitis: Stable improving hx of Prior cholecystectomy denies ETOH, tobacco uses. TG 300s trends down to normal range Lipase continue to drop today's 5900 Stable, has been on n.p.o., GI on the case, recommend continue n.p.o., change IV fluid to LR, continue supportive care, continue PPI, and antibiotic, no ERCP now, possible need to be done in 2-3 weeks Will discuss with GI, possible start clear liquid diet advance as tolerated, Hypomagnesemia magnesium 1.3 and replaced Hypokalemia K 2.[address] of abdomen and pelvis shows dilated common bile duct up to 12 mm. US reviewed: 1. Dilated common bile duct with moderate intrahepatic biliary ductal dilation, progressed from comparison CT 04/16/2018 concerning for obstructing biliary lesion. Correlation with ERCP recommended. Thrombosis of ovarian vein: Continue to hold apixaban. cont heparin infusion low -dose without bolus per protocol. Will restart Eliquis if no planning of procedure Hypertension, COPD, stable continue current care, GI DVT prophylaxis covered, Increase activity PTOT Subjective Pleasant, conversational, no pain, has bowel movement, Eating better, Abdomen is soft, nontender in palpation, lower extremity no edema, hypokalemia and hypomagnesemia were replaced GI ordered KUB because mild abdominal distention, Switch heparin to oral eliquis Review of Systems Constitutional: Positive weakness, or fatigue Respiratory: no cough, sputum, wheezing, or dyspnea on exertion Cardiac: No chest pain, No orthopnea, No PND, No claudication, No palpitations , Abdomen: Mild pain, No nausea, No vomiting, No diarrhea, Musculoskeletal: No joint pain, No muscle pain, No swelling, No calf pain, No problem reported : No dysuria, No urinary frequency, No incontinence, No hematuria Neurologic: No paralysis, No weakness, No numbness/tingling, No vertigo, No balance problems Psychiatric: No depression symptoms, No anhedonism, No anxiety, No insomnia, No substance abuse Heme: No abnormal bleeding/bruising, No clotting problems, No swollen lymph nodes, No night sweats Skin: No rash, No itch, No new/changing skin lesions, No color change, No bleeding Physical Exam 2 Vital Signs (Past 24 Hours): Last Vital Signs Temp 36.8 C 04/23/18 07:02 Pulse 86 04/23/18 07:02 Resp 20 04/23/18 07:02 BP 178/77 H 04/23/18 07:02 Pulse Ox 93 04/23/18 07:02
[2018-04-23] MEDS ORDERED: METOPROLOL TARTRATE 25 MG TAB PO PRN (09:37)
--- NOTE | 2018-04-23 10:31 | XRay Report ---
KUB CLINICAL HISTORY: Abdominal distention. FINDINGS: 2 AP supine abdominal radiographs are correlated with abdominal CT dated 04/19/2018. There is mild gaseous distention of the small bowel loops and colon. No bowel obstruction is seen. Suture m aterial projects over the right mid abdomen. No evidence of intraperitoneal free air is seen on these supine images. Numerous pelvic phleboliths are observed. The skeletal structures are osteopenic. Chr onic deformity and postoperative change is noted in the left hip. Blunting of the left costophrenic s ulcus is consistent with subpleural fat when correlated with the prior CT scan. IMPRESSION: There is mild persistent gaseous distention of the small bowel loops and colon. No high-g rade bowel obstruction is identified. Electronically signed by: Roly Storey M.D. 04/23/2018 10:30 AM
[2018-04-23] MEDS: POTASSIUM CHLORIDE / WTR 10 MEQ/100 ML PLCT IV SCH ×2 (10:40→11:57)
[2018-04-23] MEDS: PANTOprazole 40 MG TAB PO SCH ×2 (10:41→21:23)
[2018-04-23] MEDS: LEVOTHYROXINE SODIUM 50 MCG TABLET PO SCH (10:50)
[2018-04-23] MEDS: TELMISARTAN 40 MG TAB PO SCH ×2 (10:51→21:24)
[2018-04-23] MEDS: APIXABAN 5 MG TABLET PO SCH ×2 (10:51→21:37)
--- NOTE | 2018-04-23 10:55 | Gastroenterology Progress Note ---
Date of Service April 23, 2018 Assessment & Plan (1) Recurrent acute pancreatitis: Pt is a 82 y/o female re-admitted for pancreatitis. Unclear etiology: she is s/p cholecystectomy, denies ETOH, tobacco uses. TG 300s. Repeat imaging w u/ s and CT abd/pelvis w contrast showed progressive dilation of CBD and ill defined area on ampulla area, and prominence of pancreatic duct. LFTs remain normal. She is still w/o symptoms of jaundice, abd pain, n/v. - KUB today to r/o ileus given abd distension - Ok to advance diet as tolerated if no ileus or obstruction noted on KUB - Changed IVF to LR @ 75ml/hr; may DC if tolerated PO intake well - Symptomatic management w antiemetics and analgesics prn - I discussed further imaging w MRCP but pt very claustrophobic and refused even w anti anxiety premed. Would recommend EUS/ERCP in 4 week's time in outpt setting. (2) Dilation of common bile duct: Supervising Physician Co-Signing Physician Notes I have seen and examined the patient and discussed the management with MAI Moser. 82 yo fm with recurrent pancreatitis, imaging showing dilated cbd/pd. Has been on LR for the past 24-48 hours. Feeling better, passing gas, having bm's, no abdominal pain. Slow advancement of her diet (CLD today). Outpatient EUS/ERCP in 4 weeks (will be arranged through [facility] GI office). GI will sign off. Subjective Pt oriented mostly to self and place. Had some more confusion, trying to get out off beed yesterday and moved to low bed closer to RN station. She is denying any c/o abd pain, n/v. Noted abd distended but BS present and she reports passing flatus. States had BM this AM but not witnessed by RN Physical Exam 2 Vital Signs (Past 24 Hours): Last Vital Signs Temp 36.8 C 04/23/18 07:02 Pulse 86 04/23/18 07:02 Resp 20 04/23/18 07:02 BP 150/79 H 04/23/18 09:43 Pulse Ox 93 04/23/18 07:02 Constitutional: WD/WN, vitals as above well groomed, cooperative and comfortable Eyes: PERRL, conjunctivae normal, anicteric sclerae ENMT: external ear and nose normal, oropharynx normal Respiratory: normal respiratory effort, lungs clear to auscultation Cardiovascular: RRR, no murmur, no edema Gastrointestinal (Abdomen): Inspection/Auscultation: + abdomen distended and normal bowel sounds Percussion/Palpation: abdomen nontender Skin: no rashes, warm and dry no jaundice Neurologic: Motor/Sensory: no asterixis Psychiatric: Orientation: alert, oriented to person, oriented to place and cooperative Apperance: appropriately groomed Lymphatic: no lymphedema
[2018-04-23] MEDS: NSS + 20MEQ KCL 20 MEQ/1,000 ML BAG IV SCH (11:18)
[2018-04-23] MEDS: GABAPENTIN 100 MG CAP PO SCH ×2 (11:58→21:25)
[2018-04-24] MEDS: PIPERACILLIN/TAZOBACTAM 3.375 GM in DEXTROSE 5% 100 ML IV SCH ×3 (01:37→18:00)
[2018-04-24] MEDS: LACTATED RINGER'S 1,000 ML IV SCH (01:37)
[2018-04-24] MEDS: LEVOTHYROXINE SODIUM 50 MCG TABLET PO SCH (05:53)
[2018-04-24] MEDS: HydrALAZINE HCL 20 MG/ML VIAL IV PRN (05:53)
[2018-04-24 06:54] LABS: Partial Thromboplastin Time 26.8 Seconds (21.0-31.0)
[2018-04-24 07:17] LABS: BUN Creatinine Ratio 6.9 (10-20); Calcium 8.9 mg/dl (8.5-10.1); Creatinine Clr Calc Pharmacy 29.1 ml/min; Est GFR (Non-African American) 48.3; Magnesium 2.4 mg/dl (1.8-2.4); Potassium 2.9 mmol/L (3.5-5.1)
[2018-04-24] MEDS: POTASSIUM CHLORIDE 20 MEQ TABCR PO SCH ×2 (07:48→20:43)
[2018-04-24] MEDS: TELMISARTAN 40 MG TAB PO SCH ×2 (07:48→20:41)
[2018-04-24] MEDS: PANTOprazole 40 MG TAB PO SCH ×2 (07:48→20:41)
[2018-04-24] MEDS: APIXABAN 5 MG TABLET PO SCH ×2 (07:48→20:41)
[2018-04-24] MEDS: MAGNESIUM OXIDE 400 MG TAB PO SCH ×2 (07:49→20:41)
[2018-04-24] MEDS: GABAPENTIN 100 MG CAP PO SCH ×3 (07:49→20:45)
[2018-04-24] MEDS: METOPROLOL TARTRATE 25 MG TAB PO SCH ×2 (07:49→20:46)
[2018-04-24] MEDS ORDERED: POTASSIUM CHLORIDE 20 MEQ TABCR PO STA (09:25)
--- NOTE | 2018-04-24 09:50 | Hospitalist Progress Note ---
Date of Service April 24, 2018 Assessment & Plan (1) Recurrent acute pancreatitis: (2) Dilation of common bile duct: (3) Thrombosis of ovarian vein: (4) Hypertension: (5) Chronic obstructive pulmonary disease: 82-year-old female admitted on April 20, 2018 because of recurrent pancreatitis , her most recently admitted to [facility] from April 16 - April 17 for pancreatitis and ovarian vein thrombosis. Recurrent acute pancreatitis: Stable improving hx of Prior cholecystectomy denies ETOH, tobacco uses. TG 300s trends down to normal range Lipase continue to drop Is been tolerate diet, continue PPI, and antibiotic, no ERCP now, possible need to be done in 2-[address] of abdomen and pelvis shows dilated common bile duct up to 12 mm. US reviewed: 1. Dilated common bile duct with moderate intrahepatic biliary ductal dilation, progressed from comparison CT 04/16/2018 concerning for obstructing biliary lesion. Correlation with ERCP recommended. Thrombosis of ovarian vein: Continue to Eliquis Hypertension, COPD, stable continue current care, GI DVT prophylaxis covered, Increase activity PTOT Today patient has been feeling good, no pain, pleasant, tolerate clear liquid diet, will advance diet, as tolerated, DC'ed IV fluid, Will replace potassium, which is 2.9 today, resume home dose of potassium which is 40 M EQ p.o. twice daily Talk to nursing staff increase activity out of bed to the chair and walking the hallway, planning to discharge home tomorrow Subjective Feeling good, no pain, pleasant, tolerate clear liquid diet, today will advance diet, as tolerated, DC'ed IV fluid, Review of Systems Constitutional: Positive weakness, or fatigue Respiratory: no cough, sputum, wheezing, or dyspnea on exertion Cardiac: No chest pain, No orthopnea, No PND, No claudication, No palpitations , Abdomen: Mild pain, No nausea, No vomiting, No diarrhea, Musculoskeletal: No joint pain, No muscle pain, No swelling, No calf pain, No problem reported : No dysuria, No urinary frequency, No incontinence, No hematuria Neurologic: No paralysis, No weakness, No numbness/tingling, No vertigo, No balance problems Psychiatric: No depression symptoms, No anhedonism, No anxiety, No insomnia, No substance abuse Heme: No abnormal bleeding/bruising, No clotting problems, No swollen lymph nodes, No night sweats Skin: No rash, No itch, No new/changing skin lesions, No color change, No bleeding Physical Exam 2 Vital Signs (Past 24 Hours): Last Vital Signs Temp 36.8 C 04/24/18 07:48 Pulse 85 04/24/18 07:48 Resp 18 04/24/18 07:48 BP 128/73 04/24/18 07:48 Pulse Ox 94 04/24/18 07:48 Physical Exam: General Appearance: Pleasant, conversational, generally continue looks marcus, WD /WN, no apparent distress, Eyes: normal inspection, PERRL, EOMI, sclerae normal ENT: normal ENT inspection, hearing grossly normal, pharynx normal Neck: supple, no adenopathy, thyroid normal, no JVD, no carotid bruits, trachea midline Respiratory/Chest: chest non-tender, normal breath sounds, no respiratory distress, no accessory muscle use, breath sounds, rales, wheezing Cardiovascular: regular rate, rhythm, no JVD, no murmur Abdomen: normal bowel sounds, non tender, soft, no organomegaly, Extremities: normal range of motion, non-tender, normal inspection, trace pedal edema, no calf tenderness, normal capillary refill, pelvis stable, Neurologic/Psychiatric: 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
[2018-04-24] MEDS: POTASSIUM CHLORIDE / WTR 10 MEQ/100 ML PLCT IV SCH ×2 (09:51→11:46)
[2018-04-25] MEDS: PIPERACILLIN/TAZOBACTAM 3.375 GM in DEXTROSE 5% 100 ML IV SCH (01:58)
[2018-04-25 06:09] LABS: Basophils # (auto) 0.02 K/uL (0-0.2); Basophils % (auto) 0.4 %; Eosinophils # (auto) 0.24 K/uL (0-0.5); Eosinophils % (auto) 5.1 %; Hematocrit (blood only) 36.5 % (37-47); Hemoglobin 11.8 g/dL (12.0-16.0); Lymphocytes # (auto) 0.75 K/uL (1.2-3.4); Lymphocytes % (auto) 15.9 %; Mean Corpuscular Hgb Conc 32.3 g/dL (32-36); Mean Corpuscular Volume 91.5 fL (80-100); Mean Platelet Volume 9.5 fL (7.4-10.4); Monocytes # (auto) 0.42 K/uL (0.11-0.59); Monocytes % (auto) 8.9 %; Neutrophils % (auto) 69.7 %; Platelet Count 129 K/uL (130-400); RDW Coefficient of Variation 14.8 % (11.5-14.5); Red Blood Count 3.99 M/uL (4.2-5.4); White Blood Count 4.73 K/uL (4.8-10.8)
[2018-04-25] MEDS: LEVOTHYROXINE SODIUM 50 MCG TABLET PO SCH (06:23)
[2018-04-25 06:43] LABS: BUN Creatinine Ratio 8.9 (10-20); Calcium 9.1 mg/dl (8.5-10.1); Creatinine Clr Calc Pharmacy 23.2 ml/min; Est GFR (African American) 42.7; Est GFR (Non-African American) 36.8; Magnesium 2.1 mg/dl (1.8-2.4); Potassium 3.4 mmol/L (3.5-5.1)
[2018-04-25 06:52] LABS: Phosphorus 1.4 mg/dl (2.5-4.9)
[2018-04-25] MEDS ORDERED: POTASSIUM PHOS 3 MMOL/1 ML INFUSION IV STA (07:36)
[2018-04-25] MEDS ORDERED: POTASSIUM PHOSPHATE 21 MMOL in SODIUM CHLORIDE 0.9% 500 ML IV ONE (08:00)
[2018-04-25] MEDS: METOPROLOL TARTRATE 25 MG TAB PO SCH (08:03)
[2018-04-25] MEDS: GABAPENTIN 100 MG CAP PO SCH ×2 (08:03→13:24)
[2018-04-25] MEDS: TELMISARTAN 40 MG TAB PO SCH (08:03)
[2018-04-25] MEDS: PANTOprazole 40 MG TAB PO SCH (08:03)
[2018-04-25] MEDS: MAGNESIUM OXIDE 400 MG TAB PO SCH (08:03)
[2018-04-25] MEDS: APIXABAN 5 MG TABLET PO SCH (08:05)
[2018-04-25] MEDS ORDERED: cloNIDine HCl 0.1 MG TAB PO SCH (09:00)
[2018-04-25] MEDS ORDERED: POTASSIUM CHLORIDE 10 MEQ TABCR PO SCH (09:00)
[2018-04-25] MEDS ORDERED: CYANOCOBALAMIN 1000 MCG/ML VIAL IM SCH (09:00)
[2018-04-25] MEDS: POTASSIUM CHLORIDE 20 MEQ TABCR PO SCH (10:33)
[2018-04-25 14:13] LABS: BUN Creatinine Ratio 8.4 (10-20); Calcium 8.7 mg/dl (8.5-10.1); Creatinine Clr Calc Pharmacy 24.9 ml/min; Est GFR (African American) 46.4; Magnesium 2.1 mg/dl (1.8-2.4); Potassium 3.8 mmol/L (3.5-5.1)
--- NOTE | 2018-04-25 14:59 | Discharge Summary ---
Date of Service April 25, 2018 Admission HPI Per Admitting Provider The patient is an 82-year-old female most recently admitted to [facility] from April 16 - April 17 for pancreatitis and canal of vein thrombosis. She reports that she had no pain when discharged, and did well until this morning, when she began to develop recurrent abdominal pain, now worse than previous admission, and came to the emergency department for assessment. She does have intermittent nausea, but denies vomiting. She was able to eat toast this morning for breakfast, but has eaten a little since discharge. She is also had significantly decreased oral intake of liquids as well. She has not had any recent travels or sick exposures. Principal Diagnosis 35 Discharge Data Allergies Allergy/AdvReac Type Severity Reaction Status Date / Time Cipro Allergy Intermediate RASH, Verified 09/03/17 07:28 ITCHING ciprofloxacin Allergy Intermediate RASH, Verified 04/16/18 13:46 ITCHING latex Allergy Unknown REDNESS Verified 04/16/18 13:46 shellfish derived Allergy Unknown HIVES Verified 04/16/18 13:46 Sulfa (Sulfonamide Allergy Unknown RASH Verified 04/16/18 13:46 Antibiotics) aspirin AdvReac Severe Gastrointestinal Verified 04/21/18 08:23 Upset levofloxacin AdvReac Severe DIZZINESS, Verified 04/16/18 13:46 MYALGIA doxycycline AdvReac Unknown HEADACHE Verified 04/16/18 13:46 Consultations 04/19/18 23:59 ED Decision to Admit Stat 04/20/18 02:21 Consult Case Management - Discharge Planning Routine 04/20/18 08:19 Consult Gastroenterology Routine Ordered Studies 04/19/18 22:53 CT abd pelvis IV con only Urgent 04/20/18 01:00 US abdomen limited Urgent Hospital Course (1) Recurrent acute pancreatitis: (2) Dilation of common bile duct: (3) Thrombosis of ovarian vein: (4) Hypertension: (5) Chronic obstructive pulmonary disease: 82-year-old female admitted on April 20, 2018 because of recurrent pancreatitis , her most recently admitted to [facility] from April 16 - April 17 for pancreatitis and ovarian vein thrombosis. Recurrent acute pancreatitis: Stable improving hx of Prior cholecystectomy denies ETOH, tobacco uses. TG 300s trends down to normal range Lipase continue to drop Is been tolerate diet, continue PPI, and antibiotic, no ERCP now, possible need to be done in 2-[address] of abdomen and pelvis shows dilated common bile duct up to 12 mm. US reviewed: 1. Dilated common bile duct with moderate intrahepatic biliary ductal dilation, progressed from comparison CT 04/16/2018 concerning for obstructing biliary lesion. Correlation with ERCP recommended. Thrombosis of ovarian vein: Continue to Eliquis Hypertension, COPD, stable continue current care, GI DVT prophylaxis covered, Increase activity PTOT In summary, most important things in this admission: recurrent acute pancreatitis: Stable improving, need to have ERCP with [facility] in 3-4 week , Thrombosis of ovarian vein need to Continue to Eliquis , need to eat balanced food potassium rich diet, need to follow up with your primary care physician in 1 week, labs of bmp, mag, phos in the follow up visit. Subjective upon discharge: Feeling good, no pain, pleasant, tolerate diet, walking in the hallway Review of Systems Constitutional: Positive weakness, or fatigue Respiratory: no cough, sputum, wheezing, or dyspnea on exertion Cardiac: No chest pain, No orthopnea, No PND, No claudication, No palpitations , Abdomen: Mild pain, No nausea, No vomiting, No diarrhea, Musculoskeletal: No joint pain, No muscle pain, No swelling, No calf pain, No problem reported : No dysuria, No urinary frequency, No incontinence, No hematuria Neurologic: No paralysis, No weakness, No numbness/tingling, No vertigo, No balance problems Psychiatric: No depression symptoms, No anhedonism, No anxiety, No insomnia, No substance abuse Heme: No abnormal bleeding/bruising, No clotting problems, No swollen lymph nodes, No night sweats Skin: No rash, No itch, No new/changing skin lesions, No color change, No bleeding Physical Exam General Appearance: Pleasant, conversational, generally continue looks marcus, WD /WN, no apparent distress, Eyes: normal inspection, PERRL, EOMI, sclerae normal ENT: normal ENT inspection, hearing grossly normal, pharynx normal Neck: supple, no adenopathy, thyroid normal, no JVD, no carotid bruits, trachea midline Respiratory/Chest: chest non-tender, normal breath sounds, no respiratory distress, no accessory muscle use, breath sounds, rales, wheezing Cardiovascular: regular rate, rhythm, no JVD, no murmur Abdomen: normal bowel sounds, non tender, soft, no organomegaly, Extremities: normal range of motion, non-tender, normal inspection, trace pedal edema, no calf tenderness, normal capillary refill, pelvis stable, Neurologic/Psychiatric: 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, no motor/sensory deficits, alert, normal mood/affect, oriented x 3 Skin: normal color, warm/dry, no rash Lymphatic: no adenopathy Lab data upon discharge today Laboratory Results - last 24 hr 04/25/18 04/25/18 04/25/18 05:49 05:49 13:46 WBC 4.73 L RBC 3.99 L Hgb 11.8 L Hct 36.5 L MCV 91.5 MCH 29.6 MCHC 32.3 RDW Std Deviation 50.0 H RDW Coeff of Martine 14.8 H Plt Count 129 L MPV 9.5 Immature Gran % (Auto) 0.0 Neut % (Auto) 69.7 Lymph % (Auto) 15.9 [place] % (Auto) 8.9 Eos % (Auto) 5.1 Baso % (Auto) 0.4 Immature Gran # (Auto) 0.00 Neut # (Auto) 3.30 Lymph # (Auto) 0.75 L [place] # (Auto) 0.42 Eos # (Auto) 0.24 Baso # (Auto) 0.02 Sodium 146 H 142 Potassium 3.4 L D 3.8 Chloride 114 H 111 H Carbon Dioxide 28 27 Anion Gap 4.0 4.0 BUN 12 D 11 Creatinine 1.34 H 1.25 H Est Cr Clr Drug Dosing 23.2 24.9 Est GFR ( Amer) 42.7 46.4 Est GFR (Non-Af Amer) 36.8 40.0 BUN/Creatinine Ratio 8.9 L 8.4 L Glucose 138 H 141 H Calcium 9.1 8.7 Phosphorus 1.4 L* 3.0 D Magnesium 2.1 2.1 Total Time Total Time Spent Total Time Spent (In Minutes): 35 Discharge Plan Discharge Items Patient Disposition: Home - Self-Care Reason For Visit: PANCREATITIS Discharge Diagnosis: Recurrent acute pancreatitis Discharge Goals: Decrease discomfort, Diagnostic testing, Improve function and Increase independence Activity: Resume your previous activity Non-emergency contact: Primary Care Provider Call non-emergency contact if: you have any medication questions Follow-up/Referrals: Yolande Kingsley MD [Primary Care Provider] - 04/29/18 2:00 pm (Please, follow up with Dr. Yolande Kingsley on SaturdayApril 29 at 2:00 pm. *If you need to change this appointment, call the office at [phone].) Kaylene Betancourt [Nurse Practitioner] - 05/19/18 11:45 am (Please, follow up at [facility] with Kaylene ONEILL on SaturdayMay 19 at 11:45 am. *This office is located in [facility] at [address] in [place]. If you have any questions, call the office at [phone].) Diet: Low Fat Addtl Provider Instructions: you have Recurrent acute pancreatitis: Stable improving you need to have ERCP now with [facility] in 3-4 week you have Thrombosis of ovarian vein need to Continue to Eliquis you need to eat balanced food potassium rich diet, you need to follow up with your primary care physician in 1 week, labs of bmp, mag, phos in the follow up visit - take medication as instructed, never overdose or any misuse, or take with alcohol, because misuse of medicine may cause organ damage or , call me , or your primary care physician if have questions of discharge medicaitons. - call your primary care physician, or go to local emergency room if has any fever/chill, chest pain, shortness of breathing, nausea/vomiting/abdominal pain , facial droop/slurry speech/local weakness, or if has any questions. - fall precaution - diet as instructed - you need to follow up with your subspecialist, such as Dr. Mckeon GI Prescriptions: New magnesium oxide 400 mg (241.3 mg magnesium) Tablet 400 mg PO BID 7 Days Qty: 14 RF: 0 Continue potassium chloride 10 mEq Capsule, Extended Release 20 meq PO DAILY RF: 0 clonidine HCl 0.1 mg Tablet 0.2 mg PO QAM RF: 0 alendronate [Fosamax] 70 mg Tablet 1 tab PO WK RF: 0 lorazepam 0.5 mg Tablet 0.5 mg PO TID PRN (Reason: Anxiety) RF: 0 pantoprazole 40 mg Tablet,Delayed Release (Dr/Ec) 40 mg PO BID RF: 0 cyanocobalamin (vitamin B-12) 1,000 mcg/mL Solution 1,000 mcg IM MONTHLY RF: 0 gabapentin 100 mg Capsule 2 tab PO TID RF: 0 albuterol sulfate 90 mcg/actuation Hfa Aerosol Inhaler 2 puff INHALATION Q6H PRN (Reason: Shortness Of Breath) RF: 0 levothyroxine 50 mcg Tablet 50 mcg PO QAM RF: 0 telmisartan 40 mg Tablet 40 mg PO BID RF: 0 metoprolol tartrate 25 mg Tablet 25 mg PO BID RF: 0 clonidine HCl 0.2 mg Tablet 0.6 mg PO QPM RF: 0 oxycodone 5 mg Tablet 5 mg PO BID PRN (Reason: Pain) RF: 0 metoprolol tartrate 25 mg Tablet 25 mg PO DIRECTED PRN (Reason: Palpitations) RF: 0 apixaban 5 mg tablet See Label Instructions .ROUTE .COMPLEX Qty: 74 RF: 0 Visit Report Forms: [facility] Stand-Alone Forms: [facility] Discharge Orders: Discharge Order (Routine); Ordered 04/25/18 Ordered By: Kenneth Hernández Admission Data Admit Date/Time: 04/20/18 08:19 Attending Provider: Kenneth Hernández Admit Provider: Crow Carrasco Primary Care Provider: Yolande Kingsley Other Providers: Buster Valles ; Celena Downing Service: Medical Other Interventions: Discharge Summary Assessment (RN) Last Done: 04/25/18 13:37
== END 2018-04-25 15:39 | disposition home or self-care (01) | DRG 439 ==
LOC: 4E 21:33 → ED 21:33 → SUATTDRO 04-20 01:00 → 4E 04-20 01:43 → SUATTDRO 04-20 08:19 → 4E 04-21 19:21

== ENCOUNTER 2021-02-19 22:14 | Inpatient (IN) ==
--- NOTE | 2021-02-19 22:51 | Emergency Department Note ---
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 Patient states he was in her bathroom and turned and lost her balance and fell backwards. Denies striking her head or loss of conscious. Denies headache or dizziness currently. Denies any neck pain, chest pain, shortness of breath, or abdominal pain. Point pain in right hip and was unable to get up. Able to call for her quickly was not on the floor for any significant mount of time. Patient has been unable to walk due to pain in the right hip denies injury to the right knee or lower leg. Patient denies injury to her left leg. Patient received some Zofran and fentanyl prior to arrival for pain the patient states she is fairly comfortable at this point. Patient did take her Eliquis this evening. REVIEW OF SYSTEMS: A total of 10 review of systems was obtained and negative except as stated above in the HPI. PAST MEDICAL HISTORY: As noted above MEDICATIONS: Reviewed home medications SOCIAL HISTORY: lives at home with , Former smoker PHYSICAL EXAM: GENERAL: alert and oriented in no acute distress on stretcher Head: normocephalic and atraumatic EYES: No injection, discharge or icterus. PERRL NECK: Trachea midline. Supple without posterior midline tenderness ENT: Mucous membranes pink and moist. LUNGS: Airway patent. No retractions. Breath sounds clear HEART: Regular rate and rhythm. No chest wall tenderness ABDOMEN: Soft and non-tender, without guarding or rebound. SKIN: Acyanotic, warm, dry EXTREMITIES: Without swelling, tenderness or deformity EXCEPT for some mildly healed bruising on the dorsum of the right hand without significant tenderness or crepitus as well as pain in the right hip with any ROM or movement. The right leg is slightly shortened and externally rotated but 1+ right pulses pre sent and she has intact sensation of the right foot. NEUROLOGICAL: No focal deficits other than pain limitations at the right hip for movement. No aphasia. No facial droop or slurred speech. EK bpm sinus bradycardia. LVH with lateral T wave inversions. QTC 410. CONTINUOUS CARDIAC MONITORING: was ordered and showed a heart rate of 50s to 70sbpm in normal sinus rhythm to sinus bradycardia GCS 15. 1 view chest x-ray per my interpretation: No evidence of pneumothorax or pneumonia with no significant pleural effusions. No focal infiltrate concerning for pneumonia. 2 view right hip with pelvis shows evidence of mildly displaced intertrochanteric right hip fracture with intact hardware in the left hip. No evidence of obvious pelvis or acetabular fracture. No dislocation. Patient's laboratory studies and imaging reviewed. Differential includes Fracture, dislocation, contusion, intra-abdominal, pneumothorax, intrathoracic, intracranial, neurologic, compartment syndrome, rhabdomyolysis, as well as other pathologies. IMPRESSION/MEDICAL DECISION MAKING: Patient suffered what sounds to be mechanical fall. Clinical exam very concerning for right hip fracture. Given anticoagulation and possible question of striking her head while she is nonsymptomatic CT the head was completed. Doubt any cervical spine injury. Chest x-ray obtained as well as basic labs and EKG but no other significant stigmata of trauma on the patient. Nonspecific mild leukocytosis of 12.6 is likely reactive she denies infectious symptoms and is afebrile here. Lu catheter was placed. Basic blood work shows mild chronic CKD. X-ray of the hip shows evidence of fracture. Patient informed. Given some IV Tylenol for pain. Patient had prior orthopedic surgery on the left side by Dr. Myrick. Discussed with Ortho on-call for the group Dr. Doyle. Hospitalist be consulted for admission. DIAGNOSIS: Fall, right hip fracture DISPOSITION: Hospitalist will evaluate Patient was agreeable with this plan. Preliminary Findings Only See Final Report For Complete Findings CT HEAD: Comparison to February 17, 2014. Mild periventricular white matter low density consistent with chronic small vessel disease, increased since previous. There is no evidence of acute large vessel infarct or intracranial hemorrhage. The paranasal sinuses and mastoid air cells are normal. No skull fracture or significant scalp hematoma is identified. Jefry Doyle MD Past Med/Surg History Medical History Adenocarcinoma of lung (~2009) Allergic rhinitis Carotid artery stenosis, asymptomatic Chronic cystitis Chronic kidney disease, stage 3a Chronic obstructive pulmonary disease Chronic pain syndrome Crohns disease Depression with anxiety Disc degeneration, lumbar Essential hypertriglyceridemia GERD (gastroesophageal reflux disease) Hearing deficit History of ischemic colitis Hyperlipidemia Hyperparathyroidism Hypertension Hypothyroidism Impaired fasting glucose LVH (left ventricular hypertrophy) Multiple lung nodules on CT Nocturnal leg cramps Nontoxic multinodular goiter Osteoarthritis Osteoporosis PAD (peripheral artery disease) Peripheral neuropathy Pernicious anemia Secondary hyperparathyroidism SNHL (sensorineural hearing loss) 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 Tinnitus Vitamin B 12 deficiency Vitamin D deficiency Surgical History History of bowel resection History of cataract surgery (~10/01/13) History of cholecystectomy History of colonoscopy History of ERCP (~03/15/11) History of esophagogastroduodenoscopy (EGD) History of hip surgery History of lobectomy of lung (~09/2009) History of open reduction and internal fixation (ORIF) procedure (~09/24/16) History of tooth extraction Family History (Updated 02/08/21 @ 14:42 by Kenisha Griggs MA) Mother Lung cancer Hypertension Hearing loss Father Cardiac disorder Coronary arteriosclerosis Coronary heart disease Sister Hypertension Brother Hypertension Son Cardiac disorder Denies family history of Ovarian cancer Prostate cancer Adverse anesthesia outcome Sinusitis Bleeding disorder Colorectal cancer Stroke Asthma Social History (Updated 02/08/21 @ 14:41 by Kenisha Griggs MA) Smoking Status: Former smoker Age Started Using Tobacco: 24; Age Quit Using Tobacco: 76; packs per day: 1; Cigarettes Per Day: 20; Second Hand Exposure: No; Hx Alcohol Use: No Hx Substance Use: No Preferred Language: Zambian Communication Ability: Effective Hearing Ability: Use of Hearing Aid [employer] Required: No marital status: Current Living Situation: Spouse current occupational status: retired Feels Safe at Home: Yes Diet Comment: chron's Dental Care, Regularly: No Physical Activity Frequency: Daily Physical Activity Frequency Comment: walk Seatbelt Use: always Sunscreen Use: No Assistive Devices: Cane and Glasses Allergies Allergies Allergy/AdvReac Type Severity Reaction Status Date / Time Cipro Allergy Intermediate RASH, Verified 09/03/17 07:28 ITCHING ciprofloxacin Allergy Intermediate RASH, Verified 02/20/21 00:27 ITCHING latex Allergy Unknown REDNESS Verified 02/20/21 00:27 Sulfa (Sulfonamide Allergy Unknown RASH Verified 02/20/21 00:27 Antibiotics) aspirin AdvReac Severe Gastrointestinal Verified 02/20/21 00:27 Upset levofloxacin AdvReac Severe DIZZINESS, Verified 02/20/21 00:27 MYALGIA doxycycline AdvReac Unknown HEADACHE Verified 02/20/21 00:27 Ceftin TABS Allergy Unknown Unknown Uncoded 02/20/21 00:27 Levaquin TABS Allergy Unknown Unknown Uncoded 02/20/21 00:27 Macrobid CAPS Allergy Unknown Unknown Uncoded 02/20/21 00:27 Home Meds Home Medications Medication Instructions Recorded Confirmed cyanocobalamin (vitamin B-12) 1,000 mcg IM MONTHLY 12/24/17 02/20/21 1,000 mcg/mL injection solution cholecalciferol (vitamin D3) 125 125 mcg PO DAILY 08/08/20 02/20/21 mcg (5,000 unit) capsule Previous Rx's Medication Instructions Recorded clonidine HCl 0.1 mg tablet 0.3 mg PO BID #540 tab 06/03/19 colestipol 1 gram tablet 2 gm PO BID #360 tab 06/03/19 furosemide 20 mg tablet (Lasix) 20 mg PO DAILY PRN #30 tab 12/18/19 ipratropium bromide 21 mcg (0.03 2 spray INTRANASAL TID #30 ml 01/05/20 %) nasal spray telmisartan 40 mg tablet 40 mg PO BID #60 tab 05/04/20 pantoprazole 40 mg tablet,delayed 40 mg PO DAILY #90 tab 06/09/20 release (Protonix) gabapentin 100 mg capsule 200 mg PO BID #360 cap 06/15/20 amlodipine 10 mg tablet 10 mg PO DAILY #90 tab 06/20/20 oxycodone 5 mg tablet 5 mg PO BID PRN #60 tab 08/03/20 potassium chloride 10 mEq 20 meq PO DAILY #180 cap 08/03/20 capsule,extended release apixaban 5 mg tablet (Eliquis) 5 mg PO BID #10 tab 08/08/20 diclofenac sodium 1 % topical gel 4 g TOP QID #400 g 08/30/20 albuterol sulfate 90 mcg/actuation 2 puff INH .COMPLEX PRN #25.5 gm 09/28/20 aerosol inhaler (ProAir HFA) mesalamine 500 mg 1,000 mg PO BID #120 cap 10/18/20 capsule,controlled release (Pentasa) levothyroxine 50 mcg tablet 50 mcg PO QAM #90 tab 10/28/20 metoprolol tartrate 50 mg tablet 50 mg PO Q12H #220 tab 11/30/20 meclizine 12.5 mg tablet 12.5 mg PO TID PRN #30 tab 01/26/21 lorazepam 0.5 mg tablet 0.5 mg PO TID PRN #90 tab 02/08/21 azithromycin 250 mg tablet See Rx Instructions PO .COMPLEX #6 02/17/21 tab Results & Data (ED) Vital Signs Vital Signs - 24 hr 02/19/21 22:16 02/19/21 23:14 02/20/21 00:29 Temperature 37.0 C Temperature Source Oral Pulse Rate 55 L Pulse Rate [Finger] 55 L 66 63 Pulse Rhythm [Finger] Regular Pulse Strength [Finger] Normal Respiratory Rate 20 19 18 Respiratory Effort / Characteristics Non-Labored Non-Labored Non-Labored Spontaneous Respiratory Depth Normal Normal Normal Respiratory Pattern Regular Regular Blood Pressure 179/81 H Blood Pressure [Right Arm] 179/81 H 147/67 H 136/70 Blood Pressure Mean 113 Blood Pressure Mean [Right Arm] 113 93 92 Blood Pressure Position Lying Blood Pressure Position [Right Arm] Lying Lying Pulse Oximetry 93 92 95 Oxygen Delivery Method Room Air Room Air Room Air Sepsis Recent Fever Within 48 Hours No Sepsis New/Unexplained Change in Mental Status N/A Sepsis Action Taken by Nursing No Action Required Laboratory Data Result diagrams: 02/19/21 22:39 02/19/21 22:39 Lab Results 02/19/21 02/19/21 02/19/21 Range/Units 22:39 22:39 22:39 WBC 12.62 H (4.8-10.8) K/uL RBC 4.29 (4.2-5.4) M/uL Hgb 13.2 (12.0-16.0) g/dL Hct 39.9 (37-47) % MCV 93.0 (80-100) fL MCH 30.8 (25-34) pg MCHC 33.1 (32-36) g/dL RDW Std Deviation 46.3 (36.4-46.3) fL RDW Coeff of Martine 13.8 (11.5-14.5) % Plt Count 184 (130-400) K/uL MPV 9.4 (7.4-10.4) fL Immature Gran % (Auto) 0.6 % Neut % (Auto) 86.1 % Lymph % (Auto) 5.9 % [place] % (Auto) 6.3 % Eos % (Auto) 1.0 % Baso % (Auto) 0.1 % Neut # (Auto) 10.86 H (1.4-6.5) K/uL Lymph # (Auto) 0.75 L (1.2-3.4) K/uL [place] # (Auto) 0.79 H (0.11-0.59) K/uL Eos # (Auto) 0.13 (0-0.5) K/uL Baso # (Auto) 0.01 (0-0.2) K/uL Immature Gran # (Auto) 0.08 H (0.00-0.02) K/uL PT 10.3 (9.0-12.0) Seconds INR 1.0 (0.9-1.1) APTT 24.7 (21.0-31.0) Seconds PTT Ratio 0.9 Sodium 141 (136-145) mmol/L Potassium 4.0 (3.5-5.1) mmol/L Chloride 111 H (98-107) mmol/L Carbon Dioxide 22 (21-32) mmol/L Anion Gap 8.0 (3-11) BUN 22 H (7-18) mg/dl Creatinine 1.31 H (0.6-1.2) mg/dl Est Cr Clr Drug Dosing 22.6 ml/min Est GFR ( Amer) 42.9 ml/min Est GFR (Non-Af Amer) 37.0 ml/min BUN/Creatinine Ratio 16.8 (10-20) Glucose 187 H (70-99) mg/dl Calcium 10.0 (8.5-10.1) mg/dl Total Bilirubin 0.3 (0.2-1) mg/dl AST 13 L (15-37) U/L ALT 20 (12-78) U/L Alkaline Phosphatase 88 (45-117) U/L Total Protein 6.7 (6.4-8.2) gm/dl Albumin 3.3 L (3.4-5.0) gm/dl Globulin 3.4 (2.5-4.0) gm/dl Albumin/Globulin Ratio 1.0 (0.9-2) Urine Color Urine Appearance (Clear) Urine pH (4.5-7.5) Ur Specific [place] (1.000-1.030) Urine Protein (Negative) Urine Glucose (UA) (Negative) Urine Ketones (Negative) Urine Blood (Negative) Urine Nitrite (Negative) Urine Bilirubin (Negative) Urine Urobilinogen (Negative) Ur Leukocyte Esterase (Negative) Urine WBC (Auto) (0-5) /hpf Urine RBC (Auto) (0-4) /hpf U Hyaline Cast (Auto) (0-5) /lpf U Epithel Cells (Auto) (0-5) /lpf Urine Bacteria (Auto) (Negative) COVID-19 Eval Order SARS-CoV-2 (PCR) (Negative) Blood Type Antibody Screen 02/19/21 02/19/21 02/19/21 Range/Units 22:44 22:44 23:15 WBC (4.8-10.8) K/uL RBC (4.2-5.4) M/uL Hgb (12.0-16.0) g/dL Hct (37-47) % MCV (80-100) fL MCH (25-34) pg MCHC (32-36) g/dL RDW Std Deviation (36.4-46.3) fL RDW Coeff of Martine (11.5-14.5) % Plt Count (130-400) K/uL MPV (7.4-10.4) fL Immature Gran % (Auto) % Neut % (Auto) % Lymph % (Auto) % [place] % (Auto) % Eos % (Auto) % Baso % (Auto) % Neut # (Auto) (1.4-6.5) K/uL Lymph # (Auto) (1.2-3.4) K/uL [place] # (Auto) (0.11-0.59) K/uL Eos # (Auto) (0-0.5) K/uL Baso # (Auto) (0-0.2) K/uL Immature Gran # (Auto) (0.00-0.02) K/uL PT (9.0-12.0) Seconds INR (0.9-1.1) APTT (21.0-31.0) Seconds PTT Ratio Sodium (136-145) mmol/L Potassium (3.5-5.1) mmol/L Chloride (98-107) mmol/L Carbon Dioxide (21-32) mmol/L Anion Gap (3-11) BUN (7-18) mg/dl Creatinine (0.6-1.2) mg/dl Est Cr Clr Drug Dosing ml/min Est GFR ( Amer) ml/min Est GFR (Non-Af Amer) ml/min BUN/Creatinine Ratio (10-20) Glucose (70-99) mg/dl Calcium (8.5-10.1) mg/dl Total Bilirubin (0.2-1) mg/dl AST (15-37) U/L ALT (12-78) U/L Alkaline Phosphatase (45-117) U/L Total Protein (6.4-8.2) gm/dl Albumin (3.4-5.0) gm/dl Globulin (2.5-4.0) gm/dl Albumin/Globulin Ratio (0.9-2) Urine Color Urine Appearance (Clear) Urine pH (4.5-7.5) Ur Specific [place] (1.000-1.030) Urine Protein (Negative) Urine Glucose (UA) (Negative) Urine Ketones (Negative) Urine Blood (Negative) Urine Nitrite (Negative) Urine Bilirubin (Negative) Urine Urobilinogen (Negative) Ur Leukocyte Esterase (Negative) Urine WBC (Auto) (0-5) /hpf Urine RBC (Auto) (0-4) /hpf U Hyaline Cast (Auto) (0-5) /lpf U Epithel Cells (Auto) (0-5) /lpf Urine Bacteria (Auto) (Negative) COVID-19 Eval Order Covid19 at [facility] SARS-CoV-2 (PCR) NEGATIVE (Negative) Blood Type B Negative Antibody Screen NEGATIVE 02/19/21 Range/Units 23:44 WBC (4.8-10.8) K/uL RBC (4.2-5.4) M/uL Hgb (12.0-16.0) g/dL Hct (37-47) % MCV (80-100) fL MCH (25-34) pg MCHC (32-36) g/dL RDW Std Deviation (36.4-46.3) fL RDW Coeff of Martine (11.5-14.5) % Plt Count (130-400) K/uL MPV (7.4-10.4) fL Immature Gran % (Auto) % Neut % (Auto) % Lymph % (Auto) % [place] % (Auto) % Eos % (Auto) % Baso % (Auto) % Neut # (Auto) (1.4-6.5) K/uL Lymph # (Auto) (1.2-3.4) K/uL [place] # (Auto) (0.11-0.59) K/uL Eos # (Auto) (0-0.5) K/uL Baso # (Auto) (0-0.2) K/uL Immature Gran # (Auto) (0.00-0.02) K/uL PT (9.0-12.0) Seconds INR (0.9-1.1) APTT (21.0-31.0) Seconds PTT Ratio Sodium (136-145) mmol/L Potassium (3.5-5.1) mmol/L Chloride (98-107) mmol/L Carbon Dioxide (21-32) mmol/L Anion Gap (3-11) BUN (7-18) mg/dl Creatinine (0.6-1.2) mg/dl Est Cr Clr Drug Dosing ml/min Est GFR ( Amer) ml/min Est GFR (Non-Af Amer) ml/min BUN/Creatinine Ratio (10-20) Glucose (70-99) mg/dl Calcium (8.5-10.1) mg/dl Total Bilirubin (0.2-1) mg/dl AST (15-37) U/L ALT (12-78) U/L Alkaline Phosphatase (45-117) U/L Total Protein (6.4-8.2) gm/dl Albumin (3.4-5.0) gm/dl Globulin (2.5-4.0) gm/dl Albumin/Globulin Ratio (0.9-2) Urine Color Yellow Urine Appearance Clear (Clear) Urine pH 5.0 (4.5-7.5) Ur Specific [place] 1.021 (1.000-1.030) Urine Protein 1+ H (Negative) Urine Glucose (UA) Negative (Negative) Urine Ketones Negative (Negative) Urine Blood Negative (Negative) Urine Nitrite Negative (Negative) Urine Bilirubin Negative (Negative) Urine Urobilinogen Negative (Negative) Ur Leukocyte Esterase Negative (Negative) Urine WBC (Auto) 1-5 (0-5) /hpf Urine RBC (Auto) 0-4 (0-4) /hpf U Hyaline Cast (Auto) 5-10 H (0-5) /lpf U Epithel Cells (Auto) 10-20 H (0-5) /lpf Urine Bacteria (Auto) Negative (Negative) COVID-19 Eval Order SARS-CoV-2 (PCR) (Negative) Blood Type Antibody Screen Administered Medications Discontinued Medications Acetaminophen (Ofirmev) 1,000 mg in 100 mls @ 400 mls/hr IV NOW STA Stop: 02/20/21 00:04 Last Admin: 02/19/21 23:57 Dose: 400 mls/hr Documented by: [id number] Morphine Sulfate (Morphine Sulfate 2 Mg/Ml Carp) 2 mg IV NOW STA Stop: 02/20/21 00:24 Last Admin: 02/20/21 00:27 Dose: 2 mg Documented by: [id number] Discharge Plan Visit Data Chief Complaint: Hip Pain Stated Complaint: FALL ED Provider: Jefry Smith Discharge Problem: Fall, Closed fracture of right hip Patient Disposition: Admitted As Inpatient Forms Stand Alone Forms: [facility] Prescriptions Prescriptions: No Action clonidine HCl 0.1 mg tablet 0.3 mg PO BID Qty: 540 RF: 3 colestipol 1 gram tablet 2 gm PO BID Qty: 360 RF: 3 pantoprazole [Protonix] 40 mg tablet,delayed release (DR/EC) 40 mg PO DAILY Qty: 90 RF: 3 gabapentin 100 mg capsule 200 mg PO BID Qty: 360 RF: 3 Eliquis 5 mg tablet 5 mg PO BID Qty: 10 RF: 2 diclofenac sodium 1 % gel 4 g TOP QID Qty: 400 RF: 3 levothyroxine 50 mcg tablet 50 mcg PO QAM Qty: 90 RF: 3 meclizine 12.5 mg tablet 12.5 mg PO TID PRN (Reason: dizziness) Qty: 30 RF: 5 azithromycin 250 mg tablet See Rx Instructions PO .COMPLEX Qty: 6 RF: 0 ipratropium bromide 0.03 % spray,non-aerosol 2 spray intranasal TID Qty: 30 RF: 2 furosemide [Lasix] 20 mg tablet 20 mg PO DAILY PRN (Reason: edema) Qty: 30 RF: 3 Pentasa 500 mg capsule, extended release 1,000 mg PO BID Qty: 120 RF: 2 metoprolol tartrate 50 mg tablet 50 mg PO Q12H Qty: 220 RF: 3 amlodipine 10 mg tablet 10 mg PO DAILY Qty: 90 RF: 3 telmisartan 40 mg tablet 40 mg PO BID Qty: 60 RF: 0 potassium chloride 10 mEq capsule, extended release 20 meq PO DAILY Qty: 180 RF: 3 oxycodone 5 mg tablet 5 mg PO BID PRN (Reason: Pain) Qty: 60 RF: 0 cholecalciferol (vitamin D3) 125 mcg (5,000 unit) capsule 125 mcg PO DAILY RF: 0 albuterol sulfate [ProAir HFA] 90 mcg/actuation HFA aerosol inhaler 2 puff INH .COMPLEX PRN (Reason: shortness of breath or wheezing) Qty: 25.5 RF: 3 lorazepam 0.5 mg tablet 0.5 mg PO TID PRN (Reason: anxiety) Qty: 90 RF: 0 cyanocobalamin (vitamin B-12) 1,000 mcg/mL Solution 1,000 mcg IM MONTHLY RF: 0 Referrals Referrals: Yolande Kingsley MD [Primary Care Provider] -
[2021-02-19 22:52] LABS: Basophils # (auto) 0.01 K/uL (0-0.2); Basophils % (auto) 0.1 %; Eosinophils # (auto) 0.13 K/uL (0-0.5); Hematocrit (blood only) 39.9 % (37-47); Hemoglobin 13.2 g/dL (12.0-16.0); Immature Granulocytes # (auto) 0.08 K/uL (0.00-0.02); Immature Granulocytes % (auto) 0.6 %; Lymphocytes # (auto) 0.75 K/uL (1.2-3.4); Lymphocytes % (auto) 5.9 %; Mean Corpuscular Hemoglobin 30.8 pg (25-34); Mean Corpuscular Hgb Conc 33.1 g/dL (32-36); Mean Platelet Volume 9.4 fL (7.4-10.4); Monocytes # (auto) 0.79 K/uL (0.11-0.59); Monocytes % (auto) 6.3 %; Neutrophils # (auto) 10.86 K/uL (1.4-6.5); Neutrophils % (auto) 86.1 %; Platelet Count 184 K/uL (130-400); RDW Coefficient of Variation 13.8 % (11.5-14.5); RDW Standard Deviation 46.3 fL (36.4-46.3); Red Blood Count 4.29 M/uL (4.2-5.4); White Blood Count 12.62 K/uL (4.8-10.8)
[2021-02-19 23:03] LABS: Partial Thromboplastin Ratio 0.9; Partial Thromboplastin Time 24.7 Seconds (21.0-31.0); Prothrombin Time 10.3 Seconds (9.0-12.0)
[2021-02-19 23:10] LABS: Albumin Level 3.3 gm/dl (3.4-5.0); BUN Creatinine Ratio 16.8 (10-20); Creatinine Clr Calc Pharmacy 22.6 ml/min; Est GFR (African American) 42.9 ml/min
[2021-02-19 23:13] LABS: Bilirubin,Total 0.3 mg/dl (0.2-1); Globulin 3.4 gm/dl (2.5-4.0); Total Protein 6.7 gm/dl (6.4-8.2)
[2021-02-19] MEDS ORDERED: ACETAMINOPHEN 1,000 MG/100 ML VIAL IV STA (23:50)
[2021-02-20 00:02] LABS: Appearance Urine Clear (Clear); Bacteria Urine Automated Negative (Negative); Bilirubin Urine Negative (Negative); Blood Urine Negative (Negative); Color Urine Yellow; Glucose Urine UA Negative (Negative); Ketones Urine Negative (Negative); Leukocyte Esterase Urine Negative (Negative); Nitrite Urine Negative (Negative); Protein Urine 1+ (Negative); RBC Urine Automated 0-4 /hpf (0-4); Specific Gravity Urine 1.021 (1.000-1.030); Urobilinogen Urine Negative (Negative)
[2021-02-20] MEDS ORDERED: MoRPHine SULFATE 2 MG/ML CARP IV STA (00:23)
[2021-02-20] MEDS ORDERED: oxyCODONE HCL IR 5 MG TAB (IMMEDIATE RELEASE) PO PRN (01:21)
[2021-02-20] MEDS ORDERED: ALBUTEROL HFA 8 GM INHALER INH PRN (01:21)
[2021-02-20] MEDS ORDERED: ONDANSETRON INJ 2 MG/ML 2 ML VIAL IV PRN ×2 (01:21→12:36)
[2021-02-20] MEDS ORDERED: MoRPHine SULFATE 2 MG/ML CARP IV PRN (01:21)
[2021-02-20] MEDS ORDERED: MAGNESIUM HYDROXIDE SUSP 30 ML UDC PO PRN (01:21)
[2021-02-20] MEDS ORDERED: NALOXONE HCL 0.4 MG/1 ML VIAL/CARP IV PRN ×2 (01:21→14:54)
[2021-02-20] MEDS ORDERED: bisacodyL 10 MG SUPP PR PRN (01:21)
[2021-02-20] MEDS ORDERED: ACETAMINOPHEN 1,000 MG/100 ML VIAL IV PRN (01:21)
[2021-02-20] MEDS ORDERED: HYDROmorphone INJ 0.5 MG/0.5 ML SYR IV PRN (01:21)
--- NOTE | 2021-02-20 01:45 | History & Physical Report ---
Date of Service February 20, 2021 Assessment & Plan (1) Closed fracture of right hip: Plan: Mrs. Treviño is an 85 yo woman with a history of osteoporosis and vitamin D deficiency who presented for evaluation of R hip pain after a mechanical fall. - XR showed R femoral neck fracture - ortho consulted placed - Eliquis on hold - RCRI score of 1, class II risk, 6.0% of 30 day risk of , CO or cardiac arrest - Neurovascular checks q4H - incentive spirometry q1hwa - Pain medication regimen: IV tylenol for mild pain, IV morphine for moderate, IV Dilaudid for severe (2) Leukocytosis: Plan: - WBC mildly elevated to 12 with neutrophil predom - UA without evidence of infection - CXR appears WNL (official read pending0 - repeat CBC in am (3) Elevated serum creatinine: Plan: - Cr at 1.3, BUN at 22 - IVF ordered - BMP in am (4) Hypertension: Plan: - LVH noted on EKG, which suggests her BP has been above goal for quite some time - continue home dose amlodipine, telmisartan, and metoprolol tartrate - consider adding additional agent (ie thiazide) vs. changing metoprolol to Carvedilol for augmented BP control (5) Osteoporosis: Plan: - had been started on fosamax in the past but self discontinued - would hold off on restarting bisphosphonate in the setting of an acute fracture (concern for atypical remodeling of bone) - consider resuming fosamax as outpatient after 30 days vs. a different agent such as Prolia - continue vitamin D supplement (6) Thrombosis of ovarian vein: Plan: - Eliquis on hold in anticipation of procedure - heparin gtt started (7) Crohns disease: Plan: - continue home dose mesalamine (8) GERD (gastroesophageal reflux disease): Plan: - continue home dose protonix (9) Hypothyroidism: Plan: - continue home dose Synthroid DVT ppx: AV impulse boots, heparin ggt Diet: NPO Dispo: Med/Surg Code: Full, I discussed with patient Admission and Anticipated Discharge Date Admission Date: February 20, 2021 History of Present Illness Primary Care Provider: Yolande Kingsley MD Mrs. Treviño is an 85 yo woman with a PMHx of osteoporosis and vitamin D deficiency who presented for evaluation of R hip pain after a fall. The fall was mechanical in nature - she bent over to pick something up on the bathroom floor and slipped (it was wet) and fell backwards. She then experienced severe R hip pain; she was unable to get herself up. Her called EMS. She did not strike her head when she fell. 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 She was previously started on Fosamax in the past for osteoporosis- but she self-discontinued it; she is unable to tell me the reason. She had a left hip fracture repair with internal fixation several years ago - this was apparently performed by Dr. Jonathan Barton ([facility]). She also had left knee surgery by Dr. Brock. Social Hx: lives at home with her . No etoh. Former smoker - quit 5-6 years ago. In the ED, she was afebrile with a HR of 53 and BP of 179/81. Her breathing was normal. Her WBC was mildly elevated to 12 with neutrophil predominance. Her CBC was otherwise unremarkable. Coags WNL. Cr .31, BUN at 22. UA not concerning for infection. Trop undetectable. COVID 19 neg. CXR pending. EKG showed sinus aubrey with voltage criteria for LVH with ST segment depressions (although very similar in appearance to previous ekg). Head CT showing no acute abnormalities. Hip XR showing femoral neck fracture on R; hardware on L appears to be intact. She was given 1g Tylenol. Allergies Allergy/AdvReac Type Severity Reaction Status Date / Time Cipro Allergy Intermediate RASH, Verified 09/03/17 07:28 ITCHING ciprofloxacin Allergy Intermediate RASH, Verified 02/20/21 00:27 ITCHING latex Allergy Unknown REDNESS Verified 02/20/21 00:27 Sulfa (Sulfonamide Allergy Unknown RASH Verified 02/20/21 00:27 Antibiotics) aspirin AdvReac Severe Gastrointestinal Verified 02/20/21 00:27 Upset levofloxacin AdvReac Severe DIZZINESS, Verified 02/20/21 00:27 MYALGIA doxycycline AdvReac Unknown HEADACHE Verified 02/20/21 00:27 Ceftin TABS Allergy Unknown Unknown Uncoded 02/20/21 00:27 Levaquin TABS Allergy Unknown Unknown Uncoded 02/20/21 00:27 Macrobid CAPS Allergy Unknown Unknown Uncoded 02/20/21 00:27 Home Medications Medication Instructions Recorded Confirmed Type cyanocobalamin (vitamin B-12) 1,000 mcg IM MONTHLY 12/24/17 02/20/21 History 1,000 mcg/mL injection solution clonidine HCl 0.1 mg tablet 0.3 mg PO BID #540 tab 06/03/19 02/20/21 Rx colestipol 1 gram tablet 2 gm PO BID #360 tab 06/03/19 02/20/21 Rx furosemide 20 mg tablet (Lasix) 20 mg PO DAILY PRN #30 tab 12/18/19 02/20/21 Rx ipratropium bromide 21 mcg (0.03 2 spray INTRANASAL TID #30 ml 01/05/20 02/20/21 Rx %) nasal spray telmisartan 40 mg tablet 40 mg PO BID #60 tab 05/04/20 02/20/21 Rx pantoprazole 40 mg tablet,delayed 40 mg PO DAILY #90 tab 06/09/20 02/20/21 Rx release (Protonix) gabapentin 100 mg capsule 200 mg PO BID #360 cap 06/15/20 02/20/21 Rx amlodipine 10 mg tablet 10 mg PO DAILY #90 tab 06/20/20 02/20/21 Rx oxycodone 5 mg tablet 5 mg PO BID PRN #60 tab 08/03/20 02/20/21 Rx potassium chloride 10 mEq 20 meq PO DAILY #180 cap 08/03/20 02/20/21 Rx capsule,extended release apixaban 5 mg tablet (Eliquis) 5 mg PO BID #10 tab 08/08/20 02/20/21 Rx cholecalciferol (vitamin D3) 125 125 mcg PO DAILY 08/08/20 02/20/21 History mcg (5,000 unit) capsule diclofenac sodium 1 % topical gel 4 g TOP QID #400 g 08/30/20 02/20/21 Rx albuterol sulfate 90 mcg/actuation 2 puff INH .COMPLEX PRN #25.5 gm 09/28/20 02/19/21 Rx aerosol inhaler (ProAir HFA) mesalamine 500 mg 1,000 mg PO BID #120 cap 10/18/20 02/20/21 Rx capsule,controlled release (Pentasa) levothyroxine 50 mcg tablet 50 mcg PO QAM #90 tab 10/28/20 02/20/21 Rx metoprolol tartrate 50 mg tablet 50 mg PO Q12H #220 tab 11/30/20 02/20/21 Rx meclizine 12.5 mg tablet 12.5 mg PO TID PRN #30 tab 01/26/21 02/20/21 Rx lorazepam 0.5 mg tablet 0.5 mg PO TID PRN #90 tab 02/08/21 02/20/21 Rx azithromycin 250 mg tablet See Rx Instructions PO .COMPLEX #6 02/17/21 02/20/21 Rx tab Past Med/Surg History Medical History Adenocarcinoma of lung (~2009) Allergic rhinitis Carotid artery stenosis, asymptomatic Chronic cystitis Chronic kidney disease, stage 3a Chronic obstructive pulmonary disease Chronic pain syndrome Crohns disease Depression with anxiety Disc degeneration, lumbar Essential hypertriglyceridemia GERD (gastroesophageal reflux disease) Hearing deficit History of ischemic colitis Hyperlipidemia Hyperparathyroidism Hypertension Hypothyroidism Impaired fasting glucose LVH (left ventricular hypertrophy) Multiple lung nodules on CT Nocturnal leg cramps Nontoxic multinodular goiter Osteoarthritis Osteoporosis PAD (peripheral artery disease) Peripheral neuropathy Pernicious anemia Secondary hyperparathyroidism SNHL (sensorineural hearing loss) 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 Tinnitus Vitamin B 12 deficiency Vitamin D deficiency Surgical History History of bowel resection History of cataract surgery (~10/01/13) History of cholecystectomy History of colonoscopy History of ERCP (~03/15/11) History of esophagogastroduodenoscopy (EGD) History of hip surgery History of lobectomy of lung (~09/2009) History of open reduction and internal fixation (ORIF) procedure (~09/24/16) History of tooth extraction Family History (Updated 02/08/21 @ 14:42 by Kenisha Griggs MA) Mother Lung cancer Hypertension Hearing loss Father Cardiac disorder Coronary arteriosclerosis Coronary heart disease Sister Hypertension Brother Hypertension Son Cardiac disorder Denies family history of Ovarian cancer Prostate cancer Adverse anesthesia outcome Sinusitis Bleeding disorder Colorectal cancer Stroke Asthma Social History (Updated 02/08/21 @ 14:41 by Kenisha Griggs MA) Smoking Status: Former smoker Age Started Using Tobacco: 24; Age Quit Using Tobacco: 76; packs per day: 1; Cigarettes Per Day: 20; Second Hand Exposure: No; Do You Dip or Chew Tobacco: No; Hx Alcohol Use: No Hx Substance Use: No Preferred Language: Nicaraguan Communication Ability: Effective Hearing Ability: Use of Hearing Aid 3D Designer Required: No Beliefs That Will Affect Care: None marital status: Current Living Situation: Spouse current occupational status: retired Other Information That Helps Us Care for You: No Feels Safe at Home: Yes Safety Concerns: Feels Safe At This Time Diet Comment: chron's Dental Care, Regularly: No Physical Activity Frequency: Daily Physical Activity Frequency Comment: walk Seatbelt Use: always Sunscreen Use: No Assistive Devices: Denture - Upper, Denture - Lower, Glasses and Hearing Aid - Bilateral Review of Systems Review of Systems: All systems reviewed & are unremarkable except as noted in HPI & below Physical Exam Constitutional: well developed, + thin and cooperative; no acute distress Eyes: + anicteric sclerae ENMT: external ear and nose normal, oropharynx normal Ears: + hearing impairment Neck: trachea midline Cardiovascular: Rate/Rhythm: regular rate and regular rhythm Heart Sounds: normal S1, normal S2 and + murmur (systolic ejection ) Extremities: no pedal edema Gastrointestinal (Abdomen): normal bowel sounds, soft, nontender, no hepatosplenomegaly Musculoskeletal: Head/Neck/Chest: normocephalic and head atraumatic Hip: + hip abnormal to inpsection (R hip is externally rotated ) R hip tender to palpation Skin: no rashes, warm and dry Neurologic: moves all extremities Motor/Sensory: no sensory deficit Psychiatric: A+Ox3, euthymic affect Genitourinary: Lu in place, draining pale yellow colored urine Results & Data Results & Data ([facility]) Vital Signs (Past 12 Hours) Vital Signs Temp Pulse Pulse Resp BP BP Pulse Ox 02/20/21 00:29 63 18 136/70 95 02/19/21 23:14 66 19 147/67 H 92 02/19/21 22:16 37.0 C 55 L 55 L 20 179/81 H 179/81 H 93 Code Status & VTE Plan VTE Prophylaxis Plan VTE Prophylaxis will be ordered: Yes Supervising Physician Co-Signing Physician Notes Attending addendum: I have physically seen this patient, have supervised the medical residents activities, and agree with the H&P unless as otherwise noted. Assessment and Plan: Closed right hip fracture- Hold Eliquis, placed on heparin drip is transition Geriatric hip fracture order set Pain regimen is noted Orthopedic surgery consult Hypertension- Continue amlodipine and Toprol tartrate Hold telmisartan due to mild renal insufficiency IV fluids Remaining orders and notations as noted Resident Activity Tracking Resident Involvement: Resident Care Provided Care Provided: Adult Hospital Medicine (1) Hypertension Hypertension type: essential hypertension Qualified Code(s): I10 - Essential (primary) hypertension (2) Closed fracture of right hip Encounter type: initial encounter Qualified Code(s): S72.001A - Fracture of unspecified part of neck of right femur, initial encounter for closed fracture
[2021-02-20] MEDS ORDERED: Heparin IV Adult Wt-Based Standard *NO* Bolus Protocol IV SCH (02:06)
[2021-02-20] MEDS ORDERED: HEPARIN SODIUM/DEXTROSE 25,000 UNITS/500 ML BAG IV SCH (02:30)
[2021-02-20] MEDS: SODIUM CHLORIDE 0.9% 1000ML 1,000 ML IV SCH ×2 (02:38→15:15)
[2021-02-20 04:07] LABS: Basophils # (auto) 0.01 K/uL (0-0.2); Basophils % (auto) 0.1 %; Eosinophils # (auto) 0.01 K/uL (0-0.5); Eosinophils % (auto) 0.1 %; Hematocrit (blood only) 35.2 % (37-47); Hemoglobin 11.8 g/dL (12.0-16.0); Immature Granulocytes # (auto) 0.06 K/uL (0.00-0.02); Immature Granulocytes % (auto) 0.4 %; Lymphocytes % (auto) 4.6 %; Mean Corpuscular Hemoglobin 30.9 pg (25-34); Mean Corpuscular Volume 92.1 fL (80-100); Mean Platelet Volume 9.4 fL (7.4-10.4); Monocytes # (auto) 0.93 K/uL (0.11-0.59); Neutrophils # (auto) 13.67 K/uL (1.4-6.5); Neutrophils % (auto) 88.8 %; Platelet Count 171 K/uL (130-400); RDW Coefficient of Variation 13.6 % (11.5-14.5); RDW Standard Deviation 45.6 fL (36.4-46.3); Red Blood Count 3.82 M/uL (4.2-5.4); White Blood Count 15.38 K/uL (4.8-10.8)
[2021-02-20 04:20] LABS: Mean Corpuscular Hgb Conc 33.5 g/dL (32-36)
[2021-02-20 04:21] LABS: Partial Thromboplastin Ratio 0.8; Partial Thromboplastin Time 22.2 Seconds (21.0-31.0); Prothrombin Time 10.4 Seconds (9.0-12.0)
--- NOTE | 2021-02-20 04:48 | Billing Data ---
Date of Service February 20, 2021 Coding Level of Care Code 23744 Initial Inpt Care Lvl 3
[2021-02-20] MEDS: LEVOTHYROXINE SODIUM 50 MCG TABLET PO SCH (05:52)
--- NOTE | 2021-02-20 07:19 | XRay Report ---
XR hip RT 2V w pelvis HISTORY: 85 years-old Female fall, pain, ?frx acute hip pain status post fall COMPARISON: CTA 04/10/2019 TECHNIQUE: AP view of the pelvis with 2 views of the right hip FINDINGS: Demineralized appearance of the bones. 3 cannulated screws of the proximal left femur are redemonstra isauro. Mild to moderate osteoarthritis of the hips. There is an acute intertrochanteric fracture of the right femur which demonstrates mild impaction with mild apex superior lateral angulation. There is m ild medial displacement. There is mild associated comminution. No dislocation or avascular necrosis. Arterial calcifications. IMPRESSION: Acute mildly impacted, angulated and displaced intertrochanteric fracture of the right fe mur with mild comminution. ACT 112: Negative or not required by law. The above report was generated using voice recognition software. It may contain grammatical, syntax o r spelling errors. Electronically signed by: Jaun Jim M.D. 02/20/2021 7:18 AM
--- NOTE | 2021-02-20 07:43 | CT Scan Report ---
CT OF THE HEAD WITHOUT CONTRAST CLINICAL HISTORY: fall on eliquis COMPARISON STUDY: Head CT February 17, 2014. CT DOSE: 537.48 mGy.cm TECHNIQUE: Helical axial images of the head were obtained without IV contrast. Automated exposure con trol was utilized for the study. A dose lowering technique was utilized adhering to the principles o f ALARA. FINDINGS: No acute intracranial hemorrhage, midline shift or mass effect is present. The ventricular system is unremarkable. White matter hypodensity suggests small vessel disease. The basal cisterns ar e patent. No extra-axial collections are present. There are no findings to suggest acute dural sinus thrombosis or acute territorial infarct. No significant calvarial abnormalities are present. Visualiz ed portions of the sinuses and mastoid air cells are clear. IMPRESSION: 1. No acute intracranial findings. 2. No calvarial fracture. ACT 112: Negative or not required by law. Electronically signed by: Tavo Kingsley M.D. 02/20/2021 7:42 AM
[2021-02-20] MEDS: PANTOprazole 40 MG TAB PO SCH (08:14)
[2021-02-20] MEDS: MESALAMINE 250 MG CAPCR PO SCH ×3 (08:15→21:13)
[2021-02-20] MEDS: cloNIDine HCL 0.3 MG TAB PO SCH ×2 (08:29→21:04)
[2021-02-20] MEDS: GABAPENTIN 100 MG CAP PO SCH ×2 (08:29→21:05)
[2021-02-20] MEDS: METOPROLOL TARTRATE 50 MG TAB PO SCH ×2 (08:29→21:16)
[2021-02-20] MEDS: IPRATROPIUM BROMIDE NASAL SPRAY 0.06% 15ML NAE SCH ×3 (08:31→21:15)
[2021-02-20] MEDS ORDERED: POTASSIUM CHLORIDE 10 MEQ TABCR PO SCH (09:00)
[2021-02-20] MEDS ORDERED: TELMISARTAN 40 MG TAB PO SCH (09:00)
[2021-02-20] MEDS ORDERED: amLODIPine BESYLATE 5 MG TAB PO SCH (09:00)
--- NOTE | 2021-02-20 09:02 | XRay Report ---
XR chest 1V portable CLINICAL HISTORY: Fall. COMPARISON STUDY: Chest radiograph October 01, 2020. FINDINGS: Old left-sided rib fractures are noted. Blunting of the left costophrenic angle is chronic. There is no pneumothorax. There is no pleural effusion. There is no evidence for pulmonary edema. Th e appearance of the chest is unchanged. IMPRESSION: No acute cardiopulmonary findings. No change in appearance of the chest. ACT 112: Negative or not required by law. Electronically signed by: Tavo Kingsley M.D. 02/20/2021 9:01 AM
[2021-02-20] MEDS: COLESTIPOL HCL 1 GM TAB PO SCH ×2 (09:58→23:22)
[2021-02-20 11:40] LABS: Basophils # (auto) 0.02 K/uL (0-0.2); Basophils % (auto) 0.2 %; Eosinophils # (auto) 0.03 K/uL (0-0.5); Eosinophils % (auto) 0.3 %; Hematocrit (blood only) 30.4 % (37-47); Hemoglobin 10.1 g/dL (12.0-16.0); Immature Granulocytes # (auto) 0.03 K/uL (0.00-0.02); Immature Granulocytes % (auto) 0.3 %; Lymphocytes # (auto) 0.75 K/uL (1.2-3.4); Lymphocytes % (auto) 6.7 %; Mean Corpuscular Hemoglobin 30.4 pg (25-34); Mean Corpuscular Hgb Conc 33.2 g/dL (32-36); Mean Corpuscular Volume 91.6 fL (80-100); Mean Platelet Volume 9.1 fL (7.4-10.4); Monocytes # (auto) 0.68 K/uL (0.11-0.59); Monocytes % (auto) 6.1 %; Neutrophils # (auto) 9.61 K/uL (1.4-6.5); Neutrophils % (auto) 86.4 %; Platelet Count 153 K/uL (130-400); RDW Coefficient of Variation 13.7 % (11.5-14.5); RDW Standard Deviation 45.1 fL (36.4-46.3); Red Blood Count 3.32 M/uL (4.2-5.4); White Blood Count 11.12 K/uL (4.8-10.8)
--- NOTE | 2021-02-20 11:47 | Electrocardiogram Report ---
Test Reason : Blood Pressure : / mmHG Vent. Rate : 058 BPM Atrial Rate : 058 BPM P-R Int : 158 ms QRS Dur : 090 ms QT Int : 418 ms P-R-T Axes : 073 037 099 degrees QTc Int : 410 ms Sinus bradycardia Left ventricular hypertrophy with repolarization abnormality Abnormal ECG When compared with ECG of 01-OCT-2020 11:15, ST no longer elevated in Anterior leads Confirmed by Rakesh Sterling ([id number]) on 02/20/2021 11:47:29 AM Referred By: REFERRED SELF Confirmed By:Remberto Sterling
[2021-02-20] MEDS ORDERED: fentaNYL citrate 100 MCG/2 ML VIAL ONE (11:54)
--- NOTE | 2021-02-20 11:55 | Orthopedic Consultation ---
Date of Service February 20, 2021 Assessment & Plan (1) Closed fracture of right hip: We discussed diagnosis and treatment options at bedside. I recommended an intramedullary nail fixation of the right hip. We discussed the risk, benefits, and alternatives to procedure and she elected to proceed. Time was spent describing the procedure and postop expectations. The decision was made for surgery. I also called her and talk to him personally about it as well. Her heparin drip has been stopped and her PTT has normalized. We will proceed with the procedure today. History of Present Illness Reason for Consultation: Right intertrochanteric hip fracture. Requesting Physician: . Attending Physician: Rachele Oliva MD Dana is a pleasant 85-year-old female who tried to pick something up in the bathroom yesterday and slipped on the wet floor. She fell directly onto her right hip. She had immediate hip pain. She came to the emergency room where radiographs demonstrated a displaced right intertrochanteric hip fracture. She has a history of percutaneous screw fixation of her left hip in the past. She was admitted to the hospitalist service. Orthopedics was consulted to evaluate and treat. Allergies Allergy/AdvReac Type Severity Reaction Status Date / Time Cipro Allergy Intermediate RASH, Verified 09/03/17 07:28 ITCHING ciprofloxacin Allergy Intermediate RASH, Verified 02/20/21 00:27 ITCHING latex Allergy Unknown REDNESS Verified 02/20/21 00:27 Sulfa (Sulfonamide Allergy Unknown RASH Verified 02/20/21 00:27 Antibiotics) aspirin AdvReac Severe Gastrointestinal Verified 02/20/21 00:27 Upset levofloxacin AdvReac Severe DIZZINESS, Verified 02/20/21 00:27 MYALGIA doxycycline AdvReac Unknown HEADACHE Verified 02/20/21 00:27 Ceftin TABS Allergy Unknown Unknown Uncoded 02/20/21 00:27 Levaquin TABS Allergy Unknown Unknown Uncoded 02/20/21 00:27 Macrobid CAPS Allergy Unknown Unknown Uncoded 02/20/21 00:27 Home Medications Medication Instructions Recorded Confirmed Type cyanocobalamin (vitamin B-12) 1,000 mcg IM MONTHLY 12/24/17 02/20/21 History 1,000 mcg/mL injection solution clonidine HCl 0.1 mg tablet 0.3 mg PO BID #540 tab 06/03/19 02/20/21 Rx colestipol 1 gram tablet 2 gm PO BID #360 tab 06/03/19 02/20/21 Rx furosemide 20 mg tablet (Lasix) 20 mg PO DAILY PRN #30 tab 12/18/19 02/20/21 Rx ipratropium bromide 21 mcg (0.03 2 spray INTRANASAL TID #30 ml 01/05/20 02/20/21 Rx %) nasal spray telmisartan 40 mg tablet 40 mg PO BID #60 tab 05/04/20 02/20/21 Rx pantoprazole 40 mg tablet,delayed 40 mg PO DAILY #90 tab 06/09/20 02/20/21 Rx release (Protonix) gabapentin 100 mg capsule 200 mg PO BID #360 cap 06/15/20 02/20/21 Rx amlodipine 10 mg tablet 10 mg PO DAILY #90 tab 06/20/20 02/20/21 Rx oxycodone 5 mg tablet 5 mg PO BID PRN #60 tab 08/03/20 02/20/21 Rx potassium chloride 10 mEq 20 meq PO DAILY #180 cap 08/03/20 02/20/21 Rx capsule,extended release apixaban 5 mg tablet (Eliquis) 5 mg PO BID #10 tab 08/08/20 02/20/21 Rx cholecalciferol (vitamin D3) 125 125 mcg PO DAILY 08/08/20 02/20/21 History mcg (5,000 unit) capsule diclofenac sodium 1 % topical gel 4 g TOP QID #400 g 08/30/20 02/20/21 Rx albuterol sulfate 90 mcg/actuation 2 puff INH .COMPLEX PRN #25.5 gm 09/28/20 02/19/21 Rx aerosol inhaler (ProAir HFA) mesalamine 500 mg 1,000 mg PO BID #120 cap 10/18/20 02/20/21 Rx capsule,controlled release (Pentasa) levothyroxine 50 mcg tablet 50 mcg PO QAM #90 tab 10/28/20 02/20/21 Rx metoprolol tartrate 50 mg tablet 50 mg PO Q12H #220 tab 11/30/20 02/20/21 Rx meclizine 12.5 mg tablet 12.5 mg PO TID PRN #30 tab 01/26/21 02/20/21 Rx lorazepam 0.5 mg tablet 0.5 mg PO TID PRN #90 tab 02/08/21 02/20/21 Rx azithromycin 250 mg tablet See Rx Instructions PO .COMPLEX #6 02/17/21 02/20/21 Rx tab Past Med/Surg History Medical History Adenocarcinoma of lung (~2009) Allergic rhinitis Carotid artery stenosis, asymptomatic Chronic cystitis Chronic kidney disease, stage 3a Chronic obstructive pulmonary disease Chronic pain syndrome Crohns disease Depression with anxiety Disc degeneration, lumbar Essential hypertriglyceridemia GERD (gastroesophageal reflux disease) Hearing deficit History of ischemic colitis Hyperlipidemia Hyperparathyroidism Hypertension Hypothyroidism Impaired fasting glucose LVH (left ventricular hypertrophy) Multiple lung nodules on CT Nocturnal leg cramps Nontoxic multinodular goiter Osteoarthritis Osteoporosis PAD (peripheral artery disease) Peripheral neuropathy Pernicious anemia Secondary hyperparathyroidism SNHL (sensorineural hearing loss) 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 Mcelroy History of cholecystectomy History of colonoscopy History of ERCP (~03/15/11) Dr. Diane History of esophagogastroduodenoscopy (EGD) History of hip surgery History of lobectomy of lung (~09/2009) left lower lobectomy History of open reduction and internal fixation (ORIF) procedure (~09/24/16) left tib/fib by Dr. Doyle History of tooth extraction Family History Mother Lung cancer Hypertension Hearing loss Father Cardiac disorder Coronary arteriosclerosis Coronary heart disease Sister Hypertension Brother Hypertension Son Cardiac disorder Denies family history of Ovarian cancer Prostate cancer Adverse anesthesia outcome Sinusitis Bleeding disorder Colorectal cancer Stroke Asthma Social History Smoking Status: Former smoker Age Started Using Tobacco: 24; Age Quit Using Tobacco: 76; packs per day: 1; Cigarettes Per Day: 20; Second Hand Exposure: No; Do You Dip or Chew Tobacco: No; Hx Alcohol Use: No Hx Substance Use: No Preferred Language: Pakistani Communication Ability: Effective Hearing Ability: Use of Hearing Aid Certified Dental Assistant Required: No Beliefs That Will Affect Care: None marital status: Current Living Situation: Spouse current occupational status: retired Other Information That Helps Us Care for You: No Feels Safe at Home: Yes Safety Concerns: Feels Safe At This Time Diet Comment: chron's Dental Care, Regularly: No Physical Activity Frequency: Daily Physical Activity Frequency Comment: walk Seatbelt Use: always Sunscreen Use: No Assistive Devices: Denture - Upper, Denture - Lower, Glasses and Hearing Aid - Bilateral Review of Systems All systems reviewed & are unremarkable except as noted in HPI & below. Physical Exam On physical examination the right hip, there are no abrasions lesions or lacerations of the skin. She has pain with logroll of the right hip. She is neurovascular intact. Constitutional WD/WN, vitals as above Eyes PERRL, conjunctivae normal, anicteric sclerae ENMT external ear and nose normal, oropharynx normal Neck trachea midline, no thyromegaly Respiratory normal respiratory effort Cardiovascular RRR, no murmur, no edema Gastrointestinal (Abdomen) normal bowel sounds, soft, nontender, no hepatosplenomegaly Psychiatric A+Ox3, euthymic affect Results & Data Results & Data Laboratory Results . Diagnostic Findings X-rays of the right hip show a displaced right intertrochanteric hip fracture.. PG Care Time/CCT Total # of Minutes Spent Total Time Spent with Patient: Total time spent is greater than 50% in coordination of care (as documented) at patient's floor/unit and/or counseling patient: Coding Level of Care Code 67701 Inpt Consult Level 4 (57 - DECISION FOR SURGERY) Diagnoses Closed fracture of right hip S72.001A Encounter type: initial encounter (1) Closed fracture of right hip Encounter type: initial encounter Qualified Code(s): S72.001A - Fracture of unspecified part of neck of right femur, initial encounter for closed fracture
[2021-02-20 11:59] LABS: Partial Thromboplastin Ratio 0.9; Partial Thromboplastin Time 24.5 Seconds (21.0-31.0)
[2021-02-20 12:08] LABS: BUN Creatinine Ratio 21.6 (10-20); Creatinine Clr Calc Pharmacy 29.7 ml/min; Est GFR (Non-African American) 52.6 ml/min; Potassium 3.9 mmol/L (3.5-5.1)
--- NOTE | 2021-02-20 12:09 | Hospitalist Progress Note ---
Date of Service February 20, 2021 Assessment & Plan (1) Closed fracture of right hip: Plan: Mrs. Treviño is an 85 yo woman with a history of osteoporosis and vitamin D deficiency who presented for evaluation of R hip pain after a mechanical fall. - XR showed R femoral neck fracture - ortho consulted placed and now status post ORIF on 02/20 - Eliquis on hold and no need for bridging with heparin -Continue pain management, bowel regimen -Appreciate orthopedic surgery management -To restart Eliquis tomorrow for DVT prophylaxis (2) Hypotension: Plan: Brief, in the postoperative period Responded readily to small boluses of normal saline Okay to continue metoprolol with hold parameters, but will discontinue clonidine for now-watch for rebound hypertension Discontinue amlodipine for tomorrow morning until blood pressures become elevated again Repeat CBC with only minimal decrease in hemoglobin likely due to hemodilution from recent boluses of normal saline (3) Leukocytosis: Plan: - WBC mildly elevated to 12 and further today to 15 with neutrophil predom, likely secondary to stress response - UA without evidence of infection - CXR normal (4) Elevated serum creatinine: Plan: - Cr at 1.3, BUN at 22 - IVF ordered - BMP in am (5) Hypertension: Plan: - LVH noted on EKG, which suggests her BP has been above goal for quite some time -With hypotension as above Hold home amlodipine, clonidine -Continue metoprolol with hold parameters -Hold home telmisartan (6) Osteoporosis: Plan: - had been started on fosamax in the past but self discontinued - would hold off on restarting bisphosphonate in the setting of an acute fracture (concern for atypical remodeling of bone) - consider resuming fosamax as outpatient after 30 days vs. 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 Has a history of Crohn's disease and lung cancer-seen by hematology/oncology and recommended continuation on anticoagulation -No need for bridging with heparin-discontinued this morning -Restart Eliquis tomorrow when okay with orthopedic surgery (8) Crohns disease: Plan: - continue home dose mesalamine (9) GERD (gastroesophageal reflux disease): Plan: - continue home dose protonix (10) Hypothyroidism: Plan: - continue home dose Synthroid TSH normal earlier this year Plan: DVT prophylaxis-plan to restart Eliquis tomorrow, SCDs Disposition-continued stay medical/surgical floor Admission and Anticipated Discharge Date Admission Date: February 20, 2021 Subjective Patient was seen on 2 occasions today. Once in the late morning prior to her surgery. She was having pain in the hip and had questions about the surgery, but was agreeable. Denies any chest pain at all and no history of significant coronary artery disease. She denies any nausea or abdominal pains. She did report feeling generally weak all over I discussed her care with orthopedic surgeon at the bedside. I also discussed her care with her on the phone in her room. I came back to see her second time in the evening when she was having some lower blood pressures in the 80s over 50s and she was given 2 separate boluses of normal saline 250 mL. Also the nurse was having hard time getting her temperature and a bear hugger was applied. Patient was feeling a little bit lightheaded prior to receiving the boluses. Repeat blood work was performed and reviewed which is not significantly different from previous. Review of Systems Review of Systems: All systems reviewed & are unremarkable except as noted in HPI & below Physical Exam Constitutional: WD/WN, vitals as above Eyes: + anicteric sclerae ENMT: external ear and nose normal, oropharynx normal Neck: trachea midline, no thyromegaly Respiratory: normal respiratory effort, lungs clear to auscultation Cardiovascular: RRR, no murmur, no edema Chest (Breasts): Chest: normal inspection of chest Gastrointestinal (Abdomen): normal bowel sounds, soft, nontender, no hepatosplenomegaly Musculoskeletal: Extremities: + extremities abnormal to inspection (Right leg shortened and externally rotated), no cyanosis and no clubbing Skin: no rashes, warm and dry Neurologic: moves all extremities and awake; no focal motor deficits Psychiatric: A+Ox3, euthymic affect Genitourinary: Lu catheter in place draining clear yellow urine Lymphatic: no lymphedema Results & Data Results & Data ([facility]) Vital Signs (Past 12 Hours) Vital Signs Temp Pulse Resp BP Pulse Ox 02/20/21 07:42 36.5 C 63 15 127/74 95 02/20/21 01:25 36.5 C 61 16 149/78 H 97 02/20/21 01:15 36.5 C 68 16 172/89 H 96 02/20/21 00:29 63 18 136/70 95 Laboratory Results 02/20/21 02/20/21 02/20/21 Range/Units 18:33 18:33 11:28 WBC 10.83 H (4.8-10.8) K/uL RBC 2.95 L (4.2-5.4) M/uL Hgb 9.2 L (12.0-16.0) g/dL Hct 27.1 L (37-47) % MCV 91.9 (80-100) fL MCH 31.2 (25-34) pg MCHC 33.9 (32-36) g/dL RDW Std Deviation 45.5 (36.4-46.3) fL RDW Coeff of Martine 13.7 (11.5-14.5) % Plt Count 121 L (130-400) K/uL MPV 9.2 (7.4-10.4) fL Immature Gran % (Auto) % Neut % (Auto) % Lymph % (Auto) % Ida % (Auto) % Eos % (Auto) % Baso % (Auto) % Neut # (Auto) (1.4-6.5) K/uL Lymph # (Auto) (1.2-3.4) K/uL Ida # (Auto) (0.11-0.59) K/uL Eos # (Auto) (0-0.5) K/uL Baso # (Auto) (0-0.2) K/uL Immature Gran # (Auto) (0.00-0.02) K/uL PT (9.0-12.0) Seconds INR (0.9-1.1) APTT 24.5 (21.0-31.0) Seconds PTT Ratio 0.9 Sodium 142 (136-145) mmol/L Potassium 3.9 (3.5-5.1) mmol/L Chloride 115 H (98-107) mmol/L Carbon Dioxide 21 (21-32) mmol/L Anion Gap 7.0 (3-11) BUN 18 (7-18) mg/dl Creatinine 0.87 (0.6-1.2) mg/dl Est Cr Clr Drug Dosing 33.4 ml/min Est GFR ( Amer) 70.4 ml/min Est GFR (Non-Af Amer) 60.7 ml/min BUN/Creatinine Ratio 21.0 H (10-20) Glucose 134 H (70-99) mg/dl Calcium 8.4 L (8.5-10.1) mg/dl Total Bilirubin (0.2-1) mg/dl AST (15-37) U/L ALT (12-78) U/L Alkaline Phosphatase (45-117) U/L Total Protein (6.4-8.2) gm/dl Albumin (3.4-5.0) gm/dl Globulin (2.5-4.0) gm/dl Albumin/Globulin Ratio (0.9-2) Urine Color Urine Appearance (Clear) Urine pH (4.5-7.5) Ur Specific [place] (1.000-1.030) Urine Protein (Negative) Urine Glucose (UA) (Negative) Urine Ketones (Negative) Urine Blood (Negative) Urine Nitrite (Negative) Urine Bilirubin (Negative) Urine Urobilinogen (Negative) Ur Leukocyte Esterase (Negative) Urine WBC (Auto) (0-5) /hpf Urine RBC (Auto) (0-4) /hpf U Hyaline Cast (Auto) (0-5) /lpf U Epithel Cells (Auto) (0-5) /lpf Urine Bacteria (Auto) (Negative) COVID-19 Eval Order SARS-CoV-2 (PCR) (Negative) Blood Type Antibody Screen 02/20/21 02/20/21 02/20/21 Range/Units 11:28 11:28 03:53 WBC 11.12 H (4.8-10.8) K/uL RBC 3.32 L (4.2-5.4) M/uL Hgb 10.1 L (12.0-16.0) g/dL Hct 30.4 L (37-47) % MCV 91.6 (80-100) fL MCH 30.4 (25-34) pg MCHC 33.2 (32-36) g/dL RDW Std Deviation 45.1 (36.4-46.3) fL RDW Coeff of Martine 13.7 (11.5-14.5) % Plt Count 153 (130-400) K/uL MPV 9.1 (7.4-10.4) fL Immature Gran % (Auto) 0.3 % Neut % (Auto) 86.4 % Lymph % (Auto) 6.7 % Ida % (Auto) 6.1 % Eos % (Auto) 0.3 % Baso % (Auto) 0.2 % Neut # (Auto) 9.61 H (1.4-6.5) K/uL Lymph # (Auto) 0.75 L (1.2-3.4) K/uL Ida # (Auto) 0.68 H (0.11-0.59) K/uL Eos # (Auto) 0.03 (0-0.5) K/uL Baso # (Auto) 0.02 (0-0.2) K/uL Immature Gran # (Auto) 0.03 H (0.00-0.02) K/uL PT 10.4 (9.0-12.0) Seconds INR 1.0 (0.9-1.1) APTT 22.2 (21.0-31.0) Seconds PTT Ratio 0.8 Sodium 141 (136-145) mmol/L Potassium 3.9 (3.5-5.1) mmol/L Chloride 113 H (98-107) mmol/L Carbon Dioxide 20 L (21-32) mmol/L Anion Gap 7.0 (3-11) BUN 21 H (7-18) mg/dl Creatinine 0.98 D (0.6-1.2) mg/dl Est Cr Clr Drug Dosing 29.7 ml/min Est GFR ( Amer) 61.0 ml/min Est GFR (Non-Af Amer) 52.6 ml/min BUN/Creatinine Ratio 21.6 H (10-20) Glucose 149 H (70-99) mg/dl Calcium 9.0 (8.5-10.1) mg/dl Total Bilirubin (0.2-1) mg/dl AST (15-37) U/L ALT (12-78) U/L Alkaline Phosphatase (45-117) U/L Total Protein (6.4-8.2) gm/dl Albumin (3.4-5.0) gm/dl Globulin (2.5-4.0) gm/dl Albumin/Globulin Ratio (0.9-2) Urine Color Urine Appearance (Clear) Urine pH (4.5-7.5) Ur Specific [place] (1.000-1.030) Urine Protein (Negative) Urine Glucose (UA) (Negative) Urine Ketones (Negative) Urine Blood (Negative) Urine Nitrite (Negative) Urine Bilirubin (Negative) Urine Urobilinogen (Negative) Ur Leukocyte Esterase (Negative) Urine WBC (Auto) (0-5) /hpf Urine RBC (Auto) (0-4) /hpf U Hyaline Cast (Auto) (0-5) /lpf U Epithel Cells (Auto) (0-5) /lpf Urine Bacteria (Auto) (Negative) COVID-19 Eval Order SARS-CoV-2 (PCR) (Negative) Blood Type Antibody Screen 02/20/21 02/19/21 02/19/21 Range/Units 03:53 23:44 23:15 WBC 15.38 H (4.8-10.8) K/uL RBC 3.82 L (4.2-5.4) M/uL Hgb 11.8 L (12.0-16.0) g/dL Hct 35.2 L (37-47) % MCV 92.1 (80-100) fL MCH 30.9 (25-34) pg MCHC 33.5 (32-36) g/dL RDW Std Deviation 45.6 (36.4-46.3) fL RDW Coeff of Martine 13.6 (11.5-14.5) % Plt Count 171 (130-400) K/uL MPV 9.4 (7.4-10.4) fL Immature Gran % (Auto) 0.4 % Neut % (Auto) 88.8 % Lymph % (Auto) 4.6 % Ida % (Auto) 6.0 % Eos % (Auto) 0.1 % Baso % (Auto) 0.1 % Neut # (Auto) 13.67 H (1.4-6.5) K/uL Lymph # (Auto) 0.70 L (1.2-3.4) K/uL Ida # (Auto) 0.93 H (0.11-0.59) K/uL Eos # (Auto) 0.01 (0-0.5) K/uL Baso # (Auto) 0.01 (0-0.2) K/uL Immature Gran # (Auto) 0.06 H (0.00-0.02) K/uL PT (9.0-12.0) Seconds INR (0.9-1.1) APTT (21.0-31.0) Seconds PTT Ratio Sodium (136-145) mmol/L Potassium (3.5-5.1) mmol/L Chloride (98-107) mmol/L Carbon Dioxide (21-32) mmol/L Anion Gap (3-11) BUN (7-18) mg/dl Creatinine (0.6-1.2) mg/dl Est Cr Clr Drug Dosing ml/min Est GFR ( Amer) ml/min Est GFR (Non-Af Amer) ml/min BUN/Creatinine Ratio (10-20) Glucose (70-99) mg/dl Calcium (8.5-10.1) mg/dl Total Bilirubin (0.2-1) mg/dl AST (15-37) U/L ALT (12-78) U/L Alkaline Phosphatase (45-117) U/L Total Protein (6.4-8.2) gm/dl Albumin (3.4-5.0) gm/dl Globulin (2.5-4.0) gm/dl Albumin/Globulin Ratio (0.9-2) Urine Color Yellow Urine Appearance Clear (Clear) Urine pH 5.0 (4.5-7.5) Ur Specific [place] 1.021 (1.000-1.030) Urine Protein 1+ H (Negative) Urine Glucose (UA) Negative (Negative) Urine Ketones Negative (Negative) Urine Blood Negative (Negative) Urine Nitrite Negative (Negative) Urine Bilirubin Negative (Negative) Urine Urobilinogen Negative (Negative) Ur Leukocyte Esterase Negative (Negative) Urine WBC (Auto) 1-5 (0-5) /hpf Urine RBC (Auto) 0-4 (0-4) /hpf U Hyaline Cast (Auto) 5-10 H (0-5) /lpf U Epithel Cells (Auto) 10-20 H (0-5) /lpf Urine Bacteria (Auto) Negative (Negative) COVID-19 Eval Order SARS-CoV-2 (PCR) (Negative) Blood Type B Negative Antibody Screen NEGATIVE 02/19/21 02/19/21 02/19/21 Range/Units 22:44 22:44 22:39 WBC (4.8-10.8) K/uL RBC (4.2-5.4) M/uL Hgb (12.0-16.0) g/dL Hct (37-47) % MCV (80-100) fL MCH (25-34) pg MCHC (32-36) g/dL RDW Std Deviation (36.4-46.3) fL RDW Coeff of Martine (11.5-14.5) % Plt Count (130-400) K/uL MPV (7.4-10.4) fL Immature Gran % (Auto) % Neut % (Auto) % Lymph % (Auto) % Ida % (Auto) % Eos % (Auto) % Baso % (Auto) % Neut # (Auto) (1.4-6.5) K/uL Lymph # (Auto) (1.2-3.4) K/uL Ida # (Auto) (0.11-0.59) K/uL Eos # (Auto) (0-0.5) K/uL Baso # (Auto) (0-0.2) K/uL Immature Gran # (Auto) (0.00-0.02) K/uL PT (9.0-12.0) Seconds INR (0.9-1.1) APTT (21.0-31.0) Seconds PTT Ratio Sodium 141 (136-145) mmol/L Potassium 4.0 (3.5-5.1) mmol/L Chloride 111 H (98-107) mmol/L Carbon Dioxide 22 (21-32) mmol/L Anion Gap 8.0 (3-11) BUN 22 H (7-18) mg/dl Creatinine 1.31 H (0.6-1.2) mg/dl Est Cr Clr Drug Dosing 22.6 ml/min Est GFR ( Amer) 42.9 ml/min Est GFR (Non-Af Amer) 37.0 ml/min BUN/Creatinine Ratio 16.8 (10-20) Glucose 187 H (70-99) mg/dl Calcium 10.0 (8.5-10.1) mg/dl Total Bilirubin 0.3 (0.2-1) mg/dl AST 13 L (15-37) U/L ALT 20 (12-78) U/L Alkaline Phosphatase 88 (45-117) U/L Total Protein 6.7 (6.4-8.2) gm/dl Albumin 3.3 L (3.4-5.0) gm/dl Globulin 3.4 (2.5-4.0) gm/dl Albumin/Globulin Ratio 1.0 (0.9-2) Urine Color Urine Appearance (Clear) Urine pH (4.5-7.5) Ur Specific [place] (1.000-1.030) Urine Protein (Negative) Urine Glucose (UA) (Negative) Urine Ketones (Negative) Urine Blood (Negative) Urine Nitrite (Negative) Urine Bilirubin (Negative) Urine Urobilinogen (Negative) Ur Leukocyte Esterase (Negative) Urine WBC (Auto) (0-5) /hpf Urine RBC (Auto) (0-4) /hpf U Hyaline Cast (Auto) (0-5) /lpf U Epithel Cells (Auto) (0-5) /lpf Urine Bacteria (Auto) (Negative) COVID-19 Eval Order Covid19 at [facility] SARS-CoV-2 (PCR) NEGATIVE (Negative) Blood Type Antibody Screen 02/19/21 02/19/21 Range/Units 22:39 22:39 WBC 12.62 H (4.8-10.8) K/uL RBC 4.29 (4.2-5.4) M/uL Hgb 13.2 (12.0-16.0) g/dL Hct 39.9 (37-47) % MCV 93.0 (80-100) fL MCH 30.8 (25-34) pg MCHC 33.1 (32-36) g/dL RDW Std Deviation 46.3 (36.4-46.3) fL RDW Coeff of Martine 13.8 (11.5-14.5) % Plt Count 184 (130-400) K/uL MPV 9.4 (7.4-10.4) fL Immature Gran % (Auto) 0.6 % Neut % (Auto) 86.1 % Lymph % (Auto) 5.9 % Ida % (Auto) 6.3 % Eos % (Auto) 1.0 % Baso % (Auto) 0.1 % Neut # (Auto) 10.86 H (1.4-6.5) K/uL Lymph # (Auto) 0.75 L (1.2-3.4) K/uL Ida # (Auto) 0.79 H (0.11-0.59) K/uL Eos # (Auto) 0.13 (0-0.5) K/uL Baso # (Auto) 0.01 (0-0.2) K/uL Immature Gran # (Auto) 0.08 H (0.00-0.02) K/uL PT 10.3 (9.0-12.0) Seconds INR 1.0 (0.9-1.1) APTT 24.7 (21.0-31.0) Seconds PTT Ratio 0.9 Sodium (136-145) mmol/L Potassium (3.5-5.1) mmol/L Chloride (98-107) mmol/L Carbon Dioxide (21-32) mmol/L Anion Gap (3-11) BUN (7-18) mg/dl Creatinine (0.6-1.2) mg/dl Est Cr Clr Drug Dosing ml/min Est GFR ( Amer) ml/min Est GFR (Non-Af Amer) ml/min BUN/Creatinine Ratio (10-20) Glucose (70-99) mg/dl Calcium (8.5-10.1) mg/dl Total Bilirubin (0.2-1) mg/dl AST (15-37) U/L ALT (12-78) U/L Alkaline Phosphatase (45-117) U/L Total Protein (6.4-8.2) gm/dl Albumin (3.4-5.0) gm/dl Globulin (2.5-4.0) gm/dl Albumin/Globulin Ratio (0.9-2) Urine Color Urine Appearance (Clear) Urine pH (4.5-7.5) Ur Specific [place] (1.000-1.030) Urine Protein (Negative) Urine Glucose (UA) (Negative) Urine Ketones (Negative) Urine Blood (Negative) Urine Nitrite (Negative) Urine Bilirubin (Negative) Urine Urobilinogen (Negative) Ur Leukocyte Esterase (Negative) Urine WBC (Auto) (0-5) /hpf Urine RBC (Auto) (0-4) /hpf U Hyaline Cast (Auto) (0-5) /lpf U Epithel Cells (Auto) (0-5) /lpf Urine Bacteria (Auto) (Negative) COVID-19 Eval Order SARS-CoV-2 (PCR) (Negative) Blood Type Antibody Screen PG Care Time/CCT Total # of Minutes Spent Total Time Spent with Patient: Total time spent is greater than 50% in coordination of care (as documented) at patient's floor/unit and/or counseling patient: Coding Level of Care Code None Diagnoses Closed fracture of right hip S72.001A Encounter type: initial encounter Leukocytosis D72.829 Elevated serum creatinine R79.89 Hypertension I10 Hypertension type: essential hypertension Osteoporosis M81.0 Thrombosis of ovarian vein I82.890 Crohns disease K50.90 GERD (gastroesophageal reflux disease) K21.9 Hypothyroidism E03.9 Hypotension I95.9 (1) Hypertension Hypertension type: essential hypertension Qualified Code(s): I10 - Essential (primary) hypertension (2) Closed fracture of right hip Encounter type: initial encounter Qualified Code(s): S72.001A - Fracture of unspecified part of neck of right femur, initial encounter for closed fracture
--- NOTE | 2021-02-20 12:19 | History & Physical Bridge Note ---
Date of Service February 20, 2021 History & Physical Bridge Note I have examined the patient, reviewed the History & Physical and in the interval since the performance of the History & Physical I have noted the following changes of clinical significance: no changes noted
--- NOTE | 2021-02-20 12:31 | Anesthesiology Consultation ---
Date of Service February 20, 2021 Assessment & Plan Chart Review Chart Review: Acceptable Risk for Surgery and Patient NOT seen in Pre Admission Testing Consults Requested none History Surgery Operation Date: 02/20/21 12:20 Proposed Procedures p Right Long Troch Nail - David Campos, Height/Weight Height: 5 ft Weight: 44.8 kg Allergies Allergy/AdvReac Type Severity Reaction Status Date / Time Cipro Allergy Intermediate RASH, Verified 09/03/17 07:28 ITCHING ciprofloxacin Allergy Intermediate RASH, Verified 02/20/21 00:27 ITCHING latex Allergy Unknown REDNESS Verified 02/20/21 00:27 Sulfa (Sulfonamide Allergy Unknown RASH Verified 02/20/21 00:27 Antibiotics) aspirin AdvReac Severe Gastrointestinal Verified 02/20/21 00:27 Upset levofloxacin AdvReac Severe DIZZINESS, Verified 02/20/21 00:27 MYALGIA doxycycline AdvReac Unknown HEADACHE Verified 02/20/21 00:27 Ceftin TABS Allergy Unknown Unknown Uncoded 02/20/21 00:27 Levaquin TABS Allergy Unknown Unknown Uncoded 02/20/21 00:27 Macrobid CAPS Allergy Unknown Unknown Uncoded 02/20/21 00:27 Medications Home Medications Medication Instructions Recorded Confirmed Last Taken cyanocobalamin (vitamin B-12) 1,000 mcg IM MONTHLY 12/24/17 02/20/21 02/14/21 1,000 mcg/mL injection solution clonidine HCl 0.1 mg tablet 0.3 mg PO BID #540 tab 06/03/19 02/20/21 02/19/21 18:00 colestipol 1 gram tablet 2 gm PO BID #360 tab 06/03/19 02/20/21 02/19/21 18:00 furosemide 20 mg tablet (Lasix) 20 mg PO DAILY PRN #30 tab 12/18/19 02/20/21 Unknown ipratropium bromide 21 mcg (0.03 2 spray INTRANASAL TID #30 ml 01/05/20 02/20/21 Unknown %) nasal spray telmisartan 40 mg tablet 40 mg PO BID #60 tab 05/04/20 02/20/21 02/19/21 18:00 pantoprazole 40 mg tablet,delayed 40 mg PO DAILY #90 tab 06/09/20 02/20/21 02/19/21 08:00 release (Protonix) gabapentin 100 mg capsule 200 mg PO BID #360 cap 06/15/20 02/20/21 02/19/21 18: 00 amlodipine 10 mg tablet 10 mg PO DAILY #90 tab 06/20/20 02/20/21 02/19/21 08:00 oxycodone 5 mg tablet 5 mg PO BID PRN #60 tab 08/03/20 02/20/21 02/19/21 18:00 potassium chloride 10 mEq 20 meq PO DAILY #180 cap 08/03/20 02/20/21 02/19/21 08:00 capsule,extended release apixaban 5 mg tablet (Eliquis) 5 mg PO BID #10 tab 08/08/20 02/20/21 02/19/21 18:00 cholecalciferol (vitamin D3) 125 125 mcg PO DAILY 08/08/20 02/20/21 Unknown mcg (5,000 unit) capsule diclofenac sodium 1 % topical gel 4 g TOP QID #400 g 08/30/20 02/20/21 Unknown albuterol sulfate 90 mcg/actuation 2 puff INH .COMPLEX PRN #25.5 gm 09/28/20 02/19/21 Unknown aerosol inhaler (ProAir HFA) mesalamine 500 mg 1,000 mg PO BID #120 cap 10/18/20 02/20/21 02/19/21 18:00 capsule,controlled release (Pentasa) levothyroxine 50 mcg tablet 50 mcg PO QAM #90 tab 10/28/20 02/20/21 02/19/21 08:00 metoprolol tartrate 50 mg tablet 50 mg PO Q12H #220 tab 11/30/20 02/20/21 02/19/21 18:00 meclizine 12.5 mg tablet 12.5 mg PO TID PRN #30 tab 01/26/21 02/20/21 Unknown lorazepam 0.5 mg tablet 0.5 mg PO TID PRN #90 tab 02/08/21 02/20/21 02/19/21 18:00 azithromycin 250 mg tablet See Rx Instructions PO .COMPLEX #6 02/17/21 02/20/21 02/19/21 tab Active Medications Generic Name Dose Route Start Last Admin Trade Name Freq PRN Reason Stop Dose Admin Amlodipine Besylate 10 mg 02/20/21 09:00 02/20/21 08:14 Amlodipine Besylate 5 Mg Tab PO 03/22/21 08:59 10 mg DAILY LULU Administration Clonidine HCl 0.3 mg 02/20/21 09:00 02/20/21 08:29 Clonidine Hcl 0.3 Mg Tab PO 03/22/21 08:59 0.3 mg BID LULU Administration Colestipol HCl 2 gm 02/20/21 10:00 02/20/21 09:58 Colestipol Hcl 1 Gm Tab PO 03/22/21 09:59 2 gm BID@1000,2200 LULU Administration Gabapentin 200 mg 02/20/21 09:00 02/20/21 08:29 Gabapentin 100 Mg Cap PO 03/22/21 08:59 200 mg BID LULU Administration Sodium Chloride 1,000 mls @ 80 mls/hr 02/20/21 01:21 02/20/21 02:42 Nss 1000ml IV 02/21/21 02:20 0 mls/hr .[id number] LULU Infusion Ipratropium [place] 2 sprays 02/20/21 09:00 02/20/21 08:31 Ipratropium [place] Nasal [place] 0.06% 15ml YANA 03/22/21 08:59 Not Given TID LULU Levothyroxine Sodium 50 mcg 02/20/21 06:30 02/20/21 05:52 Levothyroxine Sodium 50 Mcg Tablet PO 03/22/21 06:29 Not Given DAILYBB LULU Mesalamine 1,000 mg 02/20/21 09:00 02/20/21 08:42 Mesalamine 250 Mg Capcr PO 03/22/21 08:59 Not Given BID LULU Metoprolol Tartrate 50 mg 02/20/21 09:00 02/20/21 08:29 Metoprolol Tartrate 50 Mg Tab PO 03/22/21 08:59 50 mg Q12 LULU Administration Oxycodone HCl 5 mg 02/20/21 01:21 02/20/21 02:37 Oxycodone Hcl Ir 5 Mg Tab (Immediate Release) PO 03/06/21 01:20 5 mg BID PRN Administration Pain Pantoprazole Sodium 40 mg 02/20/21 09:00 02/20/21 08:14 Pantoprazole 40 Mg Tab PO 03/22/21 08:59 40 mg DAILY LULU Administration Past Medical History Medical History Adenocarcinoma of lung (~2009) Allergic rhinitis Carotid artery stenosis, asymptomatic Chronic cystitis Chronic kidney disease, stage 3a Chronic obstructive pulmonary disease Chronic pain syndrome Crohns disease Depression with anxiety Disc degeneration, lumbar Essential hypertriglyceridemia GERD (gastroesophageal reflux disease) Hearing deficit History of ischemic colitis Hyperlipidemia Hyperparathyroidism Hypertension Hypothyroidism Impaired fasting glucose LVH (left ventricular hypertrophy) Multiple lung nodules on CT Nocturnal leg cramps Nontoxic multinodular goiter Osteoarthritis Osteoporosis PAD (peripheral artery disease) Peripheral neuropathy Pernicious anemia Secondary hyperparathyroidism SNHL (sensorineural hearing loss) 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 Mcelroy History of cholecystectomy History of colonoscopy History of ERCP (~03/15/11) Dr. Diane History of esophagogastroduodenoscopy (EGD) History of hip surgery History of lobectomy of lung (~09/2009) left lower lobectomy History of open reduction and internal fixation (ORIF) procedure (~09/24/16) left tib/fib by Dr. Doyle History of tooth extraction Past Anesthesia History No Hx of Anesthesia Complications and No Family Hx of Anesthesia Complications History of PONV No Hx of PONV and No Hx of Motion Sickness Social History Smoking Status: Former smoker tobacco type: cigarettes Smoking cigarettes per day: 20 Do You Dip or Chew Tobacco: No Hx Alcohol Use: No Hx Substance Use: No substance use type: does not use Physical Exam Vital Signs Last Vital Signs Temp 36.5 C 02/20/21 07:42 Pulse 63 02/20/21 07:42 Resp 15 02/20/21 07:42 BP 127/74 02/20/21 07:42 Pulse Ox 95 02/20/21 07:42 Testing Laboratory Results 02/20/21 11:28 PT 10.4 Seconds (9.0-12.0) 02/20/21 03:53 INR 1.0 (0.9-1.1) 02/20/21 03:53 APTT 22.2 Seconds (21.0-31.0) 02/20/21 03:53 Urine Color Yellow 02/19/21 23:44 Urine Appearance Clear (Clear) 02/19/21 23:44 Urine pH 5.0 (4.5-7.5) 02/19/21 23:44 Ur Specific [place] 1.021 (1.000-1.030) 02/19/21 23:44 Urine Protein 1+ (Negative) H 02/19/21 23:44 Urine Glucose (UA) Negative (Negative) 02/19/21 23:44 Urine Ketones Negative (Negative) 02/19/21 23:44 Urine Nitrite Negative (Negative) 02/19/21 23:44 Ur Leukocyte Esterase Negative (Negative) 02/19/21 23:44 Urine WBC (Auto) 1-5 /hpf (0-5) 02/19/21 23:44 Urine RBC (Auto) 0-4 /hpf (0-4) 02/19/21 23:44 U Hyaline Cast (Auto) 5-10 /lpf (0-5) H 02/19/21 23:44 U Epithel Cells (Auto) 10-20 /lpf (0-5) H 02/19/21 23:44 Urine Bacteria (Auto) Negative (Negative) 02/19/21 23:44 Blood Type B Negative 02/19/21 23:15 Antibody Screen NEGATIVE 02/19/21 23:15 Electrocardiogram Date: 02/19/21 Findings: + SB @ (58) Sinus bradycardia Left ventricular hypertrophy with repolarization abnormality Abnormal ECG When compared with ECG of 01-OCT-2020 11:15, ST no longer elevated in Anterior leads Confirmed by Rakesh Sterling ([id number]) on 02/20/2021 11:47:29 AM Chest X-Ray Date: 02/19/21 XR chest 1V portable CLINICAL HISTORY: Fall. COMPARISON STUDY: Chest radiograph October 01, 2020. FINDINGS: Old left-sided rib fractures are noted. Blunting of the left costophrenic angle is chronic. There is no pneumothorax. There is no pleural effusion. There is no evidence for pulmonary edema. The appearance of the chest is unchanged. IMPRESSION: No acute cardiopulmonary findings. No change in appearance of the chest.
[2021-02-20] MEDS ORDERED: ATROPINE SULFATE 0.1 MG/ML 10ML SYR IV PRN (12:36)
[2021-02-20] MEDS ORDERED: ePHEDrine sulfate 50 MG/ML AMP IV PRN (12:36)
[2021-02-20] MEDS ORDERED: fentaNYL citrate 100 MCG/2 ML VIAL IV PRN (12:36)
[2021-02-20] MEDS ORDERED: EPINEPHrine INJ 1 MG/ML AMP ONE (13:10)
[2021-02-20] MEDS ORDERED: BUPIVACAINE 0.25% 30 ML VIAL ONE (13:11)
[2021-02-20] MEDS ORDERED: PHENYLEPHRINE 100MCG/ML 5ML SYR ONE (13:25)
[2021-02-20] MEDS ORDERED: ePHEDrine sulfate 50 MG/ML AMP ONE (13:25)
[2021-02-20] MEDS ORDERED: PROPOFOL IV EMULSION 10 MG/ML 20 ML VIAL IV ONE (13:25)
[2021-02-20] MEDS ORDERED: ONDANSETRON INJ 2 MG/ML 2 ML VIAL ONE (13:25)
[2021-02-20] MEDS ORDERED: GLYCOPYRROLATE 0.2 MG/ML VIAL ONE (13:25)
[2021-02-20] MEDS ORDERED: SUCCINYLCHOLINE CHLORIDE 20 MG/ML 10 ML VIAL IV ONE (13:25)
[2021-02-20] MEDS ORDERED: ceFAZolin 2000MG 2,000 MG/15 ML SYR IV ONE (13:31)
--- NOTE | 2021-02-20 13:48 | Operative Report ---
PG Post Operative Report Pre & Post Diagnosis Operation Date: 02/20/21 12:20 Pre-Op Diagnosis: Intertrochanteric fracture right hip Post-Op Diagnosis: Intertrochanteric fracture right hip I identified the patient and participated in the time-out.: Yes Procedure Operation Date: 02/20/21 12:20 Actual Procedures p Intramedullary nail right hip(Right) - David Campos DO Surgeon David Campos, Air Bag Builder David Diaz PAC Estimated Blood Loss 20 Findings Consistent with Post-Op Diagnosis Specimens None Complications none Disposition Disposition: Recovery Room Indications Dana is a pleasant 85-year-old female who fell last night on a wet bathroom floor. She had right hip pain. She came to the emergency room and radiographs demonstrated a displaced right intertrochanteric hip fracture. She was admitted to the medical service. After discussions at bedside, she elected proceed with intramedullary nail fixation of her right hip. Description of Procedure On February 20, 2021 Dana was brought down from her hospital room to the preoperative holding area. The operative extremity was identified and signed. She was given a preoperative antibiotic. She was taken back the operating room and laid on a fracture table in supine position. She was put under general anesthesia. The right hip was then brought out to traction. Fluoroscopy showed anatomic reduction of the fracture. The right hip was then prepped and draped in sterile fashion. A timeout was done. The patient and the operative extremity was properly identified. A longitudinal incision was made just superior to the greater trochanter. Dissection was taken down through the fascia. A guidepin was placed at the tip of the greater trochanter and advanced down the femoral canal. Appropriate placement was checked on orthogonal fluoroscopic images. A 17 mm opening reamer was then used to open the femoral canal. A size 12 mm Synthes TFN short nail was then impacted into place. Appropriate placement was checked under fluoroscopy. A small lateral incision was made for the helical blade cannula. The cannula was advanced to the lateral cortex. A guidepin was placed into the center center position of the femoral head. The lateral cortex was then drilled and the helical blade was then drilled. A 95 mm helical blade was then impacted into place. The fracture was then compressed and the locking screw was tigh tened. The cannula was then advanced to the distal locking screw. The distal locking screw was then drilled and a 38 mm locking screw was placed. I was able to get excellent fixation. The outrigger was then removed. The wounds were then irrigated. Final fluoroscopic images showed anatomic alignment of the fracture and the hardware. The deep fascia was then closed with #1 Vicryl. Skin was closed with 2-0 Vicryl and adalid. She was then placed in a soft dressing. She was then extubated and transferred to a hospital bed. She was taken to the post anesthesia care unit in stable condition. She tolerated the procedure well. David Diaz PA-C, was present for the entire procedure. He was critical for patient positioning, prepping, draping, retraction exposure, wound closure and application of sterile dressing. I attest to the content of the Intraoperative Record and any orders documented therein. Any exceptions are noted below.
--- NOTE | 2021-02-20 14:04 | Fluoroscopy Report ---
FL hip RT 2-3V HISTORY: 85 years-old Female RT TROCH NAIL acute fracture of the right hip COMPARISON: Right hip radiographs 02/19/2021 TECHNIQUE: 3 spot fluoroscopic images of the right hip were obtained utilizing 40.6 seconds fluorosco py time FINDINGS: Status post placement of an intratrochanteric nail with medullary tomás fixating the acute intertrochan teric fracture with distal cannulated screw. Satisfactory alignment. The hardware appears intact. No unexpected opaque foreign body. Expected postoperative soft tissue swelling with deep tissue air. Art erial calcifications. IMPRESSION: Fluoroscopic assistance as above. ACT 112: Negative or not required by law. The above report was generated using voice recognition software. It may contain grammatical, syntax o r spelling errors. Electronically signed by: Jaun Jim M.D. 02/20/2021 2:03 PM
--- NOTE | 2021-02-20 14:28 | Anesthesiology Progress Note ---
Date of Service February 20, 2021 Anesthesia Post Procedure Vital Signs Vital Signs: Temp Pulse Pulse Pulse Resp BP BP 02/20/21 14:20 77 18 109/61 02/20/21 14:10 76 18 111/57 L 02/20/21 14:01 36.0 C L 71 17 110/59 L 02/20/21 12:31 36.2 C L 59 L 18 02/20/21 07:42 36.5 C 63 15 02/20/21 01:25 36.5 C 61 16 02/20/21 01:15 36.5 C 68 16 02/20/21 00:29 63 18 02/19/21 23:14 66 19 02/19/21 22:16 37.0 C 55 L 55 L 20 179/81 H BP Pulse Ox 02/20/21 14:20 97 02/20/21 14:10 98 02/20/21 14:01 100 02/20/21 12:31 126/65 92 02/20/21 07:42 127/74 95 02/20/21 01:25 149/78 H 97 02/20/21 01:15 172/89 H 96 02/20/21 00:29 136/70 95 02/19/21 23:14 147/67 H 92 02/19/21 22:16 179/81 H 93 Pain Intensity Right Hip: Pain Intensity: 3 Transfer of Care Handoff Completed per policy Notes Mental Status: alert / awake / arousable Patient Amnestic to Procedure: Yes Nausea / Vomiting: adequately controlled Pain: adequately controlled Airway Patency, RR, SpO2: stable & adequate BP & HR: stable & adequate Hydration State: stable & adequate Anesthetic Complications: no major complications apparent
[2021-02-20] MEDS ORDERED: SODIUM CHLORIDE 0.9% 1000ML 250 ML IV ONE ×2 (16:00→18:22)
[2021-02-20 18:45] LABS: Hematocrit (blood only) 27.1 % (37-47); Hemoglobin 9.2 g/dL (12.0-16.0); Mean Corpuscular Hemoglobin 31.2 pg (25-34); Mean Corpuscular Volume 91.9 fL (80-100); Mean Platelet Volume 9.2 fL (7.4-10.4); Platelet Count 121 K/uL (130-400); RDW Coefficient of Variation 13.7 % (11.5-14.5); RDW Standard Deviation 45.5 fL (36.4-46.3); Red Blood Count 2.95 M/uL (4.2-5.4); White Blood Count 10.83 K/uL (4.8-10.8)
[2021-02-20 18:46] LABS: Mean Corpuscular Hgb Conc 33.9 g/dL (32-36)
[2021-02-20 19:14] LABS: Calcium 8.4 mg/dl (8.5-10.1); Creatinine Clr Calc Pharmacy 33.4 ml/min; Est GFR (African American) 70.4 ml/min; Est GFR (Non-African American) 60.7 ml/min; Potassium 3.9 mmol/L (3.5-5.1)
[2021-02-20] MEDS: DOCUSATE SODIUM/SENNA 50/8.6MG TAB PO SCH (21:05)
[2021-02-21] MEDS: oxyCODONE HCL IR 5 MG TAB (IMMEDIATE RELEASE) PO PRN ×3 (02:07→21:09)
[2021-02-21] MEDS: LEVOTHYROXINE SODIUM 50 MCG TABLET PO SCH (05:53)
[2021-02-21] MEDS: APIXABAN 5 MG TABLET PO SCH ×2 (05:53→20:14)
[2021-02-21 06:29] LABS: Basophils # (auto) 0.01 K/uL (0-0.2); Basophils % (auto) 0.1 %; Eosinophils # (auto) 0.09 K/uL (0-0.5); Hematocrit (blood only) 25.2 % (37-47); Hemoglobin 8.4 g/dL (12.0-16.0); Immature Granulocytes # (auto) 0.02 K/uL (0.00-0.02); Immature Granulocytes % (auto) 0.2 %; Lymphocytes # (auto) 0.81 K/uL (1.2-3.4); Lymphocytes % (auto) 9.3 %; Mean Corpuscular Hemoglobin 30.7 pg (25-34); Mean Corpuscular Hgb Conc 33.3 g/dL (32-36); Mean Platelet Volume 9.2 fL (7.4-10.4); Monocytes # (auto) 0.66 K/uL (0.11-0.59); Monocytes % (auto) 7.6 %; Neutrophils # (auto) 7.12 K/uL (1.4-6.5); Neutrophils % (auto) 81.8 %; Platelet Count 124 K/uL (130-400); RDW Coefficient of Variation 13.9 % (11.5-14.5); RDW Standard Deviation 46.6 fL (36.4-46.3); Red Blood Count 2.74 M/uL (4.2-5.4); White Blood Count 8.71 K/uL (4.8-10.8)
--- NOTE | 2021-02-21 06:51 | Orthopedic Progress Note ---
Date of Service February 21, 2021 Assessment & Plan (1) Closed fracture of right hip: Overall she seems to be doing well. She is not having too much pain in the right hip. She would like to get up soon with physical therapy. She can be weightbearing as tolerated. She can restart her Eliquis today for DVT prophylaxis. She is orthopedically stable for discharge when medically ready. Full orthopedic discharge instructions were placed in the discharge summary. Shivam Cortez was seen and examined at bedside this morning. Overall she doing very well. She is awake and alert. She is having much pain in the right hip. She has not been out of bed yet. She has no complaints. Review of Systems All systems reviewed & are unremarkable except as noted in HPI & below. Physical Exam On physical examination of the right hip, the dressings are clean and dry. Her leg lengths are equal. She has active dorsiflexion plantarflexion of her right ankle.. Results & Data Results & Data Laboratory Results . Diagnostic Findings . PG Care Time/CCT Total # of Minutes Spent Total Time Spent with Patient: Total time spent is greater than 50% in coordination of care (as documented) at patient's floor/unit and/or counseling patient: Coding Level of Care Code 56749 Post Operative Follow-Up Diagnoses Closed fracture of right hip S72.001A Encounter type: initial encounter (1) Closed fracture of right hip Encounter type: initial encounter Qualified Code(s): S72.001A - Fracture of unspecified part of neck of right femur, initial encounter for closed fracture
[2021-02-21 08:13] LABS: BUN Creatinine Ratio 16.3 (10-20); Calcium 8.8 mg/dl (8.5-10.1); Est GFR (African American) 61.7 ml/min; Est GFR (Non-African American) 53.3 ml/min; Potassium 4.1 mmol/L (3.5-5.1)
[2021-02-21] MEDS: GABAPENTIN 100 MG CAP PO SCH ×2 (09:58→20:14)
[2021-02-21] MEDS: MESALAMINE 250 MG CAPCR PO SCH ×2 (09:59→20:14)
[2021-02-21] MEDS: IPRATROPIUM BROMIDE NASAL SPRAY 0.06% 15ML NAE SCH ×4 (09:59→21:00)
[2021-02-21] MEDS: PANTOprazole 40 MG TAB PO SCH (10:00)
[2021-02-21] MEDS: METOPROLOL TARTRATE 50 MG TAB PO SCH ×2 (10:00→20:13)
[2021-02-21] MEDS: COLESTIPOL HCL 1 GM TAB PO SCH ×2 (12:19→22:16)
[2021-02-21] MEDS: ACETAMINOPHEN 500 MG TAB PO PRN (14:38)
[2021-02-21] MEDS ORDERED: LACTATED RINGER'S 250 ML IV ONE (15:41)
--- NOTE | 2021-02-21 16:20 | Hospitalist Progress Note ---
Date of Service February 21, 2021 Assessment & Plan (1) Closed fracture of right hip: Plan: Mrs. Treviño is an 85 yo woman with a history of osteoporosis and vitamin D deficiency who presented for evaluation of R hip pain after a mechanical fall. - XR showed R femoral neck fracture - ortho consulted placed and now status post ORIF on 02/20 - Eliquis for DVT prophylaxis, no need for bridging as her VTE was several years ago -Continue pain management, bowel regimen -Appreciate orthopedic surgery management-stable from their standpoint for discharge PT/OT-we will need rehab placement -Follow CBC, BMP (2) Hypotension: Plan: Intermittent and continues, asymptomatic today Responded readily to small boluses of normal saline-we will give another bolus of LR to 50 mL x 1 now Okay to continue metoprolol with hold parameters, but will discontinue clonidine on telmisartan, and amlodipine Hemoglobin with further drop down which may be somewhat hemodilution to 8.4-no need for transfusion Follow CBC in the morning (3) Leukocytosis: Plan: -Elevated upon admission likely secondary to stress response-now resolved - UA without evidence of infection - CXR normal (4) Elevated serum creatinine: Plan: - Cr at 1.3, BUN at 22 Creatinine now normalized Follow BMP (5) Hypertension: Plan: - LVH noted on EKG, which suggests her BP has been above goal for quite some time -With hypotension as above Hold home amlodipine, clonidine, telmisartan -Continue metoprolol with hold parameters (6) Osteoporosis: Plan: - had been started on fosamax in the past but self discontinued - would hold off on restarting bisphosphonate in the setting of an acute fracture (concern for atypical remodeling of bone) - consider resuming fosamax as outpatient after 30 days vs. 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 Has a history of Crohn's disease and lung cancer-seen by hematology/oncology and recommended continuation on anticoagulation -Restarted Eliquis (8) Crohns disease: Plan: - continue home dose mesalamine, no acute issues (9) GERD (gastroesophageal reflux disease): Plan: - continue home dose protonix (10) Hypothyroidism: Plan: - continue home dose Synthroid TSH normal earlier this year (11) Acute blood loss anemia: Plan: Hemoglobin dropped as above down to 8.4 With some mild hypotension associated Bolusing with gentle amounts Follow CBC in the morning Transfuse if hemoglobin drops less than 8 or continues to have hypotension No evidence of hematoma at the hip site Plan: DVT prophylaxis-Eliquis, will need rehab once hypotension improves over the next 1 to 2 days SCDs Disposition-continued stay medical/surgical floor Admission and Anticipated Discharge Date Admission Date: February 20, 2021 Subjective Pt having some pain in her right hip.having some low blood pressures today but denies lightheadedness. She is requesting her lorazepam. She was out of bed for little bit of physical therapy today. Review of Systems Review of Systems: All systems reviewed & are unremarkable except as noted in HPI & below Physical Exam Constitutional: WD/WN, vitals as above Eyes: + anicteric sclerae Neck: trachea midline, no thyromegaly Respiratory: normal respiratory effort, lungs clear to auscultation Cardiovascular: RRR, no murmur, no edema Chest (Breasts): Chest: normal inspection of chest Gastrointestinal (Abdomen): normal bowel sounds, soft, nontender, no hepatosplenomegaly Musculoskeletal: Extremities: + extremities abnormal to inspection (Right hip with dressing in place clean dry and intact), no cyanosis and no clubbing Skin: no rashes, warm and dry Neurologic: moves all extremities and awake; no focal motor deficits Psychiatric: A+Ox3, euthymic affect Lymphatic: no lymphedema Results & Data Results & Data ([facility]) Vital Signs (Past 12 Hours) Vital Signs Temp Pulse Pulse Resp BP BP Pulse Ox 02/21/21 15:19 36.6 C 72 16 85/52 L 93 02/21/21 12:27 69 103/69 02/21/21 12:25 02/21/21 11:05 36.9 C 66 16 83/54 L 116/54 L 95 02/21/21 09:55 69 16 97/45 L 93 02/21/21 07:41 91 02/21/21 07:40 88 L 02/21/21 07:34 36.5 C 68 93/60 L 84 L Pulse Ox 02/21/21 15:19 02/21/21 12:27 02/21/21 12:25 92 02/21/21 11:05 02/21/21 09:55 02/21/21 07:41 02/21/21 07:40 02/21/21 07:34 Laboratory Results 02/21/21 02/21/21 02/20/21 Range/Units 06:10 06:10 18:33 WBC 8.71 (4.8-10.8) K/uL RBC 2.74 L (4.2-5.4) M/uL Hgb 8.4 L (12.0-16.0) g/dL Hct 25.2 L (37-47) % MCV 92.0 (80-100) fL MCH 30.7 (25-34) pg MCHC 33.3 (32-36) g/dL RDW Std Deviation 46.6 H (36.4-46.3) fL RDW Coeff of Martine 13.9 (11.5-14.5) % Plt Count 124 L (130-400) K/uL MPV 9.2 (7.4-10.4) fL Immature Gran % (Auto) 0.2 % Neut % (Auto) 81.8 % Lymph % (Auto) 9.3 % Mcdonough % (Auto) 7.6 % Eos % (Auto) 1.0 % Baso % (Auto) 0.1 % Neut # (Auto) 7.12 H (1.4-6.5) K/uL Lymph # (Auto) 0.81 L (1.2-3.4) K/uL [place]cd[place]ough # (Auto) 0.66 H (0.11-0.59) K/uL Eos # (Auto) 0.09 (0-0.5) K/uL Baso # (Auto) 0.01 (0-0.2) K/uL Immature Gran # (Auto) 0.02 (0.00-0.02) K/uL Sodium 140 142 (136-145) mmol/L Potassium 4.1 3.9 (3.5-5.1) mmol/L Chloride 113 H 115 H (98-107) mmol/L Carbon Dioxide 19 L 21 (21-32) mmol/L Anion Gap 8.0 7.0 (3-11) BUN 16 18 (7-18) mg/dl Creatinine 0.97 0.87 (0.6-1.2) mg/dl Est Cr Clr Drug Dosing 30.0 33.4 ml/min Est GFR ( Amer) 61.7 70.4 ml/min Est GFR (Non-Af Amer) 53.3 60.7 ml/min BUN/Creatinine Ratio 16.3 21.0 H (10-20) Glucose 118 H 134 H (70-99) mg/dl Calcium 8.8 8.4 L (8.5-10.1) mg/dl 02/20/21 Range/Units 18:33 WBC 10.83 H (4.8-10.8) K/uL RBC 2.95 L (4.2-5.4) M/uL Hgb 9.2 L (12.0-16.0) g/dL Hct 27.1 L (37-47) % MCV 91.9 (80-100) fL MCH 31.2 (25-34) pg MCHC 33.9 (32-36) g/dL RDW Std Deviation 45.5 (36.4-46.3) fL RDW Coeff of Martine 13.7 (11.5-14.5) % Plt Count 121 L (130-400) K/uL MPV 9.2 (7.4-10.4) fL Immature Gran % (Auto) % Neut % (Auto) % Lymph % (Auto) % [place] % (Auto) % Eos % (Auto) % Baso % (Auto) % Neut # (Auto) (1.4-6.5) K/uL Lymph # (Auto) (1.2-3.4) K/uL [place] # (Auto) (0.11-0.59) K/uL Eos # (Auto) (0-0.5) K/uL Baso # (Auto) (0-0.2) K/uL Immature Gran # (Auto) (0.00-0.02) K/uL Sodium (136-145) mmol/L Potassium (3.5-5.1) mmol/L Chloride (98-107) mmol/L Carbon Dioxide (21-32) mmol/L Anion Gap (3-11) BUN (7-18) mg/dl Creatinine (0.6-1.2) mg/dl Est Cr Clr Drug Dosing ml/min Est GFR ( Amer) ml/min Est GFR (Non-Af Amer) ml/min BUN/Creatinine Ratio (10-20) Glucose (70-99) mg/dl Calcium (8.5-10.1) mg/dl PG Care Time/CCT Total # of Minutes Spent Total Time Spent with Patient: Total time spent is greater than 50% in coordination of care (as documented) at patient's floor/unit and/or counseling patient: Coding Level of Care Code 32990 Subseq Hosp Care Lvl 3 Diagnoses Closed fracture of right hip S72.001A Encounter type: initial encounter Hypotension I95.9 Leukocytosis D72.829 Elevated serum creatinine R79.89 Hypertension I10 Hypertension type: essential hypertension Osteoporosis M81.0 Thrombosis of ovarian vein I82.890 Crohns disease K50.90 GERD (gastroesophageal reflux disease) K21.9 Hypothyroidism E03.9 Acute blood loss anemia D62 (1) Closed fracture of right hip Encounter type: initial encounter Qualified Code(s): S72.001A - Fracture of unspecified part of neck of right femur, initial encounter for closed fracture (2) Hypertension Hypertension type: essential hypertension Qualified Code(s): I10 - Essential (primary) hypertension
[2021-02-21] MEDS: DOCUSATE SODIUM/SENNA 50/8.6MG TAB PO SCH (20:13)
[2021-02-21] MEDS: LORazepam 0.5 MG TAB PO SCH (20:14)
[2021-02-22] MEDS: LEVOTHYROXINE SODIUM 50 MCG TABLET PO SCH (06:06)
--- NOTE | 2021-02-22 06:41 | Orthopedic Progress Note ---
Date of Service February 22, 2021 Assessment & Plan (1) Closed fracture of right hip: Overall she is doing about as well as expected. She is on Eliquis for DVT prophylaxis. The dressings look good. She can continue to be weightbearing as tolerated with physical therapy. She awaiting placement in a intermediate facility. The dressing can be changed today. She is orthopedically stable for discharge when medically ready. Full orthopedic discharge instructions were placed in the discharge summary. If you have any questions please feel free to contact me personally on my cell phone at [phone] Shivam Cortez was seen and examined at bedside this morning. Overall she is doing fairly well. She is having some pain in the right hip. She was able to ambulate some yesterday with physical therapy but she said was fairly sore and painful. She has no new complaints. Review of Systems All systems reviewed & are unremarkable except as noted in HPI & below. Physical Exam On physical examination the right hip, the dressings are clean and dry. Her leg lengths are equal. She has active dorsiflexion plantarflexion of her right ankle.. Results & Data Results & Data Laboratory Results . Diagnostic Findings . PG Care Time/CCT Total # of Minutes Spent Total Time Spent with Patient: Total time spent is greater than 50% in coordination of care (as documented) at patient's floor/unit and/or counseling patient: Coding Level of Care Code 63475 Post Operative Follow-Up Diagnoses Closed fracture of right hip S72.001A Encounter type: initial encounter (1) Closed fracture of right hip Encounter type: initial encounter Qualified Code(s): S72.001A - Fracture of unspecified part of neck of right femur, initial encounter for closed fracture
[2021-02-22] MEDS: GABAPENTIN 100 MG CAP PO SCH ×2 (08:56→20:00)
[2021-02-22] MEDS: APIXABAN 5 MG TABLET PO SCH ×2 (08:56→20:01)
[2021-02-22] MEDS: PANTOprazole 40 MG TAB PO SCH (08:57)
[2021-02-22] MEDS: MESALAMINE 250 MG CAPCR PO SCH ×2 (08:58→20:02)
[2021-02-22] MEDS: IPRATROPIUM BROMIDE NASAL SPRAY 0.06% 15ML NAE SCH ×3 (08:58→20:01)
[2021-02-22] MEDS: oxyCODONE HCL IR 5 MG TAB (IMMEDIATE RELEASE) PO PRN ×3 (09:00→19:58)
[2021-02-22 09:18] LABS: Basophils # (auto) 0.01 K/uL (0-0.2); Basophils % (auto) 0.1 %; Eosinophils # (auto) 0.04 K/uL (0-0.5); Eosinophils % (auto) 0.4 %; Hematocrit (blood only) 26.3 % (37-47); Hemoglobin 8.7 g/dL (12.0-16.0); Immature Granulocytes # (auto) 0.03 K/uL (0.00-0.02); Immature Granulocytes % (auto) 0.3 %; Lymphocytes # (auto) 0.52 K/uL (1.2-3.4); Lymphocytes % (auto) 4.7 %; Mean Corpuscular Hemoglobin 30.4 pg (25-34); Mean Corpuscular Hgb Conc 33.1 g/dL (32-36); Mean Platelet Volume 9.7 fL (7.4-10.4); Monocytes # (auto) 0.67 K/uL (0.11-0.59); Neutrophils # (auto) 9.84 K/uL (1.4-6.5); Neutrophils % (auto) 88.5 %; Platelet Count 135 K/uL (130-400); RDW Coefficient of Variation 14.1 % (11.5-14.5); RDW Standard Deviation 47.2 fL (36.4-46.3); Red Blood Count 2.86 M/uL (4.2-5.4); White Blood Count 11.11 K/uL (4.8-10.8)
[2021-02-22 09:44] LABS: BUN Creatinine Ratio 13.7 (10-20); Calcium 9.4 mg/dl (8.5-10.1); Creatinine Clr Calc Pharmacy 27.4 ml/min; Est GFR (African American) 55.4 ml/min; Est GFR (Non-African American) 47.8 ml/min; Potassium 3.8 mmol/L (3.5-5.1)
[2021-02-22] MEDS: METOPROLOL TARTRATE 50 MG TAB PO SCH ×2 (10:15→19:59)
[2021-02-22] MEDS: COLESTIPOL HCL 1 GM TAB PO SCH ×2 (13:26→21:03)
[2021-02-22] MEDS: LORazepam 0.5 MG TAB PO SCH ×2 (13:26→19:59)
--- NOTE | 2021-02-22 13:35 | Hospitalist Progress Note ---
Date of Service February 22, 2021 Assessment & Plan (1) Closed fracture of right hip: Plan: Mrs. Treviño is an 85 yo woman with a history of osteoporosis and vitamin D deficiency who presented for evaluation of R hip pain after a mechanical fall. - XR showed R femoral neck fracture - ortho consulted placed and now status post ORIF on 02/20 - Eliquis for DVT prophylaxis -Continue pain management, bowel regimen-add on MiraLAX to docusate/senna -Appreciate orthopedic surgery management-stable from their standpoint for discharge PT/OT-we will need rehab placement-awaiting placement -Follow CBC, BMP-hemoglobin slightly increased today to 8.7 and stable (2) Hypotension: Plan: Intermittent-now resolved after holding amlodipine, telmisartan, and clonidine Responded readily to small boluses of crystalloid on 02/20 and 02/21 Okay to continue metoprolol with hold parameters, but will discontinue clonidine, telmisartan, and amlodipine for now Hemoglobin with drop down to 8.7 but stable-no need for transfusion Follow CBC in the morning (3) Leukocytosis: Plan: -Elevated upon admission likely secondary to stress response-now resolved - UA without evidence of infection - CXR normal (4) Elevated serum creatinine: Plan: - Cr at 1.3, BUN at 22 Creatinine now normalized Follow BMP (5) Hypertension: Plan: - LVH noted on EKG, which suggests her BP has been above goal for quite some time -With hypotension as above Hold home amlodipine, clonidine, telmisartan -Continue metoprolol with hold parameters (6) Osteoporosis: Plan: - had been started on fosamax in the past but self discontinued - would hold off on restarting bisphosphonate in the setting of an acute fracture (concern for atypical remodeling of bone) - consider resuming fosamax as outpatient after 30 days vs. 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 Has a history of Crohn's disease and lung cancer-seen by hematology/oncology and recommended continuation on anticoagulation -Restarted Eliquis (8) Crohns disease: Plan: - continue home dose mesalamine, no acute issues (9) GERD (gastroesophageal reflux disease): Plan: - continue home dose protonix (10) Hypothyroidism: Plan: - continue home dose Synthroid TSH normal earlier this year (11) Acute blood loss anemia: Plan: Hemoglobin dropped as above down to 8.4-8.7 now resolved With some mild hypotension associated Follow CBC in the morning Transfuse if hemoglobin drops less than 8 or continues to have hypotension No evidence of hematoma at the hip site Plan: DVT prophylaxis-Eliquis Disposition-continued stay medical/surgical floor,, medically stable for discharge, awaiting rehab placement Admission and Anticipated Discharge Date Admission Date: February 20, 2021 Subjective Patient has no complaints except pain in the hip. No chest pains or shortness of breath. Her was admitted to the hospital this morning she believes with a bowel obstruction. She is not sure if she is really possibly she is having trouble getting up but I reassured her that that is why she needs to leave and go to rehab to get stronger. It looks like she ate about 50% of her lunch. Last bowel movement 2 days ago. Is a bit confused at times-does not recall speaking to case packer this morning about rehab choices, stating "well it depends if it was before my pain pill or after." And then she later proceeded to tell me that she remembers when I worked at [employer]. Review of Systems 2 Review of Systems: All systems reviewed & are unremarkable except as noted in HPI & below Physical Exam Constitutional: WD/WN, vitals as above Eyes: + anicteric sclerae Neck: trachea midline, no thyromegaly Respiratory: normal respiratory effort, lungs clear to auscultation Cardiovascular: RRR, no murmur, no edema Chest (Breasts): Chest: normal inspection of chest Gastrointestinal (Abdomen): normal bowel sounds, soft, nontender, no hepatosplenomegaly Musculoskeletal: Extremities: + extremities abnormal to inspection (Right hip with dressing in place clean dry and intact), no cyanosis and no clubbing Skin: no rashes, warm and dry Neurologic: moves all extremities and awake; no focal motor deficits Lymphatic: no lymphedema Results & Data Results & Data ([facility]) Vital Signs (Past 12 Hours) Vital Signs Temp Pulse Resp BP BP Pulse Ox Pulse Ox 02/22/21 10:20 80 107/71 02/22/21 07:45 36.7 C 101 H 16 104/67 95 02/22/21 04:35 95 Laboratory Results 02/22/21 02/22/21 Range/Units 08:46 08:46 WBC 11.11 H (4.8-10.8) K/uL RBC 2.86 L (4.2-5.4) M/uL Hgb 8.7 L (12.0-16.0) g/dL Hct 26.3 L (37-47) % MCV 92.0 (80-100) fL MCH 30.4 (25-34) pg MCHC 33.1 (32-36) g/dL RDW Std Deviation 47.2 H (36.4-46.3) fL RDW Coeff of Martine 14.1 (11.5-14.5) % Plt Count 135 (130-400) K/uL MPV 9.7 (7.4-10.4) fL Immature Gran % (Auto) 0.3 % Neut % (Auto) 88.5 % Lymph % (Auto) 4.7 % Morris % (Auto) 6.0 % Eos % (Auto) 0.4 % Baso % (Auto) 0.1 % Neut # (Auto) 9.84 H (1.4-6.5) K/uL Lymph # (Auto) 0.52 L (1.2-3.4) K/uL Morris # (Auto) 0.67 H (0.11-0.59) K/uL Eos # (Auto) 0.04 (0-0.5) K/uL Baso # (Auto) 0.01 (0-0.2) K/uL Immature Gran # (Auto) 0.03 H (0.00-0.02) K/uL Sodium 139 (136-145) mmol/L Potassium 3.8 (3.5-5.1) mmol/L Chloride 111 H (98-107) mmol/L Carbon Dioxide 21 (21-32) mmol/L Anion Gap 6.0 (3-11) BUN 15 (7-18) mg/dl Creatinine 1.06 (0.6-1.2) mg/dl Est Cr Clr Drug Dosing 27.4 ml/min Est GFR ( Amer) 55.4 ml/min Est GFR (Non-Af Amer) 47.8 ml/min BUN/Creatinine Ratio 13.7 (10-20) Glucose 183 H (70-99) mg/dl Calcium 9.4 (8.5-10.1) mg/dl PG Care Time/CCT Total # of Minutes Spent Total Time Spent with Patient: Total time spent is greater than 50% in coordination of care (as documented) at patient's floor/unit and/or counseling patient: Coding Level of Care Code 82399 Subseq Hosp Care Lvl 2 Diagnoses Closed fracture of right hip S72.001A Encounter type: initial encounter Hypotension I95.9 Leukocytosis D72.829 Elevated serum creatinine R79.89 Hypertension I10 Hypertension type: essential hypertension Osteoporosis M81.0 Thrombosis of ovarian vein I82.890 Crohns disease K50.90 GERD (gastroesophageal reflux disease) K21.9 Hypothyroidism E03.9 Acute blood loss anemia D62 (1) Closed fracture of right hip Encounter type: initial encounter Qualified Code(s): S72.001A - Fracture of unspecified part of neck of right femur, initial encounter for closed fracture (2) Hypertension Hypertension type: essential hypertension Qualified Code(s): I10 - Essential (primary) hypertension
[2021-02-22] MEDS: POLYETHYLENE (MIRALAX) 17 GM PACK PO SCH (15:25)
[2021-02-22] MEDS: DOCUSATE SODIUM/SENNA 50/8.6MG TAB PO SCH (20:01)
[2021-02-23] MEDS: LEVOTHYROXINE SODIUM 50 MCG TABLET PO SCH (06:14)
[2021-02-23 06:28] LABS: Basophils # (auto) 0.02 K/uL (0-0.2); Basophils % (auto) 0.2 %; Eosinophils % (auto) 0.8 %; Hematocrit (blood only) 28.8 % (37-47); Hemoglobin 9.4 g/dL (12.0-16.0); Immature Granulocytes # (auto) 0.03 K/uL (0.00-0.02); Immature Granulocytes % (auto) 0.2 %; Lymphocytes # (auto) 0.98 K/uL (1.2-3.4); Lymphocytes % (auto) 7.6 %; Mean Corpuscular Hemoglobin 30.5 pg (25-34); Mean Corpuscular Hgb Conc 32.6 g/dL (32-36); Mean Corpuscular Volume 93.5 fL (80-100); Mean Platelet Volume 9.4 fL (7.4-10.4); Monocytes # (auto) 0.86 K/uL (0.11-0.59); Monocytes % (auto) 6.7 %; Neutrophils # (auto) 10.93 K/uL (1.4-6.5); Neutrophils % (auto) 84.5 %; Platelet Count 163 K/uL (130-400); RDW Coefficient of Variation 14.2 % (11.5-14.5); RDW Standard Deviation 48.1 fL (36.4-46.3); Red Blood Count 3.08 M/uL (4.2-5.4); White Blood Count 12.92 K/uL (4.8-10.8)
[2021-02-23 06:57] LABS: BUN Creatinine Ratio 13.9 (10-20); Calcium 9.8 mg/dl (8.5-10.1); Creatinine Clr Calc Pharmacy 24.4 ml/min; Est GFR (African American) 48.2 ml/min; Est GFR (Non-African American) 41.6 ml/min; Potassium 4.1 mmol/L (3.5-5.1)
[2021-02-23] MEDS: METOPROLOL TARTRATE 50 MG TAB PO SCH ×2 (09:11→20:05)
[2021-02-23] MEDS: APIXABAN 5 MG TABLET PO SCH ×2 (09:11→20:07)
[2021-02-23] MEDS: PANTOprazole 40 MG TAB PO SCH (09:11)
[2021-02-23] MEDS: GABAPENTIN 100 MG CAP PO SCH ×2 (09:11→20:07)
[2021-02-23] MEDS: MESALAMINE 250 MG CAPCR PO SCH ×2 (09:11→20:06)
[2021-02-23] MEDS: COLESTIPOL HCL 1 GM TAB PO SCH ×2 (09:11→21:52)
[2021-02-23] MEDS: IPRATROPIUM BROMIDE NASAL SPRAY 0.06% 15ML NAE SCH ×3 (09:11→20:11)
[2021-02-23] MEDS: POLYETHYLENE (MIRALAX) 17 GM PACK PO SCH (09:26)
[2021-02-23] MEDS: LORazepam 0.5 MG TAB PO SCH ×2 (09:26→20:04)
[2021-02-23] MEDS: oxyCODONE HCL IR 5 MG TAB (IMMEDIATE RELEASE) PO PRN ×3 (09:26→21:52)
[2021-02-23] MEDS: ACETAMINOPHEN 500 MG TAB PO PRN (12:52)
--- NOTE | 2021-02-23 17:07 | Hospitalist Progress Note ---
Date of Service February 23, 2021 Assessment & Plan (1) Closed fracture of right hip: Plan: Mrs. Treviño is an 85 yo woman with a history of osteoporosis and vitamin D deficiency who presented for evaluation of R hip pain after a mechanical fall. - XR showed R femoral neck fracture - ortho consulted placed and now status post ORIF on 02/20 - Eliquis for DVT prophylaxis -Continue pain management, bowel regimen-continue MiraLAX and docusate/senna-no bowel movement yet since the day of surgery -Appreciate orthopedic surgery management-stable from their standpoint for discharge PT/OT-we will need rehab placement-awaiting placement -Follow CBC, BMP-hemoglobin improved today up to 9.4 (2) Hypotension: Plan: Intermittent-now resolved after holding amlodipine, telmisartan, and clonidine Responded readily to small boluses of crystalloid on 02/20 and 02/21 Okay to continue metoprolol with hold parameters, but will discontinue clonidine, telmisartan, and amlodipine for now Hemoglobin with drop down to 8.7 at the lowest, but now improved -no need for transfusion Follow CBC in the morning (3) Leukocytosis: Plan: -Elevated upon admission likely secondary to stress response-now stable at 12 - UA without evidence of infection - CXR normal Follow CBC in the morning (4) Elevated serum creatinine: Plan: - Cr at 1.3, BUN at 22 Creatinine now normalized Follow BMP (5) Hypertension: Plan: - LVH noted on EKG, which suggests her BP has been above goal for quite some time -With hypotension as above Hold home amlodipine, clonidine, telmisartan -Continue metoprolol with hold parameters (6) Osteoporosis: Plan: - had been started on fosamax in the past but self discontinued - would hold off on restarting bisphosphonate in the setting of an acute fracture (concern for atypical remodeling of bone) - consider resuming fosamax as outpatient after 30 days vs. 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 Has a history of Crohn's disease and lung cancer-seen by hematology/oncology and recommended continuation on anticoagulation -Restarted Eliquis (8) Crohns disease: Plan: - continue home dose mesalamine, no acute issues (9) GERD (gastroesophageal reflux disease): Plan: - continue home dose protonix (10) Hypothyroidism: Plan: - continue home dose Synthroid TSH normal earlier this year (11) Acute blood loss anemia: Plan: Hemoglobin dropped as above down to 8.4-8.7 now improved up to 9 With some mild hypotension associated Follow CBC in the morning Transfuse if hemoglobin drops less than 8 or continues to have hypotension No evidence of hematoma at the hip site Plan: DVT prophylaxis-Eliquis Disposition-continued stay medical/surgical floor,, medically stable for discharge, awaiting rehab placement Admission and Anticipated Discharge Date Admission Date: February 20, 2021 Subjective Patient has some pain in the right hip and is requesting a pain pill. Otherwise has not moved her bowels. Is eating and drinking, no other complaints. Review of Systems Review of Systems: All systems reviewed & are unremarkable except as noted in HPI & below Physical Exam Constitutional: WD/WN, vitals as above Eyes: + anicteric sclerae Neck: trachea midline, no thyromegaly Respiratory: normal respiratory effort, lungs clear to auscultation Cardiovascular: RRR, no murmur, no edema Chest (Breasts): Chest: normal inspection of chest Gastrointestinal (Abdomen): normal bowel sounds, soft, nontender, no hepatosplenomegaly Musculoskeletal: Extremities: + extremities abnormal to inspection (Right hip with dressing in place clean dry and intact), no cyanosis and no clubbing Skin: no rashes, warm and dry Neurologic: moves all extremities and awake; no focal motor deficits Psychiatric: A+Ox3, euthymic affect Lymphatic: no lymphedema Results & Data Results & Data ([facility]) Vital Signs (Past 12 Hours) Vital Signs Temp Pulse Resp BP Pulse Ox 02/23/21 15:11 36.7 C 71 16 101/64 92 02/23/21 07:21 36.8 C 78 16 103/64 97 Laboratory Results 02/23/21 02/23/21 Range/Units 05:58 05:58 WBC 12.92 H (4.8-10.8) K/uL RBC 3.08 L (4.2-5.4) M/uL Hgb 9.4 L (12.0-16.0) g/dL Hct 28.8 L (37-47) % MCV 93.5 (80-100) fL MCH 30.5 (25-34) pg MCHC 32.6 (32-36) g/dL RDW Std Deviation 48.1 H (36.4-46.3) fL RDW Coeff of Martine 14.2 (11.5-14.5) % Plt Count 163 (130-400) K/uL MPV 9.4 (7.4-10.4) fL Immature Gran % (Auto) 0.2 % Neut % (Auto) 84.5 % Lymph % (Auto) 7.6 % [place] % (Auto) 6.7 % Eos % (Auto) 0.8 % Baso % (Auto) 0.2 % Neut # (Auto) 10.93 H (1.4-6.5) K/uL Lymph # (Auto) 0.98 L (1.2-3.4) K/uL [place] # (Auto) 0.86 H (0.11-0.59) K/uL Eos # (Auto) 0.10 (0-0.5) K/uL Baso # (Auto) 0.02 (0-0.2) K/uL Immature Gran # (Auto) 0.03 H (0.00-0.02) K/uL Sodium 138 (136-145) mmol/L Potassium 4.1 (3.5-5.1) mmol/L Chloride 111 H (98-107) mmol/L Carbon Dioxide 22 (21-32) mmol/L Anion Gap 5.0 (3-11) BUN 17 (7-18) mg/dl Creatinine 1.19 (0.6-1.2) mg/dl Est Cr Clr Drug Dosing 24.4 ml/min Est GFR ( Amer) 48.2 ml/min Est GFR (Non-Af Amer) 41.6 ml/min BUN/Creatinine Ratio 13.9 (10-20) Glucose 121 H (70-99) mg/dl Calcium 9.8 (8.5-10.1) mg/dl PG Care Time/CCT Total # of Minutes Spent Total Time Spent with Patient: Total time spent is greater than 50% in coordination of care (as documented) at patient's floor/unit and/or counseling patient: Coding Level of Care Code 33599 Subseq Hosp Care Lvl 2 Diagnoses Closed fracture of right hip S72.001A Encounter type: initial encounter Hypotension I95.9 Leukocytosis D72.829 Elevated serum creatinine R79.89 Hypertension I10 Hypertension type: essential hypertension Osteoporosis M81.0 Thrombosis of ovarian vein I82.890 Crohns disease K50.90 GERD (gastroesophageal reflux disease) K21.9 Hypothyroidism E03.9 Acute blood loss anemia D62 (1) Closed fracture of right hip Encounter type: initial encounter Qualified Code(s): S72.001A - Fracture of unspecified part of neck of right femur, initial encounter for closed fracture (2) Hypertension Hypertension type: essential hypertension Qualified Code(s): I10 - Essential (primary) hypertension
[2021-02-23] MEDS: DOCUSATE SODIUM/SENNA 50/8.6MG TAB PO SCH (20:07)
[2021-02-24] MEDS: oxyCODONE HCL IR 5 MG TAB (IMMEDIATE RELEASE) PO PRN (04:38)
[2021-02-24] MEDS: LEVOTHYROXINE SODIUM 50 MCG TABLET PO SCH (04:39)
[2021-02-24 06:22] LABS: Basophils # (auto) 0.01 K/uL (0-0.2); Basophils % (auto) 0.1 %; Eosinophils # (auto) 0.15 K/uL (0-0.5); Eosinophils % (auto) 1.7 %; Hematocrit (blood only) 24.7 % (37-47); Hemoglobin 8.1 g/dL (12.0-16.0); Immature Granulocytes # (auto) 0.03 K/uL (0.00-0.02); Immature Granulocytes % (auto) 0.3 %; Lymphocytes # (auto) 0.97 K/uL (1.2-3.4); Mean Corpuscular Hemoglobin 30.6 pg (25-34); Mean Corpuscular Hgb Conc 32.8 g/dL (32-36); Mean Corpuscular Volume 93.2 fL (80-100); Mean Platelet Volume 9.2 fL (7.4-10.4); Monocytes # (auto) 0.58 K/uL (0.11-0.59); Monocytes % (auto) 6.6 %; Neutrophils # (auto) 7.06 K/uL (1.4-6.5); Neutrophils % (auto) 80.3 %; Platelet Count 156 K/uL (130-400); RDW Coefficient of Variation 14.4 % (11.5-14.5); RDW Standard Deviation 48.2 fL (36.4-46.3); Red Blood Count 2.65 M/uL (4.2-5.4)
[2021-02-24 06:52] LABS: BUN Creatinine Ratio 16.8 (10-20); Calcium 9.4 mg/dl (8.5-10.1); Est GFR (African American) 56.7 ml/min; Potassium 4.3 mmol/L (3.5-5.1)
[2021-02-24] MEDS: LORazepam 0.5 MG TAB PO SCH (07:56)
[2021-02-24] MEDS: ACETAMINOPHEN 500 MG TAB PO PRN (07:56)
[2021-02-24] MEDS: MESALAMINE 250 MG CAPCR PO SCH (07:57)
[2021-02-24] MEDS: METOPROLOL TARTRATE 50 MG TAB PO SCH (07:57)
[2021-02-24] MEDS: GABAPENTIN 100 MG CAP PO SCH (07:57)
[2021-02-24] MEDS: APIXABAN 5 MG TABLET PO SCH (07:57)
[2021-02-24] MEDS: IPRATROPIUM BROMIDE NASAL SPRAY 0.06% 15ML NAE SCH (07:58)
[2021-02-24] MEDS: PANTOprazole 40 MG TAB PO SCH (07:58)
[2021-02-24] MEDS: POLYETHYLENE (MIRALAX) 17 GM PACK PO SCH (07:58)
[2021-02-24] MEDS: COLESTIPOL HCL 1 GM TAB PO SCH (10:33)
--- NOTE | 2021-02-24 11:37 | Discharge Summary ---
Date of Service February 24, 2021 Admission HPI Per Admitting Provider Mrs. Treviño is an 85 yo woman with a PMHx of osteoporosis and vitamin D deficiency who presented for evaluation of R hip pain after a fall. The fall was mechanical in nature - she bent over to pick something up on the bathroom floor and slipped (it was wet) and fell backwards. She then experienced severe R hip pain; she was unable to get herself up. Her called EMS. She did not strike her head when she fell. 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 She was previously started on Fosamax in the past for osteoporosis- but she self-discontinued it; she is unable to tell me the reason. She had a left hip fracture repair with internal fixation several years ago - this was apparently performed by Dr. Jonathan Barton ([facility]). She also had left knee surgery by Dr. Brock. Social Hx: lives at home with her . No etoh. Former smoker - quit 5-6 years ago. In the ED, she was afebrile with a HR of 53 and BP of 179/81. Her breathing was normal. Her WBC was mildly elevated to 12 with neutrophil predominance. Her CBC was otherwise unremarkable. Coags WNL. Cr .31, BUN at 22. UA not concerning for infection. Trop undetectable. COVID 19 neg. CXR pending. EKG showed sinus aubrey with voltage criteria for LVH with ST segment depressions (although very similar in appearance to previous ekg). Head CT showing no acute abnormalities. Hip XR showing femoral neck fracture on R; hardware on L appears to be intact. She was given 1g Tylenol. Principal Diagnosis Right hip fracture, acute blood loss anemia Discharge Exam Constitutional WD/WN, vitals as above Eyes + anicteric sclerae Neck trachea midline, no thyromegaly Respiratory normal respiratory effort, lungs clear to auscultation Cardiovascular RRR, no murmur, no edema Chest (Breasts) Chest: normal inspection of chest Gastrointestinal (Abdomen) normal bowel sounds, soft, nontender, no hepatosplenomegaly Musculoskeletal Extremities: + extremities abnormal to inspection (Right hip with dressing in place clean dry and intact), no cyanosis and no clubbing Skin no rashes, warm and dry Some ecchymoses around right hip incision Neurologic moves all extremities and awake; no focal motor deficits Psychiatric A+Ox3, euthymic affect Lymphatic no lymphedema Discharge Data Allergies Allergy/AdvReac Type Severity Reaction Status Date / Time Cipro Allergy Intermediate RASH, Verified 09/03/17 07:28 ITCHING ciprofloxacin Allergy Intermediate RASH, Verified 02/20/21 00:27 ITCHING latex Allergy Unknown REDNESS Verified 02/20/21 00:27 Sulfa (Sulfonamide Allergy Unknown RASH Verified 02/20/21 00:27 Antibiotics) aspirin AdvReac Severe Gastrointestinal Verified 02/20/21 00:27 Upset levofloxacin AdvReac Severe DIZZINESS, Verified 02/20/21 00:27 MYALGIA doxycycline AdvReac Unknown HEADACHE Verified 02/20/21 00:27 Ceftin TABS Allergy Unknown Unknown Uncoded 02/20/21 00:27 Levaquin TABS Allergy Unknown Unknown Uncoded 02/20/21 00:27 Macrobid CAPS Allergy Unknown Unknown Uncoded 02/20/21 00:27 Procedures Performed Operation Date: 02/20/21 12:20 Actual Procedures p Intramedullary nail right hip(Right) - David Campos DO Ordered Studies 02/19/21 22:43 CT head/brain wo con Urgent 02/20/21 12:00 FL hip RT 2-3V Routine Hospital Course (1) Closed fracture of right hip: Mrs. Treviño is an 85 yo woman with a history of osteoporosis and vitamin D deficiency who presented for evaluation of R hip pain after a mechanical fall. - XR showed R femoral neck fracture - ortho consulted placed and now status post ORIF on 02/20 - Eliquis for DVT prophylaxis -Continue pain management, bowel regimen-continue MiraLAX and docusate/senna-no bowel movement since 02/22 last -Appreciate orthopedic surgery management-stable from their standpoint for discharge PT/OT-plan for rehab placement -Follow CBC-hemoglobin decreased but fairly stable at 8.1 (2) Hypotension: Intermittent-now resolved after holding amlodipine, telmisartan, and clonidine Responded readily to small boluses of crystalloid on 02/20 and 02/21 Okay to continue metoprolol with hold parameters, but will discontinue clonidine, telmisartan, and amlodipine for now-can add back on later if blood pressures creep up Hemoglobin with drop down to 8.1 at the lowest, but now improved -no need for transfusion Follow CBC in 3 days at the rehab (3) Leukocytosis: -Elevated upon admission likely secondary to stress response-now resolved - UA without evidence of infection - CXR normal (4) Elevated serum creatinine: - Cr at 1.3, BUN at 22 upon admission acute kidney injury Creatinine now normalized down to 0.9 Follow BMP at rehab in 3 days Okay to restart home Lasix and potassium (5) Hypertension: - LVH noted on EKG, which suggests her BP has been above goal for quite some time -With hypotension as above now resolved but blood pressures remain low normal in the 100s systolic at times Continue to hold home amlodipine, clonidine, telmisartan as above but can restart in the future as able to if blood pressures creep up -Continue metoprolol and restart home Lasix (6) Osteoporosis: - had been started on fosamax in the past but self discontinued - would hold off on restarting bisphosphonate in the setting of an acute frac ture (concern for atypical remodeling of bone) - consider resuming fosamax as outpatient after 30 days vs. 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 Has a history of Crohn's disease and lung cancer-seen by hematology/oncology and recommended continuation on anticoagulation -Continue Eliquis indefinitely as is considered to have a hypercoagulable state (8) Crohns disease: - continue home dose mesalamine, no acute issues (9) GERD (gastroesophageal reflux disease): - continue home dose protonix (10) Hypothyroidism: - continue home dose Synthroid TSH normal earlier this year (11) Acute blood loss anemia: Hemoglobin dropped as above down to 8.1-8.7 but stable which is now resolved With some mild hypotension associated Follow CBC in 3 days, no evidence of ongoing bleeding No evidence of hematoma at the hip site DVT prophylaxis-Eliquis Disposition- medically stable for discharge to rehab at [facility] Total Time Total Time Spent Total Time Spent (In Minutes): 35 minutes Discharge Plan Discharge Items Patient Disposition: [facility] Reason For Visit: HIP FRACTURE Discharge Diagnosis: Right hip fracture, acute blood loss anemia Condition on Discharge: Fair Activity: As commented below Activity Comment: As per orthopedic surgery instructions Non-emergency contact: Primary Care Provider and Surgeon Call non-emergency contact if: you have any medication questions, your symptoms worsen, your pain is not controlled and you have a fever Follow-up/Referrals: Yolande Kingsley MD [Primary Care Provider] - (Follow-up within 1 to 2 weeks after discharge from rehab) David Campos DO [Physician] - (Follow-up within 2 weeks as directed by Dr. Campos.) Diet: Heart Healthy [facility] Attending Provider Instructions: Please check a CBC and basic metabolic panel in 3 days due to your acute blood loss anemia. Because of your lower blood pressures, 3 of your blood pressure medications were held and should continue to be held upon discharge-these are amlodipine, clonidine, and telmisartan. If your blood pressure starts rising, these medications can be added back on by your doctor. For now, continue on metoprolol only for your blood pressure. [facility] Manager Nuclear Provider Instructions: ORTHOPEDIC INSTRUCTIONS Hip Fracture Activity and Therapy Recommendations: 1. You were shown a series of exercises in the hospital. Do these exercises three times each day if you are able. 2. Get up and walk several times each day if you are capable. Make sure you have assistance is needed. For the first four weeks, try not to stand or walk for more than one hour at a time. If you do stand or walk for more than one hour, you will not hurt anything, but your leg will likely swell. 3. As you feel comfortable, you may change from the walker or crutches to a cane and then to independent walking if you are able. Please be safe. Medications: 1. Narcotic You will likely be sent from the hospital with the narcotic pain medication that worked best throughout your stay. 2. Eliquisyou can resume your Eliquis for DVT prophylaxis 3. Other medications may be given for specific circumstances. If you have any questions, please call the office at [phone]. 4. Resume previous home medications unless otherwise instructed TEDs/Elastic Stockings: The white elastic stockings help limit swelling and prevent blood clots from forming in your legs. The more you wear them, the more they work. Wear them for six weeks. Dressing Care: [place] can be open to air as long as the incisions are not draining. If the incisions are draining or if the adalid are getting caught on your clothes then please cover the adalid with dry gauze. Change the dressings as necessary to keep the incision as dry as possible Showering: You may shower 5 days from the day of surgery as long as the incisions are not draining. Do not soak the incision. Let soapy water run over the adalid and pat them dry. Things To Watch For: 1. Drainage from the incision site that occurs more than one week after your surgery. 2. Increased redness at the incision site. 3. Fever above 102 degrees Fahrenheit. 4. Unusual chest pain or shortness of breath. 5. Call [facility] at with any of the above pro blems Follow-Up Visit: Follow-up with Dr. Campos's PA (David Diaz) 2-3 weeks after your day of surgery. He will remove your adalid and answer any questions. If you have any additional questions or concerns, Dr Campos is usually in the office at the same time and will be available Call the office to make an appointment for a time that works for you [phone] Pending Studies at Discharge: No Stand-Alone Forms: My [facility] Skilled Items Patient informed of condition?: Yes DNR: No Discharge Level of Care: Skilled Communicable Disease: No Discharge Prognosis: Improving Lines: None Urinary Catheter: No Medications and DC Order Prescriptions: New acetaminophen [Tylenol Extra Strength] 500 mg Tablet 1,000 mg PO Q6H PRN (Reason: pain) Qty: 30 RF: 0 polyethylene glycol 3350 [Miralax] 17 gram Powder In Packet 17 g PO DAILY Qty: 30 RF: 0 sennosides-docusate sodium [Senokot-S] 8.6-50 mg Tablet 2 tab PO HS Qty: 60 RF: 0 Continued colestipol 1 gram tablet 2 gm PO BID Qty: 360 RF: 3 pantoprazole [Protonix] 40 mg tablet,delayed release (DR/EC) 40 mg PO DAILY Qty: 90 RF: 3 gabapentin 100 mg capsule 200 mg PO BID Qty: 360 RF: 3 Eliquis 5 mg tablet 5 mg PO BID Qty: 10 RF: 2 levothyroxine 50 mcg tablet 50 mcg PO QAM Qty: 90 RF: 3 meclizine 12.5 mg tablet 12.5 mg PO TID PRN (Reason: dizziness) Qty: 30 RF: 5 ipratropium bromide 0.03 % spray,non-aerosol 2 spray intranasal TID Qty: 30 RF: 2 Pentasa 500 mg capsule, extended release 1,000 mg PO BID Qty: 120 RF: 2 metoprolol tartrate 50 mg tablet 50 mg PO Q12H Qty: 220 RF: 3 potassium chloride 10 mEq capsule, extended release 20 meq PO DAILY Qty: 180 RF: 3 cholecalciferol (vitamin D3) 125 mcg (5,000 unit) capsule 125 mcg PO DAILY RF: 0 albuterol sulfate [ProAir HFA] 90 mcg/actuation HFA aerosol inhaler 2 puff INH .COMPLEX PRN (Reason: shortness of breath or wheezing) Qty: 25.5 RF: 3 cyanocobalamin (vitamin B-12) 1,000 mcg/mL Solution 1,000 mcg IM MONTHLY RF: 0 alendronate [Fosamax] 70 mg Tablet 70 mg PO Q7D RF: 0 furosemide [Lasix] 20 mg Tablet 10 mg PO DAILY RF: 0 lorazepam 0.5 mg tablet 0.5 mg PO TID PRN (Reason: anxiety) Qty: 10 RF: 0 Changed oxycodone 5 mg tablet 5 mg PO Q6H PRN (Reason: Pain) Qty: 15 RF: 0 Discontinued clonidine HCl 0.1 mg tablet 0.3 mg PO BID Qty: 540 RF: 3 diclofenac sodium 1 % gel 4 g TOP QID Qty: 400 RF: 3 azithromycin 250 mg tablet See Rx Instructions PO .COMPLEX Qty: 6 RF: 0 amlodipine 10 mg tablet 10 mg PO DAILY Qty: 90 RF: 3 telmisartan 40 mg tablet 40 mg PO BID Qty: 60 RF: 0 Discharge Orders: Discharge Order (Routine); Ordered 02/24/21 Ordered By: Rachele Oliva Admission Data Admit Date/Time: 02/20/21 00:09 Attending Provider: Rachele Oliva Admit Provider: Kayla Cunningham Primary Care Provider: Yolande Kingsley [facility] Coding Level of Care Code D/C DAY MANAGEMENT >30 MINS Diagnoses Closed fracture of right hip S72.001A Encounter type: initial encounter Hypotension I95.9 Leukocytosis D72.829 Elevated serum creatinine R79.89 Hypertension I10 Hypertension type: essential hypertension Osteoporosis M81.0 Thrombosis of ovarian vein I82.890 Crohns disease K50.90 GERD (gastroesophageal reflux disease) K21.9 Hypothyroidism E03.9 Acute blood loss anemia D62
== END 2021-02-24 14:12 | DRG 481 ==
LOC: ED 22:14 → SUATTDRO 02-20 00:09 → 3E 02-20 00:09
DX: Z88.1 Allergy status to other antibiotic agents; D72.829 Elevated white blood cell count, unspecified; S72.001A Fracture of unspecified part of neck of right femur, initial encounter for closed fracture; I12.9 Hypertensive chronic kidney disease with stage 1 through stage 4 chronic kidney disease, or unspecified chronic kidney disease; M81.0 Age-related osteoporosis without current pathological fracture; Z87.891 Personal history of nicotine dependence; I95.9 Hypotension, unspecified; J44.9 Chronic obstructive pulmonary disease, unspecified; Z85.118 Personal history of other malignant neoplasm of bronchus and lung; Z91.040 Latex allergy status; W01.0XXA Fall on same level from slipping, tripping and stumbling without subsequent striking against object, initial encounter; Z88.2 Allergy status to sulfonamides; E03.9 Hypothyroidism, unspecified; N18.9 Chronic kidney disease, unspecified; E55.9 Vitamin D deficiency, unspecified; I73.9 Peripheral vascular disease, unspecified; D62 Acute posthemorrhagic anemia; Y92.012 Bathroom of single-family (private) house as the place of occurrence of the external cause; Z79.01 Long term (current) use of anticoagulants; I82.890 Acute embolism and thrombosis of other specified veins; K50.90 Crohn's disease, unspecified, without complications

== ENCOUNTER 2022-07-29 23:46 | Inpatient (IN) ==
[2022-07-29] MEDS ORDERED: ONDANSETRON INJ 2 MG/ML 2 ML VIAL ONE (23:53)
[2022-07-29] MEDS ORDERED: ONDANSETRON INJ 2 MG/ML 2 ML VIAL IV STA (23:58)
[2022-07-29] MEDS ORDERED: fentaNYL citrate PF 100 MCG/2 ML VIAL IV ONE (23:58)
[2022-07-29] MEDS ORDERED: SODIUM CHLORIDE 0.9% 1000ML 1,000 ML IV ONE (23:58)
--- NOTE | 2022-07-30 00:05 | Emergency Department Note ---
History of Present Illness General Chief complaint: Abdominal Pain Stated complaint: Back Pain, Nausea Time Seen by Provider: 07/29/22 23:51 History of Present Illness Maximum Pain Intensity: 7 86-year-old female presents via EMS with a 3-week history of increasing abdominal pain and nausea. Patient called EMS this evening due to increased pain in the right lower quadrant. Patient states nausea no vomiting. Patient is currently taking oxycodone. Patient has a history of Crohn's and has had multiple bowel resections due to Crohn's and bowel obstruction. Patient states the pain is located in the right side of the abdomen is moderate in nature. There is associated nausea. There are no other mitigating or alleviating factors Home Medications Medication Instructions Recorded Confirmed Type cyanocobalamin (vitamin B-12) 1,000 mcg IM MONTHLY 12/24/17 07/30/22 History 1,000 mcg/mL injection solution colestipol 1 gram tablet 2 gm PO BID #360 tabs 06/03/19 07/30/22 Rx ipratropium bromide 21 mcg (0.03 2 spray intranasal TID #30 mL 01/05/20 07/30/22 Rx %) nasal spray gabapentin 100 mg capsule 200 mg PO BID #360 caps 06/15/20 07/30/22 Rx albuterol sulfate 90 mcg/actuation 2 puff inhalation .COMPLEX PRN 09/28/20 07/30/22 Rx aerosol inhaler (ProAir HFA) shortness of breath or wheezing #25.5 grams alendronate 70 mg tablet (Fosamax) 70 mg PO .COMPLEX #12 tabs 05/03/21 07/30/22 Rx cholecalciferol (vitamin D3) 50 50 mcg PO DAILY 05/22/21 07/30/22 History mcg (2,000 unit) capsule pantoprazole 40 mg tablet,delayed 40 mg PO DAILY #90 tabs 07/04/21 07/30/22 Rx release (Protonix) metoprolol tartrate 50 mg tablet 50 mg PO Q12H #220 tabs 07/05/21 07/30/22 Rx telmisartan 40 mg tablet 40 mg PO BID #180 tabs 07/19/21 07/30/22 Rx apixaban 5 mg tablet 5 mg PO BID #180 tabs 08/10/21 07/30/22 Rx potassium chloride 10 mEq 20 meq PO DAILY #180 caps 10/19/21 07/30/22 Rx capsule,extended release furosemide 20 mg tablet (Lasix) 10 mg PO DAILY #45 tabs 01/17/22 07/30/22 Rx levothyroxine 50 mcg tablet 50 mcg PO QAM #90 tabs 02/06/22 07/30/22 Rx meclizine 12.5 mg tablet 12.5 mg PO TID PRN dizziness #30 02/14/22 07/30/22 Rx tabs clonidine HCl 0.1 mg tablet See Rx Instructions PO BID #180 03/26/22 07/30/22 Rx tabs benzonatate 100 mg capsule 100 mg PO TID PRN cough #30 caps 04/20/22 07/30/22 Rx amlodipine 5 mg tablet 5 mg PO BID #180 tabs 05/21/22 07/30/22 Rx lorazepam 0.5 mg tablet 0.5 mg PO TID PRN anxiety #90 tabs 05/29/22 07/30/22 Rx oxycodone 5 mg tablet 5 mg PO TID PRN Pain #90 tabs 07/10/22 07/30/22 Rx Allergies Allergy/AdvReac Type Severity Reaction Status Date / Time ciprofloxacin Allergy Intermediate RASH, Verified 07/30/22 00:37 ITCHING latex Allergy Unknown REDNESS Verified 07/30/22 00:37 Sulfa (Sulfonamide Allergy Unknown RASH Verified 07/30/22 00:37 Antibiotics) aspirin AdvReac Severe Gastrointestinal Verified 07/30/22 00:37 Upset levofloxacin AdvReac Severe DIZZINESS, Verified 07/30/22 00:37 MYALGIA doxycycline AdvReac Unknown HEADACHE Verified 07/30/22 00:37 Ceftin TABS Allergy Unknown Unknown Uncoded 07/30/22 00:37 Levaquin TABS Allergy Unknown Unknown Uncoded 07/30/22 00:37 Macrobid CAPS Allergy Unknown Unknown Uncoded 07/30/22 00:37 Past Med/Surg History Medical History (Updated 07/30/22 @ 03:50 by Nataliya Reyna DO) 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 Allergic rhinitis Carotid artery stenosis, asymptomatic Chronic cystitis Chronic kidney disease, stage 3a Chronic obstructive pulmonary disease Chronic pain syndrome Crohns disease Depression with anxiety Disc degeneration, lumbar Essential hypertriglyceridemia GERD (gastroesophageal reflux disease) History of ischemic colitis Hyperlipidemia Hyperparathyroidism Hypertension Hypothyroidism Impaired fasting glucose LVH (left ventricular hypertrophy) Multiple lung nodules on CT Nocturnal leg cramps Nontoxic multinodular goiter Osteoarthritis Osteoporosis PAD (peripheral artery disease) Peripheral neuropathy Pernicious anemia Secondary hyperparathyroidism Small bowel obstruction SNHL (sensorineural hearing loss) 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 Mcelroy History of cholecystectomy History of colonoscopy History of ERCP (03/15/11) Dr. Diane History of esophagogastroduodenoscopy (EGD) History of hip surgery (02/2021) ORIF right hip History of lobectomy of lung (~09/2009) left lower lobectomy History of open reduction and internal fixation (ORIF) procedure (09/24/16) left tib/fib by Dr. Doyle History of tooth extraction Family History Mother Lung cancer Hypertension Hearing loss Father Cardiac disorder Coronary arteriosclerosis Coronary heart disease Sister Hypertension Brother Hypertension Son Cardiac disorder Denies family history of Ovarian cancer Prostate cancer Adverse anesthesia outcome Sinusitis Bleeding disorder Colorectal cancer Stroke Asthma Social History Smoking Status: Former smoker Tobacco Type: Cigarettes Age Started Using Tobacco: 24; Age Quit Using Tobacco: 76; packs per day: 1; Cigarettes Per Day: 20; Second Hand Exposure: No; Hx Alcohol Use: No Hx Substance Use: No Preferred Language: Argentine Communication Ability: Effective Communication Ability Comment: pt has bilateral hearing aids does not have them with her Hearing Ability: Use of Hearing Aid Svp Marketing Required: No Beliefs That Will Affect Care: None marital status: Current Living Situation: Spouse current occupational status: retired Feels Safe at Home: Yes Diet Comment: chron's Dental Care, Regularly: No Physical Activity Frequency: Daily Physical Activity Frequency Comment: walk Seatbelt Use: always Sunscreen Use: No Assistive Devices: Cane and Walker Review of Systems A total of 10 systems reviewed and were otherwise negative Gastrointestinal: + abdominal pain and + nausea Physical Exam Vital Signs Vital Signs - 24 hr 07/29/22 23:54 07/29/22 23:56 07/30/22 01:03 Temperature 36.4 C L Temperature Source Oral Pulse Rate 75 65 94 H Pulse Rate from SpO2 Sensor Pulse Rhythm Regular Pulse Strength Normal Respiratory Rate 19 25 H Respiratory Effort / Characteristics Non-Labored Spontaneous Respiratory Depth Normal Blood Pressure 177/78 H 190/86 H Blood Pressure Mean 111 120 Blood Pressure Position Sitting Pulse Oximetry 98 96 Oxygen Delivery Method Room Air Room Air Sepsis Recent Fever Within 48 Hours No Sepsis New/Unexplained Change in Mental Status N/A Sepsis Action Taken by Nursing No Action Required 07/30/22 01:30 07/30/22 02:30 07/30/22 03:00 Temperature Temperature Source Pulse Rate 74 66 70 Pulse Rate from SpO2 Sensor 74 Pulse Rhythm Pulse Strength Respiratory Rate 22 19 21 Respiratory Effort / Characteristics Respiratory Depth Blood Pressure 164/81 H 170/76 H 173/86 H Blood Pressure Mean 108 107 115 Blood Pressure Position Pulse Oximetry 94 97 96 Oxygen Delivery Method Room Air Room Air Room Air Sepsis Recent Fever Within 48 Hours Sepsis New/Unexplained Change in Mental Status Sepsis Action Taken by Nursing 07/30/22 03:59 Temperature Temperature Source Pulse Rate 76 Pulse Rate from SpO2 Sensor Pulse Rhythm Pulse Strength Respiratory Rate Respiratory Effort / Characteristics Respiratory Depth Blood Pressure Blood Pressure Mean Blood Pressure Position Pulse Oximetry Oxygen Delivery Method Sepsis Recent Fever Within 48 Hours Sepsis New/Unexplained Change in Mental Status Sepsis Action Taken by Nursing GENERAL: Patient is awake alert in no acute distress patient is resting comfortably and showing no signs of anxiety EYES: The conjunctivae are clear. The pupils are round and reactive. EARS, NOSE, MOUTH AND THROAT: The nose is without any evidence of any deformity. Mucous membranes are moist. Tongue is midline. NECK: The neck is nontender and supple. RESPIRATORY: Normal respiratory effort is noted there is no evidence of wheezing rhonchi or rales CARDIOVASCULAR: Regular rate and rhythm noted there no murmurs rubs or gallops normal S1 normal S2. GASTROINTESTINAL: The abdomen is soft, distended, right upper quadrant surgical scar, midline surgical scar, tenderness in the right lower quadrant, tympanic abdomen BACK: No midline tenderness or or step-off noted range of motion in flexion extension as well as rotation no signs of muscle spasm noted MUSCULOSKELETAL/EXTREMITIES: There is no evidence of gross deformity full range of motion is noted in the hips and shoulders. SKIN: There is no obvious evidence of any rash. There are no petechiae, pallor or cyanosis noted. NEUROLOGIC: Patient is awake alert and oriented x3 strength is symmetric Course Reevaluation(s) Reevaluation #1: Patient resting in no distress on repeat examination. Patient had an NG tube placed. I discussed the evaluation with the patient at bedside regarding her CAT scan results. Plan is to admit Time: 04:11 Consultations Consultation #1: Case d/w Bertrand Chaffee Hospitalist for admit Time: 04:10 Administered Medications Discontinued Medications Fentanyl Citrate (Fentanyl Citrate Pf 100 Mcg/2 Ml Vial) 25 mcg IV NOW ONE Stop: 07/29/22 23:59 Last Admin: 07/30/22 00:12 Dose: 25 mcg Documented By: AMERICO Fentanyl Citrate (Fentanyl Citrate Pf 100 Mcg/2 Ml Vial) 50 mcg IV NOW STA Stop: 07/30/22 01:07 Last Admin: 07/30/22 01:21 Dose: 50 mcg Documented By: AMERICO Sodium Chloride (Nss 1000ml) 1,000 mls @ 999 mls/hr IV .Q1H1M ONE Stop: 07/30/22 00:58 Last Infusion: 07/30/22 01:23 Dose: 0 mls/hr Documented By: Admin: 07/30/22 00:14 Dose: 999 mls/hr Documented By: AMERICO Ioversol (Optiray 350 100ml) 100 ml IV ONCE ONE Stop: 07/30/22 01:21 Last Admin: 07/30/22 01:20 Dose: 85 ml Documented By: LISA Ondansetron HCl (Ondansetron Inj 2 Mg/Ml 2 Ml Vial) 4 mg IV NOW STA Stop: 07/29/22 23:59 Last Admin: 07/30/22 00:12 Dose: 4 mg Documented By: AMERICO Medical Decision Making Medical Records Attestation: I reviewed the patient's medical records. Home Medications Current Medication List: was personally reviewed by me Laboratory Data Attestation: I reviewed the patient's lab results. 07/30/22 00:08 07/30/22 00:08 Lab Results 07/30/22 07/30/22 07/30/22 Range/Units 00:08 00:08 01:02 WBC 13.11 H (4.8-10.8) K/ul RBC 4.58 (4.20-5.40) M/uL Hgb 13.9 (12.0-16.0) g/dl Hct 41.2 (37.0-47.0) % MCV 90.0 (80.0-100.0) fL MCH 30.3 (25.0-34.0) pg MCHC 33.7 (32.0-36.0) g/dL RDW Std Deviation 44.3 (36.4-46.3) fL RDW Coeff of Martine 13.5 (11.5-14.5) % Plt Count 234 (130-400) K/uL MPV 9.6 (9.4-12.4) fL Immature Gran % (Auto) 0.5 % Neut % (Auto) 80.4 % Lymph % (Auto) 12.8 % [place] % (Auto) 4.9 % Eos % (Auto) 1.0 % Baso % (Auto) 0.4 % Neut # (Auto) 10.54 H (1.40-6.50) K/uL Lymph # (Auto) 1.68 (1.2-3.4) K/uL [place] # (Auto) 0.64 H (0.11-0.59) K/uL Eos # (Auto) 0.13 (0-0.50) K/uL Baso # (Auto) 0.05 (0-0.2) K/uL Immature Gran # (Auto) 0.07 (0.01-0.20) K/uL Sodium 142 (136-145) mmol/L Potassium 4.1 (3.5-5.1) mmol/L Chloride 107 (98-107) mmol/L Carbon Dioxide 24 (21-32) mmol/L Anion Gap 11 (3-11) BUN 25 H (6-23) mg/dl Creatinine 0.99 (0.6-1.2) mg/dl Est Cr Clr Drug Dosing 29.3 ml/min Est GFR ( Amer) 59.8 ml/min Est GFR (Non-Af Amer) 51.6 ml/min BUN/Creatinine Ratio 25.3 H (10-20) Glucose 146 H (70-99(Fasting)) mg/dl Calcium 10.3 (8.6-10.3) mg/dl Total Bilirubin 0.7 (0.2-1.0) mg/dl AST 18 (13-39) U/L ALT 12 (7-52) U/L Alkaline Phosphatase 165 H (34-104) U/L Total Protein 6.9 (6.0-8.3) gm/dl Albumin 4.0 (3.4-5.0) gm/dl Globulin 2.9 (2.5-4.0) gm/dl Albumin/Globulin Ratio 1.4 (0.9-2) Lipase 228 H (11-82) U/L Urine Color Yellow Urine Appearance Clear (Clear) Urine pH 5.5 (4.5-7.5) Ur Specific [place] 1.015 (1.000-1.030) Urine Protein 1+ H (Negative) Urine Glucose (UA) Negative (Negative) Urine Ketones Negative (Negative) Urine Blood Trace-intact H (Negative) Urine Nitrite Negative (Negative) Urine Bilirubin Negative (Negative) Urine Urobilinogen Negative (Negative) Ur Leukocyte Esterase Trace H (Negative) Urine RBC 0-4 (0-4) /hpf Urine WBC 10-30 H (0-5) /hpf Ur Epithelial Cells 0-5 (0-5) /lpf Urine Bacteria Negative (Negative) SARS-CoV-2, RNA, NAAT (NEGATIVE) 07/30/22 Range/Units 02:45 WBC (4.8-10.8) K/ul RBC (4.20-5.40) M/uL Hgb (12.0-16.0) g/dl Hct (37.0-47.0) % MCV (80.0-100.0) fL MCH (25.0-34.0) pg MCHC (32.0-36.0) g/dL RDW Std Deviation (36.4-46.3) fL RDW Coeff of Martine (11.5-14.5) % Plt Count (130-400) K/uL MPV (9.4-12.4) fL Immature Gran % (Auto) % Neut % (Auto) % Lymph % (Auto) % [place] % (Auto) % Eos % (Auto) % Baso % (Auto) % Neut # (Auto) (1.40-6.50) K/uL Lymph # (Auto) (1.2-3.4) K/uL [place] # (Auto) (0.11-0.59) K/uL Eos # (Auto) (0-0.50) K/uL Baso # (Auto) (0-0.2) K/uL Immature Gran # (Auto) (0.01-0.20) K/uL Sodium (136-145) mmol/L Potassium (3.5-5.1) mmol/L Chloride (98-107) mmol/L Carbon Dioxide (21-32) mmol/L Anion Gap (3-11) BUN (6-23) mg/dl Creatinine (0.6-1.2) mg/dl Est Cr Clr Drug Dosing ml/min Est GFR ( Amer) ml/min Est GFR (Non-Af Amer) ml/min BUN/Creatinine Ratio (10-20) Glucose (70-99(Fasting)) mg/dl Calcium (8.6-10.3) mg/dl Total Bilirubin (0.2-1.0) mg/dl AST (13-39) U/L ALT (7-52) U/L Alkaline Phosphatase (34-104) U/L Total Protein (6.0-8.3) gm/dl Albumin (3.4-5.0) gm/dl Globulin (2.5-4.0) gm/dl Albumin/Globulin Ratio (0.9-2) Lipase (11-82) U/L Urine Color Urine Appearance (Clear) Urine pH (4.5-7.5) Ur Specific [place] (1.000-1.030) Urine Protein (Negative) Urine Glucose (UA) (Negative) Urine Ketones (Negative) Urine Blood (Negative) Urine Nitrite (Negative) Urine Bilirubin (Negative) Urine Urobilinogen (Negative) Ur Leukocyte Esterase (Negative) Urine RBC (0-4) /hpf Urine WBC (0-5) /hpf Ur Epithelial Cells (0-5) /lpf Urine Bacteria (Negative) SARS-CoV-2, RNA, NAAT NEGATIVE (NEGATIVE) Imaging Data Attestation: I personally reviewed and interpreted this imaging study as follows: Radiologist's Impression: Abdomen/Pelvis CT 07/29/22 23:56 Exam(s): CT ABDOMEN + PELVIS With Contrast IV Amt: 85 ML OPTIRAY 350 EXAM: CT Abdomen and Pelvis With Intravenous Contrast CLINICAL HISTORY: Abdominal pain. TECHNIQUE: Axial computed tomography images of the abdomen and pelvis with intravenous contrast. Automated exposure control was utilized for the study. A dose lowering technique was utilized adhering to the principles of ALARA. CONTRAST: Patient received 85 ML OPTIRAY 350 of IV contrast COMPARISON: No relevant prior studies available. FINDINGS: Lung bases: Unremarkable. No mass. No consolidation. ABDOMEN: Liver: Unremarkable. No mass. Gallbladder and bile ducts: Cholecystectomy. No ductal dilation. Pancreas: Unremarkable. No mass. No ductal dilation. Spleen: Unremarkable. No splenomegaly. Adrenals: Unremarkable. No mass. Kidneys and ureters: Atrophic left kidney. No hydronephrosis. Stomach and bowel: There is thickening of the mid and distal stomach. Mildly dilated small bowel with gradually tapering diameter of small bowel is concerning for a chronic/low grade obstruction. Diverticulosis. PELVIS: Appendix: No findings to suggest acute appendicitis. Bladder: Unremarkable. No mass. Reproductive: Unremarkable as visualized. ABDOMEN and PELVIS: Intraperitoneal space: Unremarkable. No free air. No significant fluid collection. Bones/joints: Age indeterminate L1 and L4 compression fractures. There are degenerative changes of the spine. No fracture. Bilateral internal fixation of the femurs. No dislocation. Soft tissues: Unremarkable. Vasculature: Marked atherosclerosis. No aneurysm. Lymph nodes: Unremarkable. No enlarged lymph nodes. IMPRESSION: 1. There is thickening of the mid and distal stomach. This is concerning for malignancy. 2. Age indeterminate L1 and L4 compression fractures. 3. Mildly dilated small bowel with gradually tapering diameter of small bowel is concerning for a chronic/low grade obstruction. 4. Diverticulosis. Electronically signed by: Kemi Ojeda MD 07/30/22 03:07 AM [facility] Narrative Medical decision making differential diagnosis includes small bowel obstruction, constipation, gastroenteritis, electrolyte abnormality, urinary tract infection Plan is to check labs, CT EMS report was reviewed by me External medical records were reviewed by me Impression & Plan Small bowel obstruction, Abdominal pain Discharge Plan Visit Data Chief Complaint: Abdominal Pain Stated Complaint: Back Pain, Nausea ED Provider: Omega العلي Discharge Problem: Small bowel obstruction, Abdominal pain Patient Disposition: Admitted As Inpatient Forms Stand Alone Forms: [facility] Prescriptions Prescriptions: No Action colestipol 1 gram tablet 2 gm PO BID Qty: 360 3RF gabapentin 100 mg capsule 200 mg PO BID Qty: 360 3RF pantoprazole [Protonix] 40 mg tablet,delayed release (DR/EC) 40 mg PO DAILY Qty: 90 3RF metoprolol tartrate 50 mg tablet 50 mg PO Q12H Qty: 220 3RF Rx Instructions: May take an extra dose as needed for breakthrough palpitations apixaban 5 mg tablet 5 mg PO BID Qty: 180 3RF potassium chloride 10 mEq capsule, extended release 20 meq PO DAILY Qty: 180 3RF levothyroxine 50 mcg tablet 50 mcg PO QAM Qty: 90 3RF meclizine 12.5 mg tablet 12.5 mg PO TID PRN (Reason: dizziness) Qty: 30 5RF clonidine HCl 0.1 mg tablet See Rx Instructions PO BID Qty: 180 3RF Rx Instructions: 1-3 tabs PO twice a day; amlodipine 5 mg tablet 5 mg PO BID Qty: 180 3RF lorazepam 0.5 mg tablet 0.5 mg PO TID PRN (Reason: anxiety) Qty: 90 0RF oxycodone 5 mg tablet 5 mg PO TID PRN (Reason: Pain) Qty: 90 0RF ipratropium bromide 0.03 % spray,non-aerosol 2 spray intranasal TID Qty: 30 2RF Rx Instructions: administer into each nostril telmisartan 40 mg tablet 40 mg PO BID Qty: 180 3RF furosemide [Lasix] 20 mg tablet 10 mg PO DAILY Qty: 45 1RF benzonatate 100 mg capsule 100 mg PO TID PRN (Reason: cough) Qty: 30 0RF albuterol sulfate [ProAir HFA] 90 mcg/actuation HFA aerosol inhaler 2 puff INH .COMPLEX PRN (Reason: shortness of breath or wheezing) Qty: 25.5 3RF Rx Instructions: 2 puffs inhalation EVERY 4-6 HOURS PRN; alendronate [Fosamax] 70 mg tablet 70 mg PO .COMPLEX Qty: 12 3RF Rx Instructions: 70 mg PO once weekly; cholecalciferol (vitamin D3) 50 mcg (2,000 unit) capsule 50 mcg PO DAILY cyanocobalamin (vitamin B-12) 1,000 mcg/mL Solution 1,000 mcg IM MONTHLY Referrals Referrals: Yolande Kingsley MD [Primary Care Provider] -
[2022-07-30 00:48] LABS: Basophils # (auto) 0.05 K/uL (0-0.2); Basophils % (auto) 0.4 %; Eosinophils # (auto) 0.13 K/uL (0-0.50); Hematocrit (blood only) 41.2 % (37.0-47.0); Hemoglobin 13.9 g/dl (12.0-16.0); Immature Granulocytes # (auto) 0.07 K/uL (0.01-0.20); Immature Granulocytes % (auto) 0.5 %; Lymphocytes # (auto) 1.68 K/uL (1.2-3.4); Lymphocytes % (auto) 12.8 %; Mean Corpuscular Hemoglobin 30.3 pg (25.0-34.0); Mean Corpuscular Hgb Conc 33.7 g/dL (32.0-36.0); Mean Platelet Volume 9.6 fL (9.4-12.4); Monocytes # (auto) 0.64 K/uL (0.11-0.59); Monocytes % (auto) 4.9 %; Neutrophils # (auto) 10.54 K/uL (1.40-6.50); Neutrophils % (auto) 80.4 %; Platelet Count 234 K/uL (130-400); RDW Coefficient of Variation 13.5 % (11.5-14.5); RDW Standard Deviation 44.3 fL (36.4-46.3); Red Blood Count 4.58 M/uL (4.20-5.40); White Blood Count 13.11 K/ul (4.8-10.8)
[2022-07-30 00:49] LABS: Bilirubin,Total 0.7 mg/dl (0.2-1.0); Calcium 10.3 mg/dl (8.6-10.3); Potassium 4.1 mmol/L (3.5-5.1)
[2022-07-30 00:55] LABS: Albumin Globulin Ratio 1.4 (0.9-2); BUN Creatinine Ratio 25.3 (10-20); Creatinine Clr Calc Pharmacy 29.3 ml/min; Est GFR (African American) 59.8 ml/min; Est GFR (Non-African American) 51.6 ml/min; Globulin 2.9 gm/dl (2.5-4.0); Total Protein 6.9 gm/dl (6.0-8.3)
[2022-07-30] MEDS ORDERED: fentaNYL citrate PF 100 MCG/2 ML VIAL IV STA ×2 (01:06→04:07)
[2022-07-30] MEDS ORDERED: OPTIRAY 350 100ml IV ONE (01:20)
[2022-07-30 01:37] LABS: Appearance Urine Clear (Clear); Bilirubin Urine Negative (Negative); Blood Urine Trace-intact (Negative); Color Urine Yellow; Glucose Urine UA Negative (Negative); Ketones Urine Negative (Negative); Leukocyte Esterase Urine Trace (Negative); Nitrite Urine Negative (Negative); Protein Urine 1+ (Negative); Specific Gravity Urine 1.015 (1.000-1.030); Urobilinogen Urine Negative (Negative); pH Urine 5.5 (4.5-7.5)
[2022-07-30 01:57] LABS: Bacteria Urine Negative (Negative); Epithelial Cell Urine 0-5 /lpf (0-5); RBC Urine 0-4 /hpf (0-4)
--- NOTE | 2022-07-30 03:07 | CT Scan Report ---
Exam(s): CT ABDOMEN + PELVIS With Contrast IV Amt: 85 ML OPTIRAY 350 EXAM: CT Abdomen and Pelvis With Intravenous Contrast CLINICAL HISTORY: Abdominal pain. TECHNIQUE: Axial computed tomography images of the abdomen and pelvis with intravenous contrast. Automated exposure control was utilized for the study. A dose lowering technique was utilized adhering to the principles of ALARA. CONTRAST: Patient received 85 ML OPTIRAY 350 of IV contrast COMPARISON: No relevant prior studies available. FINDINGS: Lung bases: Unremarkable. No mass. No consolidation. ABDOMEN: Liver: Unremarkable. No mass. Gallbladder and bile ducts: Cholecystectomy. No ductal dilation. Pancreas: Unremarkable. No mass. No ductal dilation. Spleen: Unremarkable. No splenomegaly. Adrenals: Unremarkable. No mass. Kidneys and ureters: Atrophic left kidney. No hydronephrosis. Stomach and bowel: There is thickening of the mid and distal stomach. Mildly dilated small bowel with gradually tapering diameter of small bowel is concerning for a chronic/low grade obstruction. Diverticulosis. PELVIS: Appendix: No findings to suggest acute appendicitis. Bladder: Unremarkable. No mass. Reproductive: Unremarkable as visualized. ABDOMEN and PELVIS: Intraperitoneal space: Unremarkable. No free air. No significant fluid collection. Bones/joints: Age indeterminate L1 and L4 compression fractures. There are degenerative changes of the spine. No fracture. Bilateral internal fixation of the femurs. No dislocation. Soft tissues: Unremarkable. Vasculature: Marked atherosclerosis. No aneurysm. Lymph nodes: Unremarkable. No enlarged lymph nodes. IMPRESSION: 1. There is thickening of the mid and distal stomach. This is concerning for malignancy. 2. Age indeterminate L1 and L4 compression fractures. 3. Mildly dilated small bowel with gradually tapering diameter of small bowel is concerning for a chronic/low grade obstruction. 4. Diverticulosis. Electronically signed by: Kemi Ojeda MD 07/30/22 03:07 AM
--- NOTE | 2022-07-30 03:45 | History & Physical Report ---
Date of Service July 30, 2022 Assessment & Plan (1) Small bowel obstruction: Plan: With 3 weeks of slowly worsening abdominal pain, in the setting of multiple intraabdominal surgeries with previous history of SBO on EMR NPO with NGT, NSS at 80cc/hr; Gen Surgery consulted Other possible etiologies of abdominal pain described below Pain management with scheduled Tylenol IV q8h, with Dilaudid as needed for breakthrough/severe pain (2) Stomach cancer: Plan: Possible, not confirmed at this time Findings on CTAP 07/30 of mid/distal stomach thickening concerning for malignancy GI consulted for consideration of EGD w/ biopsy for diagnostic purposes and to help with further treatment planning (3) Thrombosis of ovarian vein: Plan: History of, on Eliquis outpatient for indefinite anticoagulation Holding Eliquis in favor of heparin gtt, in anticipation of possible procedures during this admission and due to NPO with NGT (4) Adenocarcinoma of lung: Plan: History of, s/p lobectomy Not on supplemental oxygen at home, continue to monitor (5) Chronic kidney disease, stage 3a: Plan: History of, with baseline creatinine 1.0 Daily BMP (6) Crohns disease: Plan: History of, diarrhea predominant (7) GERD (gastroesophageal reflux disease): Plan: Continue PPI transitioned to IV while NPO, increased to BID for GERD/PUD as possible contributor to pain (8) Hypothyroidism: Plan: Hold levothyroxine for now while NPO (9) Chronic pain syndrome: Plan: Chronic pain history will make her acute pain more difficult to control, as she has been on oxycodone TID for many years See pain regimen above (10) Hypertension: Plan: History of, on multiple agents With hypertension in the ER in the setting of significant pain Metoprolol 5mg IV q6h scheduled, with hydralazine as needed for BP >180 Plan Code status discussed with patient, she desires DNR/DNI at this time. Order placed in chart. History of Present Illness Chief Complaint: abdominal pain Primary Care Provider: Yolande Kingsley MD 86 yo F Hx CKD, HTN, multiple abdominal surgeries presented to the ER for evaluation and management of epigastric abdominal pain that first started about 3 weeks ago, but has been acutely worse over the last 2 days with associated nausea and decreased appetite. In the ER patient noted to be hypertensive but otherwise hemodynamically stable. Lab work notable for WBC count of 13.11, alk phos 165, lipase 228, COVID-19 testing negative. CTAP with evidence of chronic/low-grade SBO, thickening of the mid/distal stomach concerning for possible malignancy, and L1/L4 compression fractures that were age- indeterminate. Patient was given Zofran, IV fluids, and fentanyl for pain. Due to imaging findings and ongoing pain, hospitalist service was consulted for admission. On my interview, patient endorses epigastric pain and nausea. She reports about 5 pounds of unintentional weight loss over the last month. Denies recent fevers or chills, chest pain, shortness of breath. Allergies Allergy/AdvReac Type Severity Reaction Status Date / Time ciprofloxacin Allergy Intermediate RASH, Verified 07/30/22 00:37 ITCHING latex Allergy Unknown REDNESS Verified 07/30/22 00:37 Sulfa (Sulfonamide Allergy Unknown RASH Verified 07/30/22 00:37 Antibiotics) aspirin AdvReac Severe Gastrointestinal Verified 07/30/22 00:37 Upset levofloxacin AdvReac Severe DIZZINESS, Verified 07/30/22 00:37 MYALGIA doxycycline AdvReac Unknown HEADACHE Verified 07/30/22 00:37 Ceftin TABS Allergy Unknown Unknown Uncoded 07/30/22 00:37 Levaquin TABS Allergy Unknown Unknown Uncoded 07/30/22 00:37 Macrobid CAPS Allergy Unknown Unknown Uncoded 07/30/22 00:37 Home Medications Medication Instructions Recorded Confirmed Type cyanocobalamin (vitamin B-12) 1,000 mcg IM MONTHLY 12/24/17 07/30/22 History 1,000 mcg/mL injection solution colestipol 1 gram tablet 2 gm PO BID #360 tabs 06/03/19 07/30/22 Rx ipratropium bromide 21 mcg (0.03 2 spray intranasal TID #30 mL 01/05/20 07/30/22 Rx %) nasal spray gabapentin 100 mg capsule 200 mg PO BID #360 caps 06/15/20 07/30/22 Rx albuterol sulfate 90 mcg/actuation 2 puff inhalation .COMPLEX PRN 09/28/20 07/30/22 Rx aerosol inhaler (ProAir HFA) shortness of breath or wheezing #25.5 grams alendronate 70 mg tablet (Fosamax) 70 mg PO .COMPLEX #12 tabs 05/03/21 07/30/22 Rx cholecalciferol (vitamin D3) 50 50 mcg PO DAILY 05/22/21 07/30/22 History mcg (2,000 unit) capsule pantoprazole 40 mg tablet,delayed 40 mg PO DAILY #90 tabs 07/04/21 07/30/22 Rx release (Protonix) metoprolol tartrate 50 mg tablet 50 mg PO Q12H #220 tabs 07/05/21 07/30/22 Rx telmisartan 40 mg tablet 40 mg PO BID #180 tabs 07/19/21 07/30/22 Rx apixaban 5 mg tablet 5 mg PO BID #180 tabs 08/10/21 07/30/22 Rx potassium chloride 10 mEq 20 meq PO DAILY #180 caps 10/19/21 07/30/22 Rx capsule,extended release furosemide 20 mg tablet (Lasix) 10 mg PO DAILY #45 tabs 01/17/22 07/30/22 Rx levothyroxine 50 mcg tablet 50 mcg PO QAM #90 tabs 02/06/22 07/30/22 Rx meclizine 12.5 mg tablet 12.5 mg PO TID PRN dizziness #30 02/14/22 07/30/22 Rx tabs clonidine HCl 0.1 mg tablet See Rx Instructions PO BID #180 03/26/22 07/30/22 Rx tabs benzonatate 100 mg capsule 100 mg PO TID PRN cough #30 caps 04/20/22 07/30/22 Rx amlodipine 5 mg tablet 5 mg PO BID #180 tabs 05/21/22 07/30/22 Rx lorazepam 0.5 mg tablet 0.5 mg PO TID PRN anxiety #90 tabs 05/29/22 07/30/22 Rx oxycodone 5 mg tablet 5 mg PO TID PRN Pain #90 tabs 07/10/22 07/30/22 Rx Past Med/Surg History Medical History (Updated 07/30/22 @ 03:50 by Nataliya Reyna DO) 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 Allergic rhinitis Carotid artery stenosis, asymptomatic Chronic cystitis Chronic kidney disease, stage 3a Chronic obstructive pulmonary disease Chronic pain syndrome Crohns disease Depression with anxiety Disc degeneration, lumbar Essential hypertriglyceridemia GERD (gastroesophageal reflux disease) History of ischemic colitis Hyperlipidemia Hyperparathyroidism Hypertension Hypothyroidism Impaired fasting glucose LVH (left ventricular hypertrophy) Multiple lung nodules on CT Nocturnal leg cramps Nontoxic multinodular goiter Osteoarthritis Osteoporosis PAD (peripheral artery disease) Peripheral neuropathy Pernicious anemia Secondary hyperparathyroidism Small bowel obstruction SNHL (sensorineural hearing loss) 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 Mcelroy History of cholecystectomy History of colonoscopy History of ERCP (03/15/11) Dr. Diane History of esophagogastroduodenoscopy (EGD) History of hip surgery (02/2021) ORIF right hip History of lobectomy of lung (~09/2009) left lower lobectomy History of open reduction and internal fixation (ORIF) procedure (09/24/16) left tib/fib by Dr. Doyle History of tooth extraction Family History Mother Lung cancer Hypertension Hearing loss Father Cardiac disorder Coronary arteriosclerosis Coronary heart disease Sister Hypertension Brother Hypertension Son Cardiac disorder Denies family history of Ovarian cancer Prostate cancer Adverse anesthesia outcome Sinusitis Bleeding disorder Colorectal cancer Stroke Asthma Social History Smoking Status: Former smoker Tobacco Type: Cigarettes Age Started Using Tobacco: 24; Age Quit Using Tobacco: 76; packs per day: 1; Cigarettes Per Day: 20; Second Hand Exposure: No; Hx Alcohol Use: No Hx Substance Use: No Preferred Language: Slovak Communication Ability: Effective Communication Ability Comment: pt has bilateral hearing aids does not have them with her Hearing Ability: Use of Hearing Aid Weigher And Charger Required: No Beliefs That Will Affect Care: None marital status: Current Living Situation: Spouse current occupational status: retired Feels Safe at Home: Yes Diet Comment: chron's Dental Care, Regularly: No Physical Activity Frequency: Daily Physical Activity Frequency Comment: walk Seatbelt Use: always Sunscreen Use: No Assistive Devices: Cane and Walker Review of Systems Review of Systems: All systems reviewed & are unremarkable except as noted in Subjective Physical Exam Constitutional: WD/WN, vitals as above ENMT: NGT in place Respiratory: normal respiratory effort, lungs clear to auscultation Cardiovascular: RRR, no murmur, no edema Gastrointestinal (Abdomen): abdomen soft, tender in epigastric region without rebound, no acute abdomen, no bowel sounds appreciated Skin: no rashes, warm and dry Psychiatric: AAOx3, irritable affect Results & Data Results & Data Vital Signs (Past 12 Hours) Vital Signs Temp Pulse Resp BP Pulse Ox O2 Del Method 07/30/22 03:00 70 21 173/86 H 96 Room Air 07/30/22 02:30 66 19 170/76 H 97 Room Air 07/30/22 01:30 74 22 164/81 H 94 Room Air 07/30/22 01:03 94 H 25 H 190/86 H 96 Room Air 07/29/22 23:56 65 07/29/22 23:54 36.4 C L 75 19 177/78 H 98 Room Air PG Care Time/CCT Total # of Minutes Spent Total Time Spent with Patient: Total time spent is greater than 50% in coordination of care (as documented) at patient's floor/unit and/or counseling patient: Coding Level of Care Code 09345 INT INP/OBS CARE 375MIN Diagnoses Small bowel obstruction K56.609 Stomach cancer C16.9 Thrombosis of ovarian vein I82.890 Adenocarcinoma of lung C34.90 Chronic kidney disease, stage 3a N18.31 Crohns disease K50.90 GERD (gastroesophageal reflux disease) K21.9 Hypothyroidism E03.9 Chronic pain syndrome G89.4 Hypertension I10 Hypertension type: essential hypertension (10) Hypertension Hypertension type: essential hypertension Qualified Code(s): I10 - Essential (primary) hypertension
[2022-07-30 04:59] LABS: Partial Thromboplastin Time 27.4 Seconds (21.0-31.0)
[2022-07-30] MEDS ORDERED: ONDANSETRON INJ 2 MG/ML 2 ML VIAL IV PRN ×2 (05:56→11:36)
[2022-07-30] MEDS ORDERED: HEPARIN SODIUM/DEXTROSE 25,000 UNITS/500 ML BAG IV SCH (05:56)
[2022-07-30] MEDS ORDERED: hydrALAZINE HCL 20 MG/ML VIAL IV PRN (05:56)
[2022-07-30] MEDS ORDERED: Heparin IV Adult Wt-Based Standard *NO* Bolus Protocol IV ONE (05:56)
[2022-07-30] MEDS ORDERED: POLYETHYLENE (MIRALAX) 17 GM PACK PO PRN (05:56)
[2022-07-30] MEDS ORDERED: KETOROLAC TROMETHAMINE 15 MG/ML VIAL IV ONE (05:56)
[2022-07-30] MEDS: METOPROLOL TARTRATE 1 MG/ML VIAL IV SCH ×3 (06:47→17:30)
[2022-07-30] MEDS: SODIUM CHLORIDE 0.9% 1000ML 1,000 ML IV SCH ×2 (06:47→17:30)
[2022-07-30] MEDS: HYDROmorphone INJ 1 MG/ML SYRINGE IV PRN ×2 (07:41→13:42)
[2022-07-30] MEDS: ACETAMINOPHEN 1,000 MG/100 ML VIAL IV SCH ×3 (08:16→21:05)
[2022-07-30] MEDS: PANTOprazole 40 MG in SYRINGE 0 ML IV SCH ×2 (08:17→20:17)
--- NOTE | 2022-07-30 10:17 | Gastrointestinal Consultation ---
Date of Consultation July 30, 2022 Assessment & Plan (1) Small bowel obstruction: (2) Nausea and vomiting: (3) Abnormal CT of the abdomen: Plan 1. NPO with NG to LIW suction. 2. EGD today with Dr. Garcia for further evaluation. 3. Continue Pantoprazole 40 mg BID. 4. Further recommendations pending results of testing. History of Present Illness Reason for Consultation: ?Gastric CA Requesting Physician: Dr. Mcgraw Attending Physician: Rachele Oliva MD History of Present Illness Patient is a 86 y.o. female with a history of Crohn's ileitis s/p ileocolic resection in 1982. She had been followed by our office by Dr. Clemons and was not on any chronic therapy as she did not have any evidence of disease recurrence after surgery. Her last colonoscopy was performed by Dr. Gottlieb in 2015 and was incomplete due to extensive diverticular disease. Patient was recommended a colonoscopy at a tertiary center to complete surveillance but it appears the testing was not done. She had done well from a GI standpoint with antidiarrheals and states she was in her typical state of health until approximately 3 weeks ago. At that time, she developed significantly reduced appetite as well as nausea with vomiting. She presented to the ER last night with complaints of abdominal pain and vomiting. She did undergo a CT a/p with IV enhancement that demonstrated gastric wall thickening and associated small bowel dilation with gradual tapering concerning for a chronic low grade obstruction. Diagnosis of exclusion is a gastric mass. She states she is having no nausea but no vomiting since admission and NG insertion. Abdomen remains painful and distended. Passing flatus and last BM reportedly yesterday. Mild leukocytosis but no anemia. Last EGD was performed in 2009 at which time she was diagnosed with a duodenal bulb ulcer with active bleeding requiring Endoclip placement for hemostasis. Allergies Allergy/AdvReac Type Severity Reaction Status Date / Time ciprofloxacin Allergy Intermediate RASH, Verified 07/30/22 00:37 ITCHING cefuroxime [From Ceftin] Allergy Unknown Unknown Verified 07/30/22 05:14 latex Allergy Unknown REDNESS Verified 07/30/22 00:37 nitrofurantoin Allergy Unknown Unknown Verified 07/30/22 05:14 [From Macrobid] Sulfa (Sulfonamide Allergy Unknown RASH Verified 07/30/22 00:37 Antibiotics) aspirin AdvReac Severe Gastrointestinal Verified 07/30/22 00:37 Upset levofloxacin AdvReac Severe DIZZINESS, Verified 07/30/22 00:37 MYALGIA doxycycline AdvReac Unknown HEADACHE Verified 07/30/22 00:37 Home Medications Medication Instructions Recorded Confirmed Type cyanocobalamin (vitamin B-12) 1,000 mcg IM MONTHLY 12/24/17 07/30/22 History 1,000 mcg/mL injection solution colestipol 1 gram tablet 2 gm PO BID #360 tabs 06/03/19 07/30/22 Rx ipratropium bromide 21 mcg (0.03 2 spray intranasal TID #30 mL 01/05/20 07/30/22 Rx %) nasal spray gabapentin 100 mg capsule 200 mg PO BID #360 caps 06/15/20 07/30/22 Rx albuterol sulfate 90 mcg/actuation 2 puff inhalation .COMPLEX PRN 09/28/20 07/30/22 Rx aerosol inhaler (ProAir HFA) shortness of breath or wheezing #25.5 grams alendronate 70 mg tablet (Fosamax) 70 mg PO .COMPLEX #12 tabs 05/03/21 07/30/22 Rx cholecalciferol (vitamin D3) 50 50 mcg PO DAILY 05/22/21 07/30/22 History mcg (2,000 unit) capsule pantoprazole 40 mg tablet,delayed 40 mg PO DAILY #90 tabs 07/04/21 07/30/22 Rx release (Protonix) metoprolol tartrate 50 mg tablet 50 mg PO Q12H #220 tabs 07/05/21 07/30/22 Rx telmisartan 40 mg tablet 40 mg PO BID #180 tabs 07/19/21 07/30/22 Rx apixaban 5 mg tablet 5 mg PO BID #180 tabs 08/10/21 07/30/22 Rx potassium chloride 10 mEq 20 meq PO DAILY #180 caps 10/19/21 07/30/22 Rx capsule,extended release furosemide 20 mg tablet (Lasix) 10 mg PO DAILY #45 tabs 01/17/22 07/30/22 Rx levothyroxine 50 mcg tablet 50 mcg PO QAM #90 tabs 02/06/22 07/30/22 Rx meclizine 12.5 mg tablet 12.5 mg PO TID PRN dizziness #30 02/14/22 07/30/22 Rx tabs clonidine HCl 0.1 mg tablet See Rx Instructions PO BID #180 03/26/22 07/30/22 Rx tabs benzonatate 100 mg capsule 100 mg PO TID PRN cough #30 caps 04/20/22 07/30/22 Rx amlodipine 5 mg tablet 5 mg PO BID #180 tabs 05/21/22 07/30/22 Rx lorazepam 0.5 mg tablet 0.5 mg PO TID PRN anxiety #90 tabs 05/29/22 07/30/22 Rx oxycodone 5 mg tablet 5 mg PO TID PRN Pain #90 tabs 07/10/22 07/30/22 Rx Patient History Medical History 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 Allergic rhinitis Carotid artery stenosis, asymptomatic Chronic cystitis Chronic kidney disease, stage 3a Chronic obstructive pulmonary disease Chronic pain syndrome Crohns disease Depression with anxiety Disc degeneration, lumbar Essential hypertriglyceridemia GERD (gastroesophageal reflux disease) History of ischemic colitis Hyperlipidemia Hyperparathyroidism Hypertension Hypothyroidism Impaired fasting glucose LVH (left ventricular hypertrophy) Multiple lung nodules on CT Nocturnal leg cramps Nontoxic multinodular goiter Osteoarthritis Osteoporosis PAD (peripheral artery disease) Peripheral neuropathy Pernicious anemia Secondary hyperparathyroidism Small bowel obstruction SNHL (sensorineural hearing loss) 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 Mcelroy History of cholecystectomy History of colonoscopy History of ERCP (03/15/11) Dr. Diane History of esophagogastroduodenoscopy (EGD) History of hip surgery (02/2021) ORIF right hip History of lobectomy of lung (~09/2009) left lower lobectomy History of open reduction and internal fixation (ORIF) procedure (09/24/16) left tib/fib by Dr. Doyle History of tooth extraction Family History Mother Lung cancer Hypertension Hearing loss Father Cardiac disorder Coronary arteriosclerosis Coronary heart disease Sister Hypertension Brother Hypertension Son Cardiac disorder Denies family history of Ovarian cancer Prostate cancer Adverse anesthesia outcome Sinusitis Bleeding disorder Colorectal cancer Stroke Asthma Social History Smoking Status: Former smoker Tobacco Type: Cigarettes Age Started Using Tobacco: 24; Age Quit Using Tobacco: 76; packs per day: 1; Cigarettes Per Day: 20; Smoking End Date: 20 years ago; Second Hand Exposure: No; Hx Alcohol Use: No Hx Substance Use: No Preferred Language: Mauritanian Communication Ability: Effective Communication Ability Comment: pt has bilateral hearing aids does not have them with her Hearing Ability: Use of Hearing Aid User Interface Engineer Required: No Beliefs That Will Affect Care: None marital status: Current Living Situation: Family current occupational status: retired Feels Safe at Home: Yes Safety Concerns: Feels Safe At This Time Diet Comment: chron's Dental Care, Regularly: No Physical Activity Frequency: Daily Physical Activity Frequency Comment: walk Seatbelt Use: always Sunscreen Use: No Assistive Devices: Cane, Denture - Upper, Denture - Lower, Glasses and Hearing Aid - Bilateral Review of Systems Constitutional: as per Subjective / HPI Respiratory: no cough and no dyspnea Cardiovascular: no chest pain and no palpitations Gastrointestinal: as per Subjective / HPI Physical Exam Constitutional: WD/WN, vitals as above Eyes: EOM intact bilaterally Neck: normal visual inspection Respiratory: normal respiratory effort, lungs clear to auscultation Cardiovascular: Rate/Rhythm: regular rate and regular rhythm Gastrointestinal (Abdomen): Inspection/Auscultation: + abdomen distended and + hypoactive bowel sounds Percussion/Palpation: + abdomen tender and + abdomen firm Musculoskeletal: Extremities: extremities normal to inspection Psychiatric: A+Ox3, euthymic affect Results & Data Vital Signs (Past 12 Hours) Vital Signs Temp Pulse Pulse Resp BP BP Pulse Ox 07/30/22 09:06 73 07/30/22 08:07 36.6 C 71 17 166/72 H 95 07/30/22 06:47 73 169/74 H 07/30/22 06:13 36.7 C 79 18 169/74 H 100 07/30/22 05:00 69 18 186/82 H 95 07/30/22 04:30 71 19 178/95 H 94 07/30/22 04:16 74 20 189/88 H 96 07/30/22 03:30 71 21 184/80 H 97 07/30/22 03:59 76 07/30/22 03:00 70 21 173/86 H 96 07/30/22 02:30 66 19 170/76 H 97 07/30/22 01:30 74 22 164/81 H 94 07/30/22 01:03 94 H 25 H 190/86 H 96 07/29/22 23:56 65 07/29/22 23:54 36.4 C L 75 19 177/78 H 98 O2 Del Method 07/30/22 09:06 07/30/22 08:07 Room Air 07/30/22 06:47 07/30/22 06:13 Room Air 07/30/22 05:00 Room Air 07/30/22 04:30 Room Air 07/30/22 04:16 Room Air 07/30/22 03:30 Room Air 07/30/22 03:59 07/30/22 03:00 Room Air 07/30/22 02:30 Room Air 07/30/22 01:30 Room Air 07/30/22 01:03 Room Air 07/29/22 23:56 07/29/22 23:54 Room Air Diagnostic Findings Laboratory Results WBC 13.11 K/ul (4.8-10.8) H 07/30/22 00:08 RBC 4.58 M/uL (4.20-5.40) 07/30/22 00:08 Hgb 13.9 g/dl (12.0-16.0) 07/30/22 00:08 Hct 41.2 % (37.0-47.0) 07/30/22 00:08 MCV 90.0 fL (80.0-100.0) 07/30/22 00:08 MCH 30.3 pg (25.0-34.0) 07/30/22 00:08 MCHC 33.7 g/dL (32.0-36.0) 07/30/22 00:08 RDW Std Deviation 44.3 fL (36.4-46.3) 07/30/22 00:08 RDW Coeff of Martine 13.5 % (11.5-14.5) 07/30/22 00:08 Plt Count 234 K/uL (130-400) 07/30/22 00:08 MPV 9.6 fL (9.4-12.4) 07/30/22 00:08 Immature Gran % (Auto) 0.5 % 07/30/22 00:08 Neut % (Auto) 80.4 % 07/30/22 00:08 Lymph % (Auto) 12.8 % 07/30/22 00:08 [place] % (Auto) 4.9 % 07/30/22 00:08 Eos % (Auto) 1.0 % 07/30/22 00:08 Baso % (Auto) 0.4 % 07/30/22 00:08 Neut # (Auto) 10.54 K/uL (1.40-6.50) H 07/30/22 00:08 Lymph # (Auto) 1.68 K/uL (1.2-3.4) 07/30/22 00:08 [place] # (Auto) 0.64 K/uL (0.11-0.59) H 07/30/22 00:08 Eos # (Auto) 0.13 K/uL (0-0.50) 07/30/22 00:08 Baso # (Auto) 0.05 K/uL (0-0.2) 07/30/22 00:08 Immature Gran # (Auto) 0.07 K/uL (0.01-0.20) 07/30/22 00:08 APTT 27.4 Seconds (21.0-31.0) 07/30/22 00:09 PTT Ratio 1.0 07/30/22 00:09 Sodium 142 mmol/L (136-145) 07/30/22 00:08 Potassium 4.1 mmol/L (3.5-5.1) 07/30/22 00:08 Chloride 107 mmol/L (98-107) 07/30/22 00:08 Carbon Dioxide 24 mmol/L (21-32) 07/30/22 00:08 Anion Gap 11 (3-11) 07/30/22 00:08 BUN 25 mg/dl (6-23) H 07/30/22 00:08 Creatinine 0.99 mg/dl (0.6-1.2) 07/30/22 00:08 Est Cr Clr Drug Dosing 29.3 ml/min 07/30/22 00:08 Est GFR ( Amer) 59.8 ml/min 07/30/22 00:08 Est GFR (Non-Af Amer) 51.6 ml/min 07/30/22 00:08 BUN/Creatinine Ratio 25.3 (10-20) H 07/30/22 00:08 Glucose 146 mg/dl (70-99(Fasting)) H 07/30/22 00:08 Calcium 10.3 mg/dl (8.6-10.3) 07/30/22 00:08 Total Bilirubin 0.7 mg/dl (0.2-1.0) 07/30/22 00:08 AST 18 U/L (13-39) 07/30/22 00:08 ALT 12 U/L (7-52) 07/30/22 00:08 Alkaline Phosphatase 165 U/L (34-104) H 07/30/22 00:08 Total Protein 6.9 gm/dl (6.0-8.3) 07/30/22 00:08 Albumin 4.0 gm/dl (3.4-5.0) 07/30/22 00:08 Globulin 2.9 gm/dl (2.5-4.0) 07/30/22 00:08 Albumin/Globulin Ratio 1.4 (0.9-2) 07/30/22 00:08 Lipase 228 U/L (11-82) H 07/30/22 00:08 Urine Color Yellow 07/30/22 01:02 Urine Appearance Clear (Clear) 07/30/22 01:02 Urine pH 5.5 (4.5-7.5) 07/30/22 01:02 Ur Specific [place] 1.015 (1.000-1.030) 07/30/22 01:02 Urine Protein 1+ (Negative) H 07/30/22 01:02 Urine Glucose (UA) Negative (Negative) 07/30/22 01:02 Urine Ketones Negative (Negative) 07/30/22 01:02 Urine Blood Trace-intact (Negative) H 07/30/22 01:02 Urine Nitrite Negative (Negative) 07/30/22 01:02 Urine Bilirubin Negative (Negative) 07/30/22 01:02 Urine Urobilinogen Negative (Negative) 07/30/22 01:02 Ur Leukocyte Esterase Trace (Negative) H 07/30/22 01:02 Urine RBC 0-4 /hpf (0-4) 07/30/22 01:02 Urine WBC 10-30 /hpf (0-5) H 07/30/22 01:02 Ur Epithelial Cells 0-5 /lpf (0-5) 07/30/22 01:02 Urine Bacteria Negative (Negative) 07/30/22 01:02 SARS-CoV-2, RNA, NAAT NEGATIVE (NEGATIVE) 07/30/22 02:45 Impressions Abdomen/Pelvis CT 07/29/22 23:56 Exam(s): CT ABDOMEN + PELVIS With Contrast IV Amt: 85 ML OPTIRAY 350 EXAM: CT Abdomen and Pelvis With Intravenous Contrast CLINICAL HISTORY: Abdominal pain. TECHNIQUE: Axial computed tomography images of the abdomen and pelvis with intravenous contrast. Automated exposure control was utilized for the study. A dose lowering technique was utilized adhering to the principles of ALARA. CONTRAST: Patient received 85 ML OPTIRAY 350 of IV contrast COMPARISON: No relevant prior studies available. FINDINGS: Lung bases: Unremarkable. No mass. No consolidation. ABDOMEN: Liver: Unremarkable. No mass. Gallbladder and bile ducts: Cholecystectomy. No ductal dilation. Pancreas: Unremarkable. No mass. No ductal dilation. Spleen: Unremarkable. No splenomegaly. Adrenals: Unremarkable. No mass. Kidneys and ureters: Atrophic left kidney. No hydronephrosis. Stomach and bowel: There is thickening of the mid and distal stomach. Mildly dilated small bowel with gradually tapering diameter of small bowel is concerning for a chronic/low grade obstruction. Diverticulosis. PELVIS: Appendix: No findings to suggest acute appendicitis. Bladder: Unremarkable. No mass. Reproductive: Unremarkable as visualized. ABDOMEN and PELVIS: Intraperitoneal space: Unremarkable. No free air. No significant fluid collection. Bones/joints: Age indeterminate L1 and L4 compression fractures. There are degenerative changes of the spine. No fracture. Bilateral internal fixation of the femurs. No dislocation. Soft tissues: Unremarkable. Vasculature: Marked atherosclerosis. No aneurysm. Lymph nodes: Unremarkable. No enlarged lymph nodes. IMPRESSION: 1. There is thickening of the mid and distal stomach. This is concerning for malignancy. 2. Age indeterminate L1 and L4 compression fractures. 3. Mildly dilated small bowel with gradually tapering diameter of small bowel is concerning for a chronic/low grade obstruction. 4. Diverticulosis. Electronically signed by: Kemi Ojeda MD 07/30/22 03:07 AM PG Care Time/CCT Total # of Minutes Spent Total Time Spent with Patient: Total time spent is greater than 50% in coordination of care (as documented) at patient's floor/unit and/or counseling patient: Coding Level of Care Code 76791 INT INP/OBS CARE 75MIN Diagnoses Small bowel obstruction K56.609 Nausea and vomiting R11.[address] of the abdomen R93.5
--- NOTE | 2022-07-30 10:36 | Surgery Consultation ---
Date of Consultation July 30, 2022 Assessment & Plan (1) Nausea and vomiting: (2) Abnormal CT of the abdomen: (3) Small bowel obstruction: Plan 86-year-old woman with 3-week history of abdominal pain but a longer history of loss of appetite prior to this. CT scan demonstrates thickening of the gastric wall and tapering of the small intestine possible partial small bowel obstruction. She passed flatus this morning. She had a bowel movement yesterday. Her primary concern is the thickening of her stomach wall. GI has been consulted for possible EGD for further evaluation. We will defer to GI for further recommendations. History of Present Illness Reason for Consultation: Partial small bowel obstruction Requesting Physician: Rachele Oliva MD Attending Physician: Rachele Oliva MD History of Present Illness 86-year-old woman presents with 3-week history of abdominal pain and some nausea. Prior to that she was having decreased appetite and possible weight loss. The abdominal pain is intermittent in character but in the mid upper abdo men. She does have bloating as well. CT scan demonstrates thickening of the mid and distal stomach, and dilated but tapering proximal small bowel possibly consistent with partial small bowel obstruction. She states she passed flatus this morning. She had a bowel movement yesterday. Allergies Allergy/AdvReac Type Severity Reaction Status Date / Time ciprofloxacin Allergy Intermediate RASH, Verified 07/30/22 00:37 ITCHING cefuroxime [From Ceftin] Allergy Unknown Unknown Verified 07/30/22 05:14 latex Allergy Unknown REDNESS Verified 07/30/22 00:37 nitrofurantoin Allergy Unknown Unknown Verified 07/30/22 05:14 [From Macrobid] Sulfa (Sulfonamide Allergy Unknown RASH Verified 07/30/22 00:37 Antibiotics) aspirin AdvReac Severe Gastrointestinal Verified 07/30/22 00:37 Upset levofloxacin AdvReac Severe DIZZINESS, Verified 07/30/22 00:37 MYALGIA doxycycline AdvReac Unknown HEADACHE Verified 07/30/22 00:37 Home Medications Medication Instructions Recorded Confirmed Type cyanocobalamin (vitamin B-12) 1,000 mcg IM MONTHLY 12/24/17 07/30/22 History 1,000 mcg/mL injection solution colestipol 1 gram tablet 2 gm PO BID #360 tabs 06/03/19 07/30/22 Rx ipratropium bromide 21 mcg (0.03 2 spray intranasal TID #30 mL 01/05/20 07/30/22 Rx %) nasal spray gabapentin 100 mg capsule 200 mg PO BID #360 caps 06/15/20 07/30/22 Rx albuterol sulfate 90 mcg/actuation 2 puff inhalation .COMPLEX PRN 09/28/2007/30 Rx aerosol inhaler (ProAir HFA) shortness of breath or wheezing #25.5 grams alendronate 70 mg tablet (Fosamax) 70 mg PO .COMPLEX #12 tabs 05/03/21 07/30/22 Rx cholecalciferol (vitamin D3) 50 50 mcg PO DAILY 05/22/21 07/30/22 History mcg (2,000 unit) capsule pantoprazole 40 mg tablet,delayed 40 mg PO DAILY #90 tabs 07/04/21 07/30/22 Rx release (Protonix) metoprolol tartrate 50 mg tablet 50 mg PO Q12H #220 tabs 07/05/21 07/30/22 Rx telmisartan 40 mg tablet 40 mg PO BID #180 tabs 07/19/21 07/30/22 Rx apixaban 5 mg tablet 5 mg PO BID #180 tabs 08/10/21 07/30/22 Rx potassium chloride 10 mEq 20 meq PO DAILY #180 caps 10/19/21 07/30/22 Rx capsule,extended release furosemide 20 mg tablet (Lasix) 10 mg PO DAILY #45 tabs 01/17/22 07/30/22 Rx levothyroxine 50 mcg tablet 50 mcg PO QAM #90 tabs 02/06/22 07/30/22 Rx meclizine 12.5 mg tablet 12.5 mg PO TID PRN dizziness #30 02/14/22 07/30/22 Rx tabs clonidine HCl 0.1 mg tablet See Rx Instructions PO BID #180 03/26/22 07/30/22 Rx tabs benzonatate 100 mg capsule 100 mg PO TID PRN cough #30 caps 04/20/22 07/30/22 Rx amlodipine 5 mg tablet 5 mg PO BID #180 tabs 05/21/22 07/30/22 Rx lorazepam 0.5 mg tablet 0.5 mg PO TID PRN anxiety #90 tabs 05/29/22 07/30/22 Rx oxycodone 5 mg tablet 5 mg PO TID PRN Pain #90 tabs 07/10/22 07/30/22 Rx Patient History Medical History 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 Allergic rhinitis Carotid artery stenosis, asymptomatic Chronic cystitis Chronic kidney disease, stage 3a Chronic obstructive pulmonary disease Chronic pain syndrome Crohns disease Depression with anxiety Disc degeneration, lumbar Essential hypertriglyceridemia GERD (gastroesophageal reflux disease) History of ischemic colitis Hyperlipidemia Hyperparathyroidism Hypertension Hypothyroidism Impaired fasting glucose LVH (left ventricular hypertrophy) Multiple lung nodules on CT Nocturnal leg cramps Nontoxic multinodular goiter Osteoarthritis Osteoporosis PAD (peripheral artery disease) Peripheral neuropathy Pernicious anemia Secondary hyperparathyroidism Small bowel obstruction SNHL (sensorineural hearing loss) 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 Mcelroy History of cholecystectomy History of colonoscopy History of ERCP (03/15/11) Dr. Diane History of esophagogastroduodenoscopy (EGD) History of hip surgery (02/2021) ORIF right hip History of lobectomy of lung (~09/2009) left lower lobectomy History of open reduction and internal fixation (ORIF) procedure (09/24/16) left tib/fib by Dr. Doyle History of tooth extraction Family History Mother Lung cancer Hypertension Hearing loss Father Cardiac disorder Coronary arteriosclerosis Coronary heart disease Sister Hypertension Brother Hypertension Son Cardiac disorder Denies family history of Ovarian cancer Prostate cancer Adverse anesthesia outcome Sinusitis Bleeding disorder Colorectal cancer Stroke Asthma Social History Smoking Status: Former smoker Tobacco Type: Cigarettes Age Started Using Tobacco: 24; Age Quit Using Tobacco: 76; packs per day: 1; Cigarettes Per Day: 20; Smoking End Date: 20 years ago; Second Hand Exposure: No; Hx Alcohol Use: No Hx Substance Use: No Preferred Language: Mexican Communication Ability: Effective Communication Ability Comment: pt has bilateral hearing aids does not have them with her Hearing Ability: Use of Hearing Aid Business Intelligence Administrator Required: No Beliefs That Will Affect Care: None marital status: Current Living Situation: Family current occupational status: retired Feels Safe at Home: Yes Safety Concerns: Feels Safe At This Time Diet Comment: chron's Dental Care, Regularly: No Physical Activity Frequency: Daily Physical Activity Frequency Comment: walk Seatbelt Use: always Sunscreen Use: No Assistive Devices: Cane, Denture - Upper, Denture - Lower, Glasses and Hearing Aid - Bilateral Review of Systems Review of Systems: All systems reviewed & are unremarkable except as noted in HPI & below Physical Exam Constitutional: WD/WN, vitals as above Eyes: PERRL, conjunctivae normal, anicteric sclerae Neck: trachea midline, no thyromegaly Respiratory: normal respiratory effort; no respiratory distress and no labored breathing Cardiovascular: Rate/Rhythm: regular rate and regular rhythm Gastrointestinal (Abdomen): Inspection/Auscultation: abdomen normal to inspection; abdomen not distended Percussion/Palpation: abdomen soft; abdomen nontender, no guarding and abdomen not rigid Skin: no rashes, warm and dry Psychiatric: A+Ox3, euthymic affect Results & Data Vital Signs (Past 12 Hours) Vital Signs Temp Pulse Pulse Resp BP BP Pulse Ox 07/30/22 09:06 73 07/30/22 08:07 36.6 C 71 17 166/72 H 95 07/30/22 06:47 73 169/74 H 07/30/22 06:13 36.7 C 79 18 169/74 H 100 07/30/22 05:00 69 18 186/82 H 95 07/30/22 04:30 71 19 178/95 H 94 07/30/22 04:16 74 20 189/88 H 96 07/30/22 03:30 71 21 184/80 H 97 07/30/22 03:59 76 07/30/22 03:00 70 21 173/86 H 96 07/30/22 02:30 66 19 170/76 H 97 07/30/22 01:30 74 22 164/81 H 94 07/30/22 01:03 94 H 25 H 190/86 H 96 07/29/22 23:56 65 07/29/22 23:54 36.4 C L 75 19 177/78 H 98 O2 Del Method 07/30/22 09:06 07/30/22 08:07 Room Air 07/30/22 06:47 07/30/22 06:13 Room Air 07/30/22 05:00 Room Air 07/30/22 04:30 Room Air 07/30/22 04:16 Room Air 07/30/22 03:30 Room Air 07/30/22 03:59 07/30/22 03:00 Room Air 07/30/22 02:30 Room Air 07/30/22 01:30 Room Air 07/30/22 01:03 Room Air 07/29/22 23:56 07/29/22 23:54 Room Air Laboratory Results 07/30/22 07/30/22 07/30/22 Range/Units 02:45 01:02 00:09 WBC (4.8-10.8) K/ul RBC (4.20-5.40) M/uL Hgb (12.0-16.0) g/dl Hct (37.0-47.0) % MCV (80.0-100.0) fL MCH (25.0-34.0) pg MCHC (32.0-36.0) g/dL RDW Std Deviation (36.4-46.3) fL RDW Coeff of Martine (11.5-14.5) % Plt Count (130-400) K/uL MPV (9.4-12.4) fL Immature Gran % (Auto) % Neut % (Auto) % Lymph % (Auto) % Baxter % (Auto) % Eos % (Auto) % Baso % (Auto) % Neut # (Auto) (1.40-6.50) K/uL Lymph # (Auto) (1.2-3.4) K/uL Baxter # (Auto) (0.11-0.59) K/uL Eos # (Auto) (0-0.50) K/uL Baso # (Auto) (0-0.2) K/uL Immature Gran # (Auto) (0.01-0.20) K/uL APTT 27.4 (21.0-31.0) Seconds PTT Ratio 1.0 Sodium (136-145) mmol/L Potassium (3.5-5.1) mmol/L Chloride (98-107) mmol/L Carbon Dioxide (21-32) mmol/L Anion Gap (3-11) BUN (6-23) mg/dl Creatinine (0.6-1.2) mg/dl Est Cr Clr Drug Dosing ml/min Est GFR ( Amer) ml/min Est GFR (Non-Af Amer) ml/min BUN/Creatinine Ratio (10-20) Glucose (70-99(Fasting)) mg/dl Calcium (8.6-10.3) mg/dl Total Bilirubin (0.2-1.0) mg/dl AST (13-39) U/L ALT (7-52) U/L Alkaline Phosphatase (34-104) U/L Total Protein (6.0-8.3) gm/dl Albumin (3.4-5.0) gm/dl Globulin (2.5-4.0) gm/dl Albumin/Globulin Ratio (0.9-2) Lipase (11-82) U/L Urine Color Yellow Urine Appearance Clear (Clear) Urine pH 5.5 (4.5-7.5) Ur Specific Waldron 1.015 (1.000-1.030) Urine Protein 1+ H (Negative) Urine Glucose (UA) Negative (Negative) Urine Ketones Negative (Negative) Urine Blood Trace-intact H (Negative) Urine Nitrite Negative (Negative) Urine Bilirubin Negative (Negative) Urine Urobilinogen Negative (Negative) Ur Leukocyte Esterase Trace H (Negative) Urine RBC 0-4 (0-4) /hpf Urine WBC 10-30 H (0-5) /hpf Ur Epithelial Cells 0-5 (0-5) /lpf Urine Bacteria Negative (Negative) SARS-CoV-2, RNA, NAAT NEGATIVE (NEGATIVE) 07/30/22 07/30/22 Range/Units 00:08 00:08 WBC 13.11 H (4.8-10.8) K/ul RBC 4.58 (4.20-5.40) M/uL Hgb 13.9 (12.0-16.0) g/dl Hct 41.2 (37.0-47.0) % MCV 90.0 (80.0-100.0) fL MCH 30.3 (25.0-34.0) pg MCHC 33.7 (32.0-36.0) g/dL RDW Std Deviation 44.3 (36.4-46.3) fL RDW Coeff of Martine 13.5 (11.5-14.5) % Plt Count 234 (130-400) K/uL MPV 9.6 (9.4-12.4) fL Immature Gran % (Auto) 0.5 % Neut % (Auto) 80.4 % Lymph % (Auto) 12.8 % Baxter % (Auto) 4.9 % Eos % (Auto) 1.0 % Baso % (Auto) 0.4 % Neut # (Auto) 10.54 H (1.40-6.50) K/uL Lymph # (Auto) 1.68 (1.2-3.4) K/uL Baxter # (Auto) 0.64 H (0.11-0.59) K/uL Eos # (Auto) 0.13 (0-0.50) K/uL Baso # (Auto) 0.05 (0-0.2) K/uL Immature Gran # (Auto) 0.07 (0.01-0.20) K/uL APTT (21.0-31.0) Seconds PTT Ratio Sodium 142 (136-145) mmol/L Potassium 4.1 (3.5-5.1) mmol/L Chloride 107 (98-107) mmol/L Carbon Dioxide 24 (21-32) mmol/L Anion Gap 11 (3-11) BUN 25 H (6-23) mg/dl Creatinine 0.99 (0.6-1.2) mg/dl Est Cr Clr Drug Dosing 29.3 ml/min Est GFR ( Amer) 59.8 ml/min Est GFR (Non-Af Amer) 51.6 ml/min BUN/Creatinine Ratio 25.3 H (10-20) Glucose 146 H (70-99(Fasting)) mg/dl Calcium 10.3 (8.6-10.3) mg/dl Total Bilirubin 0.7 (0.2-1.0) mg/dl AST 18 (13-39) U/L ALT 12 (7-52) U/L Alkaline Phosphatase 165 H (34-104) U/L Total Protein 6.9 (6.0-8.3) gm/dl Albumin 4.0 (3.4-5.0) gm/dl Globulin 2.9 (2.5-4.0) gm/dl Albumin/Globulin Ratio 1.4 (0.9-2) Lipase 228 H (11-82) U/L Urine Color Urine Appearance (Clear) Urine pH (4.5-7.5) Ur Specific Waldron (1.000-1.030) Urine Protein (Negative) Urine Glucose (UA) (Negative) Urine Ketones (Negative) Urine Blood (Negative) Urine Nitrite (Negative) Urine Bilirubin (Negative) Urine Urobilinogen (Negative) Ur Leukocyte Esterase (Negative) Urine RBC (0-4) /hpf Urine WBC (0-5) /hpf Ur Epithelial Cells (0-5) /lpf Urine Bacteria (Negative) SARS-CoV-2, RNA, NAAT (NEGATIVE)
[2022-07-30] MEDS ORDERED: ePHEDrine sulfate 50 MG/ML AMP IV PRN (11:36)
[2022-07-30] MEDS ORDERED: ATROPINE SULFATE 0.1 MG/ML 10ML SYR IV PRN (11:36)
--- NOTE | 2022-07-30 11:36 | Anesthesiology Consultation ---
Date of Service July 30, 2022 Assessment & Plan ASA ASA4 Proposed Anesthesia Anesthesia Type: MAC Risk / Benefits Reviewed With: PT / POA / Parent / Guardian, Accepts Plan and Informed Consent Obtained History Surgery Operation Date: 07/30/22 17:15 Proposed Procedures p Esophagogastroduodenoscopy Dr. Radha Garcia MD Height/Weight Height: 5 ft Weight: 45.7 kg Allergies Allergy/AdvReac Type Severity Reaction Status Date / Time ciprofloxacin Allergy Intermediate RASH, Verified 07/30/22 00:37 ITCHING cefuroxime [From Ceftin] Allergy Unknown Unknown Verified 07/30/22 05:14 latex Allergy Unknown REDNESS Verified 07/30/22 00:37 nitrofurantoin Allergy Unknown Unknown Verified 07/30/22 05:14 [From Macrobid] Sulfa (Sulfonamide Allergy Unknown RASH Verified 07/30/22 00:37 Antibiotics) aspirin AdvReac Severe Gastrointestinal Verified 07/30/22 00:37 Upset levofloxacin AdvReac Severe DIZZINESS, Verified 07/30/22 00:37 MYALGIA doxycycline AdvReac Unknown HEADACHE Verified 07/30/22 00:37 Medications Home Medications Medication Instructions Recorded Confirmed Last Taken cyanocobalamin (vitamin B-12) 1,000 mcg IM MONTHLY 12/24/17 07/30/22 02/14/21 1,000 mcg/mL injection solution colestipol 1 gram tablet 2 gm PO BID #360 tabs 06/03/19 07/30/22 02/19/21 18:00 ipratropium bromide 21 mcg (0.03 2 spray intranasal TID #30 mL 01/05/20 07/30/22 Unknown %) nasal spray gabapentin 100 mg capsule 200 mg PO BID #360 caps 06/15/20 07/30/22 02/19/21 18: 00 albuterol sulfate 90 mcg/actuation 2 puff inhalation .COMPLEX PRN 09/28/20 07/30/22 Unknown aerosol inhaler (ProAir HFA) shortness of breath or wheezing #25.5 grams alendronate 70 mg tablet (Fosamax) 70 mg PO .COMPLEX #12 tabs 05/03/21 07/30/22 Unknown cholecalciferol (vitamin D3) 50 50 mcg PO DAILY 05/22/21 07/30/22 Unknown mcg (2,000 unit) capsule pantoprazole 40 mg tablet,delayed 40 mg PO DAILY #90 tabs 07/04/21 07/30/22 Unknown release (Protonix) metoprolol tartrate 50 mg tablet 50 mg PO Q12H #220 tabs 07/05/21 07/30/22 Unknown telmisartan 40 mg tablet 40 mg PO BID #180 tabs 07/19/21 07/30/22 Unknown apixaban 5 mg tablet 5 mg PO BID #180 tabs 08/10/21 07/30/22 Unknown potassium chloride 10 mEq 20 meq PO DAILY #180 caps 10/19/21 07/30/22 Unknown capsule,extended release furosemide 20 mg tablet (Lasix) 10 mg PO DAILY #45 tabs 01/17/22 07/30/22 Unknown levothyroxine 50 mcg tablet 50 mcg PO QAM #90 tabs 02/06/22 07/30/22 Unknown meclizine 12.5 mg tablet 12.5 mg PO TID PRN dizziness #30 02/14/22 07/30/22 Unknown tabs clonidine HCl 0.1 mg tablet See Rx Instructions PO BID #180 03/26/22 07/30/22 Unknown tabs benzonatate 100 mg capsule 100 mg PO TID PRN cough #30 caps 04/20/22 07/30/22 Unknown amlodipine 5 mg tablet 5 mg PO BID #180 tabs 05/21/22 07/30/22 Unknown lorazepam 0.5 mg tablet 0.5 mg PO TID PRN anxiety #90 tabs 05/29/22 07/30/22 Unknown oxycodone 5 mg tablet 5 mg PO TID PRN Pain #90 tabs 07/10/22 07/30/22 Unknown Active Medications Generic Name Dose Route Start Last Admin Trade Name Freq PRN Reason Stop Dose Admin Hydromorphone HCl 1 mg 07/30/22 05:56 07/30/22 07:41 Hydromorphone Inj 1 Mg/Ml Syringe IV 08/13/22 05:55 1 mg Q2H PRN Administration severe/breakthrough pain Heparin Sodium/Dextrose 25,000 units in 500 mls @ 11 mls/hr 07/30/22 05:56 07/30/22 06:47 Heparin Sodium/Dextrose IV 08/29/22 05:55 550 units/hr .Q24H LULU 11 mls/hr Administration Protocol 550 UNITS/HR Acetaminophen 1,000 mg in 100 mls @ 400 mls/hr 07/30/22 05:56 07/30/22 08:16 Ofirmev IV 08/02/22 05:55 Not Given Q8H LULU Sodium Chloride 1,000 mls @ 80 mls/hr 07/30/22 05:56 07/30/22 06:47 Nss 1000ml IV 08/29/22 05:55 80 mls/hr .[id number] LULU Administration Pantoprazole Sodium 40 mg/ 10 mls @ 5 mls/min 07/30/22 09:00 07/30/22 08:17 Syringe IV 08/29/22 08:59 5 mls/min BID LULU Administration Metoprolol Tartrate 5 mg 07/30/22 06:00 07/30/22 06:47 Metoprolol Tartrate 1 Mg/Ml Vial IV 08/29/22 05:59 5 mg Q6 LULU Administration NPO Date Last Intake of Fluids: 07/29/22 Time Last Intake of Fluids: 20:00 Date Last Intake of Solids: 07/29/22 Time Last Intake of Solids: 20:00 Past Medical History Medical History 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 Allergic rhinitis Carotid artery stenosis, asymptomatic Chronic cystitis Chronic kidney disease, stage 3a Chronic obstructive pulmonary disease Chronic pain syndrome Crohns disease Depression with anxiety Disc degeneration, lumbar Essential hypertriglyceridemia GERD (gastroesophageal reflux disease) History of ischemic colitis Hyperlipidemia Hyperparathyroidism Hypertension Hypothyroidism Impaired fasting glucose LVH (left ventricular hypertrophy) Multiple lung nodules on CT Nocturnal leg cramps Nontoxic multinodular goiter Osteoarthritis Osteoporosis PAD (peripheral artery disease) Peripheral neuropathy Pernicious anemia Secondary hyperparathyroidism Small bowel obstruction SNHL (sensorineural hearing loss) 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 Indefinite anticoagulation recommended by heme/onc Tinnitus Vitamin B 12 deficiency Vitamin D deficiency Exercise / Class Metabolic Activity II 4-5 Yardwork/Stairs/Walk up hill Past Family History Family History Mother Lung cancer Hypertension Hearing loss Father Cardiac disorder Coronary arteriosclerosis Coronary heart disease Sister Hypertension Brother Hypertension Son Cardiac disorder Denies family history of Ovarian cancer Prostate cancer Adverse anesthesia outcome Sinusitis Bleeding disorder Colorectal cancer Stroke Asthma Past Surgical History Surgical History History of bowel resection History of cataract surgery (10/01/13) Dr. Mcelroy History of cholecystectomy History of colonoscopy History of ERCP (03/15/11) Dr. Diane History of esophagogastroduodenoscopy (EGD) History of hip surgery (02/2021) ORIF right hip History of lobectomy of lung (~09/2009) left lower lobectomy History of open reduction and internal fixation (ORIF) procedure (09/24/16) left tib/fib by Dr. Doyle History of tooth extraction Past Anesthesia History No Hx of Anesthesia Complications and No Family Hx of Anesthesia Complications History of PONV No Hx of PONV and No Hx of Motion Sickness Social History Smoking Status: Former smoker tobacco type: cigarettes Smoking cigarettes per day: 20 Smoking End Date: 20 years ago Hx Alcohol Use: No Hx Substance Use: No substance use type: does not use Physical Exam Vital Signs Last Vital Signs Temp 36.6 C 07/30/22 08:07 Pulse 73 07/30/22 09:06 Resp 17 07/30/22 08:07 BP 166/72 H 07/30/22 08:07 Pulse Ox 95 07/30/22 08:07 O2 Del Method Room Air 07/30/22 08:07 Constitutional WD/WN, vitals as above no acute distress Eyes PERRL, conjunctivae normal, anicteric sclerae EOM intact bilaterally ENMT Mouth: no dentition abnormality Thyromental Distance: > or= 3.5 Finger Breadths Mallampati Class: II Neck trachea midline, no thyromegaly normal visual inspection Respiratory normal respiratory effort, lungs clear to auscultation normal respiratory effort; no respiratory distress and no labored breathing Cardiovascular RRR, no murmur, no edema Rate/Rhythm: regular rate and regular rhythm Gastrointestinal (Abdomen) Inspection/Auscultation: abdomen normal to inspection and + hypoactive bowel sounds; abdomen not distended Percussion/Palpation: abdomen soft and + abdomen firm; abdomen nontender, no guarding and abdomen not rigid Musculoskeletal Extremities: extremities normal to inspection Skin no rashes, warm and dry Psychiatric A+Ox3, euthymic affect Orientation: alert and oriented x 3 Testing Laboratory Results 07/30/22 00:08 07/30/22 00:08 APTT 27.4 Seconds (21.0-31.0) 07/30/22 00:09 Urine Color Yellow 07/30/22 01:02 Urine Appearance Clear (Clear) 07/30/22 01:02 Urine pH 5.5 (4.5-7.5) 07/30/22 01:02 Ur Specific [place] 1.015 (1.000-1.030) 07/30/22 01:02 Urine Protein 1+ (Negative) H 07/30/22 01:02 Urine Glucose (UA) Negative (Negative) 07/30/22 01:02 Urine Ketones Negative (Negative) 07/30/22 01:02 Urine Nitrite Negative (Negative) 07/30/22 01:02 Ur Leukocyte Esterase Trace (Negative) H 07/30/22 01:02 Urine RBC 0-4 /hpf (0-4) 07/30/22 01:02 Urine WBC 10-30 /hpf (0-5) H 07/30/22 01:02 Ur Epithelial Cells 0-5 /lpf (0-5) 07/30/22 01:02 Day of Procedure Evaluation. Date of Surgery July 30, 2022 Height/Weight Height: 5 ft Weight: 45.7 kg Vital Signs Last Vital Signs Temp 36.6 C 07/30/22 08:07 Pulse 73 07/30/22 09:06 Resp 17 07/30/22 08:07 BP 166/72 H 07/30/22 08:07 Pulse Ox 95 07/30/22 08:07 O2 Del Method Room Air 07/30/22 08:07 Allergies Allergy/AdvReac Type Severity Reaction Status Date / Time ciprofloxacin Allergy Intermediate RASH, Verified 07/30/22 00:37 ITCHING cefuroxime [From Ceftin] Allergy Unknown Unknown Verified 07/30/22 05:14 latex Allergy Unknown REDNESS Verified 07/30/22 00:37 nitrofurantoin Allergy Unknown Unknown Verified 07/30/22 05:14 [From Macrobid] Sulfa (Sulfonamide Allergy Unknown RASH Verified 07/30/22 00:37 Antibiotics) aspirin AdvReac Severe Gastrointestinal Verified 07/30/22 00:37 Upset levofloxacin AdvReac Severe DIZZINESS, Verified 07/30/22 00:37 MYALGIA doxycycline AdvReac Unknown HEADACHE Verified 07/30/22 00:37 Medications Home Medications Medication Instructions Recorded Confirmed Last Taken cyanocobalamin (vitamin B-12) 1,000 mcg IM MONTHLY 12/24/17 07/30/22 02/14/21 1,000 mcg/mL injection solution colestipol 1 gram tablet 2 gm PO BID #360 tabs 06/03/19 07/30/22 02/19/21 18:00 ipratropium bromide 21 mcg (0.03 2 spray intranasal TID #30 mL 01/05/20 07/30/22 Unknown %) nasal spray gabapentin 100 mg capsule 200 mg PO BID #360 caps 06/15/20 07/30/22 02/19/21 18:00 albuterol sulfate 90 mcg/actuation 2 puff inhalation .COMPLEX PRN 09/28/20 07/30/22 Unknown aerosol inhaler (ProAir HFA) shortness of breath or wheezing #25.5 grams alendronate 70 mg tablet (Fosamax) 70 mg PO .COMPLEX #12 tabs 05/03/21 07/30/22 Unknown cholecalciferol (vitamin D3) 50 50 mcg PO DAILY 05/22/21 07/30/22 Unknown mcg (2,000 unit) capsule pantoprazole 40 mg tablet,delayed 40 mg PO DAILY #90 tabs 07/04/21 07/30/22 Unknown release (Protonix) metoprolol tartrate 50 mg tablet 50 mg PO Q12H #220 tabs 07/05/21 07/30/22 Unknown telmisartan 40 mg tablet 40 mg PO BID #180 tabs 07/19/21 07/30/22 Unknown apixaban 5 mg tablet 5 mg PO BID #180 tabs 08/10/21 07/30/22 Unknown potassium chloride 10 mEq 20 meq PO DAILY #180 caps 10/19/21 07/30/22 Unknown capsule,extended release furosemide 20 mg tablet (Lasix) 10 mg PO DAILY #45 tabs 01/17/22 07/30/22 Unknown levothyroxine 50 mcg tablet 50 mcg PO QAM #90 tabs 02/06/22 07/30/22 Unknown meclizine 12.5 mg tablet 12.5 mg PO TID PRN dizziness #30 02/14/22 07/30/22 Unknown tabs clonidine HCl 0.1 mg tablet See Rx Instructions PO BID #180 03/26/22 07/30/22 Unknown tabs benzonatate 100 mg capsule 100 mg PO TID PRN cough #30 caps 04/20/22 07/30/22 Unknown amlodipine 5 mg tablet 5 mg PO BID #180 tabs 05/21/22 07/30/22 Unknown lorazepam 0.5 mg tablet 0.5 mg PO TID PRN anxiety #90 tabs 05/29/22 07/30/22 Unknown oxycodone 5 mg tablet 5 mg PO TID PRN Pain #90 tabs 07/10/22 07/30/22 Unknown Active Medications Generic Name Dose Route Start Last Admin Trade Name Freq PRN Reason Stop Dose Admin Hydromorphone HCl 1 mg 07/30/22 05:56 07/30/22 07:41 Hydromorphone Inj 1 Mg/Ml Syringe IV 08/13/22 05:55 1 mg Q2H PRN Administration severe/breakthrough pain Heparin Sodium/Dextrose 25,000 units in 500 mls @ 11 mls/hr 07/30/22 05:56 07/30/22 06:47 Heparin Sodium/Dextrose IV 08/29/22 05:55 550 units/hr .Q24H LULU 11 mls/hr Administration Protocol 550 UNITS/HR Acetaminophen 1,000 mg in 100 mls @ 400 mls/hr 07/30/22 05:56 07/30/22 08:16 Ofirmev IV 08/02/22 05:55 Not Given Q8H LULU Sodium Chloride 1,000 mls @ 80 mls/hr 07/30/22 05:56 07/30/22 06:47 Nss 1000ml IV 08/29/22 05:55 80 mls/hr .[id number] LULU Administration Pantoprazole Sodium 40 mg/ 10 mls @ 5 mls/min 07/30/22 09:00 07/30/22 08:17 Syringe IV 08/29/22 08:59 5 mls/min BID LULU Administration Metoprolol Tartrate 5 mg 07/30/22 06:00 07/30/22 06:47 Metoprolol Tartrate 1 Mg/Ml Vial IV 08/29/22 05:59 5 mg Q6 LULU Administration Past Anesthesia History No Hx of Anesthesia Complications and No Family Hx of Anesthesia Complications History of PONV No Hx of PONV and No Hx of Motion Sickness NPO Date Last Intake of Fluids: 07/29/22 Time Last Intake of Fluids: 20:00 Date Last Intake of Solids: 07/29/22 Time Last Intake of Solids: 20:00 Home Medications Home Medications Medication Instructions Recorded Confirmed Last Taken cyanocobalamin (vitamin B-12) 1,000 mcg IM MONTHLY 12/24/17 07/30/22 02/14/21 1,000 mcg/mL injection solution colestipol 1 gram tablet 2 gm PO BID #360 tabs 06/03/19 07/30/22 02/19/21 18:00 ipratropium bromide 21 mcg (0.03 2 spray intranasal TID #30 mL 01/05/20 07/30/22 Unknown %) nasal spray gabapentin 100 mg capsule 200 mg PO BID #360 caps 06/15/20 07/30/22 02/19/21 18:00 albuterol sulfate 90 mcg/actuation 2 puff inhalation .COMPLEX PRN 09/28/20 07/30/22 Unknown aerosol inhaler (ProAir HFA) shortness of breath or wheezing #25.5 grams alendronate 70 mg tablet (Fosamax) 70 mg PO .COMPLEX #12 tabs 05/03/21 07/30/22 Unknown cholecalciferol (vitamin D3) 50 50 mcg PO DAILY 05/22/21 07/30/22 Unknown mcg (2,000 unit) capsule pantoprazole 40 mg tablet,delayed 40 mg PO DAILY #90 tabs 07/04/21 07/30/22 Unknown release (Protonix) metoprolol tartrate 50 mg tablet 50 mg PO Q12H #220 tabs 07/05/21 07/30/22 Unknown telmisartan 40 mg tablet 40 mg PO BID #180 tabs 07/19/21 07/30/22 Unknown apixaban 5 mg tablet 5 mg PO BID #180 tabs 08/10/21 07/30/22 Unknown potassium chloride 10 mEq 20 meq PO DAILY #180 caps 10/19/21 07/30/22 Unknown capsule,extended release furosemide 20 mg tablet (Lasix) 10 mg PO DAILY #45 tabs 01/17/22 07/30/22 Unknown levothyroxine 50 mcg tablet 50 mcg PO QAM #90 tabs 02/06/22 07/30/22 Unknown meclizine 12.5 mg tablet 12.5 mg PO TID PRN dizziness #30 02/14/22 07/30/22 Unknown tabs clonidine HCl 0.1 mg tablet See Rx Instructions PO BID #180 03/26/22 07/30/22 Unknown tabs benzonatate 100 mg capsule 100 mg PO TID PRN cough #30 caps 04/20/22 07/30/22 Unknown amlodipine 5 mg tablet 5 mg PO BID #180 tabs 05/21/22 07/30/22 Unknown lorazepam 0.5 mg tablet 0.5 mg PO TID PRN anxiety #90 tabs 05/29/22 07/30/22 Unknown oxycodone 5 mg tablet 5 mg PO TID PRN Pain #90 tabs 07/10/22 07/30/22 Unknown Active Medications Generic Name Dose Route Start Last Admin Trade Name Freq PRN Reason Stop Dose Admin Hydromorphone HCl 1 mg 07/30/22 05:56 07/30/22 07:41 Hydromorphone Inj 1 Mg/Ml Syringe IV 08/13/22 05:55 1 mg Q2H PRN Administration severe/breakthrough pain Heparin Sodium/Dextrose 25,000 units in 500 mls @ 11 mls/hr 07/30/22 05:56 0 07/30/22 06:47 Heparin Sodium/Dextrose IV 08/29/22 05:55 550 units/hr .Q24H LULU 11 mls/hr Administration Protocol 550 UNITS/HR Acetaminophen 1,000 mg in 100 mls @ 400 mls/hr 07/30/22 05:56 07/30/22 08:16 Ofirmev IV 08/02/22 05:55 Not Given Q8H LULU Sodium Chloride 1,000 mls @ 80 mls/hr 07/30/22 05:56 07/30/22 06:47 Nss 1000ml IV 08/29/22 05:55 80 mls/hr .[id number] LULU Administration Pantoprazole Sodium 40 mg/ 10 mls @ 5 mls/min 07/30/22 09:00 07/30/22 08:17 Syringe IV 08/29/22 08:59 5 mls/min BID LULU Administration Metoprolol Tartrate 5 mg 07/30/22 06:00 07/30/22 06:47 Metoprolol Tartrate 1 Mg/Ml Vial IV 08/29/22 05:59 5 mg Q6 LULU Administration Exercise / Class Metabolic Activity Metabolic Activity: II 4-5 Yardwork/Stairs/Walk up hill Physical Exam Constitutional: no acute distress Mouth: no dentition abnormality Thyromental Distance: > or= 3.5 Finger Breadths Mallampati Class: II Neck: + visual inspection normal Respiratory: + respiratory effort normal; no respiratory distress Cardiovascular: + regular rate and + regular rhythm Musculoskeletal: + extremities abnormal to inspection Psychiatric: + alert and + oriented x 3 ASA ASA4 Proposed Anesthesia Proposed Anesthesia: MAC Risk / Benefits Reviewed With: PT / POA / Parent / Guardian, Accepts Plan and Informed Consent Obtained
[2022-07-30] MEDS ORDERED: PROPOFOL IV EMULSION 10 MG/ML 20 ML VIAL IV ONE (12:26)
[2022-07-30] MEDS ORDERED: LIDOCAINE 2% MPF LOCAL 5 ML VIAL ONE (12:26)
--- NOTE | 2022-07-30 12:54 | Anesthesiology Progress Note ---
Date of Service July 30, 2022 Anesthesia Post Procedure Vital Signs Vital Signs: Temp Pulse Pulse Resp BP BP Pulse Ox 07/30/22 12:47 68 16 106/52 L 94 07/30/22 11:36 73 07/30/22 12:02 36.7 C 88 16 153/99 H 99 07/30/22 09:06 73 07/30/22 08:07 36.6 C 71 17 166/72 H 95 07/30/22 06:47 73 169/74 H 07/30/22 06:13 36.7 C 79 18 169/74 H 100 07/30/22 05:00 69 18 186/82 H 95 07/30/22 04:30 71 19 178/95 H 94 07/30/22 04:16 74 20 189/88 H 96 07/30/22 03:30 71 21 184/80 H 97 07/30/22 03:59 76 07/30/22 03:00 70 21 173/86 H 96 07/30/22 02:30 66 19 170/76 H 97 07/30/22 01:30 74 22 164/81 H 94 07/30/22 01:03 94 H 25 H 190/86 H 96 07/29/22 23:56 65 07/29/22 23:54 36.4 C L 75 19 177/78 H 98 O2 Del Method 07/30/22 12:47 Room Air 07/30/22 11:36 07/30/22 12:02 Room Air 07/30/22 09:06 07/30/22 08:07 Room Air 07/30/22 06:47 07/30/22 06:13 Room Air 07/30/22 05:00 Room Air 07/30/22 04:30 Room Air 07/30/22 04:16 Room Air 07/30/22 03:30 Room Air 07/30/22 03:59 07/30/22 03:00 Room Air 07/30/22 02:30 Room Air 07/30/22 01:30 Room Air 07/30/22 01:03 Room Air 07/29/22 23:56 07/29/22 23:54 Room Air Pain Intensity Abdomen: Pain Intensity: 9 Transfer of Care Handoff Completed per policy Notes Mental Status: alert / awake / arousable Patient Amnestic to Procedure: Yes Nausea / Vomiting: adequately controlled Pain: adequately controlled Airway Patency, RR, SpO2: stable & adequate BP & HR: stable & adequate Hydration State: stable & adequate Anesthetic Complications: no major complications apparent and Pt Satisfied with anesthetic care
--- NOTE | 2022-07-30 12:55 | GI REPORT ---
Patient Name: Dana Treviño Procedure Date: 07/30/2022 12:14 PM Date of : 1935 Admit Type: Inpatient Age: 86 Gender: Female Attending MD: Jersey Garcia MD, Procedure: Upper GI endoscopy Providers: Jersey Garcia MD Referring MD: Referred Self Indications: Abnormal CT of the GI tract, Nausea Medicines: Monitored Anesthesia Care Complications: No immediate complications. Estimated blood loss: None. Estimated Blood Loss: Estimated blood loss: none. Procedure: Pre-Anesthesia Assessment: - Prior Anticoagulants: The patient has taken no anticoagulant or antiplatelet agents. - After reviewing the risks and benefits, the patient was deemed in satisfactory condition to undergo the procedure. - ASA Grade Assessment: III - A patient with severe systemic disease. After obtaining informed consent, the endoscope was passed under direct vision. Throughout the procedure, the patient's blood pressure, pulse, and oxygen saturations were monitored continuously. The Endoscope was introduced through the mouth, and advanced to the second part of duodenum. The upper GI endoscopy was accomplished without difficulty. The patient tolerated the procedure well. Findings: The examined esophagus was normal. Scattered mild mucosal changes characterized by erythema were found in the gastric body along with thickened folds. Biopsies were taken with a cold forceps for Helicobacter pylori testing. Estimated blood loss: none. no defined mass was seen throughout exam. The duodenal bulb and second portion of the duodenum were normal. Impression: - Normal esophagus. - Erythematous mucosa in the gastric body. Biopsied. - Normal duodenal bulb and second portion of the duodenum. Recommendation: - Return patient to hospital [facility] for ongoing care. - Clear liquid diet today. - Await pathology results. -start protonix 40 mg daily Jersey Garcia MD 07/30/2022 12:54:33 PM This report has been signed electronically. Note Initiated On: 07/30/2022 12:14 PM Number of Addenda: 0 I attest to the content of the Intraoperative Record and orders documented therein, exceptions below {[id number]}
--- NOTE | 2022-07-30 14:41 | History & Physical Bridge Note ---
Date of Service July 30, 2022 History & Physical Bridge Note I have examined the patient, reviewed the History & Physical and in the interval since the performance of the History & Physical I have noted the following changes of clinical significance: Pt had EGD this AM which showed gastritis. NGT was removed during the procedure and not replaced. I came to see the patient after the procedure and she was continuing to complain of severe epigastric abdominal pain, bloating, and nausea. She did pass flatus this AM, last BM yesterday. Heparin gtt turned off only for 30 min during procedure-advised RN to draw PTT now and continue to follow regular protocol for heparin gtt. I discussed her care with Surgery and am awaiting return call from GI. VSS NAD, AAOx3 RRR no mgr CTAB no wcr Abd hypoactive BS, moderately distended, +TTP diffusely but worse in epigastric region without guarding or rebound Ext no edema SKin no rashes Labs and CT reviewed 86 yo female here with abdominal pain, possible SBO, thickened stomach. EGD with gastritis-continue IV PPI bid Suspect component of pancreatitis as lipase elevated and epigastric severe abd pain, despite no pancreatitis on CT yet -continue NPO except sips and chips, continue IVFs, pain meds prn -advised to replace NGT for possible SBO vs severe ileus due to pancreatitis and pt declined to have it replaced at this time. Will follow
[2022-07-30] MEDS ORDERED: PROCHLORPERAZINE 5 MG in SYRINGE 4 ML IV PRN (14:42)
[2022-07-30 15:25] LABS: Partial Thromboplastin Ratio 1.5; Partial Thromboplastin Time 41.6 Seconds (21.0-31.0)
[2022-07-30] MEDS: ONDANSETRON INJ 2 MG/ML 2 ML VIAL IV PRN (17:30)
[2022-07-31] MEDS: METOPROLOL TARTRATE 1 MG/ML VIAL IV SCH ×5 (00:26→23:29)
[2022-07-31] MEDS: ONDANSETRON INJ 2 MG/ML 2 ML VIAL IV PRN (02:31)
[2022-07-31] MEDS: ACETAMINOPHEN 1,000 MG/100 ML VIAL IV SCH ×3 (05:20→22:14)
[2022-07-31] MEDS: SODIUM CHLORIDE 0.9% 1000ML 1,000 ML IV SCH (05:21)
--- NOTE | 2022-07-31 05:46 | Electrocardiogram Report ---
Test Reason : Blood Pressure : / mmHG Vent. Rate : 063 BPM Atrial Rate : 063 BPM P-R Int : 168 ms QRS Dur : 088 ms QT Int : 416 ms P-R-T Axes : 079 053 133 degrees QTc Int : 425 ms Normal sinus rhythm Left ventricular hypertrophy with repolarization abnormality Abnormal ECG When compared with ECG of 20-JUL-2021 16:28, Vent. rate has decreased BY 36 BPM Confirmed by Sancho Julien ([id number]) on 07/31/2022 5:46:41 AM Referred By: REFERRED SELF Confirmed By:Sancho Julien
[2022-07-31] MEDS: HYDROmorphone INJ 1 MG/ML SYRINGE IV PRN (06:18)
--- NOTE | 2022-07-31 06:54 | Surgery Progress Note ---
Date of Service July 31, 2022 Assessment & Plan (1) Nausea and vomiting: (2) Abnormal CT of the abdomen: (3) Small bowel obstruction: Plan 86-year-old woman with 3-week history of abdominal pain but a longer history of loss of appetite prior to this. CT scan demonstrates thickening of the gastric wall and tapering of the small intestine possible partial small bowel obstruction. EGD yesterday with gastritis; no gastric mass. flatus and BM yesterday evening. do not suspect ongoing bowel obstruction due to continued flatus and positive bms. treat gastritis will follow Admission and Anticipated Discharge Date Admission Date: July 30, 2022 Subjective EGD yesterday with gastritis; no evidence of gastric mass/cancer. still with abdominal pain; positive flatus and BM yesterday evening. Physical Exam Gastrointestinal (Abdomen): Inspection/Auscultation: abdomen normal to inspection; abdomen not distended Percussion/Palpation: + abdomen tender (lower abdomen) and abdomen soft; no guarding and abdomen not rigid Results & Data Vital Signs (Past 12 Hours) Vital Signs Temp Pulse Pulse Resp BP Pulse Ox O2 Del Method 07/31/22 05:20 78 07/31/22 03:06 36.8 C 76 20 148/76 H 95 Room Air 07/31/22 00:26 83 07/30/22 23:43 68 07/30/22 23:40 36.6 C 74 20 150/81 H 97 Room Air 07/30/22 19:23 36.4 C L 72 18 148/81 H 95 Room Air
[2022-07-31] MEDS: LORazepam 2 MG/1 ML VIAL IV PRN (08:09)
[2022-07-31] MEDS: PANTOprazole 40 MG in SYRINGE 0 ML IV SCH ×2 (08:10→20:24)
[2022-07-31 08:24] LABS: Albumin Globulin Ratio 1.5 (0.9-2); Albumin Level 2.9 gm/dl (3.4-5.0); BUN Creatinine Ratio 23.6 (10-20); Bilirubin,Total 1.1 mg/dl (0.2-1.0); Calcium 7.9 mg/dl (8.6-10.3); Creatinine Clr Calc Pharmacy 14.2 ml/min; Est GFR (African American) 25.1 ml/min; Est GFR (Non-African American) 21.7 ml/min; Globulin 1.9 gm/dl (2.5-4.0); Phosphorus 4.2 mg/dl (2.5-4.9); Total Protein 4.8 gm/dl (6.0-8.3)
[2022-07-31 08:31] LABS: Basophils # (auto) 0.02 K/uL (0-0.2); Basophils % (auto) 0.2 %; Echinocytes 3+; Hematocrit (blood only) 36.1 % (37.0-47.0); Hemoglobin 12.5 g/dl (12.0-16.0); Immature Granulocytes # (auto) 0.02 K/uL (0.01-0.20); Immature Granulocytes % (auto) 0.2 %; Lymphocytes # (auto) 0.69 K/uL (1.2-3.4); Lymphocytes % (auto) 6.7 %; Mean Corpuscular Hemoglobin 30.9 pg (25.0-34.0); Mean Corpuscular Hgb Conc 34.6 g/dL (32.0-36.0); Mean Corpuscular Volume 89.4 fL (80.0-100.0); Mean Platelet Volume 9.9 fL (9.4-12.4); Monocytes # (auto) 0.83 K/uL (0.11-0.59); Neutrophils # (auto) 8.77 K/uL (1.40-6.50); Neutrophils % (auto) 84.9 %; Platelet Count 179 K/uL (130-400); RDW Coefficient of Variation 13.8 % (11.5-14.5); RDW Standard Deviation 45.2 fL (36.4-46.3); Red Blood Count 4.04 M/uL (4.20-5.40); White Blood Count 10.33 K/ul (4.8-10.8)
--- NOTE | 2022-07-31 10:03 | Communication Note ---
Date of Service: July 31, 20[address] Patient with history of CT a/p with IV enhancement that demonstrated gastric wall thickening and associated small bowel dilation with gradual tapering conc erning for a chronic low grade obstruction with a diagnosis of exclusion of a gastric mass.S/p EGD 07/30/22. I reviewed EGD with patient. will await pathology at this time. Continue pantoprazole 40mg once daily.
[2022-07-31] MEDS: LACTATED RINGER'S 1,000 ML IV SCH ×3 (10:05→19:25)
[2022-07-31] MEDS: MAGNESIUM SULFATE / D5W 1 GM/100 ML BAG IV SCH ×4 (10:11→17:33)
--- NOTE | 2022-07-31 11:20 | Hospitalist Progress Note ---
Date of Service July 31, 2022 Assessment & Plan (1) Acute pancreatitis: Plan: Patient presented with acute epigastric abdominal pain and lipase initially in the 200s, now in the 3000's Also presented with suspected small bowel obstruction which is more likely a severe ileus and pancreatitis Continues with severe abdominal pains and ileus Had previous acute pancreatitis several years ago with no cause found-is status post cholecystectomy, triglycerides are normal, no hypercalcemia, no alcohol use. Could have biliary disease? Pancreatic mass? -Continue IV Dilaudid as needed -Continue bowel rest, n.p.o. -Change fluids to LR and increase to at 150 MLS per hour, monitor urine output, Place Lu catheter for urinary retention and acute kidney injury -With mildly elevated total bilirubin and alkaline phosphatase, checked MRCP- unfortunately, with great motion artifact due to claustrophobia, there were not great pictures. CBD is chronically dilated, could not definitively see much else but no definite choledocholithiasis -Follow LFTs, lipase, BMP, magnesium, phosphorus, CBC in the morning -We will discuss with GI about need for EUS as an outpatient in 4 weeks (2) Small bowel obstruction: Plan: With 3 weeks of slowly worsening abdominal pain, in the setting of multiple intraabdominal surgeries with previous history of SBO Initial CT abdomen/pelvis here with suspicion for SBO and thickened distal stomach NG tube placed initially but then removed by GI during EGD on 07/30 Continues with some occasional flatus and small maroon-colored stool overnight on 07/30, not a complete obstruction and more likely severe ileus secondary to pancreatitis Appreciate surgery consultation Patient declines replacement of NG tube at this point Continue antiemetics, keep n.p.o., IV fluids Follow KUB in the morning Consider bisacodyl suppository tomorrow if no significant bowel movement (3) Acute metabolic encephalopathy: Plan: With confusion overnight 07/30 likely secondary to combination of acute kidney injury, IV opioid use, and withdrawal from benzodiazepines She takes Ativan 3 times daily at home but had not received any in over 24 hours-improved with use of IV Ativan -Continue lorazepam IV 3 times daily as needed -Continue to treat acute kidney injury as below -Treat pain -Supportive care (4) Chronic kidney disease, stage 3a: Plan: PANTERA-with baseline creatinine 1.0 and creatinine up to 2.0, BUN elevated Secondary to ATN from pancreatitis, prerenal with hypovolemia With associated none anion gap metabolic acidosis and hyperchloremia Discontinue normal saline and start LR and increase rate to [address] abdomen/pelvis shows atrophic left kidney but no hydronephrosis on the right kidney -Place Lu catheter and monitor urine output -Renally dose medications, avoid nephrotoxins -Follow serial BMP -Holding home Lasix and telmisartan (5) Crohns disease: Plan: History of, diarrhea predominant Not on specific treatment for this Gastroenterology is on consult (6) GERD (gastroesophageal reflux disease): Plan: With gastritis noted on EGD, biopsies pending Continue PPI IV twice daily (7) Hypothyroidism: Plan: Hold levothyroxine for now while NPO, however will give IV dosing at 25 mcg every 72 hours starting tomorrow TSH normal in 03/2022 (8) Chronic pain syndrome: Plan: Chronic pain history will make her acute pain more difficult to control, as she has been on oxycodone TID for many years Continue IV Dilaudid as needed (9) Hypertension: Plan: Blood pressures are controlled now Holding home p.o. meds while n.p.o. 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, on Eliquis outpatient for indefinite anticoagulation Holding Eliquis in favor of heparin gtt, but now heparin drip on hold for maroon-colored stool overnight -If no further GI bleeding, could consider starting DVT prophylaxis dose of Lovenox tomorrow (11) Adenocarcinoma of lung: Plan: History of, s/p lobectomy Not on supplemental oxygen at home, continue to monitor (12) Gastritis: Plan: As above, on EGD Plan Disposition-continued stay in PCU Discussed care with both sons extensively on 07/31 DNR/DNI Admission and Anticipated Discharge Date Admission Date: July 30, 2022 Subjective Patient had some small amount of maroon-colored stool overnight, heparin drip was held. She thinks she is passing flatus this morning. Nursing reports that she did vomit overnight and NG tube placement was reattempted but patient was very agitated and they were unable to place NG tube. Patient was confused this morning and finally got IV Ativan and was very drowsy but much more calm when I saw her this morning. She is prescribed Ativan 3 times a day at home and had not received any doses since admission. She is still having abdominal pain but seems to be much more comfortable today. No more vomiting since receiving Ativan. I discussed her care with both of her sons today on different occasions at length. I also discussed her care with gastroenterology. Telemetry with sinus tachycardia normal sinus rhythm with rates in the 90s to 100s Physical Exam Constitutional: WD/WN, vitals as above Eyes: + anicteric sclerae Neck: trachea midline, no thyromegaly Respiratory: normal respiratory effort, lungs clear to auscultation Cardiovascular: RRR, no murmur, no edema Chest (Breasts): Chest: normal inspection of chest Gastrointestinal (Abdomen): Inspection/Auscultation: + abdomen distended (Moderate) and + hypoactive bowel sounds; + abdomen abnormal to inspection (Midline laparotomy scar) Percussion/Palpation: + abdomen tender (Diffusely tender but more so in epigastric region, slightly improved) Musculoskeletal: Extremities: extremities normal to inspection; no cyanosis and no clubbing Skin: no rashes, warm and dry Neurologic: moves all extremities and awake; no focal motor deficits Lymphatic: no lymphedema Results & Data Results & Data Vital Signs (Past 12 Hours) Vital Signs Temp Pulse Pulse Resp BP Pulse Ox O2 Del Method 07/31/22 07:55 36.5 C 83 18 163/74 H 95 Room Air 07/31/22 07:45 74 07/31/22 05:20 78 07/31/22 03:06 36.8 C 76 20 148/76 H 95 Room Air 07/31/22 00:26 83 07/30/22 23:43 68 07/30/22 23:40 36.6 C 74 20 150/81 H 97 Room Air Laboratory Results CBC, CMP, lipase, magnesium level all reviewed Later in the day, BMP on repeat was reviewed PG Care Time/CCT Total # of Minutes Spent Total Time Spent with Patient: Total time spent is greater than 50% in coordination of care (as documented) at patient's floor/unit and/or counseling patient: Coding Level of Care Code 06809 SUB INP/OBS CARE 3/50MIN Diagnoses Acute pancreatitis K85.90 Acute pancreatitis complication: unspecified Pancreatitis type: unspecified pancreatitis type Small bowel obstruction K56.609 Acute metabolic encephalopathy G93.41 Chronic kidney disease, stage 3a N18.31 Crohns disease K50.90 GERD (gastroesophageal reflux disease) K21.9 Hypothyroidism E03.9 Chronic pain syndrome G89.4 Hypertension I10 Hypertension type: essential hypertension Thrombosis of ovarian vein I82.890 Adenocarcinoma of lung C34.90 Gastritis K29.70 (1) Acute pancreatitis Acute pancreatitis complication: unspecified Pancreatitis type: unspecified pancreatitis type Qualified Code(s): K85.90 - Acute pancreatitis without necrosis or infection, unspecified (9) Hypertension Hypertension type: essential hypertension Qualified Code(s): I10 - Essential (primary) hypertension
--- NOTE | 2022-07-31 12:16 | XRay Report ---
SKULL 3 VIEWS CLINICAL HISTORY: MRI screening. FINDINGS: 3 views of the skull are obtained. Correlation is made with head CT dated 02/19/2021. The s keletal structures are osteopenic. There is no radiographic evidence of calvarial fracture. No lytic or blastic lesion is seen. The bony orbits are intact as visualized. The mastoid air cells appear wel l-pneumatized. A right-sided hearing aid is present on the first image and was removed for the second 2 images. No radiodense/metallic foreign body is seen. The patient is edentulous. Advanced atheroscl erotic calcification is seen in the carotid bulbs. IMPRESSION: 1. No calvarial abnormality is identified. 2. No radiodense foreign body is seen. Electronically signed by: Roly Storey M.D. 07/31/2022 12:15 PM
--- NOTE | 2022-07-31 12:32 | XRay Report ---
XR chest 1V portable CLINICAL HISTORY: pre MRI screening TECHNIQUE: Single frontal radiograph of the chest was obtained. Comparison: Comparison is made to chest radiograph 07/20/2021 FINDINGS: No lines and tubes are seen. The cardiomediastinal silhouette is normal. The lungs are clear. Bluntin g of the left costophrenic angle is unchanged likely due to scarring. IMPRESSION: No acute chest disease. ACT 112: Negative or not required by law. Electronically signed by: Carlitos Melendrez M.D. 07/31/2022 12:31 PM
[2022-07-31] MEDS ORDERED: LORazepam 2 MG/1 ML VIAL IV STA (13:41)
--- NOTE | 2022-07-31 16:05 | Magnetic Resonance Report ---
MRCP CLINICAL HISTORY: Pancreatitis. Elevated hepatic transaminases. COMPARISON STUDY: Abdominal CT dated 07/30/2022. TECHNIQUE: Abdominal MRCP is attempted utilizing various T2-weighted sequences in the axial and coron al planes. The acquired images were severely degraded by motion artifact. The examination was discont inued due to lack of patient's cooperation. High-resolution MRCP images could not be obtained. The ac quired images are of limited diagnostic utility. FINDINGS: The gallbladder is surgically absent. There is at least mild central intrahepatic biliary ductal dila tation. The common bile duct is dilated, measuring up to 13 mm in diameter. No intraluminal filling d efects are identified to suggest choledocholithiasis but this is not definitive. The pancreatic duct is not well-visualized. The heart is enlarged. There is a small right pleural effusion. A small volume of upper abdominal asc ites is noted. The pancreas is not well-visualized. The unenhanced liver, spleen, and right kidney ar e grossly unremarkable. The left kidney is markedly atrophic. The adrenal glands are not well-visuali zed. The abdominal aorta is normal in caliber. Imaged portions of the bowel show no evidence of obstr uction. IMPRESSION: 1. Severely motion compromised examination. The examination could not be completed and high-resolutio n imaging was not performed. The acquired sequences are of limited utility. 2. Status post cholecystectomy. 3. There is dilatation of the common bile duct and mild dilatation of the central intrahepatic bile d ucts. 4. There is no evidence of choledocholithiasis on the acquired images. This is not well assessed and cannot be excluded. 5. Small right pleural effusion and upper abdominal ascites. Dictated: 07/31/2022 3:47 PM Transcribed: 07/31/2022 4:01 PM [place] [id number] [email or web address] Electronically signed by: Roly Storey M.D. 07/31/2022 4:03 PM
[2022-07-31 16:52] LABS: BUN Creatinine Ratio 26.1 (10-20); Calcium 8.1 mg/dl (8.6-10.3); Creatinine Clr Calc Pharmacy 13.7 ml/min; Est GFR (Non-African American) 20.7 ml/min; Potassium 3.8 mmol/L (3.5-5.1)
[2022-08-01] MEDS: HYDROmorphone INJ 1 MG/ML SYRINGE IV PRN ×4 (00:22→21:57)
[2022-08-01] MEDS: LACTATED RINGER'S 1,000 ML IV SCH ×4 (03:04→22:00)
[2022-08-01] MEDS: ACETAMINOPHEN 1,000 MG/100 ML VIAL IV SCH (05:49)
[2022-08-01] MEDS: METOPROLOL TARTRATE 1 MG/ML VIAL IV SCH ×3 (05:57→17:21)
[2022-08-01 07:33] LABS: BUN Creatinine Ratio 29.6 (10-20); Calcium 7.8 mg/dl (8.6-10.3); Creatinine Clr Calc Pharmacy 15.3 ml/min; Est GFR (African American) 27.4 ml/min; Est GFR (Non-African American) 23.6 ml/min; Potassium 3.2 mmol/L (3.5-5.1)
[2022-08-01 07:39] LABS: Hematocrit (blood only) 38.1 % (37.0-47.0); Hemoglobin 13.2 g/dl (12.0-16.0); Mean Corpuscular Hemoglobin 30.8 pg (25.0-34.0); Mean Corpuscular Hgb Conc 34.6 g/dL (32.0-36.0); Mean Corpuscular Volume 88.8 fL (80.0-100.0); Mean Platelet Volume 10.2 fL (9.4-12.4); Platelet Count 146 K/uL (130-400); RDW Coefficient of Variation 14.1 % (11.5-14.5); RDW Standard Deviation 45.6 fL (36.4-46.3); Red Blood Count 4.29 M/uL (4.20-5.40); White Blood Count 5.86 K/ul (4.8-10.8)
[2022-08-01 07:49] LABS: Albumin Level 2.5 gm/dl (3.4-5.0); Bilirubin Direct 0.2 mg/dl (0-0.2); Bilirubin,Total 0.7 mg/dl (0.2-1.0); Magnesium 2.3 mg/dl (1.7-2.4); Total Protein 4.3 gm/dl (6.0-8.3)
[2022-08-01 08:06] LABS: Basophils # (auto) 0.03 K/uL (0-0.2); Basophils % (auto) 0.5 %; Echinocytes 2+; Immature Granulocytes # (auto) 0.03 K/uL (0.01-0.20); Immature Granulocytes % (auto) 0.5 %; Lymphocytes # (auto) 0.53 K/uL (1.2-3.4); Monocytes # (auto) 0.69 K/uL (0.11-0.59); Monocytes % (auto) 11.8 %; Neutrophils # (auto) 4.58 K/uL (1.40-6.50); Neutrophils % (auto) 78.2 %
[2022-08-01] MEDS: LORazepam 2 MG/1 ML VIAL IV PRN ×2 (08:06)
[2022-08-01] MEDS: PANTOprazole 40 MG in SYRINGE 0 ML IV SCH (08:29)
[2022-08-01] MEDS ORDERED: LEVOTHYROXINE SODIUM 25 MCG in SYRINGE 0 ML IV SCH (09:00)
[2022-08-01] MEDS ORDERED: ACETAMINOPHEN 1,000 MG/100 ML VIAL IV PRN (09:34)
[2022-08-01] MEDS: POTASSIUM CHLORIDE / WTR 10 MEQ/100 ML PLCT IV SCH ×2 (10:17→11:09)
--- NOTE | 2022-08-01 10:17 | Gastroenterology Progress Note ---
Date of Service August 01, 2022 Assessment & Plan (1) Abdominal pain: Plan: Discussed case with Dr. Garcia who advised on plan. - suspect pancreatitis is causing pain at this time. Lipase is improving. - KUB orders in chart, will await results given history of obstruction though bowels are moving per nursing. - LFTs now normal. Can consider EUS as outpatient for biliary dilation, however given her age and other comorbidities once she is discharged, would have a discussion with patient/family to see if they would even wish to proceed with something invasive like this. noted in chart patient is DNR/DNI. - history of crohn's disease but she has been off of treatment for years. no plans to initiate at this point in time. Admission and Anticipated Discharge Date Admission Date: July 30, 2022 Subjective Patient is more lethargic and difficult to wake up on exam. she is unable to answer my questions. history obtained from nursing. worsening mental status since yesterday afternoon per nursing. she has been getting dilaudid for pain control. on 07/31/22 labs there was an elevated T bili of 1.1. rest of LFTs normal at that time. repeat lfts today was unremarkable. had MRCP 07/31 that was motion compromised with dilated CBD/mild dilation of intrahepatic ducts. no choledocholithiasis. per nursing patient had 2 bowel movements yesterday. no bleeding or melena reported. 08/01/22 cbc unremarkable. 07/31/22 lipase 3553 08/01/22 lipase 846 Physical Exam Constitutional: WD/WN, vitals as above Respiratory: normal respiratory effort, lungs clear to auscultation Cardiovascular: RRR, no murmur, no edema Gastrointestinal (Abdomen): normal bowel sounds, abdomen distended. patient groans when abdomen is palpated. no guarding. Skin: no rashes, warm and dry Results & Data Results & Data Vital Signs (Past 12 Hours) Vital Signs Temp Pulse Pulse Resp BP BP Pulse Ox 08/01/22 07:47 97.7 F 90 18 86/55 L 93 08/01/22 05:57 113 H 163/87 H 08/01/22 02:53 97.7 F 88 18 106/62 92 08/01/22 00:44 79 07/31/22 23:11 97.5 F L 80 18 93/54 L 93 07/31/22 23:29 84 93/54 L O2 Del Method O2 Flow Rate 08/01/22 07:47 Nasal Cannula 2 08/01/22 05:57 08/01/22 02:53 Room Air 08/01/22 00:44 07/31/22 23:11 Room Air 07/31/22 23:29 PG Care Time/CCT Total # of Minutes Spent Total Time Spent with Patient: Total time spent is greater than 50% in coordination of care (as documented) at patient's floor/unit and/or counseling patient: Coding Level of Care Code 98977 SUB INP/OBS CARE 2/35MIN Diagnoses Abdominal pain R10.9 Time Spent (min) 35
[2022-08-01] MEDS ORDERED: oxyCODONE HCL IR 5 MG TAB (IMMEDIATE RELEASE) PO PRN (10:31)
--- NOTE | 2022-08-01 10:37 | Hospitalist Progress Note ---
Date of Service August 01, 2022 Assessment & Plan (1) Acute pancreatitis: Plan: Patient presented with acute epigastric abdominal pain and lipase initially in the 200s, which then deanna to the 3000's Also presented with suspected small bowel obstruction which is more likely a severe ileus and pancreatitis Continues with significant abdominal pains but abdomen is less tender, ileus improving-had 2 bowel movements overnight 07/31 Had previous acute pancreatitis several years ago with no cause found-is status post cholecystectomy, triglycerides are normal, no hypercalcemia, no alcohol use. Could have biliary disease? Pancreatic mass? Mildly elevated total bilirubin and alkaline phosphatase are now improved-MRCP with great motion artifact due to claustrophobia, there were not great pictures. CBD is chronically dilated, could not definitively see much else but no definite choledocholithiasis Appreciate GI input-possible EUS as an outpatient if family desires Pain seems improving, IV Dilaudid is causing metabolic encephalopathy Lipase trending down to the 800s -Advance diet to clear liquids -Decrease Dilaudid to 0.5 Mg IV every 2 hours as needed pain, add home oxycodone as needed if able to take pills -Continue LR at 150 MLS per hour -Follow LFTs, lipase, BMP, magnesium, phosphorus, CBC in the morning (2) Small bowel obstruction: Plan: With 3 weeks of slowly worsening abdominal pain, in the setting of multiple intraabdominal surgeries with previous history of SBO Initial CT abdomen/pelvis here with suspicion for SBO and thickened distal stomach NG tube placed initially but then removed by GI during EGD on 07/30 Had a small maroon-colored stool overnight on 07/30, and none since then Not a complete obstruction and more likely severe ileus secondary to pancreatitis Had 2 large nonbloody bowel movements overnight 07/31, abdomen is softer KUB 08/01 still with distended bowel loops but with gas in the rectum-radiology read is favoring chronic/low-grade obstruction Appreciate surgery consultation Patient declines replacement of NG tube at this point and no longer needs as nausea is improved Continue antiemetics, IV fluids Advance diet to clear liquids Follow KUB again in the morning (3) Acute metabolic encephalopathy: Plan: With confusion overnight 07/30 likely secondary to combination of acute kidney injury, IV opioid use, and withdrawal from benzodiazepines She takes Ativan 3 times daily at home but had not received any in over 24 hours-improved with use of IV Ativan The IV Dilaudid is also contributing more so at this point -Continue lorazepam and make scheduled twice daily -Continue to treat acute kidney injury as below which is improving -Treat pain -Supportive care -Reduced dose of Dilaudid to 0.5 Mg IV as above (4) Hypokalemia: Plan: Mildly low, give 20 mEq IV Lasix Follow BMP and magnesium in the morning Hypomagnesemia now resolved after replacement (5) Chronic kidney disease, stage 3a: Plan: PANTERA-with baseline creatinine 1.0 and creatinine up to 2.0, BUN elevated Secondary to ATN from pancreatitis, prerenal with hypovolemia, and also some urinary retention contributing With associated none anion gap metabolic acidosis and hyperchloremia which is improving Creatinine down to 1.8 after increasing volume of IV fluids and placing Lu catheter CT abdomen/pelvis shows atrophic left kidney but no hydronephrosis on the right kidney -Continue LR at 150 MLS per hour -Maintain Lu catheter and monitor urine output -Renally dose medications, avoid nephrotoxins -Follow serial BMP -Holding home Lasix and telmisartan (6) Crohns disease: Plan: History of, diarrhea predominant Not on specific treatment for this Gastroenterology is on consult-no treatment needed at this time (7) GERD (gastroesophageal reflux disease): Plan: With gastritis noted on EGD, biopsies pending Continue PPI IV but reduce to once daily (8) Hypothyroidism: Plan: Restart home p.o. levothyroxine for tomorrow TSH normal in 03/2022 (9) Chronic pain syndrome: Plan: Restart home oxycodone 3 times daily as needed Continue IV Dilaudid as needed (10) Hypertension: Plan: Blood pressures are controlled to low at this point, were elevated on admission Holding home p.o. meds while n.p.o. 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, on Eliquis outpatient for indefinite anticoagulation Held Eliquis since admission in case of need for surgical procedure and was placed on heparin gtt, but then heparin drip discontinued for maroon-colored stool which is now resolved Started prophylactic Lovenox on 08/01 (12) Adenocarcinoma of lung: Plan: History of, s/p lobectomy Not on supplemental oxygen at home, continue to monitor (13) Gastritis: Plan: As above, on EGD Plan Disposition-continued stay in PCU Discussed care with both sons extensively on 07/31 and will call son again on 08/01 DNR/DNI Admission and Anticipated Discharge Date Admission Date: July 30, 2022 Subjective Patient had 2 bowel movements overnight as per nursing, 1 of which was quite large. Both were mostly loose. RN reports patient was very agitated and restless this morning even after being given Ativan, she was unable to vocalize pain but then was given pain medicine and was drowsy when I saw her. She appeared comfortable. I checked back again on her midday and she was still drowsy but did wake up later in the day and drink some water. Telemetry normal sinus rhythm, one 7 beat run of VT Physical Exam Constitutional: WD/WN, vitals as above Neck: trachea midline, no thyromegaly Respiratory: normal respiratory effort, lungs clear to auscultation Cardiovascular: RRR, no murmur, no edema Chest (Breasts): Chest: normal inspection of chest Gastrointestinal (Abdomen): Inspection/Auscultation: + abdomen distended (Mild); + abdomen abnormal to inspection (Midline laparotomy scar) Percussion/Palpation: + abdomen tender (Diffusely tender but improved from previous) and abdomen soft; no guarding Musculoskeletal: Extremities: extremities normal to inspection; no cyanosis and no clubbing Skin: no rashes, warm and dry Neurologic: moves all extremities and awake; no focal motor deficits Lymphatic: no lymphedema Results & Data Results & Data Vital Signs (Past 12 Hours) Vital Signs Temp Pulse Pulse Resp BP BP Pulse Ox 08/01/22 07:47 36.5 C 90 18 86/55 L 93 08/01/22 05:57 113 H 163/87 H 08/01/22 02:53 36.5 C 88 18 106/62 92 08/01/22 00:44 79 07/31/22 23:11 36.4 C L 80 18 93/54 L 93 07/31/22 23:29 84 93/54 L O2 Del Method O2 Flow Rate 08/01/22 07:47 Nasal Cannula 2 08/01/22 05:57 08/01/22 02:53 Room Air 08/01/22 00:44 07/31/22 23:11 Room Air 07/31/22 23:29 Laboratory Results CBC, BMP, magnesium, LFTs reviewed Urine culture no growth Pathology from biopsy still pending Lipase reviewed Diagnostic Findings KUB image personally reviewed by me and still with dilated loops of bowel but gas in the rectum PG Care Time/CCT Total # of Minutes Spent Total Time Spent with Patient: Total time spent is greater than 50% in coordination of care (as documented) at patient's floor/unit and/or counseling patient: Coding Level of Care Code 33818 SUB INP/OBS CARE 3/50MIN Diagnoses Acute pancreatitis K85.90 Acute pancreatitis complication: unspecified Pancreatitis type: unspecified pancreatitis type Small bowel obstruction K56.609 Acute metabolic encephalopathy G93.41 Hypokalemia E87.6 Chronic kidney disease, stage 3a N18.31 Crohns disease K50.90 GERD (gastroesophageal reflux disease) K21.9 Hypothyroidism E03.9 Chronic pain syndrome G89.4 Hypertension I10 Hypertension type: essential hypertension Thrombosis of ovarian vein I82.890 Adenocarcinoma of lung C34.90 Gastritis K29.70 (1) Acute pancreatitis Acute pancreatitis complication: unspecified Pancreatitis type: unspecified pancreatitis type Qualified Code(s): K85.90 - Acute pancreatitis without necrosis or infection, unspecified (10) Hypertension Hypertension type: essential hypertension Qualified Code(s): I10 - Essential (primary) hypertension
--- NOTE | 2022-08-01 16:54 | XRay Report ---
XR KUB/Abdomen 1 view CLINICAL HISTORY: Follow-up ileus/SBO TECHNIQUE: 1 view of the abdomen was obtained. Comparison: Comparison is made to abdomen radiograph 04/23/[address] abdomen pelvis 07/30/2022 FINDINGS: Lung bases are unremarkable. Degenerative changes are seen in the visualized skeleton. Bilateral femo ral neck orthopedic hardware seen. Numerous gas distended loops of small bowel are seen measuring up to 37 mm in diameter. Colonic gas is noted. IMPRESSION: Gas dilated loops of small bowel remain, similar in appearance to prior exam, favoring a chronic/low- grade obstruction. Colonic gas is again seen. ACT 112: Negative or not required by law. Electronically signed by: Carlitos Melendrez M.D. 08/01/2022 4:53 PM
[2022-08-01] MEDS: LORazepam 2 MG/1 ML VIAL IV SCH (20:21)
[2022-08-01] MEDS: HEPARIN SOD 5,000 UNIT/0.5 ML VIAL SQ SCH (20:22)
[2022-08-02] MEDS: METOPROLOL TARTRATE 1 MG/ML VIAL IV SCH ×5 (00:50→23:14)
[2022-08-02] MEDS: HYDROmorphone INJ 1 MG/ML SYRINGE IV PRN ×3 (04:37→23:22)
[2022-08-02] MEDS ORDERED: SODIUM CHLORIDE 0.9% 1000ML 500 ML IV ONE ×2 (05:21→05:52)
[2022-08-02] MEDS ORDERED: DIGOXIN 125 MCG in SYRINGE 9.5 ML IV STA (05:29)
[2022-08-02] MEDS: ALBUMIN 25% 100 mL 25 GM/100 ML VIAL IV SCH ×2 (05:36→06:08)
[2022-08-02] MEDS: LACTATED RINGER'S 1,000 ML IV SCH ×2 (05:47→15:24)
--- NOTE | 2022-08-02 05:57 | Communication Note ---
Date of Service: August 02, 2022 Notified this morning by nurse of tachycardia to the 130s and blood pressure in the 80s/40s. Ordered 500 cc NS bolus x2, as well as albumin and digoxin. As patient was DNR/DNI, notified the patient's son, Mauricio, who confirmed that his mother would not want any vasopressor support. Went to see the patient, who appeared confused and short of breath. Patient wearing oxygen mask on 13 L saturating at 96%. Exam showed distended abdomen with left lower quadrant tenderness. BP at next recheck 96/61. 88/64 at subsequent recheck.
[2022-08-02 06:06] LABS: BUN Creatinine Ratio 30.2 (10-20); Bilirubin Direct 0.2 mg/dl (0-0.2); Bilirubin,Total 0.6 mg/dl (0.2-1.0); Calcium 7.6 mg/dl (8.6-10.3); Creatinine Clr Calc Pharmacy 12.9 ml/min; Est GFR (African American) 22.2 ml/min; Est GFR (Non-African American) 19.1 ml/min; Magnesium 1.9 mg/dl (1.7-2.4); Phosphorus 5.1 mg/dl (2.5-4.9); Potassium 2.8 mmol/L (3.5-5.1); Total Protein 3.7 gm/dl (6.0-8.3)
[2022-08-02] MEDS ORDERED: LEVOTHYROXINE SODIUM 50 MCG TABLET PO SCH (06:30)
[2022-08-02 07:05] LABS: Hematocrit (blood only) 32.7 % (37.0-47.0); Mean Corpuscular Hemoglobin 30.4 pg (25.0-34.0); Mean Corpuscular Hgb Conc 33.6 g/dL (32.0-36.0); Mean Corpuscular Volume 90.3 fL (80.0-100.0); Mean Platelet Volume 10.7 fL (9.4-12.4); Nucleated RBC # (auto) 0.02 K/uL (0-0.12); Nucleated RBC % (auto) 0.7 %; Platelet Count 154 K/uL (130-400); RDW Coefficient of Variation 14.6 % (11.5-14.5); RDW Standard Deviation 48.4 fL (36.4-46.3); Red Blood Count 3.62 M/uL (4.20-5.40); White Blood Count 2.98 K/ul (4.8-10.8)
[2022-08-02 07:08] LABS: Basophils # (auto) 0.02 K/uL (0-0.2); Basophils % (auto) 0.7 %; Dohle Bodies 1+; Echinocytes 3+; Giant Platelets 2+; Immature Granulocytes # (auto) 0.01 K/uL (0.01-0.20); Immature Granulocytes % (auto) 0.3 %; Lymphocytes # (auto) 0.32 K/uL (1.2-3.4); Lymphocytes % (auto) 10.7 %; Monocytes # (auto) 0.45 K/uL (0.11-0.59); Monocytes % (auto) 15.1 %; Neutrophils # (auto) 2.18 K/uL (1.40-6.50); Neutrophils % (auto) 73.2 %; Polychromasia 1+
[2022-08-02] MEDS ORDERED: DEXTROSE 50% 50 ML SYRINGE IV ONE ×2 (07:09→07:11)
[2022-08-02] MEDS ORDERED: AMIODARONE IV BOLUS & DRIP IV STA (07:45)
[2022-08-02] MEDS ORDERED: STAT IV Infusion **Titration per Protocol STA (07:45)
[2022-08-02] MEDS ORDERED: AMIODARONE / D5W 150 MG/100 ML BAG IV STA (07:55)
[2022-08-02] MEDS ORDERED: 0.2 MICRON FILTER SET 1 EACH IV STA (07:55)
[2022-08-02] MEDS: POTASSIUM CHLORIDE / WTR 10 MEQ/100 ML PLCT IV SCH ×4 (07:58→10:59)
[2022-08-02] MEDS: PANTOprazole 40 MG in SYRINGE 0 ML IV SCH (08:01)
[2022-08-02] MEDS: HEPARIN SOD 5,000 UNIT/0.5 ML VIAL SQ SCH ×2 (08:01→21:40)
[2022-08-02] MEDS ORDERED: AMIODARONE / D5W 360 MG/200 ML BAG IV ONE (08:05)
[2022-08-02] MEDS: LORazepam 2 MG/1 ML VIAL IV SCH ×2 (08:10→21:50)
--- NOTE | 2022-08-02 08:13 | Hospitalist Progress Note ---
Date of Service August 02, 2022 Assessment & Plan (1) Acute pancreatitis: Plan: Patient presented with acute epigastric abdominal pain and lipase initially in the 200s, which then deanna to the 3000's Also presented with suspected small bowel obstruction which is more likely a severe ileus and pancreatitis Abdominal pain seems to be improving, ileus improving-had 2 bowel movements overnight 07/31 and another bowel movement the morning of 08/02 KUB less distended bowel Lipase trending down to 200 Had previous acute pancreatitis several years ago with no cause found-is status post cholecystectomy, triglycerides are normal, no hypercalcemia, no alcohol use. Could have biliary disease? Pancreatic mass? Mildly elevated total bilirubin and alkaline phosphatase are now improved-MRCP with great motion artifact due to claustrophobia, there were not great pictures. CBD is chronically dilated, could not definitively see much else but no definite choledocholithiasis Appreciate GI input-possible EUS as an outpatient if family desires -Advance diet to clear liquids but patient has been quite encephalopathic and not able to take p.o. -Continue Dilaudid 0.5 Mg IV every 2 hours as needed for pain, oxycodone as needed if able to take pills -DC LR for volume overload, giving D5 at 50 MLS per hour for hypoglycemia -Follow LFTs, lipase, BMP, magnesium, phosphorus, CBC in the morning (2) Atrial fibrillation with RVR: Plan: Developed rapid atrial fibrillation with resultant hypotension with systolics in the 60s overnight on 08/01 Initially was given fluid boluses, IV digoxin x1, and IV albumin on overnight shift Continues to be hypotensive and lethargic Discussed cardioversion electrically versus with IV amiodarone with both cardiology and the patient's son/[id number] no escalation of care and no electric cardioversion -Start amiodarone bolus and drip -Holding anticoagulation due to drop in hemoglobin and previous rectal bleeding -Monitor on telemetry -Continue scheduled IV metoprolol with hold parameters for rate control -Replace electrolytes (3) Chronic kidney disease, stage 3a: Plan: PANTERA-with baseline creatinine 1.0 and initially increased to 2.0 Secondary to ATN from pancreatitis, prerenal with hypovolemia, and also some urinary retention contributing earlier in her hospital stay Renal function did improve somewhat but then worsened again acutely on 08/02 up to 2.2 after having hypotension from rapid atrial fibrillation With associated non-anion gap metabolic acidosis which is worsening today CT abdomen/pelvis shows atrophic left kidney but no hydronephrosis on the right kidney Lu catheter in place, urine output is a bit lower than previous and now developing respiratory distress -Correcting hypotension by treating rapid atrial fibrillation -Give Lasix 20 Mg IV x1 to improve urine output in the setting of hypoxia and pulmonary edema -Renally dose medications, avoid nephrotoxins -Follow serial BMP again this evening -Cautiously replace potassium with 40 mEq of IV (4) Hypokalemia: Plan: As above, replace cautiously in the setting of PANTERA (5) Acute metabolic encephalopathy: Plan: With confusion starting overnight 07/30 likely secondary to combination of acute kidney injury, IV opioid use, and withdrawal from benzodiazepines She takes Ativan 3 times daily at home but had not received any in over 24 hours-improved with use of IV Ativan-now on scheduled Ativan twice daily The IV Dilaudid is also contributing more so at this point and the dose was reduced -Continue to treat acute kidney injury -Treat pain -Supportive care (6) Small bowel obstruction: Plan: With 3 weeks of slowly worsening abdominal pain, in the setting of multiple intraabdominal surgeries with previous history of SBO Initial CT abdomen/pelvis here with suspicion for SBO and thickened distal stomach NG tube placed initially but then removed by GI during EGD on 07/30 Not a complete obstruction and more likely severe ileus secondary to pancreatitis Had 2 large nonbloody bowel movements overnight 07/31, abdomen is softer and another stool in the morning 08/02 KUB with improved distention Diet advanced to clear liquids but encephalopathy is preventing her from eating/drinking (7) GERD (gastroesophageal reflux disease): Plan: With gastritis noted on EGD, biopsies pending Continue PPI IV once daily (8) Hypothyroidism: Plan: Not awake and alert enough to take her p.o. levothyroxine-convert back to IV for tomorrow every 72 hours TSH normal in 03/2022 (9) Chronic pain syndrome: Plan: Typically takes oxycodone 3 times daily as needed Continue IV Dilaudid as needed for now Will unable to take p.o. (10) Hypertension: Plan: Blood pressures were elevated on admission secondary to pain and now with significant hypotension due to rapid atrial fibrillation Holding home p.o. meds while n.p.o. 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, on Eliquis outpatient for indefinite anticoagulation Held Eliquis since admission in case of need for surgical procedure and was placed on heparin gtt, but then heparin drip discontinued for maroon-colored stool which is now resolved Started prophylactic heparin on 08/01 (12) Adenocarcinoma of lung: Plan: History of, s/p lobectomy Not on supplemental oxygen at home, continue to monitor (13) Gastritis: Plan: As above, on EGD (14) Crohns disease: Plan: History of, diarrhea predominant Not on specific treatment for this Gastroenterology is on consult-no treatment needed at this time Plan Disposition-continued stay in PCU, prognosis is very guarded Discussed care with her son Mauricio on the phone extensively. He lives with her. He agrees that if she continues to further decline, would transition to comfort measures only. No electric cardioversion, no vasopressors, no further escalation of care beyond the current measures. DNR/DNI Admission and Anticipated Discharge Date Admission Date: July 30, 2022 Subjective Patient had new onset rapid atrial fibrillation overnight with resultant hypotension. She was given IV digoxin and albumin and had some improvement of her blood pressure to the 80s over 50s when I saw her early this morning. She was on 10 L oxygen mask and wean down to 5 L when I saw her. I discussed her care with cardiology urgently and decided to go with IV amiodarone as her son did not want an urgent cardioversion as an escalation of care She did have 1 bowel movement shortly before change of shift She was also found to be hypoglycemic Patient was slightly more awake this morning when I saw her than previous days, but still not able to answer many of my questions. Remains in atrial fibrillation after starting amiodarone but rates are much better in the 80s and blood pressure did improve to the 90s systolic Physical Exam Constitutional: + ill appearing and + lethargic Eyes: + anicteric sclerae Neck: trachea midline, no thyromegaly Respiratory: + tachypneic Auscultation: + crackles; no wheezes Cardiovascular: Rate/Rhythm: + tachycardic and + irregularly irregular Heart Sounds: no murmur Extremities: no edema Chest (Breasts): Chest: normal inspection of chest Gastrointestinal (Abdomen): Inspection/Auscultation: + abdomen distended (Mild) and + hypoactive bowel sounds; + abdomen abnormal to inspection (Midline laparotomy scar) Percussion/Palpation: + abdomen tender (Mild, improved from previous) and abdomen soft; no guarding Musculoskeletal: Extremities: extremities normal to inspection; no cyanosis and no clubbing Skin: no rashes, warm and dry Neurologic: + confused (But less so than previous) Genitourinary: Lu catheter in place Lymphatic: no lymphedema Results & Data Results & Data Vital Signs (Past 12 Hours) Vital Signs Temp Pulse Pulse Resp BP Pulse Ox Pulse Ox 08/02/22 07:40 125 H 16 89/54 L 95 08/02/22 06:15 98 H 86/54 L 96 08/02/22 05:45 130 H 96/61 L 08/02/22 05:00 97 08/02/22 05:42 138 H 08/02/22 05:26 128 H 72/56 L 96 08/02/22 05:00 156 H 64/40 L 08/02/22 00:50 108 H 08/01/22 22:01 116 H 08/01/22 20:15 36.9 C 97 H 20 110/73 95 08/01/22 23:45 36.6 C 107 H 18 116/64 96 08/01/22 22:20 O2 Del Method O2 Del Method O2 Flow Rate O2 Flow Rate 08/02/22 07:40 Oxymask 5 08/02/22 06:15 Oxymask 10 08/02/22 05:45 08/02/22 05:00 Oxymask 15 08/02/22 05:42 08/02/22 05:26 Oxymask 13 08/02/22 05:00 08/02/22 00:50 08/01/22 22:01 08/01/22 20:15 Nasal Cannula 2 08/01/22 23:45 Nasal Cannula 2 08/01/22 22:20 Nasal Cannula 2 Laboratory Results CBC, BMP, lipase, magnesium reviewed PG Care Time/CCT Total # of Minutes Spent Total Time Spent with Patient: Total time spent is greater than 50% in coordination of care (as documented) at patient's floor/unit and/or counseling patient: Coding Level of Care Code 59188 SUB INP/OBS CARE 3/50MIN Diagnoses Acute pancreatitis K85.90 Acute pancreatitis complication: unspecified Pancreatitis type: unspecified pancreatitis type Atrial fibrillation with RVR I48.91 Chronic kidney disease, stage 3a N18.31 Hypokalemia E87.6 Acute metabolic encephalopathy G93.41 Small bowel obstruction K56.609 GERD (gastroesophageal reflux disease) K21.9 Hypothyroidism E03.9 Chronic pain syndrome G89.4 Hypertension I10 Hypertension type: essential hypertension Thrombosis of ovarian vein I82.890 Adenocarcinoma of lung C34.90 Gastritis K29.70 Crohns disease K50.90 (1) Acute pancreatitis Acute pancreatitis complication: unspecified Pancreatitis type: unspecified p ancreatitis type Qualified Code(s): K85.90 - Acute pancreatitis without necrosis or infection, unspecified (10) Hypertension Hypertension type: essential hypertension Qualified Code(s): I10 - Essential (primary) hypertension
--- NOTE | 2022-08-02 09:54 | Cardiology Consultation ---
Date of Consultation August 02, 2022 Assessment & Plan (1) Atrial fibrillation with RVR: (2) Hypokalemia: (3) Hypotension: Plan ASSESSMENT/PLAN: 1. Atrial fibrillation with RVR: Occurred acutely on 08/02/2022 in the setting of significant hypokalemia. She was unstable with profound hypotension. Recommended amiodarone IV versus cardioversion. Dr. Olvia had discussed with family and they did not want to pursue cardioversion. Recommended amiodarone 150 mg IV followed by drip. She is already on chronic anticoagulation therapy as an outpatient. When safe, can resume anticoagulation therapy for stroke risk reduction. Recommend echo. 2. Hypotension: Likely due to A-fib with RVR. Amiodarone as above. She also received fluid boluses. 3. Hypokalemia: Repletion has been arranged by hospitalist service. 4. Disposition: Cardiology will continue to follow. Patient care discussed with Dr. Oliva of the primary hospitalist service. Highly complex medical issues for unstable acute illness. Thank you for allowing me to participate in the care of your patient. Please call for any other questions or concerns. Sincerely, Delon Julien M.D. History of Present Illness Reason for Consultation: Hypotension and A-fib with RVR Requesting Physician: Rachele Oliva MD Attending Physician: Rachele Oliva MD History of Present Illness Ms. Treviño is an 86-year-old female with a past medical history significant for dyslipidemia, hypertension, peripheral arterial disease, CKD, ovarian vein thrombosis on indefinite anticoagulation therapy, adenocarcinoma of the lung, Crohn's disease. She was hospitalized on 07/30/2022 and is being treated for acute pancreatitis, small bowel obstruction, and noted to have acute metabolic encephalopathy. Was called by Dr. Oliva this morning given hypotension and A-fib with RVR. She had been in sinus rhythm on telemetry and developed A-fib with RVR at 4:33 AM. She had been intermittently hypotensive at times but normotensive leading up to the A-fib. At 5 AM, her blood pressure was charted as 64/40 mmHg. She reportedly was given IV albumin and digoxin by the nocturnal hospitalist team. Her blood pressure improved into the 80s and 90s systolic. She remained tachycardic, but mildly improved with her heart rate. She does not respond verbally to conversation. She has a one-to-one at the bedside. Review of systems: As above. Review of systems unobtainable due to patient's mental status. Family history: Noncontributory. Social history: Unable to be reviewed with patient given mental status. Allergies Allergy/AdvReac Type Severity Reaction Status Date / Time ciprofloxacin Allergy Intermediate RASH, Verified 07/30/22 11:57 ITCHING cefuroxime [From Ceftin] Allergy Unknown Unknown Verified 07/30/22 11:57 latex Allergy Unknown REDNESS Verified 07/30/22 11:57 nitrofurantoin Allergy Unknown Unknown Verified 07/30/22 11:57 [From Macrobid] Sulfa (Sulfonamide Allergy Unknown RASH Verified 07/30/22 11:57 Antibiotics) aspirin AdvReac Severe Gastrointestinal Verified 07/30/22 11:57 Upset levofloxacin AdvReac Severe DIZZINESS, Verified 07/30/22 11:57 MYALGIA doxycycline AdvReac Unknown HEADACHE Verified 07/30/22 11:57 Home Medications Medication Instructions Recorded Confirmed Type cyanocobalamin (vitamin B-12) 1,000 mcg IM MONTHLY 12/24/17 07/30/22 History 1,000 mcg/mL injection solution colestipol 1 gram tablet 2 gm PO BID #360 tabs 06/03/19 07/30/22 Rx ipratropium bromide 21 mcg (0.03 2 spray intranasal TID #30 mL 01/05/20 07/30/22 Rx %) nasal spray gabapentin 100 mg capsule 200 mg PO BID #360 caps 06/15/20 07/30/22 Rx albuterol sulfate 90 mcg/actuation 2 puff inhalation .COMPLEX PRN 09/28/20 07/30/22 Rx aerosol inhaler (ProAir HFA) shortness of breath or wheezing #25.5 grams alendronate 70 mg tablet (Fosamax) 70 mg PO .COMPLEX #12 tabs 05/03/21 07/30/22 Rx cholecalciferol (vitamin D3) 50 50 mcg PO DAILY 05/22/21 07/30/22 History mcg (2,000 unit) capsule pantoprazole 40 mg tablet,delayed 40 mg PO DAILY #90 tabs 07/04/21 07/30/22 Rx release (Protonix) metoprolol tartrate 50 mg tablet 50 mg PO Q12H #220 tabs 07/05/21 07/30/22 Rx telmisartan 40 mg tablet 40 mg PO BID #180 tabs 07/19/21 07/30/22 Rx apixaban 5 mg tablet 5 mg PO BID #180 tabs 08/10/21 07/30/22 Rx potassium chloride 10 mEq 20 meq PO DAILY #180 caps 10/19/21 07/30/22 Rx capsule,extended release furosemide 20 mg tablet (Lasix) 10 mg PO DAILY #45 tabs 01/17/22 07/30/22 Rx levothyroxine 50 mcg tablet 50 mcg PO QAM #90 tabs 02/06/22 07/30/22 Rx meclizine 12.5 mg tablet 12.5 mg PO TID PRN dizziness #30 02/14/22 07/30/22 Rx tabs clonidine HCl 0.1 mg tablet See Rx Instructions PO BID #180 03/26/22 07/30/22 Rx tabs benzonatate 100 mg capsule 100 mg PO TID PRN cough #30 caps 04/20/22 07/30/22 Rx amlodipine 5 mg tablet 5 mg PO BID #180 tabs 05/21/22 07/30/22 Rx lorazepam 0.5 mg tablet 0.5 mg PO TID PRN anxiety #90 tabs 05/29/22 07/30/22 Rx oxycodone 5 mg tablet 5 mg PO TID PRN Pain #90 tabs 07/10/22 07/30/22 Rx Patient History Medical History 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 Allergic rhinitis Carotid artery stenosis, asymptomatic Chronic cystitis Chronic kidney disease, stage 3a Chronic obstructive pulmonary disease Chronic pain syndrome Crohns disease Depression with anxiety Disc degeneration, lumbar Essential hypertriglyceridemia GERD (gastroesophageal reflux disease) History of ischemic colitis Hyperlipidemia Hyperparathyroidism Hypertension Hypothyroidism Impaired fasting glucose LVH (left ventricular hypertrophy) Multiple lung nodules on CT Nocturnal leg cramps Nontoxic multinodular goiter Osteoarthritis Osteoporosis PAD (peripheral artery disease) Peripheral neuropathy Pernicious anemia Secondary hyperparathyroidism Small bowel obstruction SNHL (sensorineural hearing loss) 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 Mcelroy History of cholecystectomy History of colonoscopy History of ERCP (03/15/11) Dr. Diane History of esophagogastroduodenoscopy (EGD) History of hip surgery (02/2021) ORIF right hip History of lobectomy of lung (~09/2009) left lower lobectomy History of open reduction and internal fixation (ORIF) procedure (09/24/16) left tib/fib by Dr. Doyle History of tooth extraction Family History Mother Lung cancer Hypertension Hearing loss Father Cardiac disorder Coronary arteriosclerosis Coronary heart disease Sister Hypertension Brother Hypertension Son Cardiac disorder Denies family history of Ovarian cancer Prostate cancer Adverse anesthesia outcome Sinusitis Bleeding disorder Colorectal cancer Stroke Asthma Social History Smoking Status: Former smoker Tobacco Type: Cigarettes Age Started Using Tobacco: 24; Age Quit Using Tobacco: 76; packs per day: 1; Cigarettes Per Day: 20; Smoking End Date: 20 years ago; Second Hand Exposure: No; Hx Alcohol Use: No Hx Substance Use: No Preferred Language: Guyanese Communication Ability: Effective Communication Ability Comment: pt has bilateral hearing aids does not have them with her Hearing Ability: Use of Hearing Aid Endocrinology Teacher Required: No Beliefs That Will Affect Care: None marital status: Current Living Situation: Family current occupational status: retired Feels Safe at Home: Yes Safety Concerns: Feels Safe At This Time Diet Comment: chron's Dental Care, Regularly: No Physical Activity Frequency: Daily Physical Activity Frequency Comment: walk Seatbelt Use: always Sunscreen Use: No Assistive Devices: Cane, Denture - Upper, Denture - Lower, Glasses, Hearing Aid - Bilateral and Walker Physical Exam Physical Exam: Gen.: Awake. Appears agitated/uncomfortable. HEENT: Anicteric sclera. Neck: Difficult neck exam, possible JVD. Cardiac: No ventricular heave. Irregularly irregular. Tachycardic. Normal S1- S2. No murmurs, rubs, or gallops. Pulmonary: Clear on anterior auscultation. Abdomen: Soft, nontender, nondistended, with hypooactive bowel sounds. No bruits noted. Extremities: 2+ left radial pulse. Right radial pulse was nonpalpable. No edema or cyanosis. Results & Data Vital Signs (Past 12 Hours) Vital Signs Temp Pulse Pulse Resp BP Pulse Ox Pulse Ox 08/02/22 07:40 125 H 16 89/54 L 95 08/02/22 06:15 98 H 86/54 L 96 08/02/22 05:45 130 H 96/61 L 08/02/22 05:00 97 08/02/22 05:42 138 H 08/02/22 05:26 128 H 72/56 L 96 08/02/22 05:00 156 H 64/40 L 08/02/22 00:50 108 H 08/01/22 22:01 116 H 08/01/22 23:45 36.6 C 107 H 18 116/64 96 08/01/22 22:20 O2 Del Method O2 Del Method O2 Flow Rate O2 Flow Rate 08/02/22 07:40 Oxymask 5 08/02/22 06:15 Oxymask 10 08/02/22 05:45 08/02/22 05:00 Oxymask 15 08/02/22 05:42 08/02/22 05:26 Oxymask 13 08/02/22 05:00 08/02/22 00:50 08/01/22 22:01 08/01/22 23:45 Nasal Cannula 2 08/01/22 22:20 Nasal Cannula 2 Intake & Output 07/31/22 08/01/22 08/02/22 08/03/22 06:59 06:59 06:59 06:59 Intake Total 2273.850 / 2273.850 3078 / 3078 5057.5 / 5057.5 578.333 / 578.333 Output Total 950 / 950 627 / 627 255 / 255 Balance 1323.850 / 5562.835 2517 / 2451 4802.5 / 4802.5 578.333 / 578.333 Weight 99 lb 10.383 oz 102 lb 8.239 oz 107 lb 5.842 oz Laboratory Results Laboratory Results - last 24 hr 08/02/22 08/02/22 08/02/22 05:36 05:36 07:10 WBC 2.98 L RBC 3.62 L Hgb 11.0 L Hct 32.7 L MCV 90.3 MCH 30.4 MCHC 33.6 RDW Std Deviation 48.4 H RDW Coeff of Martine 14.6 H Plt Count 154 MPV 10.7 Immature Gran % (Auto) 0.3 Neut % (Auto) 73.2 Lymph % (Auto) 10.7 Stearns % (Auto) 15.1 Eos % (Auto) 0.0 Baso % (Auto) 0.7 Neut # (Auto) 2.18 Lymph # (Auto) 0.32 L Stearns # (Auto) 0.45 Eos # (Auto) 0.00 Baso # (Auto) 0.02 Immature Gran # (Auto) 0.01 Absolute Nucleated RBC 0.02 Nucleated RBC % (auto) 0.7 Dohle Bodies 1+ Giant Platelets 2+ Polychromasia 1+ Echinocytes 3+ Sodium 143 Potassium 2.8 L Chloride 117 H Carbon Dioxide 14 L Anion Gap 12 H BUN 68 H Creatinine 2.25 H D Est Cr Clr Drug Dosing 12.9 Est GFR ( Amer) 22.2 Est GFR (Non-Af Amer) 19.1 BUN/Creatinine Ratio 30.2 H Glucose 58 L POC Glucose 51 L* Calcium 7.6 L Phosphorus 5.1 H Magnesium 1.9 Total Bilirubin 0.6 Direct Bilirubin 0.2 AST 36 ALT 18 Alkaline Phosphatase 60 Total Protein 3.7 L Albumin 2.0 L Lipase 207 H 08/02/22 08/02/22 07:30 10:54 WBC RBC Hgb Hct MCV MCH MCHC RDW Std Deviation RDW Coeff of Martine Plt Count MPV Immature Gran % (Auto) Neut % (Auto) Lymph % (Auto) Stearns % (Auto) Eos % (Auto) Baso % (Auto) Neut # (Auto) Lymph # (Auto) Stearns # (Auto) Eos # (Auto) Baso # (Auto) Immature Gran # (Auto) Absolute Nucleated RBC Nucleated RBC % (auto) Dohle Bodies Giant Platelets Polychromasia Echinocytes Sodium Potassium Chloride Carbon Dioxide Anion Gap BUN Creatinine Est Cr Clr Drug Dosing Est GFR ( Amer) Est GFR (Non-Af Amer) BUN/Creatinine Ratio Glucose POC Glucose 165 H 99 Calcium Phosphorus Magnesium Total Bilirubin Direct Bilirubin AST ALT Alkaline Phosphatase Total Protein Albumin Lipase Diagnostic Findings Labs reviewed and notable for worsening renal function, significant hypokalemia at 2.8, mild anemia, new leukopenia, normal magnesium. Telemetry personally reviewed: Sinus rhythm with development of A-fib with RVR at 4:33 AM on 08/02/2022. ECG personally reviewed for 1022 at 00 17: Sinus 63 bpm. LVH with repolarization abnormality. Hospitalist progress note reviewed. GI progress note from 08/01/2022 reviewed. Chest x-ray 07/31/2022: No obvious infiltrate on personal review. Blunting of the left costophrenic angle. No acute chest disease per radiology. Abdomen/pelvis CT 07/29/2022: Thickening of the mid and distal stomach concerning for malignancy per radiology. Possible chronic/low-grade obstruction involving the small bowel. EGD 07/30/2022: No mass. Erythematous mucosa in the gastric body. Biopsies were taken. Medications Administered Current Inpatient Medications Heparin Sodium (Porcine) (Heparin Sod 5,000 Unit/0.5 Ml Vial) 5,[address] [facility] Stop: 08/31/22 20:59 Last Admin: 08/02/22 08:01 Dose: 5,000 units Hydromorphone HCl (Hydromorphone Inj 1 Mg/Ml Syringe) 0.5 mg IV Q2H PRN PRN Reason: severe/breakthrough pain Stop: 08/13/22 05:55 Last Admin: 08/02/22 04:37 Dose: 0.5 mg Prochlorperazine 5 mg/ Syringe 5 mls @ 5 mls/min IV Q6H PRN PRN Reason: Nausea And Vomiting Stop: 08/29/22 14:41 Last Admin: 07/30/22 20:17 Dose: 5 mls/min Lactated Ringer's (Lr) 1,000 mls @ 80 mls/hr IV .[id number] [facility] Stop: 08/30/22 09:14 Last Admin: 08/02/22 05:47 Dose: 150 mls/hr Pantoprazole Sodium 40 mg/ (Syringe) 10 mls @ 5 mls/min IV QAM [facility] Stop: 09/01/22 08:59 Last Admin: 08/02/22 08:01 Dose: 5 mls/min Amiodarone HCl/Dextrose (Nexterone / D5w) 360 mg in 200 mls @ 16.667 mls/hr IV .Q12H [facility] Stop: 09/01/22 14:04 Amiodarone HCl/Dextrose (Nexterone / D5w) 360 mg in 200 mls @ 33.333 mls/hr IV ONE ONE Stop: 08/02/22 14:04 Last Admin: 08/02/22 08:45 Dose: 1 mg/min, 33.3 mls/hr Levothyroxine Sodium (Levothyroxine Sodium 50 Mcg Tablet) 50 mcg PO DAILYBB [facility] Stop: 09/01/22 06:29 Last Admin: 08/02/22 05:37 Dose: Not Given Lorazepam (Lorazepam 2 Mg/1 Ml Vial) 0.[address] [facility] Stop: 08/31/22 20:59 Last Admin: 08/02/22 08:10 Dose: 0.5 mg Metoprolol Tartrate (Metoprolol Tartrate 1 Mg/Ml Vial) 5 mg IV Q6 [facility] Stop: 08/29/22 05:59 Last Admin: 08/02/22 06:06 Dose: Not Given Ondansetron HCl (Ondansetron Inj 2 Mg/Ml 2 Ml Vial) 4 mg IV Q6H PRN PRN Reason: nausea Stop: 08/29/22 05:14 Last Admin: 07/31/22 02:31 Dose: 4 mg Oxycodone HCl (Oxycodone Hcl Ir 5 Mg Tab (Immediate Release)) 5 mg PO TID PRN PRN Reason: Pain Stop: 08/15/22 10:30 Polyethylene Glycol (Polyethylene (Miralax) 17 Gm Pack) 17 gm PO DAILY PRN PRN Reason: Constipation Stop: 08/29/22 05:55 PG Care Time/CCT Total # of Minutes Spent Total Time Spent with Patient: Total time spent is greater than 50% in coordination of care (as documented) at patient's floor/unit and/or counseling patient: Coding Level of Care Code 42337 INT INP/OBS CARE 3/75MIN Diagnoses Atrial fibrillation with RVR I48.91 Hypokalemia E87.6 Hypotension I95.9
[2022-08-02] MEDS: AMIODARONE / D5W 360 MG/200 ML BAG IV SCH (14:13)
[2022-08-02] MEDS ORDERED: FUROSEMIDE INJ 20 MG/2 ML VIAL IV ONE (15:21)
[2022-08-02] MEDS ORDERED: DEXTROSE 5% 1,000 ML IV SCH (16:00)
--- NOTE | 2022-08-02 17:47 | XRay Report ---
KUB CLINICAL HISTORY: Follow-up ileus/SBO COMPARISON STUDY: CT of the abdomen and pelvis July 30, 2022. KUB August 01, 2022. FINDINGS: Bilateral femoral internal fixation hardware is partially imaged. Differential between smal l and large bowel is difficult on this exam. However, mild bowel distention has slightly decreased si nce prior exam. IMPRESSION: Slight decrease in gaseous distention of small and large bowel. This could reflect an il eus or partial small bowel obstruction. ACT 112: Negative or not required by law. Electronically signed by: Tavo Kingsley M.D. 08/02/2022 5:46 PM
[2022-08-02 23:07] LABS: BUN Creatinine Ratio 28.9 (10-20); Calcium 8.5 mg/dl (8.6-10.3); Creatinine Clr Calc Pharmacy 12.7 ml/min; Est GFR (African American) 21.8 ml/min; Est GFR (Non-African American) 18.8 ml/min
[2022-08-03] MEDS: AMIODARONE / D5W 360 MG/200 ML BAG IV SCH ×2 (02:08→13:34)
[2022-08-03] MEDS: HYDROmorphone INJ 1 MG/ML SYRINGE IV PRN ×6 (02:47→18:14)
[2022-08-03 05:00] LABS: Albumin Globulin Ratio 1.6 (0.9-2); Albumin Level 2.6 gm/dl (3.4-5.0); BUN Creatinine Ratio 27.5 (10-20); Bilirubin,Total 0.6 mg/dl (0.2-1.0); Calcium 8.6 mg/dl (8.6-10.3); Creatinine Clr Calc Pharmacy 12.1 ml/min; Est GFR (African American) 20.5 ml/min; Est GFR (Non-African American) 17.7 ml/min; Globulin 1.6 gm/dl (2.5-4.0); Phosphorus 4.2 mg/dl (2.5-4.9); Potassium 2.9 mmol/L (3.5-5.1); Total Protein 4.2 gm/dl (6.0-8.3)
[2022-08-03 05:37] LABS: Basophils # (auto) 0.04 K/uL (0-0.2); Basophils % (auto) 0.7 %; Dohle Bodies 1+; Echinocytes 2+; Hematocrit (blood only) 28.4 % (37.0-47.0); Hemoglobin 9.6 g/dl (12.0-16.0); Immature Granulocytes # (auto) 0.06 K/uL (0.01-0.20); Immature Granulocytes % (auto) 1.1 %; Lymphocytes % (auto) 5.4 %; Mean Corpuscular Hemoglobin 30.4 pg (25.0-34.0); Mean Corpuscular Hgb Conc 33.8 g/dL (32.0-36.0); Mean Corpuscular Volume 89.9 fL (80.0-100.0); Monocytes # (auto) 0.56 K/uL (0.11-0.59); Monocytes % (auto) 10.1 %; Neutrophils # (auto) 4.57 K/uL (1.40-6.50); Neutrophils % (auto) 82.7 %; Nucleated RBC # (auto) 0.05 K/uL (0-0.12); Nucleated RBC % (auto) 0.9 %; Platelet Count 129 K/uL (130-400); RDW Standard Deviation 49.3 fL (36.4-46.3); Red Blood Count 3.16 M/uL (4.20-5.40); White Blood Count 5.53 K/ul (4.8-10.8)
[2022-08-03] MEDS: POTASSIUM CHLORIDE / WTR 10 MEQ/100 ML PLCT IV SCH ×6 (05:48→11:52)
[2022-08-03] MEDS: METOPROLOL TARTRATE 1 MG/ML VIAL IV SCH ×3 (06:03→18:14)
[2022-08-03 07:50] LABS: Allen Test Pos (Pos); Base Excess ABG -12.6 mEq/L (-9-1.8); HCO3 ABG 13 mmol/L (19-24); Oxygen Saturation ABG 99.8 % (90-95); PCO2 ABG 29 mmHg (35-46); PO2 ABG 168 mmHg (80-95); pH ABG 7.26 (7.35-7.45)
[2022-08-03] MEDS: PANTOprazole 40 MG in SYRINGE 0 ML IV SCH (08:05)
[2022-08-03] MEDS: LORazepam 2 MG/1 ML VIAL IV SCH ×4 (08:05→22:19)
[2022-08-03] MEDS: HEPARIN SOD 5,000 UNIT/0.5 ML VIAL SQ SCH (08:06)
[2022-08-03 08:11] LABS: BUN Creatinine Ratio 27.5 (10-20); Calcium 8.6 mg/dl (8.6-10.3); Creatinine Clr Calc Pharmacy 12.1 ml/min; Est GFR (African American) 20.5 ml/min; Est GFR (Non-African American) 17.7 ml/min
[2022-08-03 08:21] LABS: Troponin I High Sensitivity 2105.9 pg/ml (0-14)
[2022-08-03 08:32] LABS: Basophils # (auto) 0.05 K/uL (0-0.2); Basophils % (auto) 0.8 %; Dohle Bodies 1+; Echinocytes 2+; Eosinophils # (auto) 0.01 K/uL (0-0.50); Eosinophils % (auto) 0.2 %; Hematocrit (blood only) 25.9 % (37.0-47.0); Hemoglobin 8.9 g/dl (12.0-16.0); Immature Granulocytes # (auto) 0.06 K/uL (0.01-0.20); Lymphocytes # (auto) 0.28 K/uL (1.2-3.4); Lymphocytes % (auto) 4.5 %; Mean Corpuscular Hemoglobin 30.2 pg (25.0-34.0); Mean Corpuscular Hgb Conc 34.4 g/dL (32.0-36.0); Mean Corpuscular Volume 87.8 fL (80.0-100.0); Mean Platelet Volume 10.8 fL (9.4-12.4); Monocytes # (auto) 0.67 K/uL (0.11-0.59); Monocytes % (auto) 10.7 %; Neutrophils # (auto) 5.18 K/uL (1.40-6.50); Neutrophils % (auto) 82.8 %; Nucleated RBC # (auto) 0.05 K/uL (0-0.12); Nucleated RBC % (auto) 0.8 %; Platelet Count 123 K/uL (130-400); Polychromasia 1+; RDW Coefficient of Variation 14.7 % (11.5-14.5); RDW Standard Deviation 47.7 fL (36.4-46.3); Red Blood Count 2.95 M/uL (4.20-5.40); White Blood Count 6.25 K/ul (4.8-10.8)
[2022-08-03] MEDS ORDERED: STAT IV STA (09:02)
[2022-08-03] MEDS ORDERED: FUROSEMIDE 40 MG/4 ML VIAL IV ONE (09:02)
[2022-08-03] MEDS ORDERED: SODIUM BICARBONATE 8.4% 150 MEQ in DEXTROSE 5% 1,000 ML IV SCH (09:15)
[2022-08-03] MEDS ORDERED: ACETAMINOPHEN 1,000 MG/100 ML VIAL IV PRN (09:31)
--- NOTE | 2022-08-03 09:48 | XRay Report ---
SINGLE VIEW CHEST CLINICAL HISTORY: Hypoxia. FINDINGS: An AP, portable, supine chest radiograph is compared to study dated 07/31/2022 and correlate d with chest CT dated 12/26/2017 as [address] as abdominal CT dated 07/30/2022. The heart is enlarged noting atherosclerotic calcification of the thoracic aorta. The pulmonary vasculature is noncongested. Suspe ct small layering pleural effusions (right larger than left) dependent consolidation. No pneumothorax is seen. The skeletal structures are osteopenic. There are chronic/healed bilateral rib fractures. IMPRESSION: 1. Cardiomegaly without radiographic evidence of congestive failure. 2. Suspect small pleural effusions with dependent consolidation. This it is difficult to assess on a supine examination. This was not seen on 07/31/2022. ACT 112: Negative or not required by law. Electronically signed by: Roly Storey M.D. 08/03/2022 9:45 AM
[2022-08-03] MEDS ORDERED: LORazepam 2 MG/1 ML VIAL IV STA (10:44)
--- NOTE | 2022-08-03 11:08 | XCELERA ---
[id number]
--- NOTE | 2022-08-03 12:24 | Palliative Care Consultation ---
Date of Consultation August 03, 2022 Assessment & Plan (1) Pain: History of chronic pain with new pancreatitis and ileus She had hypoxia and hypotension prior to opioid use She has had 2.5 mg IV hydromorphone in last 24 hours O2 requirement increasing over the course of the day Persistent restlessness and moaning Start hydromorphone infusion Discussed with son, Juan (2) Anxiety: On chronic lorazepam Increase anxiety with hospitalization and acute illness (3) Palliative care encounter: I met with Mrs. Treviño's sons, Juan and Mauricio. We reviewed her current status and concern with poor prognosis. Unfortunately, she has multiorgan failure despite optimal management. Her son Mauricio, tells me that she enjoyed spending time with her sons and grandson which brought her the most happiness. Being able to do that is an important quality of life indicator. Her had been in SNF for a short period of time before his and she specifically said that she would not want that for herself. She has talked about her wishes for care after her 's illness. She clearly did not want resuscitation and Mauricio is confident that she would not to be a burden to family. We discussed concern that even with treatment, she is likely to within days. She has had significant discomfort despite careful use of opioid and anxiolytic medications. Her son Mauricio, feels that she would want shift of focus to comfort and symptom management over disease management. Juan does not dispute this but asks several times if we could continue current care for a few more days. I explained that we could if that were her wish and asked them what they thought she would tell us. I also talked with Juan about his hope and expectation for the outcome to her illness. He tells me that he is hoping that she can get better. We discussed concern that she is at very high risk for over the next few days and that even if she survives this illness, she would be significantly debilitated and would need SNF care, which was not her wish. Sons are not in agreement about plan of care for Mrs. Treviño and Mauricio left during conversation out of frustration. I spoke further with Juan about the likely inevitable of his mother in the next few days and what he would want that to look like. He tells me that he wants her to be comfortable but can't make the decision that will cause her . Regardless of care moving forward, she is likely to and has specifically said that she would not want aggressive measures on SNF. Juan is in agreement with gradual removal of support care with any medications necessary to provide comfort. He has support of hospital rn corrections and has requested a few hours before change in care plan. I did speak with Mauricio on the phone and updated him. He supports shift of focus to comfort and symptom management. I met with Juan again, later this afternoon. He is tearful and continues to hope for a miracle but realizes that his mother is approaching her dying time. He does not want her to be uncomfortable. Dana is again restless and moaning. Will start hydromorphone infusion, continue lorazepam. Will do gradual removal of disease management medications with titration down on high flow oxygen and amiodarone. Discussed with RN and Dr. Oliva. History of Present Illness Reason for Consultation: goals of care Requesting Physician: Dr. Oliva xcz Attending Physician: Rachele Oliva MD History of Present Illness 86 yo lady who had been living independently prior to admission. Her several months ago and her son had been living with her recently. He reports that she had chronic pain and difficulty with ambulation but was able to shop and enjoy time with her family. She presented with abdominal pain secondary to ileus and pancreatitis. She has had complicated course with acute renal failure, respiratory failure and atrial fibrillation with RVR and severe hypotension. She is currently on amiodarone infusion and potassium replacement for hypokalemia. Despite some improvement in her pancreatitis and ileus, she has had progressive decline. She has also had restlessness and pain despite continuation of the lorazepam that she was taking at home, IV tylenol and hydromorphone. She is currently not responsive to voice or touch. She is resting comfortably after doses of ativan, hydromorphone and tylenol. Allergies Allergy/AdvReac Type Severity Reaction Status Date / Time ciprofloxacin Allergy Intermediate RASH, Verified 07/30/22 11:57 ITCHING cefuroxime [From Ceftin] Allergy Unknown Unknown Verified 07/30/22 11:57 latex Allergy Unknown REDNESS Verified 07/30/22 11:57 nitrofurantoin Allergy Unknown Unknown Verified 07/30/22 11:57 [From Macrobid] Sulfa (Sulfonamide Allergy Unknown RASH Verified 04/10/23 11:57 Antibiotics) aspirin AdvReac Severe Gastrointestinal Verified 07/30/22 11:57 Upset levofloxacin AdvReac Severe DIZZINESS, Verified 07/30/22 11:57 MYALGIA doxycycline AdvReac Unknown HEADACHE Verified 07/30/22 11:57 Home Medications Medication Instructions Recorded Confirmed Type cyanocobalamin (vitamin B-12) 1,000 mcg IM MONTHLY 12/24/17 07/30/22 History 1,000 mcg/mL injection solution colestipol 1 gram tablet 2 gm PO BID #360 tabs 06/03/19 07/30/22 Rx ipratropium bromide 21 mcg (0.03 2 spray intranasal TID #30 mL 01/05/20 07/30/22 Rx %) nasal spray gabapentin 100 mg capsule 200 mg PO BID #360 caps 06/15/20 07/30/22 Rx albuterol sulfate 90 mcg/actuation 2 puff inhalation .COMPLEX PRN 09/28/20 07/30/22 Rx aerosol inhaler (ProAir HFA) shortness of breath or wheezing #25.5 grams alendronate 70 mg tablet (Fosamax) 70 mg PO .COMPLEX #12 tabs 05/03/21 07/30/22 Rx cholecalciferol (vitamin D3) 50 50 mcg PO DAILY 05/22/21 07/30/22 History mcg (2,000 unit) capsule pantoprazole 40 mg tablet,delayed 40 mg PO DAILY #90 tabs 07/04/21 07/30/22 Rx release (Protonix) metoprolol tartrate 50 mg tablet 50 mg PO Q12H #220 tabs 07/05/21 07/30/22 Rx telmisartan 40 mg tablet 40 mg PO BID #180 tabs 07/19/21 07/30/22 Rx apixaban 5 mg tablet 5 mg PO BID #180 tabs 08/10/21 07/30/22 Rx potassium chloride 10 mEq 20 meq PO DAILY #180 caps 10/19/21 07/30/22 Rx capsule,extended release furosemide 20 mg tablet (Lasix) 10 mg PO DAILY #45 tabs 01/17/22 07/30/22 Rx levothyroxine 50 mcg tablet 50 mcg PO QAM #90 tabs 02/06/22 07/30/22 Rx meclizine 12.5 mg tablet 12.5 mg PO TID PRN dizziness #30 02/14/22 07/30/22 Rx tabs clonidine HCl 0.1 mg tablet See Rx Instructions PO BID #180 03/26/22 07/30/22 Rx tabs benzonatate 100 mg capsule 100 mg PO TID PRN cough #30 caps 04/20/22 07/30/22 Rx amlodipine 5 mg tablet 5 mg PO BID #180 tabs 05/21/22 07/30/22 Rx lorazepam 0.5 mg tablet 0.5 mg PO TID PRN anxiety #90 tabs 05/29/22 07/30/22 Rx oxycodone 5 mg tablet 5 mg PO TID PRN Pain #90 tabs 07/10/22 07/30/22 Rx Patient History Medical History 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 Allergic rhinitis Carotid artery stenosis, asymptomatic Chronic cystitis Chronic kidney disease, stage 3a Chronic obstructive pulmonary disease Chronic pain syndrome Crohns disease Depression with anxiety Disc degeneration, lumbar Essential hypertriglyceridemia GERD (gastroesophageal reflux disease) History of ischemic colitis Hyperlipidemia Hyperparathyroidism Hypertension Hypothyroidism Impaired fasting glucose LVH (left ventricular hypertrophy) Multiple lung nodules on CT Nocturnal leg cramps Nontoxic multinodular goiter Osteoarthritis Osteoporosis PAD (peripheral artery disease) Peripheral neuropathy Pernicious anemia Secondary hyperparathyroidism Small bowel obstruction SNHL (sensorineural hearing loss) 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 Mcelroy History of cholecystectomy History of colonoscopy History of ERCP (03/15/11) Dr. Diane History of esophagogastroduodenoscopy (EGD) History of hip surgery (02/2021) ORIF right hip History of lobectomy of lung (~09/2009) left lower lobectomy History of open reduction and internal fixation (ORIF) procedure (09/24/16) left tib/fib by Dr. Doyle History of tooth extraction Family History Mother Lung cancer Hypertension Hearing loss Father Cardiac disorder Coronary arteriosclerosis Coronary heart disease Sister Hypertension Brother Hypertension Son Cardiac disorder Denies family history of Ovarian cancer Prostate cancer Adverse anesthesia outcome Sinusitis Bleeding disorder Colorectal cancer Stroke Asthma Social History Smoking Status: Former smoker Tobacco Type: Cigarettes Age Started Using Tobacco: 24; Age Quit Using Tobacco: 76; packs per day: 1; Cigarettes Per Day: 20; Smoking End Date: 20 years ago; Second Hand Exposure: No; Hx Alcohol Use: No Hx Substance Use: No Preferred Language: [place] Communication Ability: Effective Communication Ability Comment: pt has bilateral hearing aids does not have them with her Hearing Ability: Use of Hearing Aid [employer] Required: No Beliefs That Will Affect Care: Spiritual marital status: Current Living Situation: Family current occupational status: retired Feels Safe at Home: Yes Safety Concerns: Feels Safe At This Time Diet Comment: chron's Dental Care, Regularly: No Physical Activity Frequency: Daily Physical Activity Frequency Comment: walk Seatbelt Use: always Sunscreen Use: No Assistive Devices: Cane, Denture - Upper, Denture - Lower, Glasses, Hearing Aid - Bilateral and Walker Review of Systems Review of Systems: Unobtainable due to reduced consciousness Physical Exam Constitutional: + ill appearing Respiratory: normal respiratory effort; no labored breathing high flow O2 40L with 80% FiO2 Cardiovascular: Rate/Rhythm: + irregularly irregular Gastrointestinal (Abdomen): distended, no facial grimace with palpation Musculoskeletal: Extremities: + muscle atrophy Neurologic: + not awake Results & Data Vital Signs (Past 12 Hours) Vital Signs Temp Pulse Pulse Resp BP BP Pulse Ox 08/03/22 12:02 97.7 F 77 18 123/52 L 92 08/03/22 10:50 80 26 H 96 08/03/22 05:59 79 08/03/22 07:44 98.1 F 79 22 93/48 L 93 08/03/22 06:22 80 22 97 08/03/22 06:03 18 90 08/03/22 06:00 97.5 F L 76 16 92/66 L 89 L 08/03/22 05:00 08/03/22 02:30 18 93 08/03/22 02:14 97.9 F 83 18 105/66 94 Pulse Ox O2 Del Method O2 Del Method O2 Flow Rate O2 Flow Rate FiO2 08/03/22 12:02 High Flow Nasal Cannula 30 80 08/03/22 10:50 High Flow Nasal Cannula 30 80 08/03/22 05:59 08/03/22 07:44 BiPAP 100 08/03/22 06:22 100 08/03/22 06:03 Nasal Cannula 13 08/03/22 06:00 Nasal Cannula 9 08/03/22 05:00 94 Nasal Cannula 9 08/03/22 02:30 Nasal Cannula 7 08/03/22 02:14 Nasal Cannula 5 PG Care Time/CCT Total # of Minutes Spent Total Time Spent: 125 Total Time Spent with Patient: Total time spent is greater than 50% in coordination of care (as documented) at patient's floor/unit and/or counseling patient:goals of care, family education and support, symptom management, coordination of care Coding Level of Care Code 68928 INT INP/OBS CARE 3/75MIN Diagnoses Pain R52 Anxiety F41.9 Palliative care encounter Z51.5
--- NOTE | 2022-08-03 12:54 | Cardiology Progress Note ---
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 Atrial fibrillation with RVR: Occurred acutely on 08/02/2022 in the setting of significant hypokalemia. She was unstable with profound hypotension. Family did not wish for cardioversion. IV amiodarone effectively slowed her heart rate and converted to sinus rhythm. She remains in sinus rhythm. Continue IV amiodarone for now and can transition to oral amiodarone if appropriate and able in the future. She has been on neck anticoagulation therapy for history of ovarian vein thrombosis. Anticoagulation currently held due to maroon-colored stool during this hospital stay and also exhibiting worsening anemia. 2. Hypotension: Likely due to A-fib with RVR in the setting of systolic anterior motion of the mitral leaflet and LVOT obstruction. Blood pressure has improved with tenriism of sinus rhythm and improved heart rate. 3. Hypokalemia: Repletion as per hospitalist service. 4. NSTEMI: Please due to demand ischemia in the setting of A-fib with RVR and LVOT obstruction, which was likely much more significant in the setting of tachycardia. Avoid tachycardia. Cannot exclude underlying coronary artery disease but she is not a candidate for ischemic evaluation currently. Can trend troponin until peaked, unless comfort measures are decided upon at upcoming family meeting. With current mental status, unable to take p.o. medications. 5. 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 Obstruction was likely to be much more significant in the setting of A-fib with RVR yesterday. Try to maintain adequate preload. Difficult to know her volume status as she is likely third spacing in the setting of pancreatitis and hypoalbuminemia. Avoid vasodilation. 6. Disposition: I will be away from the hospital for the next several days. Please call the on-call [place] [employer] armor officer for questions or concerns. Patient care discussed with Dr. Oliva of the primary hospitalist service. Family meeting with palliative care is pending early this afternoon. Highly complex medical issues. Admission and Anticipated Discharge Date Admission Date: July 30, 2022 Subjective Patient seen at approximately 12 PM today. She was somnolent but opened her eyes. She seemed agitated at times when moving or upon stimuli. She did not verbally respond. Discussing with Dr. Oliva, she had been placed on BiPAP earlier today and was quite agitated and then was placed on high flow nasal cannula which she appeared to tolerate better. She and nursing staff report that there is a family meeting with palliative care today at approximately 1230. Physical Exam Physical Exam: Gen.: Somnolent but opened eyes periodically and when more awake, appeared agitated. HEENT: Anicteric sclera. Neck: Difficult neck exam. Cardiac: No ventricular heave. Regular. Normal S1-S2. 2/6 systolic ejection murmur. No rubs, or gallops. Pulmonary: Clear on anterior auscultation. Abdomen: Soft, nontender, nondistended, with hypooactive bowel sounds. No bruits noted. Extremities: Trace bilateral lower extremity edema. No cyanosis. Results & Data Vital Signs (Past 12 Hours) Vital Signs Temp Pulse Pulse Resp BP BP Pulse Ox 08/03/22 12:38 53 L 08/03/22 12:28 96 08/03/22 08:00 08/03/22 12:02 36.5 C 77 18 123/52 L 92 08/03/22 10:50 80 26 H 96 08/03/22 05:59 79 08/03/22 07:44 36.7 C 79 22 93/48 L 93 08/03/22 06:22 80 22 97 08/03/22 06:03 18 90 08/03/22 06:00 36.4 C L 76 16 92/66 L 89 L 08/03/22 05:00 08/03/22 02:30 18 93 08/03/22 02:14 36.6 C 83 18 105/66 94 Pulse Ox O2 Del Method O2 Del Method O2 Flow Rate O2 Flow Rate FiO2 08/03/22 12:38 08/03/22 12:28 High Flow Nasal Cannula 40 80 08/03/22 08:00 BiPAP 08/03/22 12:02 High Flow Nasal Cannula 30 80 08/03/22 10:50 High Flow Nasal Cannula 30 80 08/03/22 05:59 08/03/22 07:44 BiPAP 100 04/14/23 06:22 100 08/03/22 06:03 Nasal Cannula 13 08/03/22 06:00 Nasal Cannula 9 08/03/22 05:00 94 Nasal Cannula 9 08/03/22 02:30 Nasal Cannula 7 08/03/22 02:14 Nasal Cannula 5 Intake & Output 08/01/22 08/02/22 08/03/22 08/04/22 06:59 06:59 06:59 06:59 Intake Total 3078 / 3078 5057.5 / 5057.5 2378.174 / 2378.174 1005.000 / 1005.000 Output Total 627 / 627 255 / 255 975 / 975 200 / 200 Balance 2451 / 2451 4802.5 / 4802.5 1403.174 / 1403.174 805.000 / 805.000 Weight 102 lb 8.239 oz 107 lb 5.842 oz 107 lb 5.842 oz Laboratory Results Laboratory Results - last 24 hr 08/02/22 08/02/22 08/03/22 15:04 22:34 04:24 WBC RBC Hgb Hct MCV MCH MCHC RDW Std Deviation RDW Coeff of Martine Plt Count MPV Immature Gran % (Auto) Neut % (Auto) Lymph % (Auto) [place] % (Auto) Eos % (Auto) Baso % (Auto) Neut # (Auto) Lymph # (Auto) [place] # (Auto) Eos # (Auto) Baso # (Auto) Immature Gran # (Auto) Absolute Nucleated RBC Nucleated RBC % (auto) Hyposegmented Neuts Dohle Bodies Polychromasia Echinocytes ABG pH ABG pCO2 ABG pO2 ABG HCO3 ABG O2 Saturation ABG Base Excess Remy Test Oxygen Given Sodium 144 Potassium 3.0 L Chloride 116 H Carbon Dioxide 14 L Anion Gap 14 H BUN 66 H Creatinine 2.28 H Est Cr Clr Drug Dosing 12.7 Est GFR ( Amer) 21.8 Est GFR (Non-Af Amer) 18.8 BUN/Creatinine Ratio 28.9 H Glucose 87 POC Glucose 83 Lactate Calcium 8.5 L Phosphorus Magnesium 2.0 Total Bilirubin AST ALT Alkaline Phosphatase Troponin I High Sens Total Protein Albumin Globulin Albumin/Globulin Ratio Lipase Digoxin 0.8 08/03/22 08/03/22 08/03/22 04:24 04:24 07:28 WBC 5.53 6.25 RBC 3.16 L 2.95 L Hgb 9.6 L 8.9 L Hct 28.4 L 25.9 L MCV 89.9 87.8 MCH 30.4 30.2 MCHC 33.8 34.4 RDW Std Deviation 49.3 H 47.7 H RDW Coeff of Martine 15.0 H 14.7 H Plt Count 129 L 123 L MPV 11.0 10.8 Immature Gran % (Auto) 1.1 1.0 Neut % (Auto) 82.7 82.8 Lymph % (Auto) 5.4 4.5 [place] % (Auto) 10.1 10.7 Eos % (Auto) 0.0 0.2 Baso % (Auto) 0.7 0.8 Neut # (Auto) 4.57 5.18 Lymph # (Auto) 0.30 L 0.28 L [place] # (Auto) 0.56 0.67 H Eos # (Auto) 0.00 0.01 Baso # (Auto) 0.04 0.05 Immature Gran # (Auto) 0.06 0.06 Absolute Nucleated RBC 0.05 0.05 Nucleated RBC % (auto) 0.9 0.8 Hyposegmented Neuts 1+ Dohle Bodies 1+ 1+ Polychromasia 1+ Echinocytes 2+ 2+ ABG pH ABG pCO2 ABG pO2 ABG HCO3 ABG O2 Saturation ABG Base Excess Remy Test Oxygen Given Sodium 143 Potassium 2.9 L Chloride 117 H Carbon Dioxide 14 L Anion Gap 12 H BUN 66 H Creatinine 2.40 H Est Cr Clr Drug Dosing 12.1 Est GFR ( Amer) 20.5 Est GFR (Non-Af Amer) 17.7 BUN/Creatinine Ratio 27.5 H Glucose 106 H POC Glucose Lactate Calcium 8.6 Phosphorus 4.2 Magnesium 2.0 Total Bilirubin 0.6 AST 53 H ALT 28 Alkaline Phosphatase 58 Troponin I High Sens Total Protein 4.2 L Albumin 2.6 L Globulin 1.6 L Albumin/Globulin Ratio 1.6 Lipase 115 H Digoxin 08/03/22 08/03/22 08/03/22 07:28 07:28 07:33 WBC RBC Hgb Hct MCV MCH MCHC RDW Std Deviation RDW Coeff of Martine Plt Count MPV Immature Gran % (Auto) Neut % (Auto) Lymph % (Auto) [place] % (Auto) Eos % (Auto) Baso % (Auto) Neut # (Auto) Lymph # (Auto) [place] # (Auto) Eos # (Auto) Baso # (Auto) Immature Gran # (Auto) Absolute Nucleated RBC Nucleated RBC % (auto) Hyposegmented Neuts Dohle Bodies Polychromasia Echinocytes ABG pH 7.26 L ABG pCO2 29 L ABG pO2 168 H ABG HCO3 13 L ABG O2 Saturation 99.8 H ABG Base Excess -12.6 L Remy Test Pos Oxygen Given 100% Sodium 143 Potassium 3.0 L Chloride 117 H Carbon Dioxide 16 L Anion Gap 10 BUN 66 H Creatinine 2.40 H Est Cr Clr Drug Dosing 12.1 Est GFR ( Amer) 20.5 Est GFR (Non-Af Amer) 17.7 BUN/Creatinine Ratio 27.5 H Glucose 112 H POC Glucose Lactate 1.0 Calcium 8.6 Phosphorus Magnesium Total Bilirubin AST ALT Alkaline Phosphatase Troponin I High Sens 2105.9 H* Total Protein Albumin Globulin Albumin/Globulin Ratio Lipase Digoxin Diagnostic Findings Echo 08/03/2022: Hyperdynamic LV systolic function. EF > 70%. No regional wall motion abnormalities. Moderate LVH. Systolic anterior motion of the mitral leaflet with moderate LVOT obstruction. Mild MR. Mild to moderate TR. Mild pulmonary hypertension. Small pericardial effusion along the RV free wall. ECG personally reviewed 08/03/2022 at 7:11 AM: Sinus rhythm 81 bpm. PVCs. LVH with repolarization abnormality. Telemetry personally reviewed: Atrial fibrillation converted to sinus rhythm yesterday afternoon. Currently sinus rhythm. Chest x-ray personally reviewed 08/03/2022: Right-sided pleural effusion. Per radiology, no radiographic evidence of congestive failure. Small pleural effusions with dependent consolidation. Labs notable for worsening anemia, ABG suggests acidemia, hypokalemia, worsening renal failure, normal magnesium, elevated high-sensitivity troponin, hypoalbuminemia, elevated lipase but trending downward. Medications Administered Current Inpatient Medications Heparin Sodium (Porcine) (Heparin Sod 5,000 Unit/0.5 Ml Vial) 5,000 units SQ Q12 [facility] Stop: 08/31/22 20:59 Last Admin: 08/03/22 08:06 Dose: 5,000 units Hydromorphone HCl (Hydromorphone Inj 1 Mg/Ml Syringe) 0.5 mg IV Q2H PRN PRN Reason: severe/breakthrough pain Stop: 08/13/22 05:55 Last Admin: 08/03/22 11:59 Dose: 0.5 mg Pantoprazole Sodium 40 mg/ (Syringe) 10 mls @ 5 mls/min IV QAM [facility] Stop: 09/01/22 08:59 Last Admin: 08/03/22 08:05 Dose: 5 mls/min Amiodarone HCl/Dextrose (Nexterone / D5w) 360 mg in 200 mls @ 16.667 mls/hr IV .Q12H [facility] Stop: 09/01/22 14:04 Last Admin: 08/03/22 02:08 Dose: 0.5 mg/min, 16.7 mls/hr Levothyroxine Sodium 25 mcg/ (Syringe) 1.25 mls @ 2 mls/min IV Q72H [facility]; Protocol Stop: 09/03/22 08:59 Sodium Bicarbonate 150 meq/ (Dextrose) 1,150 mls @ 50 mls/hr IV .Q23H [facility] Stop: 09/02/22 09:14 Last Admin: 08/03/22 09:46 Dose: 50 mls/hr Acetaminophen (Ofirmev) 1,000 mg in 100 mls @ 400 mls/hr IV Q8H PRN PRN Reason: Pain Stop: 08/06/22 09:30 Last Infusion: 08/03/22 12:03 Dose: Infused Lorazepam (Lorazepam 2 Mg/1 Ml Vial) 0.5 mg IV BID [facility]ULU Stop: 08/31/22 20:59 Last Admin: 08/03/22 08:05 Dose: 0.5 mg Metoprolol Tartrate (Metoprolol Tartrate 1 Mg/Ml Vial) 5 mg IV Q6 [facility] Stop: 08/29/22 05:59 Last Admin: 08/03/22 12:38 Dose: Not Given Ondansetron HCl (Ondansetron Inj 2 Mg/Ml 2 Ml Vial) 4 mg IV Q6H PRN PRN Reason: nausea Stop: 08/29/22 05:14 Last Admin: 07/31/22 02:31 Dose: 4 mg Oxycodone HCl (Oxycodone Hcl Ir 5 Mg Tab (Immediate Release)) 5 mg PO TID PRN PRN Reason: Pain Stop: 08/15/22 10:30 PG Care Time/CCT Total # of Minutes Spent Total Time Spent with Patient: Total time spent is greater than 50% in coordination of care (as documented) at patient's floor/unit and/or counseling patient: Coding Level of Care Code 41579 SUB INP/OBS CARE 3/50MIN Diagnoses Atrial fibrillation with RVR I48.91 Hypokalemia E87.6 Hypotension I95.9 Non-ST elevation (NSTEMI) myocardial infarction I21.4 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
[2022-08-03] MEDS ORDERED: GLYCOPYRROLATE 0.2 MG/ML VIAL IV PRN (14:03)
[2022-08-03 14:42] LABS: BUN Creatinine Ratio 28.1 (10-20); Calcium 8.4 mg/dl (8.6-10.3); Creatinine Clr Calc Pharmacy 12.6 ml/min; Est GFR (African American) 21.5 ml/min; Est GFR (Non-African American) 18.5 ml/min; Potassium 3.3 mmol/L (3.5-5.1)
[2022-08-03] MEDS ORDERED: ONDANSETRON 4 MG OD TAB SL PRN (15:36)
[2022-08-03] MEDS ORDERED: LORazepam 2 MG/1 ML VIAL IV PRN (15:36)
[2022-08-03] MEDS ORDERED: ONDANSETRON INJ 2 MG/ML 2 ML VIAL IV PRN (15:36)
[2022-08-03] MEDS ORDERED: HYDROmorphone/NSS 100 MG/100 ML BAG IV SCH (15:45)
[2022-08-03 17:30] LABS: Troponin I High Sensitivity 1639.5 pg/ml (0-14)
--- NOTE | 2022-08-03 22:04 | Hospitalist Progress Note ---
Date of Service August 03, 2022 Assessment & Plan (1) Comfort measures only status: (2) Acute pancreatitis: Plan: Presented with acute epigastric abdominal pain and lipase initially in the 200s, which then deanna to the 3000's Also p/w suspected SBO which are now to be severe ileus 2/2 pancreatitis Abdominal pain somewhat improved, ileus improved and moving bowels, may be less distended bowel Lipase trending down to 200 Had previous acute pancreatitis several years ago with no cause found-is status post cholecystectomy, triglycerides are normal, no hypercalcemia, no alcohol use. Could have biliary disease? Pancreatic mass? Mildly elevated total bilirubin and alkaline phosphatase are now improved-MRCP with great motion artifact due to claustrophobia, there were not great pictures. CBD is chronically dilated, could not definitively see much else but no de finite choledocholithiasis Diet was advanced to clear liquids, but patient remained with severe encephalopathy and unable to take any p.o. Now on comfort measures Dilaudid drip on board Discontinue IV fluids (3) Atrial fibrillation with RVR: Plan: Developed rapid atrial fibrillation with resultant hypotension with systolics in the 60s overnight on 08/01 Initially was given fluid boluses, IV digoxin x1, and IV albumin on overnight shift Continued to be hypotensive and lethargic Discussed cardioversion electrically versus with IV amiodarone with both cardiology and the patient's son/[id number] no escalation of care and no electric cardioversion -Started amiodarone bolus and drip now discontinued as transition to comfort measures only -Held anticoagulation due to drop in hemoglobin and previous rectal bleeding DC metoprolol and amiodarone Move off of telemetry (4) Acute metabolic encephalopathy: Plan: With confusion starting overnight 07/30 likely secondary to combination of acute kidney injury, IV opioid use, severe pain, ileus, and initially thought to be some component of withdrawal from benzodiazepines. This did not improve with restarting home Ativan Has not eaten anything food or drink in 4 to 5 days, continues to be severely agitated, restless, moaning, unable to communicate -Transition to [employer] -Appreciate palliative medicine consultation -Dilaudid drip instituted, Ativan as needed (5) Chronic kidney disease, stage 3a: Plan: With PANTERA-with baseline creatinine 1.0 and continues to worsen secondary to ATN from pancreatitis, prerenal with hypovolemia, and also some urinary retention contributing earlier in her hospital stay. Worsened then by hypotension associated with rapid atrial fibrillation With associated non-anion gap metabolic acidosis CT abdomen/pelvis shows atrophic left kidney but no hydronephrosis on the right kidney Lu catheter in place, urine output is a bit lower than previous and then developed respiratory distress Lasix IV given several doses, did not improve respiratory status much Due to severe encephalopathy, transitioning to [employer] No further lab draws Maintain Lu catheter No further IV fluids (6) Small bowel obstruction: Plan: With 3 weeks of slowly worsening abdominal pain, in the setting of multiple intraabdominal surgeries with previous history of SBO Initial CT abdomen/pelvis here with suspicion for SBO and thickened distal stomach NG tube placed initially but then removed by GI during EGD on 07/30 Not a complete obstruction and more likely severe ileus secondary to pancreatitis Had 2 large nonbloody bowel movements overnight 07/31, abdomen is softer and another stool in the morning 08/02 KUB with improved distention Diet advanced to clear liquids but encephalopathy is preventing her from eating/drinking Now on [employer] (7) Hypokalemia: Plan: Replaced No further lab draws (8) GERD (gastroesophageal reflux disease): Plan: With gastritis noted on EGD, biopsies pending Discontinue PPI on [employer] (9) Hypothyroidism: Plan: Discontinue LT4 now on [employer] (10) Chronic pain syndrome: Plan: Typically takes oxycodone 3 times daily as needed for arthritis pain Continue IV Dilaudid drip on [employer] (11) Hypertension: Plan: Blood pressures were elevated on admission secondary to pain and now with significant hypotension due to rapid atrial fibrillation Discontinue all medications (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, on Eliquis outpatient for indefinite anticoagulation Held Eliquis since admission in case of need for surgical procedure and was placed on heparin gtt, but then heparin drip discontinued for maroon-colored stool which is now resolved Discontinue all anticoagulants on [employer] (13) Adenocarcinoma of lung: Plan: History of, s/p lobectomy (14) Crohns disease: Plan: History of, diarrhea predominant (15) Non-ST elevation (NSTEMI) myocardial infarction: Plan: Troponin 1999 and trended downward Likely demand myocardial ischemia secondary to rapid atrial fibrillation, BABAK with moderate obstruction during episode of tachycardia causing hypotension No further evaluation necessary due to multisystem organ failure and transition to [employer] (16) 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 Expect her to pass away in the next 24 to 48 hours Spent 90 minutes in total care of this patient with multiple discussions with her 2 sons, palliative medicine, cardiology, nursing staff on multiple occasions DNR/DNI Admission and Anticipated Discharge Date Admission Date: July 30, 2022 Subjective Patient was placed on BiPAP overnight for worsening respiratory distress and hypoxia. She continues to be significantly agitated, moaning, restless in the bed, unable to tell me if she is having pain or any symptoms. She does open her eyes and look at me at times but not able to answer my questions. She was given IV Tylenol without much effect for pain in an effort to minimize opioid use due to altered mental status. She has not eaten or drank anything by mouth in almost 5 days. She was given her usual dose of Ativan but this did not help her significant agitation. She was removed from BiPAP and placed on high flow nasal cannula which she continued to try to remove. Due to her ongoing significant hypoxia, she was given a dose of IV Lasix. She does have worsening renal failure today. Multiple discussions totaling 90 minutes between myself, both of her sons, palliative medicine, cardiology were had throughout the morning. Ultimately, patient was transition to comfort measures only by the afternoon. Physical Exam Constitutional: + ill appearing and + lethargic (But significantly agitated, restless) Eyes: + anicteric sclerae Neck: trachea midline, no thyromegaly Respiratory: + labored breathing and + tachypneic Auscultation: + crackles and + wheezes Cardiovascular: Rate/Rhythm: regular rate and + irregularly irregular Heart Sounds: no murmur Extremities: + edema (1-2+ pitting edema with weeping in the arms and legs bilaterally) Chest (Breasts): Chest: normal inspection of chest Gastrointestinal (Abdomen): Inspection/Auscultation: normal bowel sounds; + abdomen abnormal to inspection (Midline laparotomy scar) and abdomen not distended Percussion/Palpation: + abdomen tender (Mild, improved from previous) and abdomen soft; no guarding Musculoskeletal: Extremities: no cyanosis and no clubbing Skin: no rashes, warm and dry Neurologic: moves all extremities, + confused and + obtunded; no focal motor deficits Genitourinary: Lu catheter in place Results & Data Results & Data Vital Signs (Past 12 Hours) Vital Signs Temp Pulse Pulse Resp BP Pulse Ox O2 Del Method 08/03/22 19:34 67 18 90 Nasal Cannula 08/03/22 19:46 Nasal Cannula 08/03/22 18:11 36.4 C L 65 10 L 70/43 L 08/03/22 14:06 62 08/03/22 12:38 53 L 08/03/22 12:28 96 High Flow Nasal Cannula 08/03/22 12:02 36.5 C 77 18 123/52 L 92 High Flow Nasal Cannula 08/03/22 10:50 80 26 H 96 High Flow Nasal Cannula O2 Flow Rate FiO2 08/03/22 19:34 2 08/03/22 19:46 2 08/03/22 18:11 08/03/22 14:06 08/03/22 12:38 08/03/22 12:28 40 80 08/03/22 12:02 30 80 08/03/22 10:50 30 80 Laboratory Results CBC, CMP, lactate, magnesium, troponin, lipase, digoxin levels all reviewed Diagnostic Findings Chest x-ray image personally reviewed PG Care Time/CCT Total # of Minutes Spent Total Time Spent with Patient: Total time spent is greater than 50% in coordination of care (as documented) at patient's floor/unit and/or counseling patient: Prolonged Care Time Prolonged Care Time: Yes Total Prolonged Care Time: 90 I spent 90 minutes in prolonged care time on this patient Coding Level of Care Code 45591 SUB INP/OBS CARE 3/50MIN (25 - SIGNIFICANT, SEPARATELY IDENTIFIABLE ) Diagnoses Comfort measures only status Z51.5 Acute pancreatitis K85.90 Acute pancreatitis complication: unspecified Pancreatitis type: unspecified pancreatitis type Atrial fibrillation with RVR I48.91 Acute metabolic encephalopathy G93.41 Chronic kidney disease, stage 3a N18.31 Small bowel obstruction K56.609 Hypokalemia E87.6 GERD (gastroesophageal reflux disease) K21.9 Hypothyroidism E03.9 Chronic pain syndrome G89.4 Hypertension I10 Hypertension type: essential hypertension Thrombosis of ovarian vein I82.890 Adenocarcinoma of lung C34.90 Crohns disease K50.90 Non-ST elevation (NSTEMI) myocardial infarction I21.4 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
--- NOTE | 2022-08-03 22:20 | Electrocardiogram Report ---
Test Reason : Blood Pressure : / mmHG Vent. Rate : 098 BPM Atrial Rate : 098 BPM P-R Int : 142 ms QRS Dur : 094 ms QT Int : 332 ms P-R-T Axes : 072 022 209 degrees QTc Int : 423 ms Normal sinus rhythm Left ventricular hypertrophy with repolarization abnormality Abnormal ECG When compared with ECG of 30-JUL-2022 00:17, Vent. rate has increased BY 35 BPM Confirmed by Sancho Julien ([id number]) on 08/03/2022 10:20:32 PM Referred By: REFERRED SELF Confirmed By:Sancho Julien
[2022-08-04] MEDS: LORazepam 2 MG/1 ML VIAL IV SCH ×6 (02:50→22:22)
--- NOTE | 2022-08-04 05:54 | Electrocardiogram Report ---
Test Reason : Blood Pressure : / mmHG Vent. Rate : 081 BPM Atrial Rate : 081 BPM P-R Int : 128 ms QRS Dur : 094 ms QT Int : 334 ms P-R-T Axes : -48 024 251 degrees QTc Int : 387 ms Unusual P axis, possible ectopic atrial rhythm with occasional Premature ventricular complexes Left ventricular hypertrophy with repolarization abnormality Abnormal ECG When compared with ECG of 02-AUG-2022 12:54, Ectopic atrial rhythm has replaced Sinus rhythm Premature ventricular complexes are now Present Confirmed by Sancho Julien ([id number]) on 08/04/2022 5:53:55 AM Referred By: REFERRED SELF Confirmed By:Sancho Julien
[2022-08-04] MEDS ORDERED: LEVOTHYROXINE SODIUM 25 MCG in SYRINGE 0 ML IV SCH (09:00)
--- NOTE | 2022-08-04 18:48 | Communication Note ---
Date of Service: August 04, 2022 Ethics consult note: Asked to evaluate situation in extensive discussions with Dr. Cunningham. Case reviewed with her, chart reviewed extensively. Discussed si tuation with family. Beneficence: Appears that the patient is in such extreme state of acute illness (encephalopathy, deconditioning/weakness, overall frailty, renal failure, persistent hypotension, etc.) that any aggressive measures would have an exceedingly low likelihood of a favorable outcomeeven would be unlikely that she would survive this hospitalization Nonmaleficence: On the one hand, given the very little potential for beneficence, any intervention would likely be more harm than goodi.e. violating nonmaleficence. Even more, because her hypotension is so profound, she would likely need her pain medicines ceased to even tryand it appears that yesterday she was writhing and moaning in appearance of uncontrolled pain prior to initiation of medicationsso stopping the pain medicine would likely be of significant harm Autotomy: Patient had DNR/DNI expressed, and review of palliative care notes, it appears that she would not have wanted to have prolonged snf care, sons had decided to make her comfort measuresalthough her son Juan admittedly has been struggling with that, but did not express a true desire to change to aggressive carerather just struggling with the whole situation. To that end, comfort measures appears to be most in line with her autonomy Justice: Does not appear to be applicable in the situation With all of the above in mind, comfort care appears to be extremely reasonable in her situation.
--- NOTE | 2022-08-04 20:59 | Hospitalist Progress Note ---
Date of Service August 04, 2022 Assessment & Plan (1) Comfort measures only status: Plan: 86 yo F who was admitted with SBO and found to have acute pancreatitis (unknown etiology) ended up decompensating and going into multi-organ failure (ie resp, renal and new onset afib with RVR). Family transitioned her to comfort measures on 08/03/22 -- however today this discussion was revisited. One son wanted to reconsider pursing aggressive care, the other did not. After extensive discussion, both agreed to have her remain on comfort measures moving forward. (2) Acute pancreatitis: Plan: Presented with acute epigastric abdominal pain and lipase initially in the 200s, which then deanna to the 3000's Also p/w suspected SBO which are now to be severe ileus 2/2 pancreatitis Abdominal pain somewhat improved, ileus improved and moving bowels, may be less distended bowel Lipase trending down to 200 Had previous acute pancreatitis several years ago with no cause found-is status post cholecystectomy, triglycerides are normal, no hypercalcemia, no alcohol use. Could have biliary disease? Pancreatic mass? Mildly elevated total bilirubin and alkaline phosphatase are now improved-MRCP with great motion artifact due to claustrophobia, there were not great pictures. CBD is chronically dilated, could not definitively see much else but no definite choledocholithiasis Diet was advanced to clear liquids, but patient remained with severe encephalopathy and unable to take any p.o. Now on comfort measures Dilaudid drip on board Discontinue IV fluids (3) Atrial fibrillation with RVR: Plan: Developed rapid atrial fibrillation with resultant hypotension with systolics in the 60s overnight on 08/01 Initially was given fluid boluses, IV digoxin x1, and IV albumin on overnight shift Continued to be hypotensive and lethargic Discussed cardioversion electrically versus with IV amiodarone with both cardiology and the patient's son/[id number] no escalation of care and no electric cardioversion -Started amiodarone bolus and drip now discontinued as transition to comfort measures only -Held anticoagulation due to drop in hemoglobin and previous rectal bleeding DC metoprolol and amiodarone Move off of telemetry (4) Acute metabolic encephalopathy: Plan: With confusion starting overnight 07/30 likely secondary to combination of acute kidney injury, IV opioid use, severe pain, ileus, and initially thought to be some component of withdrawal from benzodiazepines. This did not improve with restarting home Ativan Has not eaten anything food or drink in 4 to 5 days, continues to be severely agitated, restless, moaning, unable to communicate -Transition to [employer] -Appreciate palliative medicine consultation -Dilaudid drip instituted, Ativan as needed (5) Chronic kidney disease, stage 3a: Plan: With PANTERA-with baseline creatinine 1.0 and continues to worsen secondary to ATN from pancreatitis, prerenal with hypovolemia, and also some urinary retention contributing earlier in her hospital stay. Worsened then by hypotension associated with rapid atrial fibrillation With associated non-anion gap metabolic acidosis CT abdomen/pelvis shows atrophic left kidney but no hydronephrosis on the right kidney Lu catheter in place, urine output is a bit lower than previous and then developed respiratory distress Lasix IV given several doses, did not improve respiratory status much Due to severe encephalopathy, transitioning to [employer] No further lab draws Maintain Lu catheter No further IV fluids (6) Small bowel obstruction: Plan: With 3 weeks of slowly worsening abdominal pain, in the setting of multiple intraabdominal surgeries with previous history of SBO Initial CT abdomen/pelvis here with suspicion for SBO and thickened distal stomach NG tube placed initially but then removed by GI during EGD on 07/30 Not a complete obstruction and more likely severe ileus secondary to pancreatitis Had 2 large nonbloody bowel movements overnight 07/31, abdomen is softer and another stool in the morning 08/02 KUB with improved distention Diet advanced to clear liquids but encephalopathy is preventing her from eating/drinking Now on [employer] (7) Hypokalemia: Plan: Replaced No further lab draws (8) GERD (gastroesophageal reflux disease): Plan: With gastritis noted on EGD, biopsies pending Discontinue PPI on [employer] (9) Hypothyroidism: Plan: Discontinue LT4 now on [employer] (10) Chronic pain syndrome: Plan: Typically takes oxycodone 3 times daily as needed for arthritis pain Continue IV Dilaudid drip on [employer] (11) Hypertension: Plan: Blood pressures were elevated on admission secondary to pain and now with significant hypotension due to rapid atrial fibrillation Discontinue all medications (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, on Eliquis outpatient for indefinite anticoagulation Held Eliquis since admission in case of need for surgical procedure and was placed on heparin gtt, but then heparin drip discontinued for maroon-colored stool which is now resolved Discontinue all anticoagulants on [employer] (13) Adenocarcinoma of lung: Plan: History of, s/p lobectomy (14) Crohns disease: Plan: History of, diarrhea predominant (15) Non-ST elevation (NSTEMI) myocardial infarction: Plan: Troponin 1999 and trended downward Likely demand myocardial ischemia secondary to rapid atrial fibrillation, BABAK with moderate obstruction during episode of tachycardia causing hypotension No further evaluation necessary due to multisystem organ failure and transition to [employer] (16) 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 Expect her to pass away in the next 24 to 48 hours Spent 90 minutes in total care of this patient with multiple discussions with her 2 sons, palliative medicine, cardiology, nursing staff on multiple occasions DNR/DNI Admission and Anticipated Discharge Date Admission Date: July 30, 2022 Subjective Patient not able to be aroused. Family present at bedside. Review of Systems Review of Systems: Unobtainable due to cognitive status Physical Exam Constitutional: + ill appearing; no acute distress ENMT: external ear and nose normal, oropharynx normal Neck: trachea midline, no thyromegaly Respiratory: normal respiratory effort Skin: no rashes, warm and dry Results & Data Results & Data Vital Signs (Past 12 Hours) Vital Signs Temp Pulse Resp BP Pulse Ox O2 Del Method O2 Flow Rate 08/04/22 15:24 36.5 C 89 10 L 65/40 L 96 Nasal Cannula 2 PG Care Time/CCT Total # of Minutes Spent Total Time Spent with Patient: Total time spent is greater than 50% in coordination of care (as documented) at patient's floor/unit and/or counseling patient: Coding Level of Care Code 61385 SUB INP/OBS CARE 2/35MIN Diagnoses Comfort measures only status Z51.5 Acute pancreatitis K85.90 Acute pancreatitis complication: unspecified Pancreatitis type: unspecified pancreatitis type Atrial fibrillation with RVR I48.91 Acute metabolic encephalopathy G93.41 Chronic kidney disease, stage 3a N18.31 Small bowel obstruction K56.609 Hypokalemia E87.6 GERD (gastroesophageal reflux disease) K21.9 Hypothyroidism E03.9 Chronic pain syndrome G89.4 Hypertension I10 Hypertension type: essential hypertension Thrombosis of ovarian vein I82.890 Adenocarcinoma of lung C34.90 Crohns disease K50.90 Non-ST elevation (NSTEMI) myocardial infarction I21.4 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
[2022-08-05] MEDS: LORazepam 2 MG/1 ML VIAL IV SCH ×2 (03:06→06:22)
--- NOTE | 2022-08-05 16:29 | Discharge Summary ---
Date of Service August 05, 2022 Admission HPI Per Admitting Provider 86 yo F Hx CKD, HTN, multiple abdominal surgeries presented to the ER for evaluation and management of epigastric abdominal pain that first started about 3 weeks ago, but has been acutely worse over the last 2 days with associated nausea and decreased appetite. In the ER patient noted to be hypertensive but otherwise hemodynamically stable. Lab work notable for WBC count of 13.11, alk phos 165, lipase 228, COVID-19 testing negative. CTAP with evidence of chronic/low-grade SBO, thickening of the mid/distal stomach concerning for possible malignancy, and L1/L4 compression fractures that were age- indeterminate. Patient was given Zofran, IV fluids, and fentanyl for pain. Due to imaging findings and ongoing pain, hospitalist service was consulted for admission. On my interview, patient endorses epigastric pain and nausea. She reports about 5 pounds of unintentional weight loss over the last month. Denies recent fevers or chills, chest pain, shortness of breath. Admission Exam Per Admitting Provider Constitutional: WD/WN, vitals as above ENMT: NGT in place Respiratory: normal respiratory effort, lungs clear to auscultation Cardiovascular: RRR, no murmur, no edema Gastrointestinal (Abdomen): abdomen soft, tender in epigastric region without rebound, no acute abdomen, no bowel sounds appreciated Skin: no rashes, warm and dry Psychiatric: AAOx3, irritable affect Principal Diagnosis Expiration Discharge Exam Patient Discharge Data Allergies Allergy/AdvReac Type Severity Reaction Status Date / Time ciprofloxacin Allergy Intermediate RASH, Verified 07/30/22 11:57 ITCHING cefuroxime [From Ceftin] Allergy Unknown Unknown Verified 07/30/22 11:57 latex Allergy Unknown REDNESS Verified 07/30/22 11:57 nitrofurantoin Allergy Unknown Unknown Verified 07/30/22 11:57 [From Macrobid] Sulfa (Sulfonamide Allergy Unknown RASH Verified 07/30/22 11:57 Antibiotics) aspirin AdvReac Severe Gastrointestinal Verified 07/30/22 11:57 Upset levofloxacin AdvReac Severe DIZZINESS, Verified 07/30/22 11:57 MYALGIA doxycycline AdvReac Unknown HEADACHE Verified 07/30/22 11:57 Consultations 07/30/22 04:08 ED Decision to Admit Stat 07/30/22 05:56 Consult Gastroenterology Routine Consult General Surgery Routine 08/02/22 07:27 Consult Cardiology Routine 08/03/22 11:54 Consult Palliative Care Routine 08/03/22 15:37 Consult Palliative Care Routine Procedures Performed Operation Date: 07/30/22 17:15 Actual Procedures p EGD Biopsy Cytology - Jersey Garcia MD Ordered Studies 07/29/22 23:56 CT abd pelvis IV con only Stat 07/31/22 09:04 MRI MRCP [MR MRCP] Stat Hospital Course (1) Comfort measures only status: Patient was admitted on 07/30/22 with a three week history of abdominal pain. On admission her abdominopelvic cat scan showed findings consistent with a small bowel obstruction/ileus. She had a history of multiple prior abdominal surgeries and a previous SBO. She was initially made NPO and supportive care was ordered. She then developed acute pancreatitis with lipase levels exceeding 3000. Gastroenterology was consulted due to these ailments, along with the presence of stomach thickening on abdominopelvic cat scan, the appearance of which was concerning for possible gastric malignancy. She did undergo an EGD at which time biopsies were taken of the erythematous gastric mucosa. Pathology retuned showing inflammation but no evidence of malignant cells. Despite reduction in lipase levels and apparent improvement in small bowel obstruction/ileus, patient went into a systemic inflammatory response and multi-organ failure. Acute renal failure ensued, with creatinine levels rising from 0.99 to 2.40. She also went into new onset atrial fibrillation with rapid ventricular response. Cardiology was consulted regarding the latter problem, at which time cardioversion was advised. Patient's family declined such invasive measures given her overall frailty, and thus she was treated medically with beta blockers (for rate control) and placed on an amiodarone drip with intent of rhythm uatsdin. She also went respiratory distress given her new onset Afib in conjunction with severe abdominal pain. While patient had a DNR/DNI, she was placed on high flow oxygen with an Fio2 of 40%. After extensive conversions with hospitalist service and also with palliative care, patient's family elected to pursue comfort measures (which included a Dilaudid drip for management of her severe abdominal pain) given her multi-organ failure, underlying frailty and stated desires not to ultimately live in a residential facility. Despite this initial conclusion, there were second thoughts about resuming aggressive care measures from one of the patient's sons (Juan). Hospitalist team discussed case with family, re-visited this case with palliative care, and juanjose placed a hospital ethics consult given the circumstances. Juanjose, family decided to keep patient on comfort care and she succumbed to her illness on 08/05/22. Total Time Total Time Spent Total Time Spent (In Minutes): 15 Total Time Includes: Other (Communication with nursing staff and completion of certificate ) Discharge Plan Discharge Items Patient Disposition: Other Date/Time: 08/05/22 07:40 Coding Level of Care Code 40702 IN/OBS DISCH 30 MIN/LESS Diagnoses Comfort measures only status Z51.5 Time Spent (min) 15
== END 2022-08-05 11:02 | disposition expired | DRG 438 ==
LOC: ED 23:46 → 2S 07-30 04:23 → SUATTDRO 07-30 04:23 → 2S 07-30 05:24 → 3E 08-04 00:32